=== PATIENT | female | born 1960 | race Caucasian/White ===

== ENCOUNTER 2020-01-21 15:27 | Outpatient (CLI) | payer MEDICARE, MEDICAID, SELFPAY ==
--- NOTE | ~2020-01-21 | XR_ITS ---
EXAMINATION: XR knee RT min 4V EXAM DATE: 01/21/2020 16:13 INDICATION: No known recent injury provided at this time. Pain of the right knee TECHNIQUE: Right knee lateral, frontal AP, frontal PA tunnel, sunrise projections. There is no prior study for comparison. FINDINGS: No evidence osteochondral defect or joint body in the right knee joint. There is moderate patellofemoral and medial tibiofemoral compartment primary osteoarthritis. There are no acute joint effusion. fractures or dislocations identified. There is no subcutaneous gas. The soft tissue is un remarkable. There are no radiopaque foreign bodies. IMPRESSION: Moderate right knee osteoarthritis. Reviewed, dictated and finalized at location A.
--- NOTE | ~2020-01-21 | US_ITS ---
EXAMINATION: US joint non vasc comp RT DATE: 01/21/2020 16:03 INDICATION: Specified medial right knee pain TECHNIQUE: Multiple grayscale and Doppler ultrasound images of the region of concern at the medial ri ght knee were obtained. COMPARISON: Right knee radiographs dated 01/21/2020 FINDINGS/IMPRESSION: No abnormal masses or fluid collections identified at the region of concern. No etiology identified f or medial right knee pain. Reviewed, dictated and finalized at location B.
== END 2020-01-21 15:28 | disposition home or self-care (01) ==
PROVIDERS: PCP Internal Medicine; Visit Provider Internal Medicine
DX: M25.569 Pain in unspecified knee (principal); M25.461 Effusion, right knee; M17.11 Unilateral primary osteoarthritis, right knee
CPT/HCPCS: 73564; 76881

== ENCOUNTER 2020-05-23 15:40 | Outpatient (CLI) | payer MEDICARE, MEDICAID, SELFPAY ==
--- NOTE | ~2020-05-23 | MM_ITS ---
EXAMINATION: MM screening [place] BI w caro HISTORY: Screening mammogram TECHNIQUE: Craniocaudal and mediolateral oblique 3-D tomosynthesis images were obtained and synthetic 2-D images were generated. CAD analysis was submitted and interpreted. COMPARISON: 01/13/2018 diagnostic left digital mammogram 01/05/2018 limited left breast ultrasound 12/30/2017, 11/08/2016 bilateral digital screening mammogram examinations BREAST PARENCHYMAL COMPOSITION: There are scattered areas of fibroglandular density. FINDINGS: There are scattered bilateral benign calcifications. There is stable mild fibroglandular asymmetry. There is no evidence of suspicious mass, calcification , or architectural distortion to suggest malignancy in either breast. There has been no suspicious in terval change. IMPRESSION: 1. No mammographic evidence of malignancy. 2. Recommend routine screening mammography in one year. BI-RADS Category 2: Benign finding(s). Reviewed, dictated and finalized at location A. VITY THERAPY SPECIALIST
== END 2020-05-23 15:41 | disposition home or self-care (01) ==
LOC: ANHIMG 15:45
PROVIDERS: PCP Internal Medicine; Visit Provider Internal Medicine
DX: Z12.31 Encounter for screening mammogram for malignant neoplasm of breast (principal)
CPT/HCPCS: 77063; 77067

== ENCOUNTER 2020-05-29 09:41 | Outpatient (CLI) | payer MEDICARE, MEDICAID, SELFPAY ==
[2020-05-29 10:11] LABS: Hematocrit 45.1 % (37.0-47.0); Hemoglobin 14.3 g/dL (12.0-15.0); Immature Platelet Fraction Pct 8.2 % (0.9-11.2); Mean Corpuscular HGB Conc 31.7 g/dl (32-36); Mean Corpuscular Hemoglobin 26.2 pg (26-34); Mean Corpuscular Volume 82.8 fl (80-100); Mean Platelet Volume 10.8 fl (7.4-10.4); Platelet Count Result 99 k/mm3 (150-375); Red Blood Count 5.45 M/mm3 (4.2-5.4); Red Cell Distribution Width 14.7 % (11.5-14.5); White Blood Count 8.4 K/mm3 (4.5-10.0)
[2020-05-29 10:23] LABS: Alanine Aminotransferase 29 U/L (4-35); Anion Gap 6 mmol/L (8-16); Aspartate Amino Transferase 30 U/L (14-36); Blood Urea Nitrogen 9 mg/dL (7-17); Calcium 9.1 mg/dL (8.4-10.2); Carbon Dioxide 29 mmol/L (22-30); Chloride 106 mmol/L (98-107); Cholesterol 222 mg/dL (0-200); Estimated Glomerular Filt Rate > 60; Glucose 127 mg/dL (65-105); HDL Direct 51 mg/dL; Potassium 3.8 mmol/L (3.4-5.0); Sodium 141 mmol/L (137-145); Triglycerides 174 mg/dL (<150); Uric Acid 6.4 mg/dL (2.5-7.5)
[2020-05-29 10:34] LABS: LDL Cholesterol Direct 129 mg/dL
[2020-05-29 10:48] LABS: Creatinine Urine 79.2 mg/dL
[2020-05-29 10:53] LABS: MALB Creatinine Ratio 7.6 mg/g (0-30)
[2020-05-29 11:03] LABS: Free T4 Free Thyroxine 1.19 ng/mL (0.78-2.19)
[2020-05-29 11:44] LABS: Folic Acid 16.7 ng/mL (2.76->20)
== END 2020-05-29 09:42 | disposition home or self-care (01) ==
LOC: ANHLAB 09:43
PROVIDERS: PCP Internal Medicine; Visit Provider Internal Medicine
DX: E66.01 Morbid (severe) obesity due to excess calories (principal); E88.81 Metabolic syndrome and other insulin resistance; I11.9 Hypertensive heart disease without heart failure; I73.9 Peripheral vascular disease, unspecified; R53.81 Other malaise; R53.83 Other fatigue
CPT/HCPCS: 36415; 80048; 80061; 82043; 82607; 82746; 83735; 84439; 84443; 84450; 84460; 84550; 85027; 85055

== ENCOUNTER 2023-04-29 11:39 | Outpatient (CLI) | payer MEDICARE, SELFPAY ==
--- NOTE | ~2023-04-29 | XR_ITS ---
XR chest 2V DATE: 04/29/2023 12:09 INDICATION: Shortness of breath and fatigue for 2 weeks TECHNIQUE: PA and lateral views COMPARISON: 01/21/2015 2 view chest FINDINGS: Normal heart size. Aortic calcification and mild tortuosity. No hilar or mediastinal enlarg ement. No pulmonary infiltrate or consolidation, pleural effusion or pulmonary vascular congestion or pneumo thorax. Diffuse idiopathic skeletal hyperostosis of the thoracic spine. IMPRESSION: No active cardiopulmonary disease Aortic calcification and mild tortuosity Diffuse idiopathic skeletal hyperostosis of the thoracic spine Reviewed, dictated and finalized at location B. EST MANAGER
== END 2023-04-29 11:40 | disposition home or self-care (01) ==
PROVIDERS: PCP Internal Medicine; Visit Provider Nurse Practitioner Family
DX: R06.09 Other forms of dyspnea (principal); I70.0 Atherosclerosis of aorta; M48.14 Ankylosing hyperostosis [Forestier], thoracic region
CPT/HCPCS: 71046

== ENCOUNTER 2023-05-17 15:12 | Outpatient (CLI) | payer MEDICARE, MEDICAID, SELFPAY ==
--- NOTE | ~2023-05-17 | XR_ITS ---
EXAMINATION: XR lumbar spine 6V w bending DATE: 05/17/2023 15:46 INDICATION: Spinal stenosis TECHNIQUE: Anteroposterior, lateral in neutral, flexion and extension, and bilateral oblique views of the lumbar spine, and cone-down lateral view of the lumbosacral junction were obtained. COMPARISON: MRI, 09/04/2015 FINDINGS: There are 6 mm of anterolisthesis of L4 on L5 which are increased from 2 mm since the sharan rison examination. There is no hypermobility with flexion or extension. There is moderate loss of int ervertebral disc space height at L4-5 and L5-S1. The vertebral body heights are maintained. There is no fracture. There is severe bilateral facet joint osteoarthritis at L4-5 and L5-S1. IMPRESSION: 1. Moderate lumbar spondylosis with interval worsening at L4-5. Reviewed, dictated and finalized at location B. OLOGIC TECHNOLOGIST MAMMOGRAM
== END 2023-05-17 15:13 | disposition home or self-care (01) ==
PROVIDERS: PCP Internal Medicine; Visit Provider Anesthesiology Pain Medicine
DX: M48.061 Spinal stenosis, lumbar region without neurogenic claudication (principal); M54.9 Dorsalgia, unspecified; M47.896 Other spondylosis, lumbar region
CPT/HCPCS: 72114

== ENCOUNTER 2023-10-10 01:37 | Day surgery (SDC) | payer MEDICARE, MEDICAID, SELFPAY ==
[2023-10-03 10:08] VITALS: BMI 47.2
--- NOTE | 2023-10-03 10:19 | PC.NURSE ---
Report to the Outpatient Waiting Room, entrance under the green pavilion located off [facility], at time _0630_ on date _[id number]_. Planned Procedure Time: _729_. Time changes happen often and if your time is changed the preop area will call you the afternoon before. - You and your visitor will be asked to self-screen and do not enter if you have any COVID symptoms. - A mask is optional within the hospital at this time. Eat a light breakfast before 530am and take morning medications. Nothing to eat or drink after 530am. Please no make-up, nail hungarian, hairspray, perfume, deodorant, or body powder the day of surgery. No jewelry (including any body piercings) or valuables the day of surgery, leave them at home. Please take a shower or bath the night before, or the morning of, surgery with an antibacterial soap. Wear comfortable, loose fitting clothing. - Jewelry must be removed prior to entering the operating room. Rings and piercings that are not removed may be cut off. - The hospital will not accept responsibility for valuables. - Please leave all valuables, including medications, at home the day of surgery. If you are going home after surgery, a licensed driver retraining instructor must drive you home. - NO public transportation without another adult if you receive anesthesia. - We recommend that an adult stay with you for 24 hours following discharge. - We also recommend that you do not drive, make important decision, drink alcoholic beverages, or take any drugs that were not prescribed by your health care provider for at least 24 hours after your discharge time. Follow any additional instructions given to you from your surgeon. If you or anyone in your household have experienced Covid symptoms in the past week, please notify your surgeon or the nurse liaison at the phone number below for possible testing. Telephone instructions given to _Ann_and asked if any additional questions and then verbalized understanding. Patient advised to call surgeon office or pre surgery nurse liaison [phone] if any additional questions.
[2023-10-10] VITALS (9 sets, daily range): BP systolic 155–207; BP diastolic 63–95; PULSE 75–90; RESP 16–18; TEMP 37.1; O2SAT 97–100
--- NOTE | ~2023-10-10 | XR_ITS ---
EXAMINATION: XR fluoroscopy no charge DATE: 10/10/2023 08:34 INDICATION: Primary osteoarthritis of the bilateral knees. Bilateral knee pain. TECHNIQUE: 9 intraoperative fluoroscopic views of the knees were obtained. I was not present. Fluoros copy exposure time is 1 minute 27 seconds. COMPARISON: Radiograph of the knees 08/17/2021. FINDINGS: There is severe osteoarthritis of the knees. There are multiple needles with contrast, cons istent with nerve blocks. IMPRESSION: 1. Severe osteoarthritis of the knees. 2. Multiple nerve blocks around the knees. Reviewed, dictated and finalized at location A.
--- NOTE | 2023-10-10 05:45 | PM.HPGS ---
History of Present Illness History of Present Illness Consent: Risks, benefits, and alternatives have been discussed and questions answered. Patient agrees to proceed with procedure. Chief complaint: pain bilat knees Narrative: Janell Islas is a 63 year old female with chronic, recalcitrant and disabling Bilateral knee pain secondary to degenerative osteoarthritis with failure to respond to aggressive conservative measures including PT, oral and topical analgesics, opioid and nonopioid analgesics, rest, time and activity/behavioral modification over the past 1-2 years who presents for diagnostic/ prognostic genicular and vastus intermedius nerve blocks bilaterally under fluoroscopic guidance and with contrast control. Review of Systems Review of Systems: Patient denies any new infectious, allergic, cardiopulmonary, neurologic or constitutional symptoms or changes in activity tolerance or exercise capacity including new or progressive SOB/GOMEZ, peripheral edema, productive cough, dysuria, nausea/vomiting, diarrhea, weight change, fevers/chills/night sweats, new or progressive neurologic deficit, cognitive or mood changes since last seen, except as documented in the HPI. All systems reviewed & are unremarkable except as noted in HPI and below PMFSH Past Medical History Medical History Anxiety Arthritis Asthma Claustrophobia History of adverse reaction to anesthesia Primary osteoarthritis of right knee Right knee DJD Sleep apnea Swelling of right knee joint Wears glasses Weight gain Surgical History Surgical History History of breast surgery Left side lymph node cancer 1980 Right side skin cancer History of left knee surgery History of prior ablation treatment Family History Family History Sibling Patient's sister is in good health Family history of diabetes mellitus in first degree relative Family history of malignant neoplasm of breast in first degree relative Father Cerebrovascular accident, Onset Age: 39 Patient's father is , Onset Age: 39 Asthma Mother Family history of diabetes mellitus in first degree relative, Onset Age: 72 Patient's mother is , Onset Age: 72 Other Depression Diabetes mellitus Family history of uterine cancer Hypertension Social History Social History Smoking status: Never smoker Second hand tobacco smoke exposure: Yes Alcohol intake: never Substance use: never Living arrangements: with family Occupation/Education: other Gender identity (if verbalized by the patient): Female Spiritual care concerns: No Meds Home Medications and Allergies Home Medications Medication Instructions Recorded Confirmed Type nebivolol 20 mg tablet (Bystolic) 20 mg PO DAILY #90 tabs 02/19/19 10/03/23 Rx baclofen 10 mg tablet 10 mg PO TID #90 tabs 09/04/19 10/03/23 Rx fluticasone propionate 50 2 spray intranasal DAILY 90 days 01/23/20 10/03/23 Rx mcg/actuation nasal #36.4 mL spray,suspension (Flonase Allergy Relief) chlorthalidone 50 mg tablet 50 mg PO DAILY 01/28/20 10/03/23 History diclofenac sodium 1 % topical gel See Rx Instructions .Route 05/29/20 10/03/23 Rx .COMPLEX #300 grams levocetirizine 5 mg tablet 5 mg PO DAILY 90 days #90 tabs 07/04/20 10/03/23 Rx venlafaxine 150 mg 150 mg PO DAILY #90 caps 07/18/20 10/03/23 Rx capsule,extended release 24 hr nifedipine 30 mg tablet,extended 30 mg PO BID 90 days #180 tabs 07/23/20 10/03/23 Rx release meloxicam 7.5 mg tablet 7.5 mg PO BID #60 tabs 01/05/21 10/03/23 Rx hydrocodone 10 mg-acetaminophen 1 tablet PO Q8H PRN Pain 05/17/23 10/03/23 History 325 mg tablet metformin 500 mg tablet 500 mg PO BID 05/17/23 10/03/23 History pregabalin 300
--- NOTE | 2023-10-10 05:50 | WPDHPUPDATE1 ---
History and Physical Update Update Date/Time: 10/10/23 05:50 History and Physical has been reviewed, including an updated exam of the patient. There are NO changes in the patient's condition. Risks, benefits, and alternatives have been discussed and questions answered. Patient agrees to proceed with procedure.
--- NOTE | 2023-10-10 05:52 | W.PM.PROC2 ---
Procedure Note - Detailed Date of Procedure 10/10/23 Pre-op Diagnosis primary osteoarthritis of the bilateral knees, bilateral knee pain Post-op Diagnosis Same Procedure Performed Diagnostic Blockade of the bilateral Superior Medial, Inferior Medial and Superior Lateral Genicular Nerves, Vastus Intermedius nerves ( # 1) addressing the bilateral knee joints under Fluoroscopic Guidance ([4] nerves blocked). Surgeon Kj Morton MD Anesthesia Local Description of Procedure INFORMED CONSENT: Risks, benefits and alternatives to the procedure were discussed in detail with the patient who expressed explicit understanding and consent to proceed. Patient was informed verbally and in written form regarding the risks associated with the procedure including the low risk of serious infection, bleeding/bruising, allergic reaction, nerve injury, paralysis, procedural site pain or discomfort, worsening pain and/or mobility, failure to treat and disfigurement. The patient expressed explicit understanding and consent to proceed. All materials required for the procedure were available prior to procedure start. Site and side was marked prior to procedure and confirmed in the presence of the patient. PROCEDURE IN DETAIL: The patient was brought to the procedural suite and placed in the supine position. Patient was made comfortable with use of pillows under the head/shoulder, knees and ankles. Skin overlying anterior, medial and lateral surface of the knee joint on the right side was prepared broadly with ChloraPrep applicator and draped in a sterile manner. Aseptic technique was used throughout. The intersection between the femoral shaft and the medial femoral condyle, lateral femoral condyle and between the medial tibial plateau and tibial shaft were visualized in the AP view, as well as the line bisecting the femur and perpendicular to the short axis of the joint space 6cm proximal to the superior border of the patella with the knee partially flexed at 120 degrees. Local anesthesia was established by infiltration with approximately 3 mL of 2% lidocaine via a 1-1/2 inch 27-gauge needle at the skin and soft tissues overlying each site. A 25-gauge 3.5 inch quincke spinal needle was advanced until the needle tip contacted periosteum at each location, and was then walked off medially to approximate the position of the Superior and Inferior Medial Genicular nerves or laterally to approximate the position of the Superior Lateral Genicular nerve, and just superficial to femoral periosteum 6cm proximal to the patella to block the Vastus intermedius nerve. Needle depth was verified in the lateral view revealing appropriate needle positioning at each location. 0.5ml of Omnipaque 300 contrast medium was injected at each site confirming appropriate perineural spread of contrast without evidence of intravascular or intra-articular spread. After repeat negative aspiration, 0.5-1.0ml of 0.5% PF Bupivacaine was injected at each site to block the respective nerves. Needle was removed completely intact without difficulty. the same exact procedure was completed in a similar fashion for the left knee, modified only for contralateral procedural site and needle placement, with similar results and no evidence of complication. Images were saved and documented in the patient chart. Patient's skin was cleansed and sterile bandage applied. The patient tolerated the procedure well. The patient was transported to the recovery area in stable condition where they were observed for an appropriate amount of time prior to discharge, without evidence of complication. Patient was instructed on the appropriate completion of a pain diary over the next 12-24 hours. The patient was instructed to avoid excessive activity for the next 48 hours, including climbing and frequent use of stairs. Showers only for 48 hours. They were instructed not to drive or operate heavy machinery for 24 hours. They are to monitor for severe he
[2023-10-10] MEDS: MIDAZOLAM HCL ORAL SYRUP (*CRX) 10 MG/5 ML UDC 7.5 MG PO (07:52)
[2023-10-10] MEDS: BUPivacaine HCL 0.5% 10 ML AMP INFILTRATE (08:09)
[2023-10-10] MEDS: LIDOCAINE HCL 1% LOCAL INJ 20 ML VIAL 5 ML INFILTRATE (08:10)
== END 2023-10-10 09:08 | disposition home or self-care (01) ==
PROVIDERS: PCP Internal Medicine; Visit Provider Anesthesiology Pain Medicine
PROC: (CPT 64454; principal; 2023-10-10 07:30)
DX: M17.0 Bilateral primary osteoarthritis of knee (principal); M25.561 Pain in right knee; M25.562 Pain in left knee; J45.909 Unspecified asthma, uncomplicated; F41.9 Anxiety disorder, unspecified; G47.30 Sleep apnea, unspecified; Z79.84 Long term (current) use of oral hypoglycemic drugs; Z79.85 Long-term (current) use of injectable non-insulin antidiabetic drugs; Z79.51 Long term (current) use of inhaled steroids
CPT/HCPCS: 64454; 99199; A9270; Q9965

== ENCOUNTER 2024-01-30 01:48 | Day surgery (SDC) | payer MEDICARE, MEDICAID, SELFPAY ==
[2024-01-24 09:41] VITALS: BMI 50.7
--- NOTE | 2024-01-24 09:42 | PC.NURSE ---
Report to the Outpatient Waiting Room, entrance under the green pavilion located off [facility], at time _0930_ on date _[id number]_. Planned Procedure Time: _1030_.? Time changes happen often and if your time is changed the preop area will call you the afternoon before. - You and your visitor will be asked to self-screen and do not enter if you have any COVID symptoms. Please call surgeon if you need to reschedule. - A mask is optional within the hospital at this time. Nothing to eat or drink 2 hours prior to procedure. Take only the following medications with a SIP of water on the morning of surgery: ___All medicines OK. DO NOT STOP ANY OF YOUR OTHER PRESCRIPTION MEDICATIONS PRIOR TO SURGERY EXCEPT THE FOLLOWING Medications to discontinue per physician __None Date to take last dose Please no make-up, nail citizen of [place], hairspray, perfume, deodorant, or body powder the day of surgery.? No jewelry (including any body piercings) or valuables the day of surgery, leave them at home.? Please take a shower or bath the night before, or the morning of, surgery with an antibacterial soap.? Wear comfortable, loose fitting clothing.? - Jewelry must be removed prior to entering the operating room.? Rings and piercings that are not removed may be cut off. - The hospital will not accept responsibility for valuables.? - Please leave all valuables, including medications, at home the day of surgery. If you are going home after surgery, a licensed forklift driver must drive you home.? - NO public transportation without another adult if you receive anesthesia. - We recommend that an adult stay with you for 24 hours following discharge. - We also recommend that you do not drive, make important decision, drink alcoholic beverages, or take any drugs that were not prescribed by your health care provider for at least 24 hours after your discharge time. Follow any additional instructions given to you from your surgeon. Telephone instructions given to __Ann__and asked if any additional questions and then verbalized understanding. Patient advised to call surgeon office or pre surgery nurse liaison [phone] if any additional questions.
[2024-01-30] VITALS (8 sets, daily range): BP systolic 154–192; BP diastolic 70–96; PULSE 64–79; RESP 16–18; TEMP 36.4; O2SAT 95–100; BMI 49.2
--- NOTE | ~2024-01-30 | XR_ITS ---
EXAMINATION: XR fluoroscopy no charge DATE: 01/30/2024 12:19 INDICATION: Temporary nerve the intervening bilateral knee joints TECHNIQUE: 13 fluoroscopic images of the bilateral knees were obtained during procedure performed by Dr. Morton. Radiologist was not present for the imaging or procedure. The amount of fluoroscopy time us ed during this procedure was 1.5 minutes. COMPARISON: None. FINDINGS: Images demonstrate needles with small amount of injected contrast near the needle tips positioned carlos ng the medial margin of the metaphyseal region of the proximal tibia and the anterior, medial and lat eral margins of the distal femoral metaphysis. This is seen on at both the left and right knees. Ther e is medial compartment predominant tricompartmental osteoarthritis of both knees. IMPRESSION: 1. Fluoroscopy utilized during pain management procedure at the bilateral knees. See procedure note f or further detail. Reviewed, dictated and finalized at location A. IMPRESSION: 1. Fluoroscopy utilized during pain management procedure at the bilateral knees . See procedure note for further detail.
--- NOTE | 2024-01-30 10:57 | PM.HPGS ---
History of Present Illness History of Present Illness Consent: Risks, benefits, and alternatives have been discussed and questions answered. Patient agrees to proceed with procedure. Chief complaint: oa bilateral Knees, bilateral knee pain Narrative: Janell Islas is a 63 year old female with chronic, recalcitrant and disabling bilateral knee pain secondary to degenerative osteoarthritis with failure to respond to aggressive conservative measures including PT, oral and topical analgesics, opioid and nonopioid analgesics, rest, time and activity/behavioral modification over the past 1-2 years who presents for diagnostic/prognostic genicular / vastus intermedius nerve blocks bilaterally(#1) addressing the bilateral knee jointsunder fluoroscopic guidance and with contrast control. Review of Systems Review of Systems: Patient denies any new infectious, allergic, cardiopulmonary, neurologic or constitutional symptoms or changes in activity tolerance or exercise capacity including new or progressive SOB/GOMEZ, peripheral edema, productive cough, dysuria, nausea/vomiting, diarrhea, weight change, fevers/chills/night sweats, new or progressive neurologic deficit, cognitive or mood changes since last seen, except as documented in the HPI. All systems reviewed & are unremarkable except as noted in HPI and below PMFSH Past Medical History Medical History Anxiety Arthritis Asthma Claustrophobia History of adverse reaction to anesthesia Primary osteoarthritis of right knee Right knee DJD Sleep apnea Swelling of right knee joint Wears glasses Weight gain Surgical History Surgical History History of breast surgery Left side lymph node cancer 1980 Right side skin cancer History of left knee surgery History of prior ablation treatment Family History Family History Sibling Patient's sister is in good health Family history of diabetes mellitus in first degree relative Family history of malignant neoplasm of breast in first degree relative Father Cerebrovascular accident, Onset Age: 39 Patient's father is , Onset Age: 39 Asthma Mother Family history of diabetes mellitus in first degree relative, Onset Age: 72 Patient's mother is , Onset Age: 72 Other Depression Diabetes mellitus Family history of uterine cancer Hypertension Social History Social History (Updated 11/28/23 @ 11:02 by Flor Isaac MA) Smoking status: Never smoker Second hand tobacco smoke exposure: Yes Alcohol intake: never Substance use: never Do You Feel Safe in your Home?: Yes Lack of Transportation: No Lack of Food: Sometimes True Current Housing: I Have Housing Concerned About Future Housing: No Difficulty Paying Gas/Electric Bills: No Difficulty Paying for Meds: No Currently Unemployed: No Education: High School Diploma/GED Living arrangements: with family Occupation/Education: other Gender identity (if verbalized by the patient): Female Spiritual care concerns: No Meds Home Medications and Allergies Home Medications Medication Instructions Recorded Confirmed Type nebivolol 20 mg tablet (Bystolic) 20 mg PO DAILY #90 tabs 02/19/19 01/24/24 Rx baclofen 10 mg tablet 10 mg PO TID #90 tabs 09/04/19 01/24/24 Rx diclofenac sodium 1 % topical gel See Rx Instructions .Route 05/29/20 01/24/24 Rx .COMPLEX #300 grams levocetirizine 5 mg tablet 5 mg PO DAILY 90 days #90 tabs 07/04/20 01/24/24 Rx venlafaxine 150 mg 150 mg PO DAILY #90 caps 07/18/20 01/24/24 Rx capsule,extended release 24 hr nifedipine 30 mg tablet,extended 30 mg PO BID 90 days #180 tabs 07/23/20 01/24/24 Rx release meloxicam 7.5 mg tablet 7.5 mg PO BID #60 tabs 01/05/21 01/24/24 Rx hydrocodone 10 mg-acetaminophen 1 tablet PO Q8H PRN Pain 05/17/23 01/24/24 History 325 mg tablet metformin 500 mg tablet 500 mg PO BID 05/17/23 01/24/24 History pregabalin 300 mg capsule (Lyrica) 300 mg PO TID 05/17/23 01/24/24 History semaglutide 1 mg/dose (4 mg/3 mL) 1 mg subcut WEEKLY 05/17/23 01/24/24 History subcutaneous pen injector (Ozempic) valsartan 320 1 tablet PO DAILY 05/17/23 01/24/24 History mg-hydrochlorothiazide 25 mg tablet azelastine 137 mcg (0.1 %) nasal See Rx Instructions .Route 09/19/23 01/24/24 Rx spray .COMPLEX 90 days #90 mL montelukast 10 mg tablet See Rx Instructions .Route 09/19/23 01/24/24 Rx .COMPLEX #90 tabs alprazolam 0.5 mg tablet 0.5 mg PO DAILY procedural anxiety 10/09/23 01/24/24 Rx #2 tabs Advair HFA 115 mcg-21 2 puff inhalation BID #12 grams 12/02/23 01/24/24 Rx mcg/actuation aerosol inhaler (fluticasone propion-salmeterol) albuterol sulfate 90 mcg/actuation See Rx Instructions .Route 01/06/24 01/24/24 Rx aerosol inhaler .COMPLEX #8.5 ea Allergies Allergy/AdvReac Type Severity Reaction Status Date / Time penicillin G Allergy Severe Anaphylaxis Verified 01/24/24 09:33 Penicillins Allergy Severe Anaphylaxis Verified 01/24/24 09:33 mold Allergy Mild Rash Verified 01/24/24 09:33 nickel Allergy Mild Hives Verified 01/24/24 09:33 olmesartan Allergy Mild Hives Verified 01/24/24 09:33 Exam Narrative: The patient's physical exam is essentially unchanged from prior examination on 11/28/2023. Specifically, patient demonstrates normal lung capacity, tidal volume and respiratory rate without wheezes, crackles, rales or rubs. Heart rate and rhythm are regular without murmurs, gallops or rubs. No JVD. Pulses 2+ globally without increasing peripheral edema. AAOx3, NC/AT without acute distress or altered consciousness. Speech, cognition, mood and judgment at baseline and within normal limits. Assessment and Plan Assessment and plan (1) Right knee DJD: Qualifiers: Osteoarthritis type: primary Qualified Code(s): M17.11 - Unilateral primary osteoarthritis, right knee Code(s): M17.11 - Unilateral primary osteoarthritis, right knee Status: Acute (2) Left knee DJD: Qualifiers: Osteoarthritis type: primary Qualified Code(s): M17.12 - Unilateral primary osteoarthritis, left knee Code(s): M17.12 - Unilateral primary osteoarthritis, left knee Status: Acute (3) Arthralgia of both knees: Code(s): M25.561 - Pain in right knee; M25.562 - Pain in left knee Status: Acute Plan proceed as planned with diagnostic/prognostic genicular nerve/vastus intermedius nerve blocks bilaterally under fluoroscopic guidance with contrast control to address bilateral knee pain related to degenerative osteoarthritis.
--- NOTE | 2024-01-30 11:00 | WPDHPUPDATE1 ---
History and Physical Update Update Date/Time: 01/30/24 11:00 History and Physical has been reviewed, including an updated exam of the patient. There are NO changes in the patient's condition. Risks, benefits, and alternatives have been discussed and questions answered. Patient agrees to proceed with procedure.
--- NOTE | 2024-01-30 11:00 | W.PM.PROC2 ---
Procedure Note - Detailed Date of Procedure 01/30/24 Pre-op Diagnosis oa bilateral Knees, bilateral knee pain Post-op Diagnosis Same Procedure Performed Diagnostic Blockade of the bilateral Superior Medial, Inferior Medial and Superior Lateral Genicular Nerves, Vastus Intermedius nerve under Fluoroscopic Guidance ( 8 nerves blocked). Surgeon Kj Morton MD Anesthesia Local Description of Procedure INFORMED CONSENT: Risks, benefits and alternatives to the procedure were discussed in detail with the patient who expressed explicit understanding and consent to proceed. Patient was informed verbally and in written form regarding the risks associated with the procedure including the low risk of serious infection, bleeding/bruising, allergic reaction, nerve injury, paralysis, procedural site pain or discomfort, worsening pain and/or mobility, failure to treat and disfigurement. The patient expressed explicit understanding and consent to proceed. All materials required for the procedure were available prior to procedure start. Site and side was marked prior to procedure and confirmed in the presence of the patient. PROCEDURE IN DETAIL: The patient was brought to the procedural suite and placed in the supine position. Patient was made comfortable with use of pillows under the head/shoulder, knees and ankles. Skin overlying anterior, medial and lateral surface of the knee joint on the right side was prepared broadly with ChloraPrep applicator and draped in a sterile manner. Aseptic technique was used throughout. The intersection between the femoral shaft and the medial femoral condyle, lateral femoral condyle and between the medial tibial plateau and tibial shaft were visualized in the AP view, as well as the line bisecting the femur and perpendicular to the short axis of the joint space 6cm proximal to the superior border of the patella with the knee partially flexed at 120 degrees. Local anesthesia was established by infiltration with approximately 3 mL of 2% lidocaine via a 1-1/2 inch 27-gauge needle at the skin and soft tissues overlying each site. A 25-gauge 3.5 inch quincke spinal needle was advanced until the needle tip contacted periosteum at each location, and was then walked off medially to approximate the position of the Superior and Inferior Medial Genicular nerves or laterally to approximate the position of the Superior Lateral Genicular nerve, and just superficial to femoral periosteum 6cm proximal to the patella to block the Vastus intermedius nerve. Needle depth was verified in the lateral view revealing appropriate needle positioning at each location. 0.5ml of Omnipaque 300 contrast medium was injected at each site confirming appropriate perineural spread of contrast without evidence of intravascular or intra-articular spread. After repeat negative aspiration, 0.5ml of 2.0% PF Lidocaine was injected at each site to block the respective nerves. Needle was removed completely intact without difficulty. the same exact procedure was repeated on the contralateral side, left genicular nerve blocks x3, vastus intermedius nerve blocks x1 in the exact same way modified only to allow for contralateral injection with similar result and no evidence of complication. Images were saved and documented in the patient chart. Patient's skin was cleansed and sterile bandage applied. The patient tolerated the procedure well. The patient was transported to the recovery area in stable condition where they were observed for an appropriate amount of time prior to discharge, without evidence of complication. Patient was instructed on the appropriate completion of a pain diary over the next 12-24 hours. The patient was instructed to avoid excessive activity for the next 48 hours, including climbing and frequent use of stairs. Showers only for 48 hours. They were instructed not to drive or operate heavy machinery for 24 hours. They are to monitor for severe headaches, fevers, chills, night sweats, erythema/swelling at the site or any other signs of infection, bleeding/bruising, bowel or bladder changes as well as new pain, weakness or numbness in the upper or lower extremity. Should they notice these changes, they are instructed to call our office immediately or report directly to the nearest Emergency Department if no answer or if after posted office hours. CONTRAST WASTED: 26 mL OMNIPAQUE 300. COMMENTS: NONE. COMPLICATIONS: NONE. Complications No immediate complications Condition Stable Disposition Same day [facility] Billing Surgery - Charge Forward: Surgery Billing
[2024-01-30] MEDS: LIDOCAINE HCL 2% PF INJ 5 ML VIAL INFILTRATE (11:55)
[2024-01-30] MEDS: LIDOCAINE HCL 1% LOCAL INJ 20 ML VIAL 7 ML INFILTRATE (11:56)
== END 2024-01-30 12:50 | disposition home or self-care (01) ==
PROVIDERS: PCP Internal Medicine; Visit Provider Anesthesiology Pain Medicine
PROC: (CPT 64454; principal; 2024-01-30 12:00)
DX: M17.0 Bilateral primary osteoarthritis of knee (principal); M25.562 Pain in left knee; M25.561 Pain in right knee; F41.9 Anxiety disorder, unspecified; J45.909 Unspecified asthma, uncomplicated; F40.240 Claustrophobia; G47.30 Sleep apnea, unspecified; Z79.891 Long term (current) use of opiate analgesic; Z79.84 Long term (current) use of oral hypoglycemic drugs; Z79.85 Long-term (current) use of injectable non-insulin antidiabetic drugs; Z79.51 Long term (current) use of inhaled steroids; Z98.890 Other specified postprocedural states; Z85.828 Personal history of other malignant neoplasm of skin; Z85.3 Personal history of malignant neoplasm of breast; Z80.3 Family history of malignant neoplasm of breast; Z80.49 Family history of malignant neoplasm of other genital organs; Z82.49 Family history of ischemic heart disease and other diseases of the circulatory system
CPT/HCPCS: 64454; 99199; J2003; Q9965

== ENCOUNTER 2024-05-08 00:36 | Day surgery (SDC) | payer MEDICARE, MEDICAID, SELFPAY ==
[2024-04-30 08:34] VITALS: BMI 46.9
--- NOTE | 2024-04-30 08:42 | PC.NURSE ---
Report to the Outpatient Waiting Room, entrance under the green pavilion located off [facility], at time _0830_ on date _[id number]_. Planned Procedure Time: _1030__.? Time changes happen often and if your time is changed the preop area will call you the afternoon before. - You and your visitor will be asked to self-screen and do not enter if you have any COVID symptoms. Please call surgeon if you need to reschedule. - A mask is optional within the hospital at this time. Nothing to eat or drink after midnight day of surgery. Take only the following medications with a SIP of water on the morning of surgery: ___Nebivilol, Venlafaxine, Nifedipine, Pregabalin, Azelaatine, Advair and if needed Alprazolam DO NOT STOP ANY OF YOUR OTHER PRESCRIPTION MEDICATIONS PRIOR TO SURGERY EXCEPT THE FOLLOWING Medications to discontinue per physician ___Hold Ozempic 10 days prior to surgery. Says was told to hold meloxicam 7 days and says was told not take Hydrocodone morning of surgery. Date to take last dose Please no make-up, nail qatari, hairspray, perfume, deodorant, or body powder the day of surgery.? No jewelry (including any body piercings) or valuables the day of surgery, leave them at home.? Please take a shower or bath the night before, or the morning of, surgery with an antibacterial soap.? Wear comfortable, loose fitting clothing.? - Jewelry must be removed prior to entering the operating room.? Rings and piercings that are not removed may be cut off. - The hospital will not accept responsibility for valuables.? - Please leave all valuables, including medications, at home the day of surgery. If you are going home after surgery, a licensed team truck driver must drive you home.? - NO public transportation without another adult if you receive anesthesia. - We recommend that an adult stay with you for 24 hours following discharge. - We also recommend that you do not drive, make important decision, drink alcoholic beverages, or take any drugs that were not prescribed by your health care provider for at least 24 hours after your discharge time. Follow any additional instructions given to you from your surgeon. Telephone instructions given to __Ann___and asked if any additional questions and then verbalized understanding. Patient advised to call surgeon office or pre surgery nurse liaison [phone] if any additional questions.
[2024-05-08] VITALS (13 sets, daily range): BP systolic 101–158; BP diastolic 62–88; PULSE 59–72; RESP 12–18; TEMP 36.1–36.3; O2SAT 92–100
--- NOTE | ~2024-05-08 | XR_ITS ---
INTRAOPERATIVE FLUOROSCOPY: CLINICAL HISTORY: 63 years old Female; RADIOFREQUENCY ABLATION OF GENICULAR NERVES PROCEDURE COMMENTS: Limited intraoperative fluoroscopy of the knee was performed. CUMULATIVE DOSE: 39.7 mGy FLUOROSCOPY TIME: 2 minutes and 8 seconds FINDINGS/IMPRESSION: Please refer to operative note for further details. Reviewed, dictated and finalized at location A. ULATOR TENDER
--- OUTSIDE RECORDS SUMMARY | 2024-05-08 00:40 | XMS_ITS | Encounter Summary ---
Author Organization [facility] Address [address] [place] [address] Phone Care Team Providers Care Stranner Name Role Phone Loy Dewey MD [facility] Jaswant García MD Primary Care Provider Reason for Visit * Reason Comments Medication Refill Encounter Details Date Type Department Care Team (Late st Contact Info) Description 02/18/2023 Refill [facility] [address] [place] [id number] Jaswant Leal MD [address] [address] Medication Refill Social History Tobacco Use Types Packs/Day Years Used Date Smoking Tobacco: Never Smokeless Tobacco: Never Alcohol Use Standard Drinks/Week Comments Not Currently 0 (1 standard drink = 0.6 oz pure alcohol) Past alcohol abuse- quit 1978 PHQ-2 Answer Date Recorded Total Score - Questions 1-9 0 08/10 Education Answer Date Recorded What is the highest level of school you have completed or the highest degree you have received? 12th grade 04/17/2022 Sexually Active Control Partners Comments Yes Male Comments No Sex and Gender Information Value Date Recorded Sex Assigned at Not on file Legal Sex Female 11:15 AM CDT Gender Identity Not on file Sexual Orientation Not on file documented as of this encounter Miscellaneous Notes * Telephone Encounter - Toshia Jensen RN - 02/18/2023 12:29 PM CST Medication failed the protocol, provider to review and approve the medication order if appropriate. Requested Prescriptions Pending Prescriptions Disp Refills Pregabalin 300 MG Capsule [Pharmacy Med Name: PREGABALIN 300 MG CAPSULE] 90 Capsule 0 Sig: TAKE 1 CAPSULE BY MOUTH THREE TIMES A DAY Not Delegated - Anticonvulsants Excluding Benzodiazepines Protocol Failed - 02/18/2023 11:06 AM Failed - This refill cannot be delegated Passed - Visit with relevant provider in past 12 months or upcoming 90 days Recent Visits Date Type Provider Dept 12/22/22 Office Visit Jaswant Leal MD [facility] 08/19/22 Office Visit Jaswant Leal MD [facility] 04/21/22 Office Visit Jaswant Leal MD [facility] 04/06/22 Office Visit Jaswant Leal MD [facility] Showing recent visits within past 365 days and meeting all other requirements Future Appointments Date Type Provider Dept 04/25/23 Appointment Jaswant Leal MD [facility] Showing future appointments within next 90 days and meeting all other requirements CTOR OF RESTAURANT OPERATIONS documented in this encounter Plan of Treatment Upcoming Encounters Date Type Department Care Team (Late st Contact Info) Description 05/11/2024 10:00 AM DIRECTOR OF RESTAURANT OPERATIONS [facility] [address] [place] [address] Jaswant Leal MD #[address] [address] Discharge Disposition: Discharged to home or Selfcare 05/11/2024 11:00 AM DIRECTOR OF RESTAURANT OPERATIONS [facility] [address] [place] [address] Jaswant Leal MD #[address] [address] Discharge Disposition: Discharged to home or Selfcare 08/17/2024 7:20 AM CDT Lab [facility] [id number] [address] [facility] 08/22/2024 3:30 PM CDT Office Visit [facility] - [facility] - [place] [address] [place] [address] Jaswant Leal MD [id number] [address] documented as of this encounter Visit Diagnoses Diagnosis Abdominal pain, RLQ Abdominal pain, right lower quadrant documented in this encounter Additional Health Concerns Assessment Noted Time PHQ-9 Depression Total Score: 0 09/04/19 22 1:00 PM CDT documented as of this encounter Care Teams Stranner Relationship Specialty Start Date End Date Jaswant Leal MD [address] [address] PCP - General Family Medicine 07/31/20 Loy Dewey MD Consulting Physician Obstetrics & Gynecology 03/31/16 documented as of this encounter
--- OUTSIDE RECORDS SUMMARY | 2024-05-08 00:40 | XMS_ITS | Encounter Summary ---
Author Organization [facility] Address [address] [place] [address] Phone Care Team Providers Care Paper Baler Name Role Phone Loy Dewey MD, Michael S MD Primary Care Provider [phone] Encounter Details Date Type Department Care Team (Late st Contact Info) Description 06/08/2021 Telephone [facility] Oncology Services [address] [place] [address] Anil Ricardo MD [address] [place] [address] Social History Tobacco Use Types Packs/Day Years Used Date Smoking Tobacco: Never Smokeless Tobacco: Never Alcohol Use Standard Drinks/Week Comments Not Currently 0 (1 standard drink = 0.6 oz pure alcohol) Past alcohol abuse- quit 1978 Education Answer Date Recorded What is the highest level of school you have completed or the highest degree you have received? Some college, no degree 05/30/2021 Sexually Active Control Partners Comments Yes Male Comments No Sex and Gender Information Value Date Recorded Sex Assigned at Not on file Legal Sex Female 11:15 AM CDT Gender Identity Not on file Sexual Orientation Not on file COVID-19 Exposure Response Date Recorded In the last month, have you been in contact with someone who was confirmed or suspected to have Coronavirus / COVID-19? No / Unsure 06/01/2021 1:55 PM PACK CHANGER documented as of this encounter Miscellaneous Notes * Telephone Encounter - Johana Argueta - 06/08/2021 9:46 AM CST Left a voicemail informing the patient that Dr. Stone and Dr. Ricardo did communicate about the patients plan for surgery and future infusions. Dr. Mesa is going to enter a referral for Dr. Stone office so that he can follow up with the patient to establish a plan. CHANGER documented in this encounter Plan of Treatment Upcoming Encounters Date Type Department Care Team (Late st Contact Info) Description 05/11/2024 10:00 AM PACK CHANGER [facility] 1 [place] [address] Jaswant Leal MD #[address] [address] Discharge Disposition: Discharged to home or Selfcare 05/11/2024 11:00 AM PACK CHANGER Appointment [facility] Ultrasound [address] [place] [address] Jaswant Leal MD #[address] [address] Discharge Disposition: Discharged to home or Selfcare 08/17/2024 7:20 AM CDT Lab [facility] #[address] [address] [facility]Anc[facility] 08/22/2024 3:30 PM CDT Office Visit [facility] - Family Medicine - [place] [address] [place] [address] Jaswant Leal MD #[address] [address] documented as of this encounter Visit Diagnoses Not on filedocumented in this encounter Additional Health Concerns Assessment Noted Time PHQ-9 Depression Total Score: 1 03/31/20 16 2:02 PM PACK CHANGER documented as of this encounter Care Teams Paper Baler Relationship Specialty Start Date End Date Jaswant Leal MD [address] [place] [address] PCP - General Family Medicine 07/31/20 Loy Dewey MD Consulting Physician Obstetrics & Gynecology 03/31/16 documented as of this encounter
--- OUTSIDE RECORDS SUMMARY | 2024-05-08 00:40 | XMS_ITS | Encounter Summary ---
Author Organization [facility] Address [address] [place] [address] Phone Care Team Providers Care Bilingual Executive Assistant Name Role Phone Loy Dewey MD, Michael S MD Primary Care Provider [phone] Reason for Referral * Radiology Services (Routine) - Closed Specialty Diagnoses / Procedures Referred By Contac t Referred To Contact Radiology Diagnoses Pre-op testing Procedures EKG 12 LEAD Cesar Candelaria APRN, CRNA Referral ID Status Reason Start Date Expiration Date Visits Re quested Visits Authorized [id number] Closed 01/23/2021 1 1 Encounter Details Date Type Department Care Team (Latest Contact Info) Description 01/23/2021 Transcribe Orders [facility] Preop/Pacu II 1 [place] [address] Cesar Candelaria APRN, CRNA Pre-op testing (Primary Dx) Social History Tobacco Use Types Packs/Day Years Used Date Smoking Tobacco: Never Smokeless Tobacco: Never Alcohol Use Standard Drinks/Week Comments Not Currently 0 (1 standard drink = 0.6 oz pure alcohol) Past alcohol abuse- quit 1978 Sexually Active Control Partners Comments Yes Male [...] have Coronavirus / COVID-19? No / Unsure 01/26/2021 2:18 PM CDT documented as of this encounter Plan of Treatment Upcoming Encounters Date Type Department Care Team (Late st Contact Info) Description 05/11/2024 10:00 AM FINISH MILL OPERATOR [facility] [place] [address] Jaswant Leal MD #[address] [address] Discharge Disposition: Discharged to home or Selfcare 05/11/2024 11:00 AM FINISH MILL OPERATOR Appointment [facility] Ultrasound 1 [facility] [place] [address] Jaswant Leal MD #[address] [address] Discharge Disposition: Discharged to home or Selfcare 08/17/2024 7:20 AM CDT Lab [facility] #[address] [address] [facility] Lab/Ancillary 08/22/2024 3:30 PM CDT Office Visit [facility] - Family Medicine - [place] [address] [place] [address] Jaswant Leal MD #[address] [address] documented as of this encounter Results * EKG 12 LEAD (01/28/2021 12:05 PM CDT) Ventricular Rate BPM EXTERNAL EKG Atrial Rate BPM EXTERNAL EKG P-R Interval 166 ms EXTERNAL EKG QRS Duration 86 ms EXTERNAL EKG Q-T Duration 412 ms EXTERNAL EKG QTC CALCULATION 439 ms EXTERNAL EKG P [place] 62 degrees EXTERNAL EKG R [place] -43 degrees EXTERNAL EKG T [place] 18 degrees EXTERNAL EKG 01/28/2021 12:0 5 PM CDT Impressions EXTERNAL EKG - 01/29/2021 10:06 AM CDT Sinus rhythm Left axis deviation Comparison Summary: No significant change Summary: Borderline ECG Compared with:07/25/2017 1:04 PM; 07/16/2016 9:38 AM No significant changes noted Confirmed by Morgan [email or web address] on 01/29/2021 10:06:23 AM Narrative Procedure Note Brittni Mora MD - 01/29/2021 IMPRESSION: Sinus rhythm Left axis deviation Comparison Summary: No significant change Summary: Borderline ECG Compared with:07/25/2017 1:04 PM; 07/16/2016 9:38 AM No significant changes noted Confirmed by Morgan Corea [id number] on 01/29/2021 10:06:23 AM us Cesar Bakeratzleonela LATHE OPERATOR, PUMP AND BLOWER OPERATOR IMG ECG ORDERABLES Final Result EXTERNAL EKG * (ABNORMAL) BASIC METABOLIC PANEL W/ CALCIUM TOTAL (01/28/2021 11:57 AM CDT) SODIUM 139 136 - 144 mmol/L 01/28/2021 2:15 PM CDT [facility] POTASSIUM 3.9 3.5 - 5.1 mmol/L 01/28/2021 2:15 PM CDT [facility] CHLORIDE 103 100 - 110 mmol/L 01/28/2021 2:15 PM CDT [facility] CO2, VENOUS 23 22 - 32 mmol/L 01/28/2021 2:15 PM CDT [facility] ANION GAP 16.9 8.0 - 20.0 mmol/L 01/28/2021 2:15 PM CDT [facility] GLUCOSE 92 70 - 99 mg/dL 01/28/2021 2:15 PM CDT [facility] BUN 16 6 - 20 mg/dL 01/28/2021 2:15 PM CDT [facility] CREATININE, BLOOD 0.59(L) 0.60 - 1.10 mg/dL 01/28/2021 2:15 PM CDT [facility] BUN/CREATININE RATIO 27(H) 12 - 20 ratio 01/28/2021 2:15 PM CDT [facility] CALCIUM 9.3 8.9 - 10.3 mg/dL 01/28/2021 2:15 PM CDT [facility] GFR, EST. NONAFRICAN >60 >=60 01/28/2021 2:15 PM CDT [facility] GFR, EST. >60 >=60 01/28/2021 2:15 PM CDT [facility] Comment: Creatinine Clearance is the preferred criteria for selecting drug dose adjustments in renally impaired patients. ??The GFR is provided as additional pertinent clinical information. GFR is reported in mL/min/1.73 sq m. IS THE PATIENT REQUIRED TO BE FASTING? No 01/28/2021 2:15 PM CDT [facility] Blood Venipuncture / Unknown 01/28/2021 11:57 AM CDT 01/28/2021 1:21 PM CDT us Cesar Candelaria LATHE OPERATOR, PUMP AND BLOWER OPERATOR CHEMISTRY ORDERABL ES Final Result [facility] [address] [place] [address] documented in this encounter Visit Diagnoses Diagnosis Pre-op testing- Primary Preoperative examination, unspecified Pre-op testing Preoperative examination, unspecified documented in this encounter Additional Health Concerns Assessment Noted Time PHQ-9 Depression Total Score: 1 03/31/20 16 2:02 PM FINISH MILL OPERATOR documented as of this encounter Care Teams Bilingual Executive Assistant Relationship Specialty Start Date End Date Jaswant Leal MD [address] [address] PCP - General Family Medicine 07/31/20 Loy Dewey MD Consulting Physician Obstetrics & Gynecology 03/31/16 documented as of this encounter
--- OUTSIDE RECORDS SUMMARY | 2024-05-08 00:40 | XMS_ITS | Encounter Summary ---
Author Organization [facility] Address [address] [place] [address] Phone Care Team Providers Care Soda Fountain Operator Name Role Phone Loy Dewey MD [facility] Jaswant Leal MD Primary Care Provider [phone] Reason for Visit * Reason Comments Medication Refill Encounter Details Date Type Department Care Team (Late st Contact Info) Description 11/21/2020 Refill [facility] #2 [place] [address] Jaswant Leal MD #[address] [address] Medication Refill Social History Tobacco Use Types Packs/Day Years Used Date Smoking Tobacco: Never Smokeless Tobacco: Never Alcohol Use Standard Drinks/Week Comments No 0 (1 standard drink = 0.6 oz pur e alcohol) Sexually Active Control Partners Comments Yes Male Comments No Sex and Gender Information Value Date Recorded Sex Assigned at Not on file Legal Sex Female 11:15 AM CDT Gender Identity Not on file Sexual Orientation Not on file documented as of this encounter Miscellaneous Notes * Telephone Encounter - Jaswant Leal MD - 11/21/2020 9:51 AM CDT Prescription approved. Please call in * Telephone Encounter - Toshia Jensen RN - 11/21/2020 9:33 AM CDT Last appt 09/18/20 Medication failed the protocol, provider to review and approve the medication order if appropriate. Requested Prescriptions Pending Prescriptions Disp Refills Diclofenac Sodium (VOLTAREN) 1 % Gel [Pharmacy Med Name: DICLOFENAC SODIUM 1% GEL] 300 g 2 Sig: APPLY 2 GRAMS 4 X A DAY TO ELBOW, WRIST OR HAND FOR HAND INCLUDES PALM/FINGERS/BACK OF HAND There is no refill protocol information for this order documented in this encounter Plan of Treatment Upcoming Encounters Date Type Department Care Team (Late st Contact Info) Description 05/11/2024 10:00 AM TECHNICAL LEAD [facility]ment [facility] 1 [facility] [place] [address] Jaswant Leal MD #[address] [address] Discharge Disposition: Discharged to home or Selfcare 05/11/2024 11:00 AM TECHNICAL LEAD [facility]ment [facility] Ul[facility] 1 [facility] [place] [address] Jaswant Leal MD #[address] [address] Discharge Disposition: Discharged to home or Selfcare 08/17/2024 7:20 AM CDT Lab [facility] #[address] [address] [place] Lab/Ancillary 08/22/2024 3:30 PM CDT Office [facility] [place] #2 [facility] [place] [address] Jaswant Leal MD #[address] [address] documented as of this encounter Visit Diagnoses Diagnosis Other intervertebral disc degeneration, lumbar region documented in this encounter Additional Health Concerns Assessment Noted Time PHQ-9 Depression Total Score: 1 03/31/20 16 2:02 PM TECHNICAL LEAD documented as of this encounter Care Teams Soda Fountain Operator Relationship Specialty Start Date End Date Jaswant Leal MD #[address] [facility] [place] [address] PCP - General Family Medicine 07/31/20 Loy Dewey MD Consulting Physician Obstetrics & Gynecology 03/31/16 documented as of this encounter
--- OUTSIDE RECORDS SUMMARY | 2024-05-08 00:40 | XMS_ITS | Encounter Summary ---
Author Organization [facility] Address [address] [place] [address] Phone Care Team Providers Care Hole Filler Name Role Phone Loy Dewey MD [facility] Jaswant García MD Primary Care Provider [phone] Reason for Visit * Reason Comments Medication Refill Encounter Details Date Type Department Care Team (Late st Contact Info) Description 04/28/2022 Refill [facility] #2 [place] [address] Jaswant Leal MD #[address] [address] Medication Refill Social History Tobacco Use Types [...] Exposure Response Date Recorded In the last 10 days, have nael nj been in contact with someone who was confirmed or suspected to have Coronavirus/COVID-19? No / Unsure 04/22/2022 12:55 PM HIGH FREQUENCY MILL OPERATOR documented as of this encounter Miscellaneous Notes * Telephone Encounter - Toshia Jensen RN - 04/29/2022 9:51 AM CST Images from the original note were not included. Triamcinolone Acetonide Dispensed Days Supply Quantity Provider Pharmacy TRIAMCINOLONE 0.1% CREAM 04/21/2022 30 80 g Jaswant Leal MD [id number] - ... FREQUENCY MILL OPERATOR documented in this encounter Plan of Treatment Upcoming Encounters Date Type Department Care Team (Late st Contact Info) Description 05/11/2024 10:00 AM HIGH FREQUENCY MILL OPERATOR [facility] 1 [place] [address] Jaswant Leal MD #[address] [address] Discharge Disposition: Discharged to home or Selfcare 05/11/2024 11:00 AM HIGH FREQUENCY MILL OPERATOR [facility] 1 [place] [address] Jaswant Leal MD #[address] [address] Discharge Disposition: Discharged to home or Selfcare 08/17/2024 7:20 AM CDT Lab [facility] #[address] [address] [place] Lab/Ancillary 08/22/2024 3:30 PM CDT Office Visit [facility] - [place] #2 [place] [address] Jaswant Leal MD #[address] [address] documented as of this encounter Visit Diagnoses Not on filedocumented in this encounter Additional Health Concerns Assessment Noted Time PHQ-9 Depression Total Score: 0 09/04/19 22 1:00 PM CDT documented as of this encounter Care Teams Hole Filler Relationship Specialty Start Date End Date Jaswant Leal MD #[address] [address] PCP - General Family Medicine 07/31/20 Loy Dewey MD Consulting Physician Obstetrics & Gynecology 03/31/16 documented as of this encounter
--- OUTSIDE RECORDS SUMMARY | 2024-05-08 00:40 | XMS_ITS | Encounter Summary ---
Author Organization [facility] Address [address] [place] [address] Phone Care Team Providers Care Newspaper Library Manager Name Role Phone Loy Dewey MD [facility] Jaswant García MD Primary Care Provider [phone] Reason for Visit * Reason Comments Medication Refill Encounter Details Date Type Department Care Team (Late st Contact Info) Description 01/09/2023 Refill [facility] [place] #2 [place] [id number] Jaswant Leal MD #[address] [address] Medication Refill Social History Tobacco Use Types [...] suspected to have Coronavirus/COVID-19? No / Unsure 12/21/2022 2:42 PM CDT documented as of this encounter Miscellaneous Notes * Telephone Encounter - Camila Toshia L, RN - 01/10/2023 2:19 PM CDT PRN medication requires review from provider Per nursing clinical judgement, provider to review and approve the medication(s) order(s) if appropriate. Requested Prescriptions Pending Prescriptions Disp Refills meloxicam (MOBIC) 7.5 MG Tablet [Pharmacy Med Name: MELOXICAM 7.5 MG TABLET] 60 Tablet 2 Sig: TAKE 1 TABLET BY MOUTH TWICE A DAY NEEDED FOR PAIN NSAIDs Protocol Passed - 01/09/2023 1:10 AM Passed - Normal serum creatinine in past 12 months CREATININE, BLOOD Date Value Ref Range Status 12/14/2022 0.85 0.60 - 1.00 mg/dL Final Passed - Visit with relevant provider in past 12 months or upcoming 90 days Recent Visits Date Type Provider Dept 12/22/22 Office Visit Jaswant Leal MD [facility] 08/19/22 Office Visit [facility]as[facility] Leal MD [facility] 04/21/22 Office Visit Jaswant Leal MD [facility] 04/06/22 Office Visit Jaswant Leal MD [facility] Kristopher Showing recent visits within past 365 days and meeting all other requirements Future Appointments No visits were found meeting these conditions. Showing future appointments within next 90 days and meeting all other requirements Passed - No matching NSAID med order in past 45 days No matching medication orders between 11/26/2022 2:19 PM and 01/10/2023 2:19 PM Passed - AST less than 55 or ALT less than 90 in past 12 months SGOT (AST) Date Value Ref Range Status 12/14/2022 32 5 - 34 U/L Final SGPT (ALT) Date Value Ref Range Status 12/14/2022 35 0 - 55 U/L Final Passed - HGB greater than 10 or HCT greater than 30 in past 12 months HEMOGLOBIN (HGB) Date Value Ref Range Status 04/06/2022 14.0 12.0 - 15.8 g/dL Final HEMATOCRIT (HCT) Date Value Ref Range Status 04/06/2022 45.0 36.0 - 47.0 % Final documented in this encounter Plan of Treatment Upcoming Encounters Date Type Department Care Team (Late st Contact Info) Description 05/11/2024 10:00 AM EL TEACHER Appointment [facility] Mammography 1 [place] [address] Jaswant Leal MD #[address] [address] Discharge Disposition: Discharged to home or Selfcare 05/11/2024 11:00 AM EL TEACHER Appointment [facility] Ultrasound 1 [place] [address] Jaswant Leal MD #[address] [address] Discharge Disposition: Discharged to home or Selfcare 08/17/2024 7:20 AM CDT Lab [facility] #[address] [address] [facility] [place] Lab/Ancillary 08/22/2024 3:30 PM CDT Office Visit [facility] - Family Medicine - [place] #2 [place] [address] Jaswant Leal MD #[address] [address] documented as of this encounter Visit Diagnoses Not on filedocumented in this encounter Additional Health Concerns Assessment Noted Time PHQ-9 Depression Total Score: 0 09/04/19 22 1:00 PM CDT documented as of this encounter Care Teams Newspaper Library Manager Relationship Specialty Start Date End Date Jaswant Leal MD #[address] [address] PCP - General Family Medicine 07/31/20 Loy Dewey MD Consulting Physician Obstetrics & Gynecology 03/31/16 documented as of this encounter
--- OUTSIDE RECORDS SUMMARY | 2024-05-08 00:40 | XMS_ITS | CONTINUITY OF CARE DOCUMENT ---
Author Name marlon mason Address Unknown Organization [facility] Address [address] [place] [address] Phone [phone] Care Team Providers Care Mixer Attendant Name Role Phone Esau Rodriguez MD Unavailable [phone] PRATIMA HDEZ, COLLINS Unavailable PRATIMA HDEZ, COLLINS Unavailable INSURANCE PROVIDERS Payer name Policy type / Coverage type [place] red green party ID [employer] [facility] [facility] [id number]
--- OUTSIDE RECORDS SUMMARY | 2024-05-08 00:40 | XMS_ITS | Encounter Summary ---
Author Organization [facility] Address [address] [place] [address] Phone Care Team Providers Care Advertising Dispatch Clerks Supervisor Name Role Phone Loy Dewey MD, Michael S MD Primary Care Provider [phone] Reason for Visit * Reason Comments Medication Refill Encounter Details Date Type Department Care Team (Late st Contact Info) Description 04/28/2022 Refill [facility] #2 [place] [address] Roby Coffey MD #1 [place] [address] Medication Refill Social History Tobacco Use Types [...] In the last 10 days, have nael u been in contact with someone who was confirmed or suspected to have Coronavirus/COVID-19? No / Unsure 04/22/2022 12:55 PM AIR BOX TESTER documented as of this encounter Miscellaneous Notes * Telephone Encounter - Brianne Beasley RN - 04/29/2022 9:43 AM AIR BOX TESTER Medication failed the protocol, provider to review and approve the medication order if appropriate. Requested Prescriptions Pending Prescriptions Disp Refills Pregabalin 300 MG Capsule [Pharmacy Med Name: PREGABALIN 300 MG CAPSULE] 90 Capsule 0 Sig: TAKE 1 CAPSULE BY MOUTH THREE TIMES A DAY Not Delegated - Anticonvulsants Excluding Benzodiazepines Protocol Failed - 04/28/2022 3:27 PM Failed - This refill cannot be delegated Passed - Visit with relevant provider in past 12 months or upcoming 90 days Recent Visits Date Type Provider Dept 04/21/22 Office Visit Jaswant Leal MD [facility] 04/06/22 Office Visit Jaswant Leal MD [facility] 12/11/21 Office Visit Jaswant Leal MD [facility] 09/03/21 Office Visit Jaswant Leal MD [facility] 06/01/21 Office Visit Jaswant Leal MD [facility] Showing recent visits within past 365 days and meeting all other requirements Future Appointments No visits were found meeting these conditions. Showing future appointments within next 90 days and meeting all other requirements BOX TESTER documented in this encounter Plan of Treatment Upcoming Encounters Date Type Department Care Team (Late st Contact Info) Description 05/11/2024 10:00 AM AIR BOX TESTER [facility] 1 [place] [address] Jaswant Leal MD #[address] [address] Discharge Disposition: Discharged to home or Selfcare 05/11/2024 11:00 AM AIR BOX TESTER [facility] 1 [place] [address] Jaswant Leal MD #[address] [address] Discharge Disposition: Discharged to home or Selfcare 08/17/2024 7:20 AM CDT Lab [facility] #[address] [address] [facility] [place] Lab/Ancillary 08/22/2024 3:30 PM CDT Office Visit [facility] - [place] #2 [place] [address] Jaswant Leal MD [facility]2 [facility] [address] documented as of this encounter Visit Diagnoses Diagnosis Abdominal pain, RLQ Abdominal pain, right lower quadrant documented in this encounter Additional Health Concerns Assessment Noted Time PHQ-9 Depression Total Score: 0 09/04/19 22 1:00 PM CDT documented as of this encounter Care Teams Advertising Dispatch Clerks Supervisor Relationship Specialty Start Date End Date Jaswant Leal MD #[address] [address] PCP - General Family Medicine 07/31/20 Loy Dewey MD Consulting Physician Obstetrics & Gynecology 03/31/16 documented as of this encounter
--- OUTSIDE RECORDS SUMMARY | 2024-05-08 00:40 | XMS_ITS | Clinical Summary ---
Author Organization [facility] Address [address] [address] Phone Care Team Providers Care Carpenter Supervisor Name Role Phone Loy Dewey MD, Michael S MD Primary Care Provider [phone] Allergies Active Allergy Reactions Criticality Noted Date Comments Lidocaine Hives 05/14/2016 Trichophyton Shortness of Breath Medium 03/31/2016 Nickel Hives Medium 03/31/2016 Penicillins Anaphylaxis High 03/31/2016 Ondansetron Hcl Shortness of Breath 07/21/2016 PT STATED SHE COULD NOT BREATH AFTER RECEIVING ZOFRAN Medications montelukast (SINGULAIR) 10 MG Tablet Take 10 mg by mouth daily. 1 016 Active Albuterol Sulfate (PROVENTIL HFA IN) take 2 Puffs by inhalation every 4 hours as needed. Active VENTOLIN HFA 108 (90 Base) MCG/ACT Aerosol Solution Take 90 mcg by mouth Every other day. Used for allergies, emergency as needed. 6 017 Active fluticasone (FLONASE) 50 MCG/ACT Suspension 1-2 Sprays by Nasal route Every other day. Reported on 08/23/2016 2 017 Active valsartan-hydroCHL OROthiazide (DIOVAN-HCT) 320-25 MG Tablet Take 1 Tab by mouth daily. Reported on 08/23/2016 017 Active Bystolic 10 MG Tablet Take 20 mg by mouth daily. 017 Active Diclofenac Sodium (VOLTAREN) 1 % GelIndications:Oth er intervertebral disc degeneration, lumbar region APPLY 2 GRAMS ONTO THE ELBOW/WRIST/PATE ND 4 TIMES DAILY 300 g 2 022 Active Advair HFA 115-21 MCG/ACT Aerosol INHALE 2 PUFFS TWICE A DAY, ADMINISTER WITH SPACER, RINSE AND SPIT Active Azelastine HCl 137 MCG/SPRAY Solution FOR 90 DAYS INSTILL 1 SPRAY INTO THE NOSTRILS ONCE EVERY 12 HOURS Active metFORMIN (GLUCOPHAGE) 500 MG Tablet TAKE 1 TABLET BY MOUTH TWICE A DAY WITH FOOD 180 Tablet 2 Active NIFEdipine CR (PROCARDIA-XL) 30 MG TABLET SR 24 HRIndications:Hype rtensive heart disease without heart failure TAKE 1 TABLET BY MOUTH TWICE A DAY 180 Tablet 2 024 Active chlorthalidone (HYGROTON) 50 MG Tablet TAKE 1 TABLET BY MOUTH EVERY DAY 90 Tablet 2 024 Active venlafaxine (EFFEXOR-XR) 150 MG CAPSULE SR 24 HRIndications:Post -traumatic stress disorder, chronic TAKE 1 CAPSULE BY MOUTH EVERY DAY 90 Capsule 2 024 Active Levocetirizine Dihydrochloride 5 MG TabletIndications: Chronic rhinitis TAKE 1 TABLET BY MOUTH EVERY DAY 90 Tablet 2 024 Active HYDROcodone-acetam inophen (NORCO) 10-325 MG TabletIndications: Low back pain, unspecified back pain laterality, unspecified chronicity, unspecified whether sciatica present Take 1 Tablet by mouth every 8 hours as needed for Moderate or more severe pain. 90 Tablet 025 Active meloxicam (MOBIC) 7.5 MG Tablet TAKE 1 TABLET BY MOUTH TWICE A DAY NEEDED FOR PAIN 60 Tablet 2 025 Active Pregabalin 300 MG CapsuleIndications :Abdominal pain, RLQ TAKE 1 CAPSULE BY MOUTH THREE TIMES A DAY 90 Capsule 1 025 Active Ozempic, 2 MG/DOSE, 8 MG/3ML Solution Pen-injector 2 mg by Subcutaneous route once a week. 3 mL 6 025 Active clotrimazole-betam ethasone (LOTRISONE) 1-0.05 % Cream Application Site: apply daily to right flank (Description and Location) 45 g Active terbinafine (LamISIL) 250 MG Tablet Take 1 Tablet by mouth daily for 84 days. 28 Tablet 2 025 2024 Active Tirzepatide (Mounjaro) 5 MG/0.5ML Solution Auto-injectorIndic ations:Obesity (BMI 30-39.9) 5 mg by Subcutaneous route every 7 days. 2 mL Active meloxicam (MOBIC) 7.5 MG Tablet TAKE 1 TABLET BY MOUTH TWICE A DAY NEEDED FOR PAIN 60 Tablet 2 024 2024 Discontinued Pregabalin 300 MG CapsuleIndications :Abdominal pain, RLQ TAKE 1 CAPSULE BY MOUTH THREE TIMES A DAY 90 Capsule 1 024 2024 Discontinued HYDROcodone-acetam inophen (NORCO) 10-325 MG TabletIndications: Low back pain, unspecified back pain laterality, unspecified chronicity, unspecified whether sciatica present Take 1 Tablet by mouth every 8 hours as needed for Moderate or more severe pain. 90 Tablet 024 2024 Discontinued(R eorder) Ozempic, 1 MG/DOSE, 4 MG/3ML Solution Pen-injector INJECT THE 1 MG UNDER THE SKIN ONCE WEEKLY 3 mL 1 024 2024 Discontinued(E rror) Active Problems Problem Noted Date Diagnosed Date Iron deficiency 03/12/2021 Positive STACY (antinuclear antibody) 03/12/2021 Chronic ITP (idiopathic thrombocytopenia) 2020 Thrombocytopenia 02/26/2021 Easy bruising 02/26/2021 Epistaxis 02/26/2021 Umbilical hernia without obstruction and without gangrene 06/07/2017 Right ureteral stone 05/20/2017 Abdominal pain, RLQ 05/20/2017 Diverticulosis of large intestine without hemorr berhane 05/20/2017 Dermoid cyst of right ovary 05/20/2017 DUB (dysfunctional uterine bleeding) 07/21/2016 Abnormal laboratory test Encounters Date Type Department Care Team Description 05/03/2024 Telephone [facility] [address] [place] [phone] Jaswant Leal MD Medication Management 04/27/2024 Results Follow-Up [facility] [address] [place] [address] Jaswant Leal MD 04/26/2024 3:30 PM BRAILLE PROOFREADER Office Visit [facility] [address] [place] [address] Jaswant Leal MD Essential hypertension (Primary Dx); Chronic obstructive pulmonary disease, unspecified COPD type (HCC); Low back pain, unspecified back pain laterality, unspecified chronicity, unspecified whether sciatica present; Encounter for long-term (current) use of medications; BMI 50.0-59.9, adult (HCC) Discharge Disposition: Discharged to home or Selfcare 04/25/2024 Travel 04/25/2024 Transcribe Orders [facility] Mammography 1 [place] [address] Jaswant Leal MD Breast mass in female (Primary Dx) 04/23/2024 8:10 AM BRAILLE PROOFREADER Lab [facility] [address] [address] [facility] Essential hypertension; Encounter for screening mammogram for malignant neoplasm of breast Discharge Disposition: Discharged to home or Selfcare 04/22/2024 Travel 04/22/2024 Refill [facility] [address] [place] [address] Jaswant Leal MD Medication Refill 04/21/2024 Refill [facility] [address] [place] [address] Jaswant Leal MD Medication Refill 04/18/2024 Refill [facility] [address] [place] [address] Jaswant Leal MD Medication Refill 04/18/2024 Travel 03/22/2024 [facility] [place] [address] Jaswant Leal MD Medication Refill 03/19/2024 [facility] [place] [address] Jaswant Leal MD Medication Refill 02/27/2024 [facility] [place] [address] Jaswant Leal MD Medication Refill 02/17/2024 [facility] [place] [address] Jaswant Leal MD Medication Refill 02/08/2024 [facility] [place] [address] Jaswant Leal MD Medication Refill from Last 3 Months Family History Medical History Relation Name Comments Cancer Brother 1 Que Bone No Known Problems Brother 2 Taz No Known Problems Brother 3 Zearing No Known Problems Brother 4 Matthew No Known Problems Brother 5 Roque Asthma Daughter Premature Daughter Heart Attack Father Fest[place] Hypertension Father Festus [place] No Known Problems Maternal Grandfather Cervical Cancer Maternal Grandmother Heart Disease Maternal Grandmother Cervical Cancer Mother No Known Problems Paternal Grandfather No Known Problems Paternal Grandmother No Known Problems Sister 1 Dione Cancer Sister 2 Alejandra No Known Problems Sister 3 Odette No Known Problems Sister 4 Brittany No Known Problems Sister 5 Ireine No Known Problems Sister 6 Vannesa No Known Problems Sister 7 Yen No Known Problems Sister 8 Angelia No Known Problems Sister 9 Janna No Known Problems Sister 10 Alicia Premature Son 1 Stil- No Known Problems Son 2 Relation Name Status Comments Brother 1 Que Brother 2 Taz Brother 3 Zearing Alive Brother 4 Matthew Brother 5 Roque Alive Daughter Alive Father Festus [place] Maternal Grandfather Maternal Grandmother Mother Paternal Grandfather Paternal Grandmother Sister 1 Dione Alive Sister 2 Alejandra Sister 3 Odette Alive Sister 4 Brittany Alive Sister 5 Ireine Alive Sister 6 Vannesa Alive Sister 7 Yen Alive Sister 8 Angelia Alive Sister 9 Janna Alive Sister 10 Alicia Alive Son 1 Son 2 Alive Social History Tobacco Use Types Packs/Day Years Used Date Smoking Tobacco: Never Smokeless Tobacco: Never Tobacco Cessation:Counseling Given: No Alcohol Use Standard Drinks/Week Comments Not Currently 0 (1 standard drink = 0.6 oz pure alcohol) Past alcohol abuse- quit 1978 [facility] Utilities Answer Date Recorded In the past 12 months has [employer] electric, gas, oil, or water company threatened to shut off services in your home? No 04/25/2024 Social Connection and Isolation Panel [NHANES] A nswer Date Recorded In a typical week, how many times do you talk on the phone with family, friends, or neighbors? Once a week 04/25/19 How often do you get togethe r with friends or relatives? Once a week 04/25/2024 How often do you attend chur ch or jewish services? 1 to 4 times per year 04/25/2024 Do you belong to any clubs o r organizations such as evangelical groups, unions, fraternal or athletic groups, or school groups? No 04/25/2024 How often do you attend meet ings of the clubs or organizations you belong to? Never 04/25/2024 Are you , , di vorced, , never , or living with a partner? 04/25/2024 AUDIT-C Answer Date Recorded Q1: How often do you have a drink containing alcohol? Never 04/25/2024 Q2: How many drinks containi ng alcohol do you have on a typical day when you are drinking? Patient does not drink Q3: How often do you have si x or more drinks on one occasion? Never 04/25/2024 Overall Financial Resource Strain (CARDIA) Answe r Date Recorded How hard is it for you to pa y for the very basics like food, housing, medical care, and heating? Not hard at all 04/25/2024 PHQ-2 Answer Date Recorded Total Score - Questions 1-9 0 12/10 [facility] of Occupat ional Health - Occupational Stress Questionnaire Answer Date Recorded Do you feel stress - tense, restless, nervous, or anxious, or unable to sleep at night because your mind is troubled all the time - these days? Only a little 04/25/2024 Exercise Vital Sign Answer Date Recorde d On average, how many days pe r week do you engage in moderate to strenuous exercise (like a brisk walk)? 1 day 04/25/2024 On average, how many minutes do you engage in exercise at this level? 10 min 04/25/2024 Hunger Vital Sign Answer Date Recorded Within the past 12 months, y ou worried that your food would run out before you got the money to buy more. Never true 04/25/19 25 Within the past 12 months, t he food you bought just didn't last and you didn't have money to get more. Never true 04/25/2024 PRAPARE - Transportation Answer Date Re corded In the past 12 months, has l ack of transportation kept you from medical appointments or from getting medications? No 04/11 In the past 12 months, has l ack of transportation kept you from meetings, work, or from getting things needed for daily living? No 04/25/2024 Housing Stability Vital Sign Answer Irving e Recorded In the last 12 months, was t here a time when you were not able to pay the mortgage or rent on time? No 08/23/2023 Number of Places Lived in the Last Year Not on f ile 08/23/2023 In the last 12 months, was t here a time when you did not have a steady place to sleep or slept in a custodial (including now)? No 08/23/2023 Housing Stability Vital Sign Answer Irving e Recorded In the last 12 months, was t here a time when you were not able to pay the mortgage or rent on time? No 04/25/2024 Number of Times Moved in the Last Year Not on fi le 04/25/2024 At any time in the past 12 m [facility], were you homeless or living in a custodial (including now)? No 04/25/2024 Education Answer Date Recorded What is the highest level of school you have completed or the highest degree you have received? 12th grade 04/17/2022 Sexually Active Control Partners Comments Yes Male Comments No Sex and Gender Information Value Date Recorded Sex Assigned at Not on file Legal Sex Female 11:15 AM CDT Gender Identity Not on file Sexual Orientation Not on file Last Filed Vital Signs Vital Sign Reading Time Taken Comments Blood Pressure 112/78 04/26/2024 3:17 PM BRAILLE PROOFREADER Pulse 50 04/26/2024 3:17 PM BRAILLE PROOFREADER Temperature 36.4 ??C (97.5 ??F) 04/26/2024 3:17 PM CS T Respiratory Rate 18 04/26/2024 3:17 PM BRAILLE PROOFREADER Oxygen Saturation 96% 04/26/2024 3:17 PM BRAILLE PROOFREADER Inhaled Oxygen Concentration - - Weight 126.4 kg (278 lb 11.2 oz) 04/26/2024 3:17 PM BRAILLE PROOFREADER Height 162.6 cm (5' 4 ) 04/26/2024 3:17 PM BRAILLE PROOFREADER Body Mass Index 47.84 04/26/2024 3:17 PM BRAILLE PROOFREADER Plan of Treatment Upcoming Encounters Date Type Department Care Team (Late st Contact Info) Description 05/11/2024 10:00 AM BRAILLE PROOFREADER Appointment [facility] 1 [place] [address] Jaswant Leal MD #[address] [address] Discharge Disposition: Discharged to home or Selfcare 05/11/2024 11:00 AM BRAILLE PROOFREADER Appointment [facility] [address] [place] [address] Jaswant Leal MD #[address] [address] Discharge Disposition: Discharged to home or Selfcare 08/17/2024 7:20 AM CDT Lab [facility] #[address] [address] [facility] [place] [facility]/Ancillary 08/22/2024 3:30 PM CDT [facility] [place] [address] [place] [address] Jaswant Leal MD [address] [address] Health Maintenance Due Date Last Done Comments TdaP Immunization 1962 Pneumococcal Immunization (5 0+ years) (1 of 2 - PCV) 1981 HPV/Cotest 1992 Colonoscopy 08/28/2007 Immunochemical Fecal Occult Blood 2012 Zoster Immunization (1 of 2) 2012 Respiratory Syncytial Virus (RSV) Immunization (Adult) (1 - Risk 60-74 years 1-dose series) 2022 Mammogram 10/14/2022 10/14/2021 Cervical Cancer Screening (CCS) 06/18/2023 Pap Smear 06/18/2023 06/17/2020 Influenza Immunization (#1) 2023 SARS-COV-2 Immunization ( season) 2023 Colorectal Cancer Screening 01/26/2024 Cologuard 01/24/2027 01/25/2024, 01/20/2024 Hepatitis C Virus (HCV) Screening Completed 03/06/2021 Hepatitis B Immunization Aged Out No longer eligible based on patient's age to complete this topic Meningococcal Immunization (ACWY) Aged Out No longer eligible b ased on patient's age to complete this topic Rotavirus Immunization Aged Out No lo nger eligible based on patient's age to complete this topic Procedures Procedure Name Priority Date/Time Associated Diagnosis Comments UR TOXICOLOGY SCREEN 04/27/2024 12:00 AM BRAILLE PROOFREADER THYROID STIMULATING HORMONE (TSH) Today 04/26/2024 4:01 PM BRAILLE PROOFREADER Essential hypertension Chronic obstructive pulmonary disease, unspecified COPD type (HCC) BMI 50.0-59.9, adult (HCC) CMP (COMPREHENSIVE METABOLIC PANEL) Routine 04/23/2024 7:37 AM BRAILLE PROOFREADER Essential hypertension Encounter for screening mammogram for malignant neoplasm of breast COLOGUARD 01/25/2024 12:00 AM CDT LARRY DIAG BILATERAL DIGITAL W CAD W ELLEN STAT 10/14/2021 1:32 PM CDT Mass of breast, unspecified laterality HEPATITIS C ANTIBODY Routine 03/06/2021 2:00 PM BRAILLE PROOFREADER Abnormal laboratory test Thrombocytopenia (HCC) Easy bruising Epistaxis PATHOLOGY CYTOLOGY MANUFACTURING ENGINEERING DIRECTOR Routine 06/17/2020 1:14 PM BRAILLE PROOFREADER DUB (dysfunctional uterine bleeding) Perimenopausal RLQ abdominal pain Dermoid cyst of right ovary from Last 3 Months or Most Recently Relevant to Health Maintenance Results * UR TOXICOLOGY SCREEN (04/27/2024 12:00 AM BRAILLE PROOFREADER) 04/27/2024 Jaswant Leal MD URINE ORDERABLES Final Result Performing Organization Address City/[facility]/ZIP Co de Phone Number SCAN * THYROID STIMULATING HORMONE (TSH) (04/26/2024 4:01 PM BRAILLE PROOFREADER) TSH 0.773 0.300 - 5.000 mIU/L 04/26/2024 5:14 PM BRAILLE PROOFREADER [facility] Blood Venipuncture / Unknown 04/26/2024 4:01 PM BRAILLE PROOFREADER 04/26/2024 4:34 PM BRAILLE PROOFREADER Jaswant Leal MD CHEMISTRY ORDERABLES Final Re sult [facility] [place] [address] * (ABNORMAL) CMP (COMPREHENSIVE METABOLIC PANEL) (04/23/2024 7:37 AM BRAILLE PROOFREADER) SODIUM 143 136 - 145 mmol/L 04/23/2024 12:52 PM BRAILLE PROOFREADER [facility] POTASSIUM 4.2 3.5 - 5.1 mmol/L 04/23/2024 12:52 PM BRAILLE PROOFREADER [facility] CHLORIDE 109(H) 98 - 107 mmol/L 04/23/2024 12:52 PM [facility] CO2, VENOUS 25 22 - 30 mmol/L 04/23/2024 12:52 PM [facility] ANION GAP 13.2 <18.0 mmol/L 04/23/2024 12:52 PM [facility] GLUCOSE 120(H) 70 - 99 mg/dL 04/23/2024 12:52 PM [facility] BUN 15 10 - 20 mg/dL 04/23/2024 12:52 PM [facility] CREATININE, BLOOD 0.84 0.60 - 1.00 mg/dL 04/23/2024 12:52 PM [facility] BUN/CREATININE RATIO 18 12 - 20 ratio 04/23/2024 12:52 PM [facility] TOTAL PROTEIN 7.9 6.3 - 8.2 g/dL 04/23/2024 12:52 PM [facility] ALBUMIN 4.1 3.5 - 5.0 g/dL 04/23/2024 12:52 PM [facility] A/G RATIO 1.1 1.0 - 2.2 04/23/2024 12:52 PM [facility] CALCIUM 9.5 8.7 - 10.5 mg/dL 04/23/2024 12:52 PM [facility] T BILI 0.5 0.2 - 1.2 mg/dL 04/23/2024 12:52 PM [facility] SGOT (AST) 17 5 - 34 U/L 04/23/2024 12:52 PM [facility] SGPT (ALT) 18 0 - 55 U/L 04/23/2024 12:52 PM [facility] ALKALINE PHOSPHATASE 85 40 - 150 U/L 04/23/2024 12:52 PM [facility] IS THE PATIENT REQUIRED TO BE FASTING? No 04/23/2024 12:52 PM [facility] GFR, ESTIMATED >60 >=60 04/23/2024 12:52 PM [facility] Comment: Creatinine Clearance is the preferred criteria for selecting drug dose adjustments in renally impaired patients. ??The GFR is provided as additional pertinent clinical information. GFR is reported in mL/min/1.73 sq m. Calculation based on the Chronic Kidney Disease Epidemiology Collaboration (CKD- EPI) equation refit without adjustment for race. GFR, EST. >60 >=60 025 12:52 PM BRAILLE PROOFREADER [facility] GFR, EST. NONAFRICAN >60 >=60 04/23/2024 12:52 PM BRAILLE PROOFREADER [facility] Blood Venipuncture / Unknown 04/23/2024 7:37 AM BRAILLE PROOFREADER 04/23/2024 7:37 AM BRAILLE PROOFREADER us Jaswant Leal MD CHEMISTRY ORDERABLES Final Re sult Performing Organization Address [facility] Co de Phone Number [facility] #[address] [place] [address] * COLOGUARD (01/25/2024 12:00 AM CDT) 01/25/2024 us Provider Scan BODY FLUIDS & STOOLS ORDERABLES Final Result Performing Organization Address [facility] Co de Phone Number SCAN * LARRY DIAG BILATERAL DIGITAL W CAD W ELLEN (10/14/2021 1:32 PM CDT) Anatomical Region Laterality Modality breast Bilateral Mammography 10/14/2021 1:13 PM CDT Narrative 10/14/2021 3:21 PM CDT - LARRY DIAG BILATERAL DIGITAL W CAD W ELLEN - LARRY US BREAST LIMITED LT BILATERAL DIGITAL DIAGNOSTIC MAMMOGRAM 3D/2D WITH CAD WITH MEDIOLATERAL OBLIQUE CRANIOCAUDAL AND TARGETED LEFT ULTRASOUND: 10/14/2021 The study was acquired using digital technology and interpreted from soft copy. Current study was also evaluated with ICAD version 7.2. 2D digital mammographic views, as well as 3D digital tomosynthesis were performed in the CC and MLO projections. ?? CLINICAL: Diagnostic study. Patient presents today with a resolving rash and tenderness of upper outer quadrant of left breast. Patient also states there being a pea sized bump on area of scar, but has gone away. Previous history of left breast cancer in 1983, no visible scar. Possible history of right breast cancer that patient states was a large black mole near nipple. Mother with breast cancer. Ultrasound area of focal pain left breast. ?? COMPARISONS: Comparison is made to exams dated: ??05/23/2020, 01/13/2018, 12/30/2017, and 11/08/2016 [facility]. ?? BREAST TISSUE:There are scattered fibroglandular densities in both breasts. ?? FINDINGS: ?? DIAGNOSTIC BILATERAL MAMMOGRAM A marker is placed at the site of the focal tenderness in the upper outer left breast. ??No mammographic abnormality is appreciated. ?? There are benign microcalcifications present bilaterally. ??Vascular calcifications are noted bilaterally. No other significant masses or calcifications are seen in either breast on the mammogram. TARGETED LEFT BREAST ULTRASOUND Targeted left breast ultrasound was performed in the region of interest as indicated by the patient. ??This correlates as the 2 o'clock position 11 cm from the nipple. ??No sonographic abnormalities appreciated. ??Incidentally noted is a normal intramammary lymph node. ?? IMPRESSION: OVERALL STUDY BIRADS: 2 BENIGN There is no mammographic or sonographic evidence of malignancy. The focal left breast pain should be managed clinically. A 1 year screening mammogram is recommended. ?? The results and recommendations were discussed with the patient. Electronically signed by: Rosa Elena Parker M.D. ? ab/:10/14/2021 14:00:09 ?? Electrical Tech/Project Manager(s): Zoey ?? RT Marcus(Natalia)(Aj), [facility]; Darline ?? RYLAN Duque, [facility] letter sent: Normal Exam Abnormal History ?? Reading location: [facility] OVERALL STUDY BIRADS: 2 Benign Procedure Note Rosa Elena Parker MD - 10/14/2021 - LARRY DIAG BILATERAL DIGITAL W CAD W ELLEN - LARRY US BREAST LIMITED LT BILATERAL DIGITAL DIAGNOSTIC MAMMOGRAM 3D/2D WITH CAD WITH MEDIOLATERAL OBLIQUE CRANIOCAUDAL AND TARGETED LEFT ULTRASOUND: 10/14/2021 The study was acquired using digital technology and interpreted from soft copy. Current study was also evaluated with ICAD version 7.2. 2D digital mammographic views, as well as 3D digital tomosynthesis were performed in the CC and MLO projections. CLINICAL: Diagnostic study. Patient presents today with a resolving rash and tenderness of upper outer quadrant of left breast. Patient also states there being a pea sized bump on area of scar, but has gone away. Previous history of left breast cancer in 1983, no visible scar. Possible history of right breast cancer that patient states was a large black mole near nipple. Mother with breast cancer. Ultrasound area of focal pain left breast. COMPARISONS: Comparison is made to exams dated: 05/23/2020, 01/13/2018, 12/30/2017, and 11/08/2016 [facility]. BREAST TISSUE:There are scattered fibroglandular densities in both breasts. FINDINGS: DIAGNOSTIC BILATERAL MAMMOGRAM A marker is placed at the site of the focal tenderness in the upper outer left breast. No mammographic abnormality is appreciated. There are benign microcalcifications present bilaterally. Vascular calcifications are noted bilaterally. No other significant masses or calcifications are seen in either breast on the mammogram. TARGETED LEFT BREAST ULTRASOUND Targeted left breast ultrasound was performed in the region of interest as indicated by the patient. This correlates as the 2 o'clock position 11 cm from the nipple. No sonographic abnormalities appreciated. Incidentally noted is a normal intramammary lymph node. IMPRESSION: OVERALL STUDY BIRADS: 2 BENIGN There is no mammographic or sonographic evidence of malignancy. The focal left breast pain should be managed clinically. A 1 year screening mammogram is recommended. The results and recommendations were discussed with the patient. Electronically signed by: Rosa Elena Parker M.D. ab/:10/14/2021 14:00:09 Electrical Tech/Project Manager(s): RT Marky(R)(M), [facility]; Darline Duque RDMS, [facility] letter sent: Normal Exam Abnormal History Reading location: [facility] OVERALL STUDY BIRADS: 2 Benign us Jaswant Leal MD IMG MAMMO ORDERABLES Final Re sult * HEPATITIS C ANTIBODY (03/06/2021 2:00 PM BRAILLE PROOFREADER) hepatitis C antibody 0.20 <1 S/[facility] ARCH [id number] 03/06/2021 9:54 PM BRAILLE PROOFREADER [facility] Comment: Signal/Cutoff ratio ??< 0.79 is Nondetected Signal/Cutoff ratio 0.80-0.99 is Grayzone Signal/Cutoff ratio > 0.99 is Detected Supplemental assays are recommended if signal/cutoff ratio is >/=1.00. ??Signal/cutoff ratio result >/= 5.00 is 97% predictive of positivity for recombinant immunoblot assay (RIBA) and will be reported to the [place] Department of Public [facility] as required. Blood Venipuncture / Unknown 03/06/2021 2:00 PM BRAILLE PROOFREADER 03/06/2021 2:28 PM BRAILLE PROOFREADER us Anil Olga Ricardo MD CHEMISTRY ORDERABLES Fin al Result [facility] [address] [place] [address], * PATHOLOGY CYTOLOGY MANUFACTURING ENGINEERING DIRECTOR (06/17/2020 1:14 PM BRAILLE PROOFREADER) SPECIMEN ADEQUACY Satisfactory for evaluation. Endocervical/transf ormation zone component is present. 07/02/2020 11:08 AM CDT [facility] GENERAL CATEGORY NEGATIVE FOR INTRAEPITHELIAL LESIONS OR MALIGNANCY. 07/02/2020 11:08 AM CDT [facility] DESCRIPTIVE DIAGNOSIS Reactive cellular changes associated with inflammation and repair. 07/02/2020 11:[address] [facility] R FINDINGS Trichomonas vaginalis present. 07/02/2020 11:08 AM CDT [facility] HPV Reflex if ASCUS? Yes 07/02/2020 11:[address] [facility] Automated Examination This sample was not evaluated by the automated imaging and review system ([employer], [employer], [place], [place]) due to technical and/or biologic factor(s). The case was screened, reviewed, and finalized by a golf sales manager and/or pathologist. 07/02/2020 11:08 AM CDT [facility] Disclaimer The PAP smear is a screening test designed to detect cancerous or precancerous cells of the uterine cervix. It is one of the best means available for detection of cervical cancer but still carries an inherent false-negative rate. The consequences of a false-negative PAP result can be minimized by adhering to current screening guidelines. The following are general guidelines recommended by the ACS, ASCP, ASCCP, and ACOG: PAP testing is recommended every three years for women 21-29, Co-Testing , a PAP test in conjunction with an HPV (Human Papillomavirus) test for women ages 30-65, and no PAP or HPV testing for women under the age of 21 or older than 65 unless clinically indicated. 07/02/2020 11:08 AM CDT [facility] Other (Cervix/Endocerv ix) Non-Phlebotomy Collection / Unknown 06/17/2020 1:14 PM BRAILLE PROOFREADER 06/18/2020 1:15 PM BRAILLE PROOFREADER us Lefty Stone MD PATHOLOGY/CYTOLOGY ORDERABLES Final Result Performing Organization Address City/State/[facility] Co de Phone Number [facility] [address] [place] [address], from Last 3 Months or Most Recently Relevant to Health Maintenance Insurance MEDICAID [place] MEDICARE C [employer] Advance Directives Documents on File Type Date Recorded Patient Benefits Consulting Analyst Expl anation Other Advance Directive 01/21/2021 1:31 PM Insurance Prior Auth for MANUFACTURING ENGINEERING DIRECTOR Surgery Care Teams Carpenter Supervisor Relationship Specialty Start Date End Date Jaswant Leal MD [address] [place] [address] PCP - General Family Medicine 07/31/20 Loy Dewey MD Consulting Physician Obstetrics & Gynecology 03/31/16
--- OUTSIDE RECORDS SUMMARY | 2024-05-08 00:40 | XMS_ITS | Clinical Summary ---
Author Organization [facility] Address [address] [place] [address] Care Team Providers Care Lead Enterprise Architect Name Role Phone Unavailable Primary Care Provider Unavailabl e Source Comments [facility],non-owned Affiliates and Associated Physician Practices is amultiple site organization consisting of ambulatory clinics and hospital sitesin [place], [place], [place] and [place]. This disclosure is being madepursuant to the Care Everywhere program and may not contain all information available regarding this patient. Last updated 17.[facility] [employer] Allergies Active Allergy Reactions Criticality Noted Date Comments Lidocaine Urticaria Medium 05/14/2016 Nickel Urticaria Medium 03/31/2016 Ondansetron Shortness of Breath High 07/21/2016 PT STATED SHE COULD NOT BREATH AFTER RECEIVING ZOFRAN Penicillins Anaphylaxis High 03/31/2016 Trichophyton Shortness of Breath High 03/31/2016 Medications * Be aware that medications may not be up to date on this document. Alwaysverify current medications with the patient. Medication Sig Dispensed Refills Start Date End Date Status albuterol HFA (PROVENTIL; VENTOLIN; PROAIR) 108 (90 Base) MCG/ACT inhaler INHALE 1-2 PUFFS EVERY 4-6 HOURS NEEDED FOR SHORTNESS OF BREATH OR WHEEZING 06/21/2021 Active ALPRAZolam (XANAX) 0.5 MG tablet Take 0.5 mg by mouth once daily Active SYMBICORT 160-4.5 MCG/ACT inhaler 07/12/2021 Active chlorthalidone (HYGROTON) 50 MG tablet Take 1 tablet by mouth once daily 10/06/2020 Active diclofenac sodium (VOLTAREN) 1 % gel APPLY 2 GRAMS ONTO THE ELBOW/WRIST/HAND (PALM/FINGERS/BACK OF HAND) 4 TIMES DAILY 07/02/2021 Active HYDROcodone-acetamino phen (NORCO) 10-325 MG tablet Take 1 tablet by mouth every 8 hours as needed 07/06/2021 Active meloxicam (MOBIC) 7.5 MG tablet TAKE 1 TABLET BY MOUTH TWICE A DAY NEEDED FOR PAIN 06/22/2021 Active levocetirizine (XYZAL) 5 MG tablet Take 5 mg by mouth once daily 05/28/2021 Active pregabalin (LYRICA) 300 MG capsule TAKE 1 CAPSULE BY MOUTH TWICE A DAY 06/26/2021 Active venlafaxine XR 24hr (EFFEXOR XR) 150 MG capsule Take 150 mg by mouth once daily 05/28/2021 Active Family History Medical History Relation Name Comments Cancer - Ovarian Mother Relation Name Status Comments Mother Social History Tobacco Use Types Packs/Day Years Used Date Smoking Tobacco: Never Smokeless Tobacco: Never Sex and Gender Information Value Date Recorded Sex Assigned at Not on file Gender Identity Not on file Sexual Orientation Not on file Last Filed Vital Signs Vital Sign Reading Time Taken Comments Blood Pressure 148/90 07/14/2021 3:25 PM CDT Pulse - - Temperature - - Respiratory Rate - - Oxygen Saturation - - Inhaled Oxygen Concentration - - Weight 133.6 kg (294 lb 8 oz) 07/14/2021 3:25 PM CDT Height 162.6 cm (5' 4 ) 07/14/2021 3:25 PM CDT Body Mass Index 50.55 07/14/2021 3:25 PM CDT Plan of Treatment Health Maintenance Due Date Last Done Comments COLOGUARD (AGES 45-75) - COL ON CA SCREENING 1962 COLON MONITORING 1962 COLONOSCOPY - COLON CA SCREENING 1962 CT COLONOGRAPHY - COLON CA SCREENING 1962 Colorectal Cancer Screening 1962 FIT - COLON CA SCREENING 1962 FLEX SIG - COLON CA SCREENING 1962 LIPID TESTING 1962 MAMMOGRAM 1962 PAP SMEAR 1962 HIV SCREENING 1977 HEPATITIS C SCREENING 08/22/1980 DTAP/TDAP/TD VACCINES (1 - Tdap) 1981 PNEUMOCOCCAL VACCINE 50+ (1 of 1 - PCV) 2012 ZOSTER VACCINE (1 of 2) 2012 SCREENING FOR DIABETES 07/14/2021 Respiratory Syncytial Virus (RSV) Vaccine Pt: or over 60 yrs (1 - Risk 60-74 years 1-dose series) 2022 COVID-19 VACCINE (1 - 2023-2 5 season) 2023 INFLUENZA VACCINE (#1) 2023 DEPRESSION SCREENING 04/11/2024 MEDICARE AWV ? CALENDAR YEAR 2024 HEPATITIS B VACCINE Aged Out No longe r eligible based on patient's age to complete this topic HIB VACCINE Aged Out No longer eligi ble based on patient's age to complete this topic HPV VACCINE Aged Out No longer eligi ble based on patient's age to complete this topic MENINGOCOCCAL (Group B) VACCINE Aged Out No longer eligible based on patient's age to complete this topic MENINGOCOCCAL VACCINE Aged Out No socrates roseanna eligible based on patient's age to complete this topic PNEUMOCOCCAL VACCINE Aged Out No long er eligible based on patient's age to complete this topic
--- OUTSIDE RECORDS SUMMARY | 2024-05-08 00:40 | XMS_ITS | Encounter Summary ---
Author Organization [facility] Address [address] [place] [address] Phone Care Team Providers Care Power Lineman Technician Name Role Phone Loy Dewey MD [facility] Jaswant García MD Primary Care Provider Encounter Details Date Type Department Care Team (Late st Contact Info) Description 01/22/2021 Transcribe Orders [facility] Preop/Pacu II 1 [place] [phone] Tl Adams MD #[address] [address] Pre-op testing (Primary Dx) Social History Tobacco [...] have Coronavirus / COVID-19? No / Unsure 01/22/2021 11:13 AM CDT documented as of this encounter Plan of Treatment Upcoming Encounters Date Type Department Care Team (Late st Contact Info) Description 05/11/2024 10:00 AM TEST DEVELOPMENT ENGINEER [facility]ointment [facility] M[facility] [address] [place] [address] Jaswant Leal MD #[address] [address] Discharge Disposition: Discharged to home or Selfcare 05/11/2024 11:00 AM TEST DEVELOPMENT ENGINEER [facility]ointment [facility] Ultrasound [address] [place] [address] Jaswant Leal MD #[address] [address] Discharge Disposition: Discharged to home or Selfcare 08/17/2024 7:20 AM CDT Lab [facility] #[address] [address] [facility] Lab/Ancillary 08/22/2024 3:30 PM CDT Office Visit [facility] Medical Group - Family Medicine - [place] [address] [place] [address] Jaswant Leal MD #[address] [address] documented as of this encounter Results * SARS-COV-2 BY MOLECULAR (01/28/2021 12:03 PM CDT) SARSCOV2 NOT DETECTED (Referen ce Range for this test is Not Detected ) [facility] THERMOFISHER FAST DX 01/29/2021 8:50 AM CDT [facility] Comment:This test was perfor med by a RT-PCR method. Other NASOPHARYNGEAL STRUCTURE / Unknown Non-Phlebotomy Collection / Unknown 01/28/2021 12:03 PM CDT 01/28/2021 1:[address] [facility] - 01/29/2021 8:50 AM CDT Authorized Fact Sheets about this test for providers and patients are available at: https://www.fda.gov/medical-devices/jkwceastd-exvcnvfvtd-urjrrfw-devices/emergen -us e-authorizations us Tl Adams MD MICROBIOLOGY - GENERAL ORDERABLE S Final Result [facility] [address] [place] [address], documented in this encounter Visit Diagnoses Diagnosis Pre-op testing- Primary Preoperative examination, unspecified documented in this encounter Additional Health Concerns Assessment Noted Time PHQ-9 Depression Total Score: 1 03/31/20 16 2:02 PM TEST DEVELOPMENT ENGINEER documented as of this encounter Care Teams Power Lineman Technician Relationship Specialty Start Date End Date Jaswant Leal MD #[address] [address] PCP - General Family Medicine 07/31/20 Loy Dewey MD Consulting Physician Obstetrics & Gynecology 03/31/16 documented as of this encounter
--- OUTSIDE RECORDS SUMMARY | 2024-05-08 00:40 | XMS_ITS | Encounter Summary ---
Author Organization [facility] Address [address] [place] [address] Phone Care Team Providers Care Professor Of Chemistry Name Role Phone Loy Dewey MD [facility] Jaswant García MD Primary Care Provider Reason for Visit * Reason Comments Medication Refill Encounter Details Date Type Department Care Team (Late st Contact Info) Description 05/30/2022 Refill [facility] [address] [place] [id number] Jaswant Leal MD #[address] [address] Medication Refill Social History Tobacco Use Types [...] Telephone Encounter - Toshia Jensen RN - 05/31/2022 10:11 AM CST PDMP 04/29/22 - Rx can have up to 5 refills (6 months) if appropriate Medication failed the protocol, provider to review and approve the medication order if appropriate. Requested Prescriptions Pending Prescriptions Disp Refills Pregabalin 300 MG Capsule [Pharmacy Med Name: PREGABALIN 300 MG CAPSULE] 90 Capsule Sig: TAKE 1 CAPSULE BY MOUTH THREE TIMES A DAY Not Delegated - Anticonvulsants Excluding Benzodiazepines Protocol Failed - 05/30/2022 10:00 AM Failed - This refill cannot be delegated Passed - Visit with relevant provider in past 12 months or upcoming 90 days Recent Visits Date Type Provider Dept 04/21/22 Office Visit Jaswant Leal MD [facility] 04/06/22 Office Visit Jaswant Leal MD [facility] 12/11/21 Office Visit Jaswant Leal MD [facility] 09/03/21 Office Visit Jaswant Leal MD [facility] 06/01/21 Office Visit Jaswant Leal MD [facility] Showing recent visits within past 365 days and meeting all other requirements Future Appointments Date Type Provider Dept 08/19/22 Appointment Jaswant Leal MD [facility] Showing future appointments within next 90 days and meeting all other requirements HOUSE WHEELER documented in this encounter Plan of Treatment Upcoming Encounters Date Type Department Care Team (Late st Contact Info) Description 05/11/2024 10:00 AM DRY HOUSE WHEELER [facility]ment [facility] 1 [place] [address] Jaswant Leal MD #[address] [address] Discharge Disposition: Discharged to home or Selfcare 05/11/2024 11:00 AM DRY HOUSE WHEELER [facility]ment [facility] 1 [place] [address] Jaswant Leal MD #[address] [address] Discharge Disposition: Discharged to home or Selfcare 08/17/2024 7:20 AM CDT Lab [facility] [id number] [address] [facility] [place] Lab/Ancillary 08/22/2024 3:30 PM CDT [facility] Visit [facility] - [facility] - [place] [address] [place] [address] Jaswant Leal MD #[address] [address] documented as of this encounter Visit Diagnoses Diagnosis Abdominal pain, RLQ Abdominal pain, right lower quadrant documented in this encounter Additional Health Concerns Assessment Noted Time PHQ-9 Depression Total Score: 0 09/04/19 22 1:00 PM CDT documented as of this encounter Care Teams Professor Of Chemistry Relationship Specialty Start Date End Date Jaswant Leal MD [address] [address] PCP - General Family Medicine 07/31/20 Loy Dewey MD Consulting Physician Obstetrics & Gynecology 03/31/16 documented as of this encounter
--- OUTSIDE RECORDS SUMMARY | 2024-05-08 00:40 | XMS_ITS | Encounter Summary ---
Author Organization [facility] Address [address] [place] [address] Phone Care Team Providers Care High Energy Forming Equipment Operator Name Role Phone Loy Dewey MD [facility] Jaswant García MD Primary Care Provider [phone] Encounter Details Date Type Department Care Team (Late st Contact Info) Description 09/04/2020 Transcribe Orders [facility] Preop/Pacu II 1 [place] [address] Lefty Stone MD #[address] [place] [address] Pre-op testing (Primary Dx); Postmenopausal bleeding Social History Tobacco Use Types Packs/Day Years [...] have Coronavirus / COVID-19? No / Unsure 09/03/2020 3:40 PM CDT documented as of this encounter Plan of Treatment Upcoming Encounters Date Type Department Care Team (Late st Contact Info) Description 05/11/2024 10:00 AM STAFF COMBAT INFORMATION CENTER OFFICER [facility] 1 [place] [address] Jaswant Leal MD #[address] [address] Discharge Disposition: Discharged to home or Selfcare 05/11/2024 11:00 AM STAFF COMBAT INFORMATION CENTER OFFICER [facility] 1 [place] [address] Jaswant Leal MD #[address] [address] Discharge Disposition: Discharged to home or Selfcare 08/17/2024 7:20 AM CDT Lab [facility] #[address] [address] [facility] Lab/Ancillary 08/22/2024 3:30 PM CDT Office Visit [facility] Medical Group - Family Medicine - [place] #[address] [place] [address] Jaswant Leal MD #[address] [address] documented as of this encounter Results * SARS-COV-2 BY MOLECULAR (09/13/2020 9:46 AM CDT) SARSCOV2 NOT DETECTED (Referen ce Range for this test is Not Detected ) [facility] THERMOFISHER FAST DX 09/14/2020 1:06 PM CDT [facility] Comment:This test was perfor med by a RT-PCR method. Other NASOPHARYNGEAL STRUCTURE / Unknown Non-Phlebotomy Collection / Unknown 09/13/2020 9:46 AM CDT 09/13/2020 10:55 AM CDT Narrative [facility] - 09/14/2020 1:06 PM CDT Authorized Fact Sheets about this test for providers and patients are available at: https://www.fda.gov/medical-devices/drugevuqy-cfyvootvuk-wpoebqw-devices/emergen -us e-authorizations us Lefty Stone MD MICROBIOLOGY - GENERAL ORDERAB LES Final Result Performing Organization Address City/State/[facility] Co de Phone Number [facility] [address] [place] [address], documented in this encounter Visit Diagnoses Diagnosis Pre-op testing- Primary Preoperative examination, unspecified Postmenopausal bleeding documented in this encounter Additional Health Concerns Assessment Noted Time PHQ-9 Depression Total Score: 1 03/31/20 16 2:02 PM STAFF COMBAT INFORMATION CENTER OFFICER documented as of this encounter Care Teams High Energy Forming Equipment Operator Relationship Specialty Start Date End Date Jaswant Leal MD #[address] [address] PCP - General Family Medicine 07/31/20 Loy Dewey MD Consulting Physician Obstetrics & Gynecology 03/31/16 documented as of this encounter
--- OUTSIDE RECORDS SUMMARY | 2024-05-08 00:40 | XMS_ITS | Encounter Summary ---
Author Organization [facility] Address [address] [place] [address] Phone Care Team Providers Care Jumpbasting Armhole Baster Name Role Phone Loy Dewey MD, Michael S MD Primary Care Provider [phone] Reason for Visit * Reason Comments Medication Refill Encounter Details Date Type Department Care Team (Late st Contact Info) Description 03/24/2023 Refill [facility] - [facility] Medicine - [place] #2 [place] [address] Veronica Sanchez APRN, SENIOR CATEGORY MANAGER #[address] [address] Medication Refill Social History Tobacco Use Types [...] Telephone Encounter - Toshia Jensen RN - 03/25/2023 9:11 AM CST Medication failed the protocol, provider to review and approve the medication order if appropriate. Requested Prescriptions Pending Prescriptions Disp Refills venlafaxine (EFFEXOR-XR) 150 MG CAPSULE SR 24 HR [Pharmacy Med Name: VENLAFAXINE HCL ER 150 MG CAP]90 Capsule 2 Sig: TAKE 1 CAPSULE BY MOUTH EVERY DAY SNRI (6 Month Refill Only) Protocol Failed - 03/24/2023 4:20 PM Failed - Has an encounter in the past 6 months with a depression or anxiety visit diagnosis Passed - Visit with relevant provider in past 6 months or upcoming 90 days Recent Visits Date Type Provider Dept 12/22/22 Office Visit Jaswant Leal MD [facility] Showing recent visits within past 182 days and meeting all other requirements Future Appointments Date Type Provider Dept 04/25/23 Appointment Jaswant Leal MD [facility] Showing future appointments within next 90 days and meeting all other requirements Passed - Patient has established therapy with Serotonin-Norepinephrine Reuptake Inhibitors for at least 6 months chlorthalidone (HYGROTON) 50 MG Tablet [Pharmacy Med Name: CHLORTHALIDONE 50 MG TABLET] 90 Tablet 2 Sig: TAKE 1 TABLET BY MOUTH EVERY DAY Diuretics Protocol Passed - 03/24/2023 4:20 PM Passed - Serum potassium on record in past 12 months POTASSIUM Date Value Ref Range Status 12/14/2022 3.6 3.5 - 5.1 mmol/L Final Passed - Serum sodium on record in past 12 months SODIUM Date Value Ref Range Status 12/14/2022 143 136 - 145 mmol/L Final Passed - Blood pressure on record in past 12 months Clinician-entered: BP Readings from Last 3 Encounters: 12/22/22 128/84 08/19/22 126/74 04/21/22 130/74 Patient-entered: No data recorded Passed - Visit with relevant provider in past 12 months or upcoming 90 days Recent Visits Date Type Provider Dept 12/22/22 Office Visit Jaswant Leal MD [facility] 08/19/22 Office Visit Jaswant Leal MD [facility] 04/21/22 Office Visit Jaswant Leal MD [facility] 04/06/22 Office Visit Jaswant Leal MD [facility] Showing recent visits within past 365 days and meeting all other requirements Future Appointments Date Type Provider Dept 04/25/23 Appointment Jaswant Leal MD [facility] Showing future appointments within next 90 days and meeting all other requirements Passed - GFR on record in past 12 months GFR, EST. NONAFRICAN Date Value Ref Range Status 12/14/2022 >60 >=60 Final metFORMIN (GLUCOPHAGE) 500 MG Tablet [Pharmacy Med Name: METFORMIN HCL 500 MG TABLET] 180 Tablet 2 Sig: TAKE 1 TABLET BY MOUTH TWICE A DAY WITH FOOD Biguanides Protocol Passed - 03/24/2023 4:20 PM Passed - Visit with relevant provider in past 6 months or upcoming 90 days Recent Visits Date Type Provider Dept 12/22/22 Office Visit Jaswant Leal MD [facility] Showing recent visits within past 182 days and meeting all other requirements Future Appointments Date Type Provider Dept 04/25/23 Appointment Jaswant Leal MD [facility] Showing future appointments within next 90 days and meeting all other requirements Passed - HgA1C on record in past 6 months HGB-A1C Date Value Ref Range Status 09/03/2021 6.3 (A) 4 - 6 Final HGB-A1C Date Value Ref Range Status 12/14/2022 5.7 4.0 - 6.0 % Final Passed - GFR on record in past 6 months GFR, EST. NONAFRICAN Date Value Ref Range Status 12/14/2022 >60 >=60 Final NIFEdipine CR (PROCARDIA-XL) 30 MG TABLET SR 24 HR [Pharmacy Med Name: NIFEDIPINE ER 30 MG TABLET] 180 Tablet 2 Sig: TAKE 1 TABLET BY MOUTH TWICE A DAY Calcium-Channel Blockers Protocol Passed - 03/24/2023 4:20 PM Passed - BP on record in the past year Clinician-entered: BP Readings from Last 3 Encounters: 12/22/22 128/84 08/19/22 126/74 04/21/22 130/74 Patient-entered: No data recorded Passed - Visit with relevant provider in [...] Provider Dept 04/25/23 Appointment Jaswant Leal MD [facility] Showing future appointments within next 90 days and meeting all other requirements Levocetirizine Dihydrochloride 5 MG Tablet [Pharmacy Med Name: LEVOCETIRIZINE 5 MG TABLET] 90 Tablet 2 Sig: TAKE 1 TABLET BY MOUTH EVERY DAY Non-sedating Antihistamines Protocol Passed - 03/24/2023 4:20 PM Passed - Visit with relevant provider in [...] and meeting all other requirements Passed - Patient less than 65 years of age for Cetirizine or Levocetirizine SURVEYOR ASSISTANT documented in this encounter Plan of Treatment Upcoming Encounters Date Type Department Care Team (Late st Contact Info) Description 05/11/2024 10:00 AM LAND SURVEYOR ASSISTANT [facility] 1 [place] [address] Jaswant Leal MD #[address] [address] Discharge Disposition: Discharged to home or Selfcare 05/11/2024 11:00 AM LAND SURVEYOR ASSISTANT Appointment [facility] Ultrasound 1 [facility] [place] [address] Jaswant Leal MD #[address] [address] Discharge Disposition: Discharged to home or Selfcare 08/17/2024 7:[address] [facility] #[address] [address] [facility] [place] Lab/Ancillary 08/22/2024 3:30 PM CDT Office Visit [facility] - [place] #2 [place] [address] Jaswant Leal MD #[address] [address] documented as of this encounter Visit Diagnoses Diagnosis Post-traumatic stress disorder, chronic Hypertensive heart disease without heart failure Unspecified hypertensive heart disease without heart failure Chronic rhinitis documented in this encounter Additional Health Concerns Assessment Noted Time PHQ-9 Depression Total Score: 0 09/04/19 22 1:00 PM CDT documented as of this encounter Care Teams Jumpbasting Armhole Baster Relationship Specialty Start Date End Date Jaswant Leal MD #[address] [address] PCP - General Family Medicine 07/31/20 Loy Dewey MD Consulting Physician Obstetrics & Gynecology 03/31/16 documented as of this encounter
--- OUTSIDE RECORDS SUMMARY | 2024-05-08 00:40 | XMS_ITS | Referral Summary ---
Author Organization [facility] Address [address] [place] [address] Care Team Providers Care Independent Distributor Name Role Phone Unavailable Primary Care Provider Unavailabl e Source Comments [facility],non-owned Affiliates and Associated Physician Practices is amultiple site organization consisting of ambulatory clinics and hospital sitesin [place], [place], [place] and [place]. This disclosure is being madepursuant to the Care Everywhere program and may not contain all information available regarding this patient. Last updated 17.[facility] [employer] Allergies Active Allergy Reactions Criticality Noted Date [...] mg by mouth once daily 05/28/2021 Active Social History Tobacco Use Types Packs/Day Years [...] 07/14/2021 3:25 PM CDT Plan of Treatment Not on file
--- OUTSIDE RECORDS SUMMARY | 2024-05-08 00:40 | XMS_ITS | Encounter Summary ---
Author Organization [facility] Address [address] [place] [address] Phone Care Team Providers Care Work Over Rig Operator Name Role Phone Loy Dewey MD [facility] Jaswant Tolentino MD Primary Care Provider [phone] Encounter Details Date Type Department Care Team (Late st Contact Info) Description 04/27/2024 Results Follow-Up [facility] - [facility] #2 [place] [address] Jaswant Leal MD #[address] [address] Social History Tobacco Use Types Packs/Day Years Used Date Smoking Tobacco: Never Smokeless Tobacco: Never Alcohol Use Standard Drinks/Week Comments Not Currently 0 (1 standard drink = 0.6 oz pure alcohol) Past alcohol abuse- quit 1978 [facility] Utilities Answer Date Recorded In the past 12 months has Check I[employer] Here electric, gas, oil, or water company threatened [...] often do you attend chur ch or advent services? 1 to 4 times per year 04/25/2024 Do you belong to any clubs o r organizations such as religious groups, unions, fraternal or athletic groups, or [...] Total Score - Questions 1-9 0 12/10 [facility] - Occupational Stress [...] any time in the past 12 m onths, were you homeless or living in a [...] on file documented as of this encounter Plan of Treatment Upcoming Encounters Date Type Department Care Team (Late st Contact Info) Description 05/11/2024 10:00 AM PLAYBACK OPERATOR [facility] M[facility] 1 [place] [address] Jaswant Leal MD #[address] [address] Discharge Disposition: Discharged to home or Selfcare 05/11/2024 11:00 AM PLAYBACK OPERATOR [facility] Ul[facility] 1 [place] [address] Jaswant Leal MD #[address] [address] Discharge Disposition: Discharged to home or Selfcare 08/17/2024 7:20 AM CDT Lab [facility] #[address] [address] [address] [facility] Lab/Ancillary 08/22/2024 3:30 PM CDT [facility] - [place] #[address] [place] [address] Jaswant Leal MD [address] [address] documented as of this encounter Visit Diagnoses Not on filedocumented in this encounter Additional Health Concerns Assessment Noted Time PHQ-9 Depression Total Score: 0 12/27/19 24 3:20 PM CDT documented as of this encounter Care Teams Work Over Rig Operator Relationship Specialty Start Date End Date Jaswant Leal MD [address] [address] PCP - General Family Medicine 07/31/20 Loy Dewey MD Consulting Physician Obstetrics & Gynecology 03/31/16 documented as of this encounter
--- OUTSIDE RECORDS SUMMARY | 2024-05-08 00:40 | XMS_ITS | Encounter Summary ---
Author Organization [facility] Address [address] [place] [address] Phone Care Team Providers Care Inpatient Pharmacist Name Role Phone Loy Dewey MD [facility] Jaswant García MD Primary Care Provider [phone] Reason for Visit * Reason Comments Medication Refill Encounter Details Date Type Department Care Team (Late st Contact Info) Description 03/24/2023 Refill [facility] #2 [place] [id number] Jaswant Leal MD #[address] [address] Medication Refill Social History Tobacco Use Types [...] Encounter - Toshia Jensen RN - 03/25/2023 9:14 AM CST Medication failed the protocol, provider to review and approve the medication order if appropriate. Requested Prescriptions Pending Prescriptions Disp Refills meloxicam (MOBIC) 7.5 MG Tablet [Pharmacy Med Name: MELOXICAM 7.5 MG TABLET] 60 Tablet 2 Sig: TAKE 1 TABLET BY MOUTH TWICE A DAY NEEDED FOR PAIN NSAIDs Protocol Passed - 03/24/2023 4:20 PM Passed - Normal serum creatinine in past [...] 45 days No matching medication orders between 02/08/2023 9:14 AM and 03/25/2023 9:14 AM Passed - AST less than 55 or [...] 04/06/2022 45.0 36.0 - 47.0 % Final Pregabalin 300 MG Capsule [Pharmacy Med Name: PREGABALIN 300 MG CAPSULE] 90 Capsule 0 Sig: TAKE 1 CAPSULE BY MOUTH THREE TIMES A DAY Not Delegated - Anticonvulsants Excluding Benzodiazepines Protocol Failed - 03/24/2023 4:20 PM Failed - This refill cannot be [...] 90 days and meeting all other requirements Ozempic, 0.25 or 0.5 MG/DOSE, 2 MG/3ML Solution Pen-injector [Pharmacy Med Name: OZEMPIC 0.25-0.5 MG/DOSE PEN] 3 mL 0 Sig: INJECT 0.5MG UNDER THE SKIN EVERY 7 DAYS GLP-1 Agonists Protocol Passed - 03/24/2023 4:20 PM Passed - Lipid panel result on file in past 12 months LDL Date Value Ref Range Status 12/14/2022 123 <130 mg/dL Final HDL CHOLESTEROL Date Value Ref Range Status 12/14/2022 44 >40 mg/dL Final CHOLESTEROL Date Value Ref Range Status 12/14/2022 189 <200 mg/dL Final TRIGLYCERIDES Date Value Ref Range Status 12/14/2022 108 <150 mg/dL Final VLDL Date Value Ref Range Status 12/14/2022 22 10 - 50 mg/dL Final CHOL/HDL RATIO Date Value Ref Range Status 12/14/2022 4.3 0.0 - 4.4 Final NON-HDL CHOLESTEROL Date Value Ref Range Status 12/14/2022 145 (H) <130 mg/dL Final Passed - Visit with relevant [...] meeting all other requirements Passed - HgA1C result on record in past 6 months HGB-A1C Date Value Ref Range Status 09/03/2021 6.3 (A) 4 - 6 Final HGB-A1C Date Value Ref Range Status 12/14/2022 5.7 4.0 - 6.0 % Final Passed - GFR on record in past 6 months GFR, EST. NONAFRICAN Date Value Ref Range Status 12/14/2022 >60 >=60 Final IANCE ASSEMBLER documented in this encounter Plan of Treatment Upcoming Encounters Date Type Department Care Team (Late st Contact Info) Description 05/11/2024 10:00 AM APPLIANCE ASSEMBLER [facility] [place] [address] Jaswant Leal MD #[address] [address] Discharge Disposition: Discharged to home or Selfcare 05/11/2024 11:00 AM APPLIANCE ASSEMBLER [facility] 1 [facility] [place] [address] Jaswant Leal MD #[address] [address] Discharge Disposition: Discharged to home or Selfcare 08/17/2024 7:20 AM CDT Lab [facility] #[address] [address] Lab [place] Lab/Ancillary 08/22/2024 3:30 PM CDT Office Visit [facility] - Family Medicine - [place] #2 [place] [address] Jaswant Leal MD #[address] [address] documented as of this encounter Visit Diagnoses Diagnosis Abdominal pain, RLQ Abdominal pain, right lower quadrant documented in this encounter Additional Health Concerns Assessment Noted Time PHQ-9 Depression Total Score: 0 09/04/19 22 1:00 PM CDT documented as of this encounter Care Teams Inpatient Pharmacist Relationship Specialty Start Date End Date Jaswant Leal MD #2 [place] [id number] PCP - General Family Medicine 07/31/20 Loy Dewey MD Consulting Physician Obstetrics & Gynecology 03/31/16 documented as of this encounter
--- OUTSIDE RECORDS SUMMARY | 2024-05-08 00:40 | XMS_ITS | Patient Health Summary ---
Author Organization [facility] Address [address] [place] [address] Care Team Providers Care Receiver Stocker Name Role Phone Unavailable Primary Care Provider Unavailabl e Note from [facility],non-owned Affiliates and Associated Physician Practices is amultiple site organization consisting of ambulatory clinics and hospital sitesin [place], [place], [place] and [place]. This disclosure is being madepursuant to the Care Everywhere program and may not contain all information available regarding this patient. Last updated 17.[facility] Allergies * Lidocaine(Urticaria) -Medium Criticality * Nickel(Urticaria) -Medium Criticality * Ondansetron(Shortness of Breath) -High Criticality * Penicillins(Anaphylaxis) -High Criticality * Trichophyton(Shortness of Breath) -High Criticality Medications * Be aware that medications may not be up to date on this document. Alwaysverify current medications with the patient. * albuterol HFA (PROVENTIL; VENTOLIN; PROAIR) 108 (90 Base) MCG/ACT inhaler (Started 06/21/2021) INHALE 1-2 PUFFS EVERY 4-6 HOURS NEEDED FOR SHORTNESS OF BREATH OR WHEEZING * ALPRAZolam (XANAX) 0.5 MG tablet Take 0.5 mg by mouth once daily * SYMBICORT 160-4.5 MCG/ACT inhaler(Started 07/12/2021) * chlorthalidone (HYGROTON) 50 MG tablet(Started 10/06/2020) Take 1 tablet by mouth once daily * diclofenac sodium (VOLTAREN) 1 % gel(Started 07/02/2021) APPLY 2 GRAMS ONTO THE ELBOW/WRIST/HAND (PALM/FINGERS/BACK OF HAND) 4 TIMES DAILY * HYDROcodone-acetaminophen (NORCO) 10-325 MG tablet(Started 07/06/2021) Take 1 tablet by mouth every 8 hours as needed * meloxicam (MOBIC) 7.5 MG tablet(Started 06/22/2021) TAKE 1 TABLET BY MOUTH TWICE A DAY NEEDED FOR PAIN * levocetirizine (XYZAL) 5 MG tablet(Started 05/28/2021) Take 5 mg by mouth once daily * pregabalin (LYRICA) 300 MG capsule(Started 06/26/2021) TAKE 1 CAPSULE BY MOUTH TWICE A DAY * venlafaxine XR 24hr (EFFEXOR XR) 150 MG capsule(Started 05/28/2021) Take 150 mg by mouth once daily Social History Tobacco Use Types Packs/Day Years [...]
--- OUTSIDE RECORDS SUMMARY | 2024-05-08 00:40 | XMS_ITS | Encounter Summary ---
Author Organization [facility] Address [address] [place] [address] Phone Care Team Providers Care Senior Information Developer Name Role Phone Loy Dewey MD [facility] Jaswant García MD Primary Care Provider [phone] Encounter Details Date Type Department Care Team (Late st Contact Info) Description 01/29/2021 Transcribe Orders [facility] Preop/Pacu II 1 [place] [phone] Tl Adams MD #[address] [address] Pre-op testing (Primary Dx) Social History Tobacco [...] have Coronavirus / COVID-19? No / Unsure 01/28/2021 11:27 AM CDT documented as of this encounter Plan of Treatment Upcoming Encounters Date Type Department Care Team (Late st Contact Info) Description 05/11/2024 10:00 AM OTR FLATBED DRIVER [facility] 1 [facility] [place] [address] Jaswant Leal MD #[address] [address] Discharge Disposition: Discharged to home or Selfcare 05/11/2024 11:00 AM OTR FLATBED DRIVER [facility] 1 [place] [address] Jaswant Leal MD #[address] [address] Discharge Disposition: Discharged to home or Selfcare 08/17/2024 7:20 AM CDT Lab [facility] #[address] [address] [facility] Lab/Ancillary 08/22/2024 3:30 PM CDT Office [facility] - Family Medicine - [place] #2 [place] [address] Jaswant Leal MD #[address] [address] Scheduled Orders Name Type Priority Associated Diagnoses Orde r Schedule SARS-COV-2 BY MOLECULAR Microbiology Routine Pre-op testing Expected: 01/30/2021, Expires: 05/01/2021 documented as of this encounter Visit Diagnoses Diagnosis Pre-op testing- Primary Preoperative examination, unspecified documented in this encounter Additional Health Concerns Assessment Noted Time PHQ-9 Depression Total Score: 1 03/31/20 16 2:02 PM OTR FLATBED DRIVER documented as of this encounter Care Teams Senior Information Developer Relationship Specialty Start Date End Date Jaswant Leal MD #[address] [address] PCP - General Family Medicine 07/31/20 Loy Dewey MD Consulting Physician Obstetrics & Gynecology 03/31/16 documented as of this encounter
--- OUTSIDE RECORDS SUMMARY | 2024-05-08 00:40 | XMS_ITS | Encounter Summary ---
Author Organization [facility] Address [address] [place] [address] Phone Care Team Providers Care Diamond Sizer Name Role Phone Loy Dewey MD, Michael S MD Primary Care Provider [phone] Reason for Visit * Reason Comments Medication Refill Encounter Details Date Type Department Care Team (Late st Contact Info) Description 01/17/2023 Refill [facility] - [facility] Medicine - [place] #2 [place] [address] Veronica Sanchez APRN, DOMESTIC HOUSEKEEPER #[address] [address] Medication Refill Social History Tobacco [...] Recorded In the last 10 days, have yo u been in contact with someone who was confirmed or suspected to have Coronavirus/COVID-19? No / Unsure 12/21/2022 2:42 PM CDT documented as of this encounter Miscellaneous Notes * Telephone Encounter - Toshia Jensen RN - 01/18/2023 10:38 AM CDT Medication failed the protocol, provider to review and approve the medication order if appropriate. Requested Prescriptions Pending Prescriptions Disp Refills Pregabalin 300 MG Capsule [Pharmacy Med Name: PREGABALIN 300 MG CAPSULE] 90 Capsule 0 Sig: TAKE 1 CAPSULE BY MOUTH THREE TIMES A DAY Not Delegated - Anticonvulsants Excluding Benzodiazepines Protocol Failed - 01/17/2023 5:11 PM Failed - This refill cannot be delegated Passed - Visit with relevant provider in past 12 months or upcoming 90 days Recent Visits Date Type Provider Dept 12/22/22 Office Visit Jaswant Leal MD [facility] 08/19/22 Office Visit Jaswant Leal MD [facility] 04/21/22 Office Visit Jaswant Leal MD [facility] 04/06/22 Office Visit Jaswant Leal MD [facility] Showing recent visits within past 365 days and meeting all other requirements Future Appointments No visits were found meeting these conditions. Showing future appointments within next 90 days and meeting all other requirements documented in this encounter Plan of Treatment Upcoming Encounters Date Type Department Care Team (Late st Contact Info) Description 05/11/2024 10:00 AM ARMATURE REWINDER [facility] 1 [place] [address] Jaswant Leal MD #[address] [address] Discharge Disposition: Discharged to home or Selfcare 05/11/2024 11:00 AM ARMATURE REWINDER [facility] 1 [place] [address] Jaswant Leal MD #[address] [address] Discharge Disposition: Discharged to home or Selfcare 08/17/2024 7:20 AM CDT Lab [facility] #[address] [address] [facility] Lab/Ancillary 08/22/2024 3:30 PM CDT [facility] - [place] #2 [place] [address] Jaswant Leal MD #[address] [address] documented as of this encounter Visit Diagnoses Diagnosis Abdominal pain, RLQ Abdominal pain, right lower quadrant documented in this encounter Additional Health Concerns Assessment Noted Time PHQ-9 Depression Total Score: 0 09/04/19 22 1:00 PM CDT documented as of this encounter Care Teams Diamond Sizer Relationship Specialty Start Date End Date Jaswant Leal MD #[address] [address] PCP - General Family Medicine 07/31/20 Loy Dewey MD Consulting Physician Obstetrics & Gynecology 03/31/16 documented as of this encounter
--- OUTSIDE RECORDS SUMMARY | 2024-05-08 00:40 | XMS_ITS | Encounter Summary ---
Author Organization [facility] Address [address] [place] [address] Phone Care Team Providers Care Automatic Tire Tester Name Role Phone Loy Dewey MD, Michael S MD Primary Care Provider Reason for Visit * Reason Comments Medication Refill Encounter Details Date Type Department Care Team (Late st Contact Info) Description 04/22/2021 Refill [facility] Oncology Services [address] [place] [address] Anil Ricardo MD [address] [place] [address] Medication Refill Social History Tobacco Use Types [...] or suspected to have Coronavirus / COVID-19? Yes 04/14/2021 7:02 AM LEAD ATHLETE documented as of this encounter Miscellaneous Notes * Telephone Encounter - Lauren Weston RN - 04/22/2021 10:29 AM LEAD ATHLETE Refilled Ferrous sulfate ATHLETE documented in this encounter Plan of Treatment Upcoming Encounters Date Type Department Care Team (Late st Contact Info) Description 05/11/2024 10:00 AM LEAD ATHLETE [facility] 1 [facility] [place] [address] Jaswant Leal MD #[address] [address] Discharge Disposition: Discharged to home or Selfcare 05/11/2024 11:00 AM LEAD ATHLETE Appointment [facility] Ultrasound 1 [facility] [place] [address] Jaswant Leal MD #[address] [address] Discharge Disposition: Discharged to home or Selfcare 08/17/2024 7:[address] [facility] #[address] [address] [facility] [place] Lab/Ancillary 08/22/2024 3:30 PM CDT Office Visit [facility] Group - Family Medicine - [place] #2 [place] [address] Jaswant Leal MD #[address] [address] documented as of this encounter Visit Diagnoses Not on filedocumented in this encounter Additional Health Concerns Assessment Noted Time PHQ-9 Depression Total Score: 1 03/31/20 16 2:02 PM LEAD ATHLETE documented as of this encounter Care Teams Automatic Tire Tester Relationship Specialty Start Date End Date Jaswant Leal MD #[address] [address] PCP - General Family Medicine 07/31/20 Loy Dewey MD Consulting Physician Obstetrics & Gynecology 03/31/16 documented as of this encounter
--- OUTSIDE RECORDS SUMMARY | 2024-05-08 00:40 | XMS_ITS | Encounter Summary ---
Author Organization [facility] Address [address] [place] [address] Phone Care Team Providers Care Mortgage Or Loan Underwriter Name Role Phone Loy Dewey MD [facility] Jaswant García MD Primary Care Provider [phone] Encounter Details Date Type Department Care Team (Late st Contact Info) Description 01/26/2021 Transcribe Orders [facility] Preop/Pacu II 1 [place] [address] Lefty Stone MD #2 [place] [address] Pre-op testing (Primary Dx) Social History Tobacco [...] st Contact Info) Description 05/11/2024 10:00 AM BUGGY DRIVER [facility] 1 [facility] [place] [address] Jaswant Leal MD #[address] [address] Discharge Disposition: Discharged to home or Selfcare 05/11/2024 11:00 AM BUGGY DRIVER [facility] 1 [facility] [place] [address] Jaswant Leal MD #[address] [address] Discharge Disposition: Discharged to home or Selfcare 08/17/2024 7:20 AM CDT Lab [facility] #[address] [address] [facility] Lab/Ancillary 08/22/2024 3:30 PM CDT Office Visit [facility] Medical Group - Family Medicine - [place] #2 [place] [address] Jaswant Leal MD #[address] [address] documented as of this encounter Results * CULTURE, URINE (01/28/2021 12:03 PM CDT) CULTURE RESULTS GROWTH OF 1 OR MORE ORGANISMS, ALL ARE LESS THAN 10,000 CFU/ML . SUGGESTIVE OF DISTAL URETHRAL CONTAMINANTS. 01/29/2021 4:15 PM CDT [facility] Culture URINE SPECIMEN / Unknown Non-Phlebotomy Collection / Unknown 01/28/2021 12:03 PM CDT 01/28/2021 1:20 PM CDT us Lefty Stone MD MICROBIOLOGY - GENERAL ORDERAB LES Final Result [facility] [address] [place] [address], [place] * TYPE & SCREEN (CROSSMATCH CONVERTIBLE) (01/28/2021 11:57 AM CDT) ABO TYPING O 01/28/2021 2:44 PM CDT [facility] RH Positive 01/28/2021 2:44 PM CDT [facility] ABSC Negative 01/28/2021 2:44 PM CDT [facility] Blood Venipuncture / Unknown 01/28/2021 11:57 AM CDT 01/28/2021 1:20 PM CDT us Lefty Stone MD BLOOD BANK ORDERABLES Edited R esult - Final [facility] #[address] [place] [address] documented in this encounter Visit Diagnoses Diagnosis Pre-op testing- Primary Preoperative examination, unspecified documented in this encounter Additional Health Concerns Assessment Noted Time PHQ-9 Depression Total Score: 1 03/31/20 16 2:02 PM BUGGY DRIVER documented as of this encounter Care Teams Mortgage Or Loan Underwriter Relationship Specialty Start Date End Date Jaswant Leal MD #[address] [address] PCP - General Family Medicine 07/31/20 Loy Dewey MD Consulting Physician Obstetrics & Gynecology 03/31/16 documented as of this encounter
--- OUTSIDE RECORDS SUMMARY | 2024-05-08 00:40 | XMS_ITS | Encounter Summary ---
Author Organization [facility] Address [address] [place] [address] Phone Care Team Providers Care Roll Wrapper Name Role Phone Loy Dewey MD [facility] Primary Care Provider [phone] Reason for Visit * Reason Comments Medication Refill Encounter Details Date Type Department Care Team (Late st Contact Info) Description 09/22/2020 Refill [facility] #2 [place] [address] Jaswant Leal MD #[address] [address] Medication Refill Social History Tobacco Use Types [...] have Coronavirus / COVID-19? No / Unsure 09/18/2020 2:50 PM CDT documented as of this encounter Miscellaneous Notes * Telephone Encounter - Jaswant Leal MD - 09/23/2020 9:30 AM CDT Prescription approved. Please call in * Telephone Encounter - Toshia Jensen RN - 09/23/2020 9:26 AM CDT Per nursing clinical judgement, provider to review [...] st Contact Info) Description 05/11/2024 10:00 AM COMMISSIONING EDITOR [facility] 1 [place] [address] Jaswant Leal MD #[address] [address] Discharge Disposition: Discharged to home or Selfcare 05/11/2024 11:00 AM COMMISSIONING EDITOR [facility] Ul[facility] 1 [facility] [place] [address] Jaswant Leal MD #[address] [address] Discharge Disposition: Discharged to home or Selfcare 08/17/2024 7:20 AM CDT Lab [facility] #[address] [address] [place] Lab/Ancillary 08/22/2024 3:30 PM CDT [facility] - Family [facility] #2 [place] [address] Jaswant Leal MD #[address] [address] documented as of this encounter Visit Diagnoses Diagnosis Other intervertebral disc degeneration, lumbar region documented in this encounter Additional Health Concerns Assessment Noted Time PHQ-9 Depression Total Score: 1 03/31/20 16 2:02 PM COMMISSIONING EDITOR documented as of this encounter Care Teams Roll Wrapper Relationship Specialty Start Date End Date Jaswant Leal MD #[address] [address] PCP - General Family Medicine 07/31/20 Loy Dewey MD Consulting Physician Obstetrics & Gynecology 03/31/16 documented as of this encounter
--- OUTSIDE RECORDS SUMMARY | 2024-05-08 00:40 | XMS_ITS | Encounter Summary ---
Author Organization [facility] Address [address] [place] [address] Phone Care Team Providers Care Tile Decorator Name Role Phone Loy Dewey MD [facility] Jaswant García MD Primary Care Provider [phone] Reason for Referral * Radiology Services (Routine) - Closed Specialty Diagnoses / Procedures Referred By Contac t Referred To Contact Radiology Diagnoses Pre-op testing Procedures EKG 12 LEAD Pérez Carreno MD #1 [place] [address] Phone: tel: fax: Referral ID Status Reason Start Date Expiration Date Visits Re quested Visits Authorized [id number] Closed 09/09/2020 1 1 Encounter Details Date Type Department Care Team (Late st Contact Info) Description 09/09/2020 Transcribe [facility] 1 [place] [address] Pérez Carreno MD #1 [place] [address] Pre-op testing (Primary Dx) Social History Tobacco [...] st Contact Info) Description 05/11/2024 10:00 AM GEOTHERMAL POWERPLANT SUPERVISOR [facility]ment [facility] M[facility] 1 [place] [address] Jaswant Leal MD #[address] [address] Discharge Disposition: Discharged to home or Selfcare 05/11/2024 11:00 AM GEOTHERMAL POWERPLANT SUPERVISOR [facility]ment [facility] 1 [facility] [place] [address] Jaswant Leal MD #[address] [address] Discharge Disposition: Discharged to home or Selfcare 08/17/2024 7:20 AM CDT Lab [facility] #[address] [address] [facility] [place] Lab/Ancillary 08/22/2024 3:30 PM CDT Office Visit [facility] Medical Group - Family Medicine - [place] #2 [place] [address] Jaswant Leal MD #[address] [address] documented as of this encounter Results * EKG 12 LEAD (09/13/2020 9:57 AM CDT) Ventricular Rate BPM EXTERNAL EKG Atrial Rate BPM EXTERNAL EKG P-R Interval 162 ms EXTERNAL EKG QRS Duration 90 ms EXTERNAL EKG Q-T Duration 394 ms EXTERNAL EKG QTC CALCULATION 452 ms EXTERNAL EKG P [place] 56 degrees EXTERNAL EKG R [place] -48 degrees EXTERNAL EKG T [place] -1 degrees EXTERNAL EKG 09/13/2020 9:57 AM CDT Impressions EXTERNAL EKG - 09/15/2020 8:55 AM CDT Sinus rhythm Left axis deviation Inferior infarct Anterior T wave abnormality Comparison Summary: Significant changes Summary: Abnormal ECG Compared with:07/25/2017 1:04 PM; 07/16/2016 9:38 AM No significant changes noted Confirmed by Morgan [email or web address] on 09/15/2020 8:55:40 AM Narrative Procedure Note Brittni Mora MD - 09/15/2020 IMPRESSION: Sinus rhythm Left axis deviation Inferior infarct Anterior T wave abnormality Comparison Summary: Significant changes Summary: Abnormal ECG Compared with:07/25/2017 1:04 PM; 07/16/2016 9:38 AM No significant changes noted Confirmed by Morgan Corea [id number] on 09/15/2020 8:55:40 AM us Pérez Carreno MD IMG ECG ORDERABLES Final Resu lt EXTERNAL EKG * HEMOGLOBIN & HEMATOCRIT (H&H) (09/13/2020 9:46 AM CDT) HEMOGLOBIN (HGB) 14.4 12.0 - 15.8 g/dL 09/13/2020 11:02 AM CDT [facility] HEMATOCRIT (HCT) 45.6 36.0 - 47.0 % 09/13/2020 11:02 AM CDT [facility] Blood Venipuncture / Unknown 09/13/2020 9:46 AM CDT 09/13/2020 10:54 AM CDT us Pérez Carreno MD HEMATOLOGY ORDERABLES Final R esult [facility] #[address] [place] [address] documented in this encounter Visit Diagnoses Diagnosis Pre-op testing- Primary Preoperative examination, unspecified Pre-op testing Preoperative examination, unspecified documented in this encounter Additional Health Concerns Assessment Noted Time PHQ-9 Depression Total Score: 1 03/31/20 16 2:02 PM GEOTHERMAL POWERPLANT SUPERVISOR documented as of this encounter Care Teams Tile Decorator Relationship Specialty Start Date End Date Jaswant Leal MD #[address] [address] PCP - General Family Medicine 07/31/20 Loy Dewey MD Consulting Physician Obstetrics & Gynecology 03/31/16 documented as of this encounter
--- OUTSIDE RECORDS SUMMARY | 2024-05-08 00:40 | XMS_ITS | Encounter Summary ---
Author Organization [facility] Address [address] [place] [address] Phone Care Team Providers Care Corrugator Name Role Phone Loy Dewey MD [facility] Primary Care Provider [phone] Reason for Visit * Reason Comments Medication Refill Encounter Details Date Type Department Care Team (Late st Contact Info) Description 05/31/2023 Refill [facility] #2 [place] [address] Jaswant Leal MD #[address] [address] Medication Refill Social History Tobacco Use Types Packs/Day Years Used Date Smoking Tobacco: Never Smokeless Tobacco: Never Alcohol Use Standard Drinks/Week Comments Not Currently 0 (1 standard drink = 0.6 oz pure alcohol) Past alcohol abuse- quit 1978 [facility] Utilities Answer Date Recorded In the past 12 months has [employer]), gas, oil, or water company threatened to shut off services in your home? No 04/25/2023 Social Connection and Isolat ion Panel [NHANES] Answer Date Recorded In a typical week, how many times do you talk on the phone with family, friends, or neighbors? More than three times a week 04/25/2023 How often do you get togethe r with friends or relatives? More than three times a week 04/25/2023 How often do you attend chur ch or christianity services? More than 4 times per year 04/25/2023 Do you belong to any clubs o r organizations such as caodaism groups, unions, fraternal or athletic groups, or school groups? No 04/25/2023 How often do you attend meet ings of the clubs or organizations you belong to? Patient declined 04/25/2023 Are you , , di vorced, , never , or living with a partner? 04/25/2023 AUDIT-C Answer Date Recorded Q1: How often do you have a drink containing alcohol? Never 04/25/2023 Q2: How many drinks containi ng alcohol do you have on a typical day when you are drinking? Patient does not drink Q3: How often do you have si x or more drinks on one occasion? Never 04/25/2023 Overall Financial Resource Strain (CARDIA) Answe r Date Recorded How hard is it for you to pa y for the very basics like food, housing, medical care, and heating? Somewhat hard 04/25/2023 PHQ-2 Answer Date Recorded Total Score - Questions 1-9 0 04/11 [facility]at [facility] - Occupational Stress Questionnaire Answer Date Recorded Do you feel stress - tense, restless, nervous, or anxious, or unable to sleep at night because your mind is troubled all the time - these days? Only a little 04/25/2023 Hunger Vital Sign Answer Date Recorded Within the past 12 months, y ou worried that your food would run out before you got the money to buy more. Sometimes true Within the past 12 months, t he food you bought just didn't last and you didn't have money to get more. Sometimes true PRAPARE - Transportation Answer Date Re corded In the past 12 months, has l ack of transportation kept you from medical appointments or from getting medications? No 04/11 In the past 12 months, has l ack of transportation kept you from meetings, work, or from getting things needed for daily living? No 04/25/2023 Housing Stability Vital Sign Answer Irving e Recorded In the last 12 months, was t here a time when you were not able to pay the mortgage or rent on time? No 04/25/2023 Number of Places Lived in the Last Year Not on f ile 04/25/2023 In the last 12 months, was t here a time when you did not have a steady place to sleep or slept in a assisted (including now)? No 04/25/2023 Education Answer Date Recorded What is the [...] Telephone Encounter - Toshia Jensen RN - 06/01/2023 9:23 AM CST New Rx 04/29/23 - continue current dose? Per nursing clinical judgement, provider to review and approve the medication(s) order(s) if appropriate. Requested Prescriptions Pending Prescriptions Disp Refills Ozempic, 1 MG/DOSE, 4 MG/3ML Solution Pen-injector [Pharmacy Med Name: OZEMPIC 4 MG/3 ML (1 MG/DOSE)] 3 mL 0 Sig: INJECT 1MG UNDER THE SKIN ONCE WEEKLY GLP-1 Agonists Protocol Passed - 05/31/2023 3:35 PM Passed - Lipid panel result on [...] days Recent Visits Date Type Provider Dept 04/25/23 Office Visit Jaswant Leal MD [facility] 12/22/22 Office Visit Jaswant Leal MD [facility] Showing recent visits within past 182 days and meeting all other requirements Future Appointments Date Type Provider Dept 08/24/23 Appointment Jaswant Leal MD [facility] Showing future appointments within next 90 days and meeting all other requirements Passed - HgA1C result on record in past 6 months HGB-A1C Date Value Ref Range Status 09/03/2021 6.3 (A) 4 - 6 Final HGB-A1C Date Value Ref Range Status 04/20/2023 6.0 4.0 - 6.0 % Final Passed - GFR on record in past 6 months GFR, EST. NONAFRICAN Date Value Ref Range Status 04/20/2023 >60 >=60 Final ER SHOP LABORER/DESIGNER documented in this encounter Plan of Treatment Upcoming Encounters Date Type Department Care Team (Late st Contact Info) Description 05/11/2024 10:00 AM FLOWER SHOP LABORER/DESIGNER Appointment [facility] Mammography 1 [place] [address] Jaswant Leal MD #[address] [address] Discharge Disposition: Discharged to home or Selfcare 05/11/2024 11:00 AM FLOWER SHOP LABORER/DESIGNER Appointment [facility] Ultrasound 1 [facility] [place] [address] Jaswant Leal MD #[address] [address] Discharge Disposition: Discharged to home or Selfcare 08/17/2024 7:20 AM CDT Lab [facility] PHYSICIAN [facility] LAB #[address] [address] [place] Lab/Ancillary 08/22/2024 3:30 PM CDT Office Visit [facility] Medical Group - Family Medicine - [place] #2 [place] [address] Jaswant Leal MD #2 [facility] [address] documented as of this encounter Visit Diagnoses Not on filedocumented in this encounter Additional Health Concerns Assessment Noted Time PHQ-9 Depression Total Score: 0 04/25/19 24 1:18 PM FLOWER SHOP LABORER/DESIGNER documented as of this encounter Care Teams Corrugator Relationship Specialty Start Date End Date Jaswant Leal MD #[address] [address] PCP - General Family Medicine 07/31/20 Loy Dewey MD Consulting Physician Obstetrics & Gynecology 03/31/16 documented as of this encounter
--- OUTSIDE RECORDS SUMMARY | 2024-05-08 00:40 | XMS_ITS | Encounter Summary ---
Author Organization [facility] Address [address] [place] [address] Phone Care Team Providers Care Bill Peddler Name Role Phone Loy Dewey MD, Michael S MD Primary Care Provider [phone] Reason for Visit * Reason Comments Medication Refill Encounter Details Date Type Department Care Team (Late st Contact Info) Description 12/10/2022 Refill [facility] - [place] #2 [place] [address] Veronica Sanchez APRN, MARINE STRUCTURAL WELDER #[address] [address] Medication Refill Social History Tobacco [...] encounter Miscellaneous Notes * Telephone Encounter - Isabella De Jesus RN - 12/10/2022 3:47 PM CDT Medication failed the protocol, provider to review and approve the medication order if appropriate. Requested Prescriptions Pending Prescriptions Disp Refills Pregabalin 300 MG Capsule [Pharmacy Med Name: PREGABALIN 300 MG CAPSULE] 90 Capsule 0 Sig: TAKE 1 CAPSULE BY MOUTH THREE TIMES A DAY Not Delegated - Anticonvulsants Excluding Benzodiazepines Protocol Failed - 12/10/2022 12:59 PM Failed - This refill cannot be delegated Passed - Visit with relevant provider in past 12 months or upcoming 90 days Recent Visits Date Type Provider Dept 08/19/22 Office Visit Jaswant Leal MD [facility] 04/21/22 Office Visit Jaswant Leal MD [facility] 04/06/22 Office Visit Jaswant Leal MD [facility] 12/11/21 Office Visit [facility] [place] Showing recent visits within past 365 days and meeting all other requirements Future Appointments Date Type Provider Dept 12/22/22 Appointment Jaswant Leal MD [facility] Showing future appointments within next 90 days and meeting all other requirements documented in this encounter Plan of Treatment Upcoming Encounters Date Type Department Care Team (Late st Contact Info) Description 05/11/2024 10:00 AM STUDENT RECORDS COORDINATOR Appointment [facility] Mammography 1 [place] [address] Jaswant Leal MD #[address] [address] Discharge Disposition: Discharged to home or Selfcare 05/11/2024 11:00 AM STUDENT RECORDS COORDINATOR Appointment [facility] Ultrasound 1 [place] [address] Jaswant Leal MD #[address] [address] Discharge Disposition: Discharged to home or Selfcare 08/17/2024 7:20 AM CDT Lab [facility] LAB #[address] [address] [place] Lab/Ancillary 08/22/2024 3:30 PM CDT [facility] - [place] #2 [place] [address] Jaswant Leal MD #[address] [address] documented as of this encounter Visit Diagnoses Diagnosis Abdominal pain, RLQ Abdominal pain, right lower quadrant documented in this encounter Additional Health Concerns Assessment Noted Time PHQ-9 Depression Total Score: 0 09/04/19 22 1:00 PM CDT documented as of this encounter Care Teams Bill Peddler Relationship Specialty Start Date End Date Jaswant Leal MD #[address] [address] PCP - General Family Medicine 07/31/20 Loy Dewey MD Consulting Physician Obstetrics & Gynecology 03/31/16 documented as of this encounter
--- OUTSIDE RECORDS SUMMARY | 2024-05-08 00:40 | XMS_ITS | Encounter Summary ---
Author Organization [facility] Address [address] [place] [address] Phone Care Team Providers Care Regulatory Affairs Strategy Specialist Name Role Phone Loy Dewey MD [facility] Primary Care Provider [phone] Reason for Visit * Reason Comments Medication Refill Encounter Details Date Type Department Care Team (Late st Contact Info) Description 04/24/2023 [facility]ill [facility] #2 [place] [address] Jaswant Leal MD #[address] [address] Medication Refill Social History Tobacco Use Types Packs/Day Years Used Date Smoking Tobacco: Never Smokeless Tobacco: Never Alcohol Use Standard Drinks/Week Comments Not Currently 0 (1 standard drink = 0.6 oz pure alcohol) Past alcohol abuse- quit [address] [facility] Utilities Answer Date Recorded In the past 12 months has [employer], gas, oil, or water company threatened to [...] often do you attend chur ch or jain services? More than 4 times per year 04/25/2023 Do you belong to any clubs o r organizations such as quaker groups, unions, fraternal or athletic groups, or [...] Total Score - Questions 1-9 0 04/11 [facility] Occupat ional [facility] - Occupational Stress Questionnaire Answer Date Recorded [...] place to sleep or slept in a group home (including now)? No 04/25/2023 Education Answer Date [...] on file documented as of this encounter Functional Status * Audit-C Score Answer Date of Assessment Author 0 04/25/2023 8:51 AM STRATEGY MANAGER Mychart, System Background * Within the last year, have you been humiliated or emotionally abused in other ways by your partner or ex-partner? Answer Date of Assessment Author No 04/25/2023 8:51 AM STRATEGY MANAGER Mychart, System Background * Within the last year, have you been afraid of your partner or ex-partner? Answer Date of Assessment Author No 04/25/2023 8:51 AM STRATEGY MANAGER Mychart, System Background * Within the last year, have you been raped or forced to have any kind of sexual activity by your partner or ex-partner? Answer Date of Assessment Author No 04/25/2023 8:51 AM STRATEGY MANAGER Mychart, System Background * Within the last year, have you been kicked, hit, slapped, or otherwise physically hurt by your partner or ex-partner? Answer Date of Assessment Author No 04/25/2023 8:51 AM STRATEGY MANAGER Mychart, System Background * Q1: How often do you have a drink containing alcohol? Answer Date of Assessment Author Never 04/25/2023 8:51 AM STRATEGY MANAGER Mychart, System Background * Q2: How many drinks containing alcohol do you have on a typical day when you are drinking? Answer Date of Assessment Author Patient does not drink 04/25/2023 8:51 AM STRATEGY MANAGER My chart, System Background * Q3: How often do you have six or more drinks on one occasion? Answer Date of Assessment Author Never 04/25/2023 8:51 AM STRATEGY MANAGER [employer] [facility]fa Background * Question Answer Date of Assessment Author Little interest or pleasure in doing things Not at all 04/25/2023 1:18 PM Emi Stephenson RMA Feeling down, depressed, or hopeless Not at all 04/25/2023 1:18 PM STRATEGY MANAGER Emi Coats RMA * Over the past 2 weeks, how often have you been bothered by any of the following problems? Question Answer Date of Assessment Author Patient Health Questionnaire -2 Score 0 04/25/2023 1:18 PM Emi Stephenson RMA documented as of this encounter Miscellaneous Notes * Telephone Encounter - Toshia Jensen RN - 04/25/2023 10:59 AM CST Medication failed the protocol, provider to review and approve the medication order if appropriate. Requested Prescriptions Pending Prescriptions Disp Refills Pregabalin 300 MG Capsule [Pharmacy Med Name: PREGABALIN 300 MG CAPSULE] 90 Capsule 1 Sig: TAKE 1 CAPSULE BY MOUTH THREE TIMES A DAY Not Delegated - Anticonvulsants Excluding Benzodiazepines Protocol Failed - 04/24/2023 2:44 PM Failed - This refill cannot be delegated Passed - Visit with relevant provider in past 12 months or upcoming 90 days Recent Visits Date Type Provider Dept 12/22/22 Office Visit Jaswant Leal MD [facility] 08/19/22 Office Visit Jaswant Leal MD [facility] Showing recent visits within past 365 days and meeting all other requirements Today's Visits Date Type Provider Dept 04/25/23 Appointment Jaswant Leal MD [facility] Showing today's visits and meeting all other requirements Future Appointments No visits were found meeting these conditions. Showing future appointments within next 90 days and meeting all other requirements Ozempic, 0.25 or 0.5 MG/DOSE, 2 MG/3ML Solution Pen-injector [Pharmacy Med Name: OZEMPIC 0.25-0.5 MG/DOSE PEN] 3 mL 0 Sig: INJECT 0.5MG UNDER THE SKIN EVERY 7 DAYS GLP-1 Agonists Protocol Passed - 04/24/2023 2:44 PM Passed - Lipid panel result on [...] Dept 12/22/22 Office Visit Jaswant Leal MD [facility] Showing recent visits within past 182 days and meeting all other requirements Today's Visits Date Type Provider Dept 04/25/23 Appointment Jaswant Leal MD [facility] [place] [place] Showing today's visits and meeting all other requirements Future Appointments [...] Ref Range Status 04/20/2023 >60 >=60 Final TEGY MANAGER documented in this encounter Plan of Treatment Upcoming Encounters Date Type Department Care Team (Late st Contact Info) Description 05/11/2024 10:00 AM STRATEGY MANAGER [facility] [place] [address] Jaswant Leal MD #[address] [address] Discharge Disposition: Discharged to home or Selfcare 05/11/2024 11:00 AM STRATEGY MANAGER Appointment [facility] Ultrasound 1 [facility] [address] Jaswant Leal MD #[address] [address] Discharge Disposition: Discharged to home or Selfcare 08/17/2024 7:20 AM CDT Lab [facility] #[address] [address] [facility] [place] Lab/Ancillary 08/22/2024 3:30 PM CDT Office [facility] [place] [facility] [place] [address] Jaswant Leal MD #[address] [address] documented as of this encounter Visit Diagnoses Diagnosis Abdominal pain, RLQ Abdominal pain, right lower quadrant documented in this encounter Additional Health Concerns Assessment Noted Time PHQ-9 Depression Total Score: 0 09/04/19 1:00 PM CDT documented as of this encounter Care Teams Regulatory Affairs Strategy Specialist Relationship Specialty Start Date End Date Jaswant Leal MD #[address] [address] PCP - General Family Medicine 07/31/20 Loy Dewey MD Consulting Physician Obstetrics & Gynecology 03/31/16 documented as of this encounter
--- OUTSIDE RECORDS SUMMARY | 2024-05-08 00:40 | XMS_ITS | Encounter Summary ---
Author Organization [facility] Address [address] [place] [address] Phone Care Team Providers Care Instrumentation Supervisor Name Role Phone Loy Dewey MD [facility] Jaswant García MD Primary Care Provider Reason for Visit * Reason Comments Medication Refill Encounter Details Date Type Department Care Team (Late st Contact Info) Description 01/25/2023 Refill [facility] #2 [place] [phone] Jaswant Leal MD #[address] [address] Medication Refill Social History Tobacco Use Types [...] Encounter - Camila Toshia L, RN - 01/25/2023 1:37 PM CDT Continue same dose? Per nursing clinical judgement, provider to review and approve the medication(s) order(s) if appropriate. Requested Prescriptions Pending Prescriptions Disp Refills Ozempic, 0.25 or 0.5 MG/DOSE, 2 MG/3ML Solution Pen-injector [Pharmacy Med Name: OZEMPIC 0.25-0.5 MG/DOSE PEN] 3 mL 0 Sig: INJECT 0.5 MG UNDER THE SKIN EVERY 7 DAYS GLP-1 Agonists Protocol Passed - 01/25/2023 11:17 AM Passed - Lipid panel result on file [...] Ref Range Status 12/14/2022 >60 >=60 Final documented in this encounter Plan of Treatment Upcoming Encounters Date Type Department Care Team (Late st Contact Info) Description 05/11/2024 10:00 AM LAND EXAMINER [facility] 1 [facility] [place] [address] Jaswant Leal MD #[address] [address] Discharge Disposition: Discharged to home or Selfcare 05/11/2024 11:00 AM LAND EXAMINER [facility] 1 [facility] [place] [address] Jaswant Leal MD #[address] [address] Discharge Disposition: Discharged to home or Selfcare 08/17/2024 7:20 AM CDT Lab [facility] #[address] [address] [facility] [place] Lab/Ancillary 08/22/2024 3:30 PM CDT Office Visit [facility] - Family Medicine - [place] #2 [place] [address] Jaswant Leal MD #[address] [address] documented as of this encounter Visit Diagnoses Not on filedocumented in this encounter Additional Health Concerns Assessment Noted Time PHQ-9 Depression Total Score: 0 09/04/19 22 1:00 PM CDT documented as of this encounter Care Teams Instrumentation Supervisor Relationship Specialty Start Date End Date Jaswant Leal MD #[address] [address] PCP - General Family Medicine 07/31/20 Loy Dewey MD Consulting Physician Obstetrics & Gynecology 03/31/16 documented as of this encounter
--- OUTSIDE RECORDS SUMMARY | 2024-05-08 00:40 | XMS_ITS | Encounter Summary ---
Author Organization [facility] Address [address] [place] [address] Phone Care Team Providers Care Yield Engineer Name Role Phone Loy Dewey MD [facility] Jaswant García MD Primary Care Provider [phone] Reason for Visit * Reason Comments Medication Refill Encounter Details Date Type Department Care Team (Late st Contact Info) Description 12/10/2022 Refill [facility] #2 [place] [phone] Jaswant Leal MD #[address] [address] Medication Refill Social History Tobacco Use Types [...] encounter Miscellaneous Notes * Telephone Encounter - Neal Isabellahayder Adamson RN - 12/10/2022 3:48 PM CDT Medication failed the protocol, provider to review and approve the medication order if appropriate. Requested Prescriptions Pending Prescriptions Disp Refills venlafaxine (EFFEXOR-XR) 150 MG CAPSULE SR 24 HR [Pharmacy Med Name: VENLAFAXINE HCL ER 150 MG CAP]90 Capsule 0 Sig: TAKE 1 CAPSULE BY MOUTH EVERY DAY SNRI (6 Month Refill Only) Protocol Failed - 12/10/2022 12:59 PM Failed - Has an encounter in [...] Provider Dept 12/22/22 Appointment Jaswant Leal MD [facility] Showing future appointments within next 90 days and meeting all other requirements Passed - Patient has established therapy with Serotonin-Norepinephrine Reuptake Inhibitors for at least 6 months NIFEdipine CR (PROCARDIA-XL) 30 MG TABLET SR 24 HR [Pharmacy Med Name: NIFEDIPINE ER 30 MG TABLET] 180 Tablet 0 Sig: TAKE 1 TABLET BY MOUTH TWICE A DAY Calcium-Channel Blockers Protocol Passed - 12/10/2022 12:59 PM Passed - BP on record in the past year Clinician-entered: BP Readings from Last 3 Encounters: 08/19/22 126/74 04/21/22 130/74 04/06/22 (!) 140/94 Patient-entered: No data recorded Passed - Visit [...] Provider Dept 12/22/22 Appointment Jaswant Leal MD [facility] Showing future appointments within next 90 days and meeting all other requirements metFORMIN (GLUCOPHAGE) 500 MG Tablet [Pharmacy Med Name: METFORMIN HCL 500 MG TABLET] 180 Tablet 0 Sig: TAKE 1 TABLET BY MOUTH TWICE A DAY WITH MEALS Biguanides Protocol Failed - 12/10/2022 12:59 PM Failed - HgA1C on record in past 6 months HGB-A1C Date Value Ref Range Status 09/03/2021 6.3 (A) 4 - 6 Final HGB-A1C Date Value Ref Range Status 04/06/2022 6.4 (H) 4.0 - 6.0 % Final Failed - GFR on record in past 6 months GFR, EST. NONAFRICAN Date Value Ref Range Status 04/06/2022 >60 >=60 Final Passed - Visit with relevant provider in past 6 months or upcoming 90 days Recent Visits Date Type Provider Dept 08/19/22 Office Visit Jaswant Leal MD [facility] Showing recent visits within past 182 days and meeting all other requirements Future Appointments Date Type Provider Dept 12/22/22 Appointment Jaswant Leal MD [facility] Showing future appointments within next 90 days and meeting all other requirements chlorthalidone (HYGROTON) 50 MG Tablet [Pharmacy Med Name: CHLORTHALIDONE 50 MG TABLET] 90 Tablet 0 Sig: TAKE 1 TABLET BY MOUTH EVERY DAY Diuretics Protocol Passed - 12/10/2022 12:59 PM Passed - Serum potassium on record in past 12 months POTASSIUM Date Value Ref Range Status 04/06/2022 3.9 3.5 - 5.1 mmol/L Final Passed - Serum sodium on record in past 12 months SODIUM Date Value Ref Range Status 04/06/2022 141 136 - 144 mmol/L Final Passed - Blood pressure on record in past 12 months Clinician-entered: BP Readings from Last 3 Encounters: 08/19/22 126/74 04/21/22 130/74 04/06/22 (!) 140/94 Patient-entered: No data recorded Passed - Visit [...] EST. NONAFRICAN Date Value Ref Range Status 04/06/2022 >60 >=60 Final Levocetirizine Dihydrochloride 5 MG Tablet [Pharmacy Med Name: LEVOCETIRIZINE 5 MG TABLET] 90 Tablet 0 Sig: TAKE 1 TABLET BY MOUTH EVERY DAY Non-sedating Antihistamines Protocol Passed - 12/10/2022 12:59 PM Passed - Visit with relevant provider in past 12 months or upcoming 90 days Recent Visits Date Type Provider Dept 08/19/22 Office Visit Jaswant Leal MD [facility] 04/21/22 Office Visit Jaswant Leal MD [facility] 04/06/22 Office Visit Jaswant Leal MD [facility] 12/11/21 Office Visit Jaswant Leal MD [facility] Showing recent visits within past 365 days and meeting all other requirements Future Appointments Date Type Provider Dept 12/22/22 Appointment Jaswant Leal MD [facility] Showing future appointments within next 90 days and meeting all other requirements Passed - Patient less than 65 years of age for Cetirizine or Levocetirizine documented in this encounter Plan of Treatment Upcoming Encounters Date Type Department Care Team (Late st Contact Info) Description 05/11/2024 10:00 AM HYDROPONICS WORKER [facility] 1 [place] [address] Jaswant Leal MD #[address] [address] Discharge Disposition: Discharged to home or Selfcare 05/11/2024 11:00 AM HYDROPONICS WORKER [facility] 1 [place] [address] Jaswant Leal MD [address] [address] Discharge Disposition: Discharged to home or Selfcare 08/17/2024 7:20 AM CDT Lab [facility] #[address] [address] [facility] [place] Lab/Ancillary 08/22/2024 3:30 PM CDT Office [facility] - [place] #2 [place] [address] Jaswant Leal MD #[address] [address] documented as of this encounter Visit Diagnoses Diagnosis Post-traumatic stress disorder, chronic Hypertensive heart disease without heart failure Unspecified hypertensive heart disease without heart failure Chronic rhinitis documented in this encounter Additional Health Concerns Assessment Noted Time PHQ-9 Depression Total Score: 0 09/04/19 1:00 PM CDT documented as of this encounter Care Teams Yield Engineer Relationship Specialty Start Date End Date Jaswant Leal MD [address] [address] PCP - General Family Medicine 07/31/20 Loy Dewey MD Consulting Physician Obstetrics & Gynecology 03/31/16 documented as of this encounter
--- OUTSIDE RECORDS SUMMARY | 2024-05-08 00:40 | XMS_ITS | Encounter Summary ---
Author Organization [facility] Address [address] [place] [address] Phone Care Team Providers Care Concrete Bucket Loader Name Role Phone Loy Dewey MD [facility] Jaswant García MD Primary Care Provider [phone] Reason for Visit * Reason Comments Medication Refill Encounter Details Date Type Department Care Team (Late st Contact Info) Description 09/09/2022 Refill [facility] #2 [place] [phone] Jaswant Leal MD #[address] [address] Medication Refill Social History Tobacco Use Types [...] suspected to have Coronavirus/COVID-19? No / Unsure 08/18/2022 4:05 PM CDT documented as of this encounter Miscellaneous Notes * Telephone Encounter - Veronica Sanchez APRN, CNP - 09/10/2022 10:45 PM CDT [place] RESEARCH GEOLOGIST reviewed, approved * Telephone Encounter - Toshia Jensen RN - 09/10/2022 9:28 AM CDT PDMP 07/30/22 Medication failed the protocol, provider to review and approve the medication order if appropriate. Requested Prescriptions Pending Prescriptions Disp Refills Pregabalin 300 MG Capsule [Pharmacy Med Name: PREGABALIN 300 MG CAPSULE] 90 Capsule 2 Sig: TAKE 1 CAPSULE BY MOUTH THREE TIMES A DAY Not Delegated - Anticonvulsants Excluding Benzodiazepines Protocol Failed - 09/09/2022 12:48 PM Failed - This refill cannot be delegated Passed - Visit with relevant provider in past 12 months or upcoming 90 days Recent Visits Date Type Provider Dept 08/19/22 Office Visit Jas[facility] Leal MD [facility] 04/21/22 Office Visit Jaswant Leal MD [facility] 04/06/22 Office Visit Jaswant Leal MD [facility] 12/11/21 [facility] visits within past 365 days and meeting all other requirements Future Appointments No visits were found meeting these conditions. Showing future appointments within next 90 days and meeting all other requirements documented in this encounter Plan of Treatment Upcoming Encounters Date Type Department Care Team (Late st Contact Info) Description 05/11/2024 10:00 AM GROUND TRANSPORTATION OPERATOR [facility] 1 [place] [address] Jaswant Leal MD #[address] [address] Discharge Disposition: Discharged to home or Selfcare 05/11/2024 11:00 AM GROUND TRANSPORTATION OPERATOR [facility] 1 [facility] [place] [address] Jaswant Leal MD #[address] [address] Discharge Disposition: Discharged to home or Selfcare 08/17/2024 7:20 AM CDT Lab [facility] #[address] [address] [facility] 08/22/2024 3:30 PM CDT Office Visit [facility] - Family Medicine - [place] #2 [place] [address] Jaswant Leal MD #[address] [address] documented as of this encounter Visit Diagnoses Diagnosis Abdominal pain, RLQ Abdominal pain, right lower quadrant documented in this encounter Additional Health Concerns Assessment Noted Time PHQ-9 Depression Total Score: 0 09/04/19 22 1:00 PM CDT documented as of this encounter Care Teams Concrete Bucket Loader Relationship Specialty Start Date End Date Jaswant Leal MD #[address] [address] PCP - General Family Medicine 07/31/20 Loy Dewey MD Consulting Physician Obstetrics & Gynecology 03/31/16 documented as of this encounter
--- OUTSIDE RECORDS SUMMARY | 2024-05-08 00:40 | XMS_ITS | Encounter Summary ---
Author Organization [facility] Address [address] [place] [address] Phone Care Team Providers Care Oil Drilling Engineer Name Role Phone Loy Dewey MD [facility] Jaswant García MD Primary Care Provider [phone] Reason for Visit * Reason Comments Medication Refill Encounter Details Date Type Department Care Team (Late st Contact Info) Description 06/27/2022 Refill [facility] #2 [place] [phone] Jaswant Leal MD #[address] [address] Medication Refill Social History Tobacco Use Types [...] Telephone Encounter - Toshia Jensen RN - 06/28/2022 11:08 AM CDT Medication failed the protocol, provider to review and approve the medication order if appropriate. Requested Prescriptions Pending Prescriptions Disp Refills Levocetirizine Dihydrochloride 5 MG Tablet [Pharmacy Med Name: LEVOCETIRIZINE 5 MG TABLET] 90 Tablet 1 Sig: TAKE 1 TABLET BY MOUTH EVERY DAY Non-sedating Antihistamines Protocol Passed - 06/27/2022 9:32 AM Passed - Visit with relevant provider in [...] Provider Dept 08/19/22 Appointment Jaswant Leal MD [facility] Showing future appointments within next 90 days and meeting all other requirements Passed - Patient less than 65 years of age for Cetirizine or Levocetirizine chlorthalidone (HYGROTON) 50 MG Tablet [Pharmacy Med Name: CHLORTHALIDONE 50 MG TABLET] 90 Tablet 1 Sig: TAKE 1 TABLET BY MOUTH EVERY DAY Diuretics Protocol Passed - 06/27/2022 9:32 AM Passed - Serum potassium on record in past 12 months POTASSIUM Date Value Ref Range Status 04/06/2022 3.9 3.5 - 5.1 mmol/L Final Passed - Serum sodium on record in past 12 months SODIUM Date Value Ref Range Status 04/06/2022 141 136 - 144 mmol/L Final Passed - Blood pressure on record in past 12 months Clinician-entered: BP Readings from Last 3 Encounters: 04/21/22 130/74 04/06/22 (!) 140/94 12/11/21 124/80 Patient-entered: No data recorded Passed - Visit [...] Provider Dept 08/19/22 Appointment Jaswant Leal MD [facility] Showing future appointments within next 90 days and meeting all other requirements Passed - GFR on record in past 12 months GFR, EST. NONAFRICAN Date Value Ref Range Status 04/06/2022 >60 >=60 Final NIFEdipine CR (PROCARDIA-XL) 30 MG TABLET SR 24 HR [Pharmacy Med Name: NIFEDIPINE ER 30 MG TABLET] 180 Tablet 1 Sig: TAKE 1 TABLET BY MOUTH TWICE A DAY Calcium-Channel Blockers Protocol Passed - 06/27/2022 9:32 AM Passed - BP on record in the past year Clinician-entered: BP Readings from Last 3 Encounters: 04/21/22 130/74 04/06/22 (!) 140/94 12/11/21 124/80 Patient-entered: No data recorded Passed - Visit [...] Provider Dept 08/19/22 Appointment Jaswant Leal MD [facility] Showing future appointments within next 90 days and meeting all other requirements triamcinolone (KENALOG) 0.1 % Cream [Pharmacy Med Name: TRIAMCINOLONE 0.1% CREAM] 80 g 0 Sig: APPLY ONTO THE CHEST WALL ONCE DAILY Not Delegated - Topical Steroids Protocol Failed - 06/27/2022 9:32 AM Failed - This refill cannot be [...] Provider Dept 08/19/22 Appointment Jaswant Leal MD [facility] Showing future appointments within next 90 days and meeting all other requirements venlafaxine (EFFEXOR-XR) 150 MG CAPSULE SR 24 HR [Pharmacy Med Name: VENLAFAXINE HCL ER 150 MG CAP]90 Capsule 1 Sig: TAKE 1 CAPSULE BY MOUTH EVERY DAY SNRI (6 Month Refill Only) Protocol Failed - 06/27/2022 9:32 AM Failed - Has an encounter in the [...] Provider Dept 08/19/22 Appointment Jaswant Leal MD [facility] Showing future appointments within next 90 days and meeting all other requirements Passed - Patient has established therapy with Serotonin-Norepinephrine Reuptake Inhibitors for at least 6 months metFORMIN (GLUCOPHAGE) 500 MG Tablet [Pharmacy Med Name: METFORMIN HCL 500 MG TABLET] 180 Tablet 1 Sig: TAKE 1 TABLET BY MOUTH TWICE A DAY WITH MEALS Biguanides Protocol Passed - 06/27/2022 9:32 AM Passed - Visit with relevant provider in past 6 months or upcoming 90 days Recent Visits Date Type Provider Dept 04/21/22 Office Visit Jaswant Leal MD [facility] 04/06/22 Office Visit Jaswant Leal MD [facility] Showing recent visits within past 182 days and meeting all other requirements Future Appointments Date Type Provider Dept 08/19/22 Appointment Jaswant Leal MD [facility] Showing future appointments within next 90 days and meeting all other requirements Passed - HgA1C on record in past 6 months HGB-A1C Date Value Ref Range Status 09/03/2021 6.3 (A) 4 - 6 Final HGB-A1C Date Value Ref Range Status 04/06/2022 6.4 (H) 4.0 - 6.0 % Final Passed - GFR on record in past 6 months GFR, EST. NONAFRICAN Date Value Ref Range Status 04/06/2022 >60 >=60 Final documented in this encounter Plan of Treatment Upcoming Encounters Date Type Department Care Team (Late st Contact Info) Description 05/11/2024 10:00 AM DEVELOPMENTAL ELECTRONICS ASSEMBLER [facility] 1 [place] [address] Jaswant Leal MD #[address] [address] Discharge Disposition: Discharged to home or Selfcare 05/11/2024 11:00 AM DEVELOPMENTAL ELECTRONICS ASSEMBLER Appointment [facility] Ultrasound 1 [facility] [place] [address] Jaswant Leal MD #[address] [address] Discharge Disposition: Discharged to home or Selfcare 08/17/2024 7:20 AM CDT Lab [facility] #[address] [address] [facility] [place] Lab/Ancillary 08/22/2024 3:30 PM CDT Office Visit [facility] - Family Medicine - [place] #2 [place] [address] Jaswant Leal MD #[address] [address] documented as of this encounter Visit Diagnoses Diagnosis Chronic rhinitis Hypertensive heart disease without heart failure Unspecified hypertensive heart disease without heart failure Post-traumatic stress disorder, chronic documented in this encounter Additional Health Concerns Assessment Noted Time PHQ-9 Depression Total Score: 0 09/04/19 22 1:00 PM CDT documented as of this encounter Care Teams Oil Drilling Engineer Relationship Specialty Start Date End Date Jaswant Leal MD #[address] [place] [id number] PCP - General Family Medicine 07/31/20 Loy Dewey MD Consulting Physician Obstetrics & Gynecology 03/31/16 documented as of this encounter
--- OUTSIDE RECORDS SUMMARY | 2024-05-08 00:40 | XMS_ITS | Encounter Summary ---
Author Organization [facility] Address [address] [place] [address] Phone Care Team Providers Care Cinema Operator Name Role Phone Loy Dewey MD [facility] Jaswant García MD Primary Care Provider [phone] Reason for Visit * Reason Comments Medication Refill Encounter Details Date Type Department Care Team (Late st Contact Info) Description 05/28/2022 Refill [facility] #2 [place] [phone] Jaswant Leal MD #[address] [address] Medication Refill Social History Tobacco Use Types [...] Telephone Encounter - Toshia Jensen RN - 05/28/2022 11:41 AM CST Medication failed the protocol, provider to review and approve the medication order if appropriate. Requested Prescriptions Pending Prescriptions Disp Refills meloxicam (MOBIC) 7.5 MG Tablet [Pharmacy Med Name: MELOXICAM 7.5 MG TABLET] 60 Tablet 2 Sig: TAKE 1 TABLET BY MOUTH TWICE A DAY NEEDED FOR PAIN NSAIDs Protocol Passed - 05/28/2022 9:08 AM Passed - Normal serum creatinine in past 12 months CREATININE - POCT Date Value Ref Range Status 08/01/2020 0.9 0.6 - 1.3 mg/dL Final CREATININE, BLOOD Date Value Ref Range Status 04/06/2022 0.64 0.60 - 1.10 mg/dL Final Passed - Visit with relevant provider in past 12 months or upcoming 90 days Recent Visits Date Type Provider Dept 04/21/22 Office Visit Jaswant Leal MD [facility] 04/06/22 Office Visit Jaswant Leal MD [facility] 12/11/21 Office Visit Jaswant Leal MD [facility] 09/03/21 Office Visit Jaswant Leal MD [facility] 06/01/21 Office Visit Jaswant Leal MD [facility] Showing recent visits within past 365 days and meeting all other requirements Future Appointments Date Type Provider Dept 08/19/22 Appointment Jaswant Leal MD [facility] Showing future appointments within next 90 days and meeting all other requirements Passed - No matching NSAID med order in past 45 days No matching medication orders between 04/13/2022 11:41 AM and 05/28/2022 11:41 AM Passed - AST less than 55 or ALT less than 90 in past 12 months SGOT (AST) Date Value Ref Range Status 04/06/2022 21 <=32 U/L Final SGPT (ALT) Date Value Ref Range Status 04/06/2022 28 <=41 U/L Final Passed - HGB greater than 10 or HCT greater than 30 in past 12 months HEMOGLOBIN (HGB) Date Value Ref Range Status 04/06/2022 14.0 12.0 - 15.8 g/dL Final HEMATOCRIT (HCT) Date Value Ref Range Status 04/06/2022 45.0 36.0 - 47.0 % Final triamcinolone (KENALOG) 0.1 % Cream [Pharmacy Med Name: TRIAMCINOLONE 0.1% CREAM] 80 g 0 Sig: APPLY ONTO THE CHEST WALL ONCE DAILY Not Delegated - Topical Steroids Protocol Failed - 05/28/2022 9:08 AM Failed - This refill cannot be delegated Passed - Visit with relevant provider in past 12 months or upcoming 90 days Recent Visits Date Type Provider Dept 04/21/22 Office Visit Jaswant Leal MD [facility] 04/06/22 Office Visit Jaswant Leal MD [facility] 12/11/21 Office Visit Jaswant Leal MD [facility] 09/03/21 Office Visit Jaswant Leal MD [facility] 06/01/21 Office Visit Jas[facility] Leal MD [facility] [place] Showing recent visits within past 365 days and meeting all other requirements Future Appointments Date Type Provider Dept 08/19/22 Appointment Jaswant Leal MD [facility] [place] Showing future appointments within next 90 days and meeting all other requirements TURNING FINISHER documented in this encounter Plan of Treatment Upcoming Encounters Date Type Department Care Team (Late st Contact Info) Description 05/11/2024 10:00 AM RIM TURNING FINISHER [facility]ment [facility] M[facility] 1 [place] [address] Jaswant Leal MD #[address] [address] Discharge Disposition: Discharged to home or Selfcare 05/11/2024 11:00 AM RIM TURNING FINISHER Appointment [facility] Ul[facility]ound 1 [place] [address] Jaswant Leal MD #[address] [address] Discharge Disposition: Discharged to home or Selfcare 08/17/2024 7:20 AM CDT Lab [facility] [address] [address] [place] Lab/Ancillary 08/22/2024 3:30 PM CDT Office Visit [facility] [place] #[address] [place] [address] Jaswant Leal MD [address] [address] documented as of this encounter Visit Diagnoses Not on filedocumented in this encounter Additional Health Concerns Assessment Noted Time PHQ-9 Depression Total Score: 0 09/04/19 22 1:00 PM CDT documented as of this encounter Care Teams Cinema Operator Relationship Specialty Start Date End Date Jaswant Leal MD [address] [address] PCP - General Family Medicine 07/31/20 Loy Dewey MD Consulting Physician Obstetrics & Gynecology 03/31/16 documented as of this encounter
--- OUTSIDE RECORDS SUMMARY | 2024-05-08 00:40 | XMS_ITS | Encounter Summary ---
Author Organization [facility] Address [address] [place] [address] Phone Care Team Providers Care Optical Glass Sawyer Name Role Phone Loy Dewey MD [facility] Jaswant García MD Primary Care Provider [phone] Reason for Visit * Reason Comments Medication Refill Encounter Details Date Type Department Care Team (Late st Contact Info) Description 08/26/2022 Refill [facility] #2 [place] [address] Jaswant Leal MD #[address] [address] Medication Refill Social History Tobacco Use Types [...] encounter Miscellaneous Notes * Telephone Encounter - Melissa Bardales RN - 08/26/2022 2:44 PM CDT PDMP 06/28/22. Do you want to refill this? Medication failed the protocol, provider to review and approve the medication order if appropriate. Requested Prescriptions Pending Prescriptions Disp Refills triamcinolone (KENALOG) 0.1 % Cream [Pharmacy Med Name: TRIAMCINOLONE 0.1% CREAM] 80 g 0 Sig: APPLY ONTO THE CHEST WALL ONCE DAILY Not Delegated - Topical Steroids Protocol Failed - 08/26/2022 1:12 PM Failed - This refill cannot be [...] [place] 09/03/21 Office Visit [facility] [place] Showing recent visits within past 365 days and meeting all other requirements Future Appointments No visits were found meeting these conditions. Showing future appointments within next 90 days and meeting all other requirements Refused Prescriptions Disp Refills meloxicam (MOBIC) 7.5 MG Tablet [Pharmacy Med Name: MELOXICAM 7.5 MG TABLET] 60 Tablet 2 Sig: TAKE 1 TABLET BY MOUTH TWICE A DAY NEEDED FOR PAIN NSAIDs Protocol Passed - 08/26/2022 1:12 PM Passed - Normal serum creatinine in past 12 months CREATININE, BLOOD Date Value Ref Range Status 04/06/2022 0.64 0.60 - 1.10 mg/dL Final Passed - Visit with relevant provider in past 12 months or upcoming 90 days Recent Visits Date Type Provider Dept 08/19/22 Office Visit Jaswant Leal MD [facility] 04/21/22 Office Visit Jas[facility] Leal MD [facility] 04/06/22 Office Visit Jaswant Leal MD [facility] 12/11/21 Office Visit Jaswant Leal MD [facility] 09/03/21 Office Visit Jaswant Leal MD [facility] Showing recent visits within past 365 days and meeting all other requirements Future Appointments No visits were found meeting these conditions. Showing future appointments within next 90 days and meeting all other requirements Passed - No matching NSAID med order in past 45 days No matching medication orders between 07/12/2022 2:44 PM and 08/26/2022 2:44 PM Passed - AST less than 55 [...] 04/06/2022 45.0 36.0 - 47.0 % Final * Telephone Encounter - Melissa Bardales RN - 08/26/2022 2:39 PM CDT Images from the original note were not included. Meloxicam too early for refill. Meloxicam Dispensed Days Supply Quantity Provider Pharmacy MELOXICAM 7.5 MG TABLET 08/12/2022 30 60 Each Jaswant Leal MD [facility]/pharmacy #[id number] - ... documented in this encounter Plan of Treatment Upcoming Encounters Date Type Department Care Team (Late st Contact Info) Description 05/11/2024 10:00 AM AUTOMATIC HEMMER [facility] 1 [place] [address] Jaswant Leal MD #[address] [address] Discharge Disposition: Discharged to home or Selfcare 05/11/2024 11:00 AM AUTOMATIC HEMMER [facility] 1 [facility] [place] [address] Jaswant Leal MD #[address] [address] Discharge Disposition: Discharged to home or Selfcare 08/17/2024 7:20 AM CDT Lab [facility] #[address] [address] [facility] 08/22/2024 3:30 PM CDT Office Visit [facility] Medical Group - Family Medicine - [place] #2 [place] [address] Jaswant Leal MD #[address] [address] documented as of this encounter Visit Diagnoses Not on filedocumented in this encounter Additional Health Concerns Assessment Noted Time PHQ-9 Depression Total Score: 0 09/04/19 22 1:00 PM CDT documented as of this encounter Care Teams Optical Glass Sawyer Relationship Specialty Start Date End Date Jaswant Leal MD #[address] [address] PCP - General Family Medicine 07/31/20 Loy Dewey MD Consulting Physician Obstetrics & Gynecology 03/31/16 documented as of this encounter
--- OUTSIDE RECORDS SUMMARY | 2024-05-08 00:40 | XMS_ITS | Encounter Summary ---
Author Organization [facility] Address [address] [place] [address] Phone Care Team Providers Care Automotive Service Cashier Name Role Phone Loy Dewey MD [facility] Jaswant Leal MD Primary Care Provider Reason for Visit * Reason Comments Medication Refill Encounter Details Date Type Department Care Team (Late st Contact Info) Description 11/19/2020 Refill [facility] #2 [place] [address] Jaswant Leal MD #[address] [address] Medication Refill Social History Tobacco Use Types [...] Telephone Encounter - Jaswant Leal MD - 11/20/2020 8:47 AM CDT Prescription approved. Please call in * Telephone Encounter - Toshia Jensen RN - 11/20/2020 8:25 AM CDT [place] 10/20/20 Medication failed the protocol, provider to review and approve the medication order if appropriate. Requested Prescriptions Pending Prescriptions Disp Refills Pregabalin 300 MG Capsule [Pharmacy Med Name: PREGABALIN 300 MG CAPSULE] 60 Capsule Sig: TAKE 1 CAPSULE BY MOUTH TWICE A DAY [facility] Not Delegated - Neurology: Anticonvulsants - Controlled Substances Failed - 11/20/2020 8:24 AM Failed - This refill cannot be delegated Passed - Valid encounter within last 12 months Past Office Visits Recent Outpatient Visits 2 months ago Chronic obstructive pulmonary disease, unspecified COPD type (HCC) [facility] - Jaswant Guerra MD 3 months ago Essential hypertension [facility] Jaswant Guerra MD 4 years ago DUB (dysfunctional uterine bleeding) [facility] - Lefty Loya MD 4 years ago Post-menopausal bleeding [facility] Lefty Loya MD 4 years ago Dysfunctional uterine bleeding [facility] Upcoming Appointments Future Appointments In 3 weeks Lefty Stone MD [facility]etrics & [facility] In 2 months Jaswant Leal MD [facility] CABLE DISPATCHER - Recent and Past Visits Recent Visits Date Type Provider Dept 09/18/20 Office Visit Jaswant Leal MD [facility] 08/06/20 Office Visit Jas[facility] Leal MD [facility] [place] Showing recent visits within past 460 days with a meds authorizing provider and meeting all other requirements Future Appointments Date Type Provider Dept 01/26/21 Appointment Jaswant Leal MD [facility] [place] Showing future appointments within next 90 days with a meds authorizing provider and meeting all other requirements documented in this encounter Plan of Treatment Upcoming Encounters Date Type Department Care Team (Late st Contact Info) Description 05/11/2024 10:00 AM MEDICAL ASSISTING PROGRAM DIRECTOR [facility] 1 [facility] [place] [address] Jaswant Leal MD #[address] [address] Discharge Disposition: Discharged to home or Selfcare 05/11/2024 11:00 AM MEDICAL ASSISTING PROGRAM DIRECTOR [facility]ment [facility] 1 [facility] [place] [address] Jaswant Leal MD #[address] [address] Discharge Disposition: Discharged to home or Selfcare 08/17/2024 7:20 AM CDT Lab [facility] #[address] [address] [facility] [place] Lab/Ancillary 08/22/2024 3:30 PM CDT Office Visit [facility] Group - Family Medicine - [place] #2 [place] [address] Jaswant Leal MD #[address] [address] documented as of this encounter Visit Diagnoses Diagnosis Abdominal pain, RLQ- Primary Abdominal pain, right lower quadrant documented in this encounter Additional Health Concerns Assessment Noted Time PHQ-9 Depression Total Score: 1 03/31/20 16 2:02 PM MEDICAL ASSISTING PROGRAM DIRECTOR documented as of this encounter Care Teams Automotive Service Cashier Relationship Specialty Start Date End Date Jaswant Leal MD #[address] [address] PCP - General Family Medicine 07/31/20 Loy Dewey MD Consulting Physician Obstetrics & Gynecology 03/31/16 documented as of this encounter
--- OUTSIDE RECORDS SUMMARY | 2024-05-08 00:40 | XMS_ITS | Clinical Summary ---
Author Organization [facility] Facility Address [address] [address] Care Team Providers Care Head Rigger Name Role Phone Unavailable Primary Care Provider Unavailabl e Medications chlorthalidone (HYGROTON) 50 MG tablet Take 1 tablet (50 mg total) by mouth 1 (one) time each day 30 tablet 1 10/06/2020 Active Social History Tobacco Use Types Packs/Day Years Used Date Smoking Tobacco: Never Alcohol Use Standard Drinks/Week Comments No 0 (1 standard drink = 0.6 oz pur e alcohol) Comments Unknown Sex and Gender Information Value Date Recorded Sex Assigned at Not on file Legal Sex Female 2:50 PM EDT Gender Identity Not on file Sexual Orientation Not on file Plan of Treatment Health Maintenance Due Date Last Done Comments Breast Cancer Screening 1960 Colorectal Cancer Screening: Annual FOBT 08/28/2011 Colorectal Cancer Screening: Colonoscopy 08/28/2011 Colorectal Cancer Screening: Sigmoidoscopy 08/28/2011 Influenza Vaccine (#1) 2023 Hepatitis B Vaccine Aged Out No longe r eligible based on patient's age to complete this topic Pneumococcal Vaccine: Pediat rics (0 to 5 Years) and At-Risk Patients (6 to 64 Years) Aged Out No longer eligible b ased on patient's age to complete this topic
--- OUTSIDE RECORDS SUMMARY | 2024-05-08 00:40 | XMS_ITS | Encounter Summary ---
Author Organization [facility] Address [address] [place] [address] Phone Care Team Providers Care Client Program Manager Name Role Phone Loy Dewey MD [facility] Jaswant García MD Primary Care Provider [phone] Encounter Details Date Type Department Care Team (Late st Contact Info) Description 09/03/2020 Transcribe Orders [facility] Preop/Pacu II 1 [place] [address] Lefty Stone MD #2 [place] [address] Pre-op testing (Primary Dx); Postmenopausal [...] st Contact Info) Description 05/11/2024 10:00 AM THERMOMETER TESTER [facility] 1 [place] [address] Jaswant Leal MD #[address] [address] Discharge Disposition: Discharged to home or Selfcare 05/11/2024 11:00 AM THERMOMETER TESTER [facility]ment [facility] 1 [place] [address] Jaswant Leal MD #[address] [address] Discharge Disposition: Discharged to home or Selfcare 08/17/2024 7:20 AM CDT Lab [facility] #[address] [address] [facility] Lab/Ancillary 08/22/2024 3:30 PM CDT Office Visit [facility] Medical Group - Family Medicine - [place] #2 [place] [address] Jaswant Leal MD #[address] [address] documented as of this encounter Results * TYPE & SCREEN (CROSSMATCH CONVERTIBLE) (09/13/2020 9:46 AM CDT) ABO TYPING O 09/13/2020 12:42 PM CDT [facility] RH Positive 09/13/2020 12:42 PM CDT [facility] ABSC Negative 09/13/2020 12:42 PM CDT [facility] Blood Venipuncture / Unknown 09/13/2020 9:46 AM CDT 09/13/2020 10:54 AM CDT us Lefty Stone MD BLOOD BANK ORDERABLES Edited R esult - Final [facility] #[address] [place] [address] documented in this encounter Visit Diagnoses Diagnosis Pre-op testing- Primary Preoperative examination, unspecified Postmenopausal bleeding documented in this encounter Additional Health Concerns Assessment Noted Time PHQ-9 Depression Total Score: 1 03/31/20 16 2:02 PM THERMOMETER TESTER documented as of this encounter Care Teams Client Program Manager Relationship Specialty Start Date End Date Jaswant Leal MD [address] [address] PCP - General Family Medicine 07/31/20 Loy Dewey MD Consulting Physician Obstetrics & Gynecology 03/31/16 documented as of this encounter
--- OUTSIDE RECORDS SUMMARY | 2024-05-08 00:40 | XMS_ITS | Encounter Summary ---
Author Organization [facility] Address [address] [place] [address] Phone Care Team Providers Care Sand Blaster Name Role Phone Loy Dewey MD [facility] Jaswant García MD Primary Care Provider [phone] Reason for Visit * Reason Comments Medication Refill Encounter Details Date Type Department Care Team (Late st Contact Info) Description 10/05/2022 Refill [facility] #2 [place] [phone] Jaswant Leal MD #[address] [address] Medication Refill Social History Tobacco Use Types [...] Telephone Encounter - Melissa Bardales RN - 10/06/2022 3:15 PM CDT Images from the original note were not included. Refill request too soon. Semaglutide Dispensed Days Supply Quantity Provider Pharmacy OZEMPIC 0.25-0.5 MG/DOSE PEN 09/21/2022 56 3 mL Jaswant Leal MD [id number] - ... documented in this encounter Plan of Treatment Upcoming Encounters Date Type Department Care Team (Late st Contact Info) Description 05/11/2024 10:00 AM ACTUARIAL DIRECTOR Appointment [facility] Mammography 1 [place] [address] Jaswant Leal MD #[address] [address] Discharge Disposition: Discharged to home or Selfcare 05/11/2024 11:00 AM ACTUARIAL DIRECTOR Appointment [facility] Ultrasound 1 [facility] [place] [address] Jaswant Leal MD #[address] [address] Discharge Disposition: Discharged to home or Selfcare 08/17/2024 7:20 AM CDT Lab [facility] #[address] [address] Fernando Goodwin Lab/Ancillary 08/22/2024 3:30 PM CDT Office Visit [facility] [place] [facility] [place] [address] Jaswant Leal MD #[address] [address] documented as of this encounter Visit Diagnoses Not on filedocumented in this encounter Additional Health Concerns Assessment Noted Time PHQ-9 Depression Total Score: 0 09/04/19 22 1:00 PM CDT documented as of this encounter Care Teams Sand Blaster Relationship Specialty Start Date End Date Jaswant Leal MD #[address] [address] PCP - General Family Medicine 07/31/20 Loy Dewey MD Consulting Physician Obstetrics & Gynecology 03/31/16 documented as of this encounter
--- OUTSIDE RECORDS SUMMARY | 2024-05-08 00:41 | XMS_ITS | Encounter Summary ---
Author Organization [facility] Address [address] [place] [address] Phone Care Team Providers Care Pupil Personnel Services Director Name Role Phone Loy Dewey MD [facility] Jaswant García MD Primary Care Provider [phone] Reason for Visit * Reason Comments Medication Refill Encounter Details Date Type Department Care Team (Late st Contact Info) Description 03/23/2022 Refill [facility] #2 [place] [phone] Jaswant Leal MD #[address] [address] Medication Refill Social History Tobacco Use Types [...] Encounter - Camila Toshia L, RN - 03/23/2022 10:34 AM CST PRN medication requires review from provider Per nursing clinical judgement, provider to review and approve the medication(s) order(s) if appropriate. Requested Prescriptions Pending Prescriptions Disp Refills meloxicam (MOBIC) 7.5 MG Tablet [Pharmacy Med Name: MELOXICAM 7.5 MG TABLET] 60 Tablet 2 Sig: TAKE 1 TABLET BY MOUTH TWICE A DAY NEEDED FOR PAIN NSAIDs Protocol Passed - 03/23/2022 12:07 AM Passed - Normal serum creatinine in past 12 months CREATININE - POCT Date Value Ref Range Status 08/01/2020 0.9 0.6 - 1.3 mg/dL Final CREATININE, BLOOD Date Value Ref Range Status 11/27/2021 0.66 0.60 - 1.10 mg/dL Final Passed - Visit with relevant provider in past 12 months or upcoming 90 days Recent Visits Date Type Provider Dept 12/11/21 Office Visit Jaswnat Leal MD [facility] 09/03/21 Office Visit Jaswant Leal MD [facility] 06/01/21 Office Visit Jaswant Leal MD [facility] 04/14/21 Office Visit Jaswant Leal MD [facility] Showing recent visits within past 365 days and meeting all other requirements Future Appointments Date Type Provider Dept 04/21/22 Appointment Jaswant Leal MD [facility] Showing future appointments within next 90 days and meeting all other requirements Passed - No matching NSAID med order in past 45 days No matching medication orders between 02/06/2022 10:34 AM and 03/23/2022 10:34 AM Passed - AST less than 55 or ALT less than 90 in past 12 months SGOT (AST) Date Value Ref Range Status 11/27/2021 25 <=32 U/L Final SGPT (ALT) Date Value Ref Range Status 11/27/2021 36 <=41 U/L Final Passed - HGB greater than 10 or HCT greater than 30 in past 12 months HEMOGLOBIN (HGB) Date Value Ref Range Status 08/28/2021 13.9 12.0 - 15.8 g/dL Final HEMATOCRIT (HCT) Date Value Ref Range Status 08/28/2021 44.9 36.0 - 47.0 % Final BER documented in this encounter Plan of Treatment Upcoming Encounters Date Type Department Care Team (Late st Contact Info) Description 05/11/2024 10:00 AM CRIBBER [facility]ointment [facility] 1 [facility] [place] [address] Jaswant Leal MD #[address] [address] Discharge Disposition: Discharged to home or Selfcare 05/11/2024 11:00 AM CRIBBER Appointment [facility] Ultrasound 1 [place] [address] Jaswant Leal MD #[address] [address] Discharge Disposition: Discharged to home or Selfcare 08/17/2024 7:20 AM CDT Lab [facility] #[address] [address] [facility] [place] Lab/Ancillary 08/22/2024 3:30 PM CDT Office Visit [facility] - Family Medicine - [place] #2 [place] [address] Jaswant Leal MD #[address] [address] documented as of this encounter Visit Diagnoses Not on filedocumented in this encounter Additional Health Concerns Assessment Noted Time PHQ-9 Depression Total Score: 0 09/04/19 22 1:00 PM CDT documented as of this encounter Care Teams Pupil Personnel Services Director Relationship Specialty Start Date End Date Jaswant Leal MD #[address] [address] PCP - General Family Medicine 07/31/20 Loy Dewey MD Consulting Physician Obstetrics & Gynecology 03/31/16 documented as of this encounter
--- OUTSIDE RECORDS SUMMARY | 2024-05-08 00:41 | XMS_ITS | Encounter Summary ---
Author Organization [facility] Address [address] [place] [address] Phone Care Team Providers Care Chief Librarian Circulation Department Name Role Phone Loy Dewey MD [facility] Jaswant García MD Primary Care Provider [phone] Reason for Visit * Reason Comments Medication Refill Encounter Details Date Type Department Care Team (Late st Contact Info) Description 03/26/2022 Refill [facility] #2 [place] [phone] Jaswant Leal MD #[address] [address] Medication Refill Social History Tobacco Use Types [...] Telephone Encounter - Toshia Jensen RN - 03/29/2022 8:08 AM CST PDMP 02/25/22 Medication failed the protocol, provider to review and approve the medication order if appropriate. Requested Prescriptions Pending Prescriptions Disp Refills Pregabalin 300 MG Capsule [Pharmacy Med Name: PREGABALIN 300 MG CAPSULE] 90 Capsule 0 Sig: TAKE 1 CAPSULE BY MOUTH THREE TIMES A DAY Not Delegated - Anticonvulsants Excluding Benzodiazepines Protocol Failed - 03/26/2022 7:13 PM Failed - This refill cannot be delegated Passed - Visit with relevant provider in past 12 months or upcoming 90 days Recent Visits Date Type Provider Dept 12/11/21 Office Visit Jaswant Leal MD [facility] 09/03/21 Office Visit Jaswant Leal MD [facility] 06/01/21 Office Visit Jaswant Leal MD [facility] 04/14/21 Office Visit Jaswant Leal MD [facility] [place] Showing recent visits within past 365 days and meeting all other requirements Future Appointments Date Type Provider Dept 04/21/22 Appointment Jaswant Leal MD [facility] Showing future appointments within next 90 days and meeting all other requirements F LIBRARIAN MUSIC DEPARTMENT documented in this encounter Plan of Treatment Upcoming Encounters Date Type Department Care Team (Late st Contact Info) Description 05/11/2024 10:00 AM CHIEF LIBRARIAN MUSIC DEPARTMENT [facility]ment [facility] M[facility] 1 [place] [address] Jaswant Leal MD #[address] [address] Discharge Disposition: Discharged to home or Selfcare 05/11/2024 11:00 AM CHIEF LIBRARIAN MUSIC DEPARTMENT Appointment [facility] Ultrasound 1 [place] [address] Jaswant Leal MD #[address] [address] Discharge Disposition: Discharged to home or Selfcare 08/17/2024 7:20 AM CDT Lab [facility] #[address] [address] [facility] 08/22/2024 3:30 PM CDT [facility] - [place] #2 [place] [address] Jaswant Leal MD #[address] [address] documented as of this encounter Visit Diagnoses Diagnosis Abdominal pain, RLQ Abdominal pain, right lower quadrant documented in this encounter Additional Health Concerns Assessment Noted Time PHQ-9 Depression Total Score: 0 09/04/19 22 1:00 PM CDT documented as of this encounter Care Teams Chief Librarian Circulation Department Relationship Specialty Start Date End Date Jaswant Leal MD [address] [address] PCP - General Family Medicine 07/31/20 Loy Dewey MD Consulting Physician Obstetrics & Gynecology 03/31/16 documented as of this encounter
--- OUTSIDE RECORDS SUMMARY | 2024-05-08 00:41 | XMS_ITS | Encounter Summary ---
Author Organization [facility] Address [address] [place] [address] Phone Care Team Providers Care Rechecker Name Role Phone [facility] MD [facility] Primary Care Provider [phone] Reason for Visit * Reason Comments Medication Refill Encounter Details Date Type Department Care Team (Late st Contact Info) Description 08/16/2023 Refill [facility] #2 [place] [address] Jaswant Leal MD #[address] [address] Medication Refill Social History Tobacco Use Types Packs/Day Years Used Date Smoking Tobacco: Never Smokeless Tobacco: Never Alcohol Use Standard Drinks/Week Comments Not Currently 0 (1 standard drink = 0.6 oz pure alcohol) Past alcohol abuse- quit 1978 [facility] Utilities Answer Date Recorded In the past 12 months has [employer], gas, oil, or water company threatened to [...] often do you attend chur ch or bahai services? More than 4 times per year 04/25/2023 Do you belong to any clubs o r organizations such as denominational groups, unions, fraternal or athletic groups, or [...] Total Score - Questions 1-9 0 04/11 [facility] of Occupat ional [facility] - Occupational Stress Questionnaire Answer Date Recorded [...] place to sleep or slept in a skilled nursing (including now)? No 04/25/2023 Education Answer Date [...] as of this encounter Functional Status * Question Answer Date of Assessment Author Little interest or pleasure in doing things Not at all 08/17/2023 9:00 AM EVYT Tennille Brock MA Feeling down, depressed, or hopeless Not at all 08/17/2023 9:00 AM EVYT Tennille Brock MA * Over the past 2 weeks, how often have you been bothered by any of the following problems? Question Answer Date of Assessment Author Patient Health Questionnaire -2 Score 0 08/17/2023 9:00 AM Tennille Moraes MA documented as of this encounter Miscellaneous Notes * Telephone Encounter - Toshia Jensen RN - 08/16/2023 11:31 AM CDT PDMP 06/21/23, 07/19/23 Medication failed the protocol, provider to review and approve the medication order if appropriate. Requested Prescriptions Pending Prescriptions Disp Refills Pregabalin 300 MG Capsule [Pharmacy Med Name: PREGABALIN 300 MG CAPSULE] 90 Capsule 1 Sig: TAKE 1 CAPSULE BY MOUTH THREE TIMES A DAY Not Delegated - Anticonvulsants Excluding Benzodiazepines Protocol Failed - 08/16/2023 10:24 AM Failed - This refill cannot be delegated Passed - Visit with relevant provider in past 12 months or upcoming 90 days Recent Visits Date Type Provider Dept 04/25/23 Office Visit Jaswant Leal MD [facility] 12/22/22 Office Visit Jaswant Leal MD [facility] 08/19/22 Office Visit Jaswant Leal MD [facility] Kristopher Showing recent visits within past 365 days and meeting all other requirements Future Appointments Date Type Provider Dept 08/24/23 Appointment Jaswant Leal MD [facility] Showing future appointments within next 90 days and meeting all other requirements documented in this encounter Plan of Treatment Upcoming Encounters Date Type Department Care Team (Late st Contact Info) Description 05/11/2024 10:00 AM PLANER STONE Appointment [facility] Mammography 1 [facility] [place] [address] Jaswant Leal MD #[address] [address] Discharge Disposition: Discharged to home or Selfcare 05/11/2024 11:00 AM PLANER STONE Appointment [facility] Ultrasound 1 [facility] [place] [address] Jaswant Leal MD #[address] [address] Discharge Disposition: Discharged to home or Selfcare 08/17/2024 7:20 AM CDT Lab [facility] #[address] [address] Kristopher Goodwin Lab/Ancillary 08/22/2024 3:30 PM CDT Office Visit [facility] - Family Medicine - [place] #2 [place] [address] Jaswant Leal MD #[address] [place] [address] documented as of this encounter Visit Diagnoses Diagnosis Abdominal pain, RLQ Abdominal pain, right lower quadrant documented in this encounter Additional Health Concerns Assessment Noted Time PHQ-9 Depression Total Score: 0 04/25/19 1:18 PM PLANER STONE documented as of this encounter Care Teams Rechecker Relationship Specialty Start Date End Date Jaswant Leal MD #2 [place] [address] PCP - General Family Medicine 07/31/20 Loy Dewey MD Consulting Physician Obstetrics & Gynecology 03/31/16 documented as of this encounter
--- OUTSIDE RECORDS SUMMARY | 2024-05-08 00:41 | XMS_ITS | Encounter Summary ---
Author Organization [facility] Address [address] [place] [address] Phone Care Team Providers Care Scaffolding Helper Name Role Phone Loy Dewey MD [facility] Jaswant García MD Primary Care Provider [phone] Reason for Visit * Reason Comments Medication Refill Encounter Details Date Type Department Care Team (Late st Contact Info) Description 02/25/2022 Refill [facility] #2 [place] [phone] Jaswant Leal MD #[address] [address] Medication Refill Social History Tobacco Use Types [...] was confirmed or suspected to have Coronavirus/COVID-19? Yes 02/01/2022 9:43 AM CDT documented as of this encounter Miscellaneous Notes * Telephone Encounter - Toshia Jensen RN - 02/25/2022 12:08 PM CST Medication failed the protocol, provider to review and approve the medication order if appropriate. Requested Prescriptions Pending Prescriptions Disp Refills Pregabalin 300 MG Capsule [Pharmacy Med Name: PREGABALIN 300 MG CAPSULE] 90 Capsule 0 Sig: TAKE 1 CAPSULE BY MOUTH THREE TIMES A DAY Not Delegated - Anticonvulsants Excluding Benzodiazepines Protocol Failed - 02/25/2022 10:26 AM Failed - This refill cannot be delegated Passed - Visit with relevant provider in past 12 months or upcoming 90 days Recent Visits Date Type Provider Dept 12/11/21 Office Visit Jaswant Leal MD [facility] 09/03/21 Office Visit Jaswant Leal MD [facility] 06/01/21 Office Visit Jaswant Leal MD [facility] 04/14/21 Office Visit Jaswant Leal MD [facility] [place] Showing recent visits within past 365 days and meeting all other requirements Future Appointments Date Type Provider Dept 04/21/22 Appointment Jaswant Leal MD [facility] Showing future appointments within next 90 days and meeting all other requirements ET PLATEMAKER documented in this encounter Plan of Treatment Upcoming Encounters Date Type Department Care Team (Late st Contact Info) Description 05/11/2024 10:00 AM OFFSET PLATEMAKER Appointment [facility] Mammography 1 [place] [address] Jaswant Leal MD #[address] [address] Discharge Disposition: Discharged to home or Selfcare 05/11/2024 11:00 AM OFFSET PLATEMAKER Appointment [facility] Ultrasound 1 [place] [address] Jaswant Leal MD #[address] [address] Discharge Disposition: Discharged to home or Selfcare 08/17/2024 7:20 AM CDT Lab [facility] #[address] [address] [facility] Lab/Ancillary 08/22/2024 3:30 PM CDT [facility] - [place] #2 [place] [address] Jaswant Leal MD #[address] [address] documented as of this encounter Visit Diagnoses Diagnosis Abdominal pain, RLQ Abdominal pain, right lower quadrant documented in this encounter Additional Health Concerns Assessment Noted Time PHQ-9 Depression Total Score: 0 09/04/19 22 1:00 PM CDT documented as of this encounter Care Teams Scaffolding Helper Relationship Specialty Start Date End Date Jaswant Leal MD #[address] [address] PCP - General Family Medicine 07/31/20 Loy Dewey MD Consulting Physician Obstetrics & Gynecology 03/31/16 documented as of this encounter
--- OUTSIDE RECORDS SUMMARY | 2024-05-08 00:41 | XMS_ITS | Encounter Summary ---
Author Organization [facility] Address [address] [place] [address] Phone Care Team Providers Care Spray Dry Operator Name Role Phone [facility] MD [facility] Primary Care Provider [phone] Reason for Visit * Reason Onset Date Comments Advice Only 11/23/2023 Encounter Details Date Type Department Care Team (Late st Contact Info) Description 11/23/2023 Telephone [facility] [address] [place] [address] Jaswant eLal MD #[address] [address] Advice Only Social History Tobacco Use Types Packs/Day Years Used Date Smoking Tobacco: Never Smokeless Tobacco: Never Alcohol Use Standard Drinks/Week Comments Not Currently 0 (1 standard drink = 0.6 oz pure alcohol) Past alcohol abuse- quit 1978 [facility] Utilities Answer Date Recorded In the past 12 months has [employer], gas, oil, or water company threatened to shut off services in your home? No 08/23/2023 Social Connection and Isolat ion Panel [NHANES] Answer Date Recorded In a typical week, how many times do you talk on the phone with family, friends, or neighbors? More than three times a week 08/23/2023 How often do you get togethe r with friends or relatives? More than three times a week 08/23/2023 How often do you attend chur or yazidism services? More than 4 times per year 08/23/2023 Do you belong to any clubs o r organizations such as lutheran groups, unions, fraternal or athletic groups, or school groups? Yes 08/23/2023 How often do you attend meet ings of the clubs or organizations you belong to? Never 08/23/2023 Are you , , di vorced, , never , or living with a partner? 08/23/2023 AUDIT-C Answer Date Recorded Q1: How often do you have a drink containing alcohol? Never 08/23/2023 Q2: How many drinks containi ng alcohol do you have on a typical day when you are drinking? Patient does not drink Q3: How often do you have si x or more drinks on one occasion? Never 08/23/2023 Overall Financial Resource Strain (CARDIA) Answe r Date Recorded How hard is it for you to pa y for the very basics like food, housing, medical care, and heating? Not hard at all 08/23/2023 PHQ-2 Answer Date Recorded Total Score - Questions 1-9 0 08/09 [facility] of Occupat ional [facility] - Occupational Stress Questionnaire Answer Date Recorded Do you feel stress - tense, restless, nervous, or anxious, or unable to sleep at night because your mind is troubled all the time - these days? Not at all 08/23/2023 Exercise Vital Sign Answer Date Recorde d On average, how many days pe r week do you engage in moderate to strenuous exercise (like a brisk walk)? 1 day 08/23/2023 On average, how many minutes do you engage in exercise at this level? 10 min 08/23/2023 Hunger Vital Sign Answer Date Recorded Within the past 12 months, y ou worried that your food would run out before you got the money to buy more. Never true 08/23/19 24 Within the past 12 months, t he food you bought just didn't last and you didn't have money to get more. Never true 08/23/2023 PRAPARE - Transportation Answer Date Re corded In the past 12 months, has l ack of transportation kept you from medical appointments or from getting medications? No 08/09 In the past 12 months, has l ack of transportation kept you from meetings, work, or from getting things needed for daily living? No 08/23/2023 Housing Stability Vital Sign Answer [...] place to sleep or slept in a residential (including now)? No 08/23/2023 Education Answer Date Recorded What is the [...] st Contact Info) Description 05/11/2024 10:00 AM JOY LOADING MACHINE OPERATOR Appointment [facility] Mammography 1 [place] [address] Jaswant Leal MD #[address] [address] Discharge Disposition: Discharged to home or Selfcare 05/11/2024 11:00 AM JOY LOADING MACHINE OPERATOR Appointment [facility] Ultrasound 1 [facility] [place] [address] Jaswant Leal MD #[address] [address] Discharge Disposition: Discharged to home or Selfcare 08/17/2024 7:20 AM CDT Lab [facility] #[address] [address] [place] Goodwin Lab/Ancillary 08/22/2024 3:30 PM CDT Office [facility] - [place] #2 [place] [address] Jaswant Leal MD #[address] [address] documented as of this encounter Visit Diagnoses Not on filedocumented in this encounter Additional Health Concerns Assessment Noted Time PHQ-9 Depression Total Score: 0 08/24/19 24 3:07 PM CDT documented as of this encounter Care Teams Spray Dry Operator Relationship Specialty Start Date End Date Jaswant Leal MD #[address] [address] PCP - General Family Medicine 07/31/20 Loy Dewey MD Consulting Physician Obstetrics & Gynecology 03/31/16 documented as of this encounter
--- OUTSIDE RECORDS SUMMARY | 2024-05-08 00:41 | XMS_ITS | Encounter Summary ---
Author Organization [facility] Address [address] [place] [address] Phone Care Team Providers Care Dog Handler Name Role Phone Loy Dewey MD [facility] Primary Care Provider [phone] Reason for Visit * Reason Comments Medication Refill Encounter Details Date Type Department Care Team (Late st Contact Info) Description 08/31/2023 [facility]ill [facility] [place] [address] Jaswant Leal MD #[address] [address] Medication Refill Social History Tobacco Use Types Packs/Day Years Used Date Smoking Tobacco: Never Smokeless Tobacco: Never Alcohol Use Standard Drinks/Week Comments Not Currently 0 (1 standard drink = 0.6 oz pure alcohol) Past alcohol abuse- quit 1978 [facility] Utilities Answer Date Recorded In the past 12 months has [employer], gas, oil, or water company threatened to [...] How often do you attend chur or faith services? More than 4 times per year 08/23/2023 Do you belong to any clubs o r organizations such as scientologist groups, unions, fraternal or athletic groups, or [...] Total Score - Questions 1-9 0 08/09 [facility] of Occupat ional [facility] - Occupational Stress Questionnaire Answer Date [...] place to sleep or slept in a correction (including now)? No 08/23/2023 Education Answer Date [...] encounter Miscellaneous Notes * Telephone Encounter - Inge Caballero RN - 08/31/2023 2:49 PM CDT Same dosage? Per nursing clinical judgement, provider to review and approve the medication(s) order(s) if appropriate. Requested Prescriptions Pending Prescriptions Disp Refills Ozempic, 1 MG/DOSE, 4 MG/3ML Solution Pen-injector [Pharmacy Med Name: OZEMPIC 4 MG/3 ML (1 MG/DOSE)] Sig: INJECT 1MG UNDER THE SKIN ONCE WEEKLY GLP-1 Agonists Protocol Passed - 08/31/2023 2:47 PM Passed - Lipid panel result on [...] days Recent Visits Date Type Provider Dept 08/24/23 Office Visit Jaswant Leal MD [facility] 08/17/23 Office Visit Andres Brooks MD [facility] 04/25/23 Office Visit Jaswant Leal MD [facility] Showing recent visits within past 182 days and meeting all other requirements Future Appointments No visits were found meeting these conditions. Showing future appointments within next 90 days and meeting all other requirements Passed - HgA1C result on record in past 6 months HGB-A1C Date Value Ref Range Status 09/03/2021 6.3 (A) 4 - 6 Final HGB-A1C Date Value Ref Range Status 08/17/2023 5.9 4.0 - 6.0 % Final Passed - GFR on record in past 6 months GFR, EST. NONAFRICAN Date Value Ref Range Status 08/17/2023 59 (L) >=60 Final documented in this encounter Plan of Treatment Upcoming Encounters Date Type Department Care Team (Late st Contact Info) Description 05/11/2024 10:00 AM REHABILITATION SPECIALIST [facility]ment [facility] 1 [place] [address] Jaswant Leal MD #[address] [address] Discharge Disposition: Discharged to home or Selfcare 05/11/2024 11:00 AM REHABILITATION SPECIALIST [facility]ment [facility] 1 [place] [address] Jaswant Leal MD #[address] [address] Discharge Disposition: Discharged to home or Selfcare 08/17/2024 7:20 AM CDT Lab [facility] [address] [address] Fernando Goodwin Lab/Ancillary 08/22/2024 3:30 PM CDT Office Visit [facility] [place] [address] [facility] [place] [address] Jaswant Leal MD #[address] [address] documented as of this encounter Visit Diagnoses Not on filedocumented in this encounter Additional Health Concerns Assessment Noted Time PHQ-9 Depression Total Score: 0 08/24/19 24 3:07 PM CDT documented as of this encounter Care Teams Dog Handler Relationship Specialty Start Date End Date Jaswant Leal MD #[address] [address] PCP - General Family Medicine 07/31/20 Loy Dewey MD Consulting Physician Obstetrics & Gynecology 03/31/16 documented as of this encounter
--- OUTSIDE RECORDS SUMMARY | 2024-05-08 00:41 | XMS_ITS | Encounter Summary ---
Author Organization [facility] Address [address] [place] [address] Phone Care Team Providers Care Chart Calculator Name Role Phone Loy Dewey MD [facility] Primary Care Provider [phone] Reason for Visit * Reason Comments Medication Refill Encounter Details Date Type Department Care Team (Late st Contact Info) Description 09/16/2023 Refill [facility] #2 [place] [address] Jaswant Leal MD #[address] [address] Medication Refill Social History Tobacco Use Types Packs/Day Years Used Date Smoking Tobacco: Never Smokeless Tobacco: Never Alcohol Use Standard Drinks/Week Comments Not Currently 0 (1 standard drink = 0.6 oz pure alcohol) Past alcohol abuse- quit 1978 [facility] Utilities Answer Date Recorded In the past 12 months has [employer], gas, oil, or water company threatened to [...] How often do you attend chur or uatsdin services? More than 4 times per year 08/23/2023 Do you belong to any clubs o r organizations such as amish groups, unions, fraternal or athletic groups, or [...] Total Score - Questions 1-9 0 08/09 [facility] of Occupat ional [facility] - Occupational Stress Questionnaire Answer Date Recorded [...] place to sleep or slept in a jail (including now)? No 08/23/2023 Education Answer Date [...] Telephone Encounter - Inge Caballero RN - 09/17/2023 3:01 PM CDT Medication failed the protocol, provider to review and approve the medication order if appropriate. Requested Prescriptions Pending Prescriptions Disp Refills meloxicam (MOBIC) 7.5 MG Tablet [Pharmacy Med Name: MELOXICAM 7.5 MG TABLET] 60 Tablet 2 Sig: TAKE 1 TABLET BY MOUTH TWICE A DAY NEEDED FOR PAIN NSAIDs Protocol Failed - 09/16/2023 6:22 PM Failed - HGB greater than 10 or HCT greater than 30 in past 12 months HEMOGLOBIN (HGB) Date Value Ref Range Status 04/06/2022 14.0 12.0 - 15.8 g/dL Final HEMATOCRIT (HCT) Date Value Ref Range Status 04/06/2022 45.0 36.0 - 47.0 % Final Passed - Normal serum creatinine in past 12 months CREATININE, BLOOD Date Value Ref Range Status 08/17/2023 0.96 0.60 - 1.00 mg/dL Final Passed - Visit with relevant provider in past 12 months or upcoming 90 days Recent Visits Date Type Provider Dept 08/24/23 Office Visit [facility] [place] 08/17/23 Office Visit Andres Brooks MD [facility] 04/25/23 Office Visit [facility] [...] 45 days No matching medication orders between 08/03/2023 3:01 PM and 09/17/2023 3:01 PM Passed - AST less than 55 or ALT less than 90 in past 12 months SGOT (AST) Date Value Ref Range Status 08/17/2023 20 5 - 34 U/L Final SGPT (ALT) Date Value Ref Range Status 08/17/2023 24 0 - 55 U/L Final Ozempic, 0.25 or 0.5 MG/DOSE, 2 MG/3ML Solution Pen-injector [Pharmacy Med Name: OZEMPIC 0.25-0.5 MG/DOSE PEN] Sig: INJECT 0.5MG UNDER THE SKIN EVERY 7 DAYS GLP-1 Agonists Protocol Passed - 09/16/2023 6:22 PM Passed - Lipid panel result on [...] Dept 08/24/23 Office Visit Jaswant Leal MD [facility] 08/17/23 Office Visit Andres Brooks MD [facility] 01/15/24 Office Visit Jaswant Leal MD [facility] Showing recent visits within past 182 days and meeting all other requirements Future Appointments No visits were found meeting these conditions. Showing future appointments within next 90 days and meeting all other requirements Passed - HgA1C result on record in past 6 months HGB-A1C Date Value Ref Range Status 08/17/2023 5.9 4.0 - 6.0 % Final Passed - GFR on record in past 6 months GFR, EST. NONAFRICAN Date Value Ref Range Status 08/17/2023 59 (L) >=60 Final documented in this encounter Plan of Treatment Upcoming Encounters Date Type Department Care Team (Late st Contact Info) Description 05/11/2024 10:00 AM EXHAUST AND MUFFLER FITTER Appointment [facility] Mammography 1 [place] [address] Jaswant Leal MD #[address] [address] Discharge Disposition: Discharged to home or Selfcare 05/11/2024 11:00 AM EXHAUST AND MUFFLER FITTER Appointment [facility] Ultrasound 1 [place] [address] Jaswant Leal MD #[address] [address] Discharge Disposition: Discharged to home or Selfcare 08/17/2024 7:20 AM CDT Lab [facility] #[address] [address] Kristopher Goodwin Lab/Ancillary 08/22/2024 3:30 PM CDT Office Visit [facility] - [place] #2 [place] [address] Jaswant Lela MD #[address] [address] documented as of this encounter Visit Diagnoses Not on filedocumented in this encounter Additional Health Concerns Assessment Noted Time PHQ-9 Depression Total Score: 0 08/24/19 24 3:07 PM CDT documented as of this encounter Care Teams Chart Calculator Relationship Specialty Start Date End Date Jaswant Leal MD #2 [place] [address] PCP - General Family Medicine 07/31/20 Loy Dewey MD Consulting Physician Obstetrics & Gynecology 03/31/16 documented as of this encounter
--- OUTSIDE RECORDS SUMMARY | 2024-05-08 00:41 | XMS_ITS | Encounter Summary ---
Author Organization [facility] Address [address] [place] [address] Phone Care Team Providers Care Book Coverer Name Role Phone Loy Dewey MD [facility] Primary Care Provider [phone] Reason for Visit * Reason Comments Medication Refill Encounter Details Date Type Department Care Team (Late st Contact Info) Description 12/04/2023 Refill [facility] #2 [place] [id number] Jaswant Leal MD #[address] [address] Medication Refill Social History Tobacco Use Types Packs/Day Years Used Date Smoking Tobacco: Never Smokeless Tobacco: Never Alcohol Use Standard Drinks/Week Comments Not Currently 0 (1 standard drink = 0.6 oz pure alcohol) Past alcohol abuse- quit 1978 [facility] Utilities Answer Date Recorded In the past 12 months has [employer], gas, oil, or water company threatened to [...] How often do you attend chur or scientology services? More than 4 times per year 08/23/2023 Do you belong to any clubs o r organizations such as voodoo groups, unions, fraternal or athletic groups, or [...] Total Score - Questions 1-9 0 08/09 [facility] of Occupat ional [facility] - Occupational Stress Questionnaire Answer Date [...] place to sleep or slept in a longterm (including now)? No 08/23/2023 Education Answer Date [...] Telephone Encounter - Toshia Jensen RN - 12/05/2023 10:48 AM CDT Looks like patient should be taking the 1 mg weekly. documented in this encounter Plan of Treatment Upcoming Encounters Date Type Department Care Team (Late st Contact Info) Description 05/11/2024 10:00 AM ELECTRICAL & INSTRUMENTATION SUPERVISOR [facility] 1 [place] [address] Jaswant Leal MD #[address] [address] Discharge Disposition: Discharged to home or Selfcare 05/11/2024 11:00 AM ELECTRICAL & INSTRUMENTATION SUPERVISOR [facility] 1 [place] [address] Jaswant Leal MD #[address] [address] Discharge Disposition: Discharged to home or Selfcare 08/17/2024 7:20 AM CDT Lab [facility] #[id number] [address] Kristopher Goodwin Lab/Ancillary 08/22/2024 3:30 PM CDT Office Visit [facility] - [place] #[address] [place] [address] Jaswant Leal MD [address] [address] documented as of this encounter Visit Diagnoses Not on filedocumented in this encounter Additional Health Concerns Assessment Noted Time PHQ-9 Depression Total Score: 0 08/24/19 24 3:07 PM CDT documented as of this encounter Care Teams Book Coverer Relationship Specialty Start Date End Date Jaswant Leal MD #[address] [address] PCP - General Family Medicine 07/31/20 Loy Dewey MD Consulting Physician Obstetrics & Gynecology 03/31/16 documented as of this encounter
--- OUTSIDE RECORDS SUMMARY | 2024-05-08 00:41 | XMS_ITS | Encounter Summary ---
Author Organization [facility] Address [address] [place] [address] Phone Care Team Providers Care Sales Promotion Manager Name Role Phone Loy Dewey MD [facility] Primary Care Provider [phone] Reason for Visit * Reason Comments Medication Refill Encounter Details Date Type Department Care Team (Late st Contact Info) Description 06/21/2023 Refill [facility] #2 [place] [phone] Jaswant Leal MD #[address] [address] Medication Refill Social History Tobacco Use Types Packs/Day Years Used Date Smoking Tobacco: Never Smokeless Tobacco: Never Alcohol Use Standard Drinks/Week Comments Not Currently 0 (1 standard drink = 0.6 oz pure alcohol) Past alcohol abuse- quit 1978 [facility] Utilities Answer Date Recorded In the past 12 months has [employer], gas, oil, or water company threatened to [...] often do you attend chur ch or episcopal services? More than 4 times per year 04/25/2023 Do you belong to any clubs o r organizations such as rastafari groups, unions, fraternal or athletic groups, or [...] Total Score - Questions 1-9 0 04/11 [facility] of Occupat ional [facility] - Occupational Stress Questionnaire Answer Date Recorded [...] place to sleep or slept in a usp (including now)? No 04/25/2023 Education Answer Date [...] Telephone Encounter - Toshia Jensen RN - 06/21/2023 1:32 PM CDT Medication failed the protocol, provider to review and approve the medication order if appropriate. Requested Prescriptions Pending Prescriptions Disp Refills meloxicam (MOBIC) 7.5 MG Tablet [Pharmacy Med Name: MELOXICAM 7.5 MG TABLET] 60 Tablet 2 Sig: TAKE 1 TABLET BY MOUTH TWICE A DAY NEEDED FOR PAIN NSAIDs Protocol Failed - 06/21/2023 10:22 AM Failed - HGB greater than 10 or HCT greater than 30 in past 12 months HEMOGLOBIN (HGB) Date Value Ref Range Status 04/06/2022 14.0 12.0 - 15.8 g/dL Final HEMATOCRIT (HCT) Date Value Ref Range Status 04/06/2022 45.0 36.0 - 47.0 % Final Passed - Normal serum creatinine in past 12 months CREATININE, BLOOD Date Value Ref Range Status 04/20/2023 0.77 0.60 - 1.00 mg/dL Final Passed - [...] Provider Dept 08/24/23 Appointment Jaswant Leal MD [facility] Showing future appointments within next 90 days and meeting all other requirements Passed - No matching NSAID med order in past 45 days No matching medication orders between 05/07/2023 1:32 PM and 06/21/2023 1:32 PM Passed - AST less than 55 or ALT less than 90 in past 12 months SGOT (AST) Date Value Ref Range Status 04/20/2023 19 5 - 34 U/L Final SGPT (ALT) Date Value Ref Range Status 04/20/2023 26 0 - 55 U/L Final semaglutide, 1 MG/DOSE, (Ozempic, 1 MG/DOSE,) 4 MG/3ML Solution Pen-injector [Pharmacy Med Name: OZEMPIC 4 MG/3 ML (1 MG/DOSE)] 3 mL 0 Sig: INJECT 1MG UNDER THE SKIN ONCE WEEKLY GLP-1 Agonists Protocol Passed - 06/21/2023 10:22 AM Passed - Lipid panel result on [...] Provider Dept 08/24/23 Appointment Jaswant Leal MD [facility] Showing [...] Ref Range Status 04/20/2023 >60 >=60 Final Pregabalin 300 MG Capsule [Pharmacy Med Name: PREGABALIN 300 MG CAPSULE] 90 Capsule 1 Sig: TAKE 1 CAPSULE BY MOUTH THREE TIMES A DAY Not Delegated - Anticonvulsants Excluding Benzodiazepines Protocol Failed - 06/21/2023 10:22 AM Failed - This refill cannot be [...] all other requirements Refused Prescriptions Disp Refills Ozempic, 0.25 or 0.5 MG/DOSE, 2 MG/3ML Solution Pen-injector [Pharmacy Med Name: OZEMPIC 0.25-0.5 MG/DOSE PEN] Sig: INJECT 0.5MG UNDER THE SKIN EVERY 7 DAYS GLP-1 Agonists Protocol Passed - 06/21/2023 10:22 AM Passed - Lipid panel result on [...] Dept 04/25/23 Office Visit Jaswant Leal MD [facility] 12/22/22 Office Visit Jaswant Leal MD [facility] [...] Ref Range Status 04/20/2023 >60 >=60 Final documented in this encounter Plan of Treatment Upcoming Encounters Date Type Department Care Team (Late st Contact Info) Description 05/11/2024 10:00 AM ENGRAVER HAND SOFT METALS [facility] 1 [place] [address] Jaswant Leal MD #[address] [address] Discharge Disposition: Discharged to home or Selfcare 05/11/2024 11:00 AM ENGRAVER HAND SOFT METALS [facility] 1 [facility] [place] [address] Jaswant Leal MD #[address] [address] Discharge Disposition: Discharged to home or Selfcare 08/17/2024 7:20 AM CDT Lab [facility] #[address] [address] Kristopher Goodwin Lab/Ancillary 08/22/2024 3:30 PM CDT Office Visit [facility] #2 [place] [address] Jaswant Leal MD #[address] [address] documented as of this encounter Visit Diagnoses Diagnosis Abdominal pain, RLQ Abdominal pain, right lower quadrant documented in this encounter Additional Health Concerns Assessment Noted Time PHQ-9 Depression Total Score: 0 04/25/19 24 1:18 PM ENGRAVER HAND SOFT METALS documented as of this encounter Care Teams Sales Promotion Manager Relationship Specialty Start Date End Date Jaswant Leal MD #[address] [address] PCP - General Family Medicine 07/31/20 Loy Dewey MD Consulting Physician Obstetrics & Gynecology 03/31/16 documented as of this encounter
--- NOTE | 2024-05-08 09:05 | P.HP_ITS ---
History of Present Illness History of Present Illness Consent: Risks, benefits, and alternatives have been discussed and questions answered. Patient agrees to proceed with procedure. Chief complaint: OA bilat knees, pain Narrative: Janell Islas is a 63 year old female with chronic, recalcitrant and disabling bilateral knee pain secondary to degenerative osteoarthritis with failure to respond to aggressive conservative measures including PT, oral and topical a nalgesics, opioid and nonopioid analgesics, rest, time and activity/behavioral modification over the past 1-2 years who presents for water cooled thermal RF ablation of the genicular/vastus intermedius nerves supplying the bilateral knee joints under fluoroscopic guidance. Review of Systems Review of Systems: Patient denies any new infectious, allergic, cardiopulmonary, neurologic or constitutional symptoms or changes in activity tolerance or exercise capacity including new or progressive SOB/GOMEZ, peripheral edema, productive cough, dysuria, nausea/vomiting, diarrhea, weight change, fevers/chills/night sweats, new or progressive neurologic deficit, cognitive or mood changes since last seen, except as documented in the HPI. All systems reviewed & are unremarkable except as noted in HPI and below PMFSH Past Medical History Medical History Right knee DJD Arthritis Anxiety Sleep apnea Asthma Wears glasses Weight gain Claustrophobia History of adverse reaction to anesthesia Primary osteoarthritis of right knee Swelling of right knee joint Surgical History Surgical History History of prior ablation treatment History of left knee surgery History of breast surgery Left side lymph node cancer 1980 Right side skin cancer Family History Family History Sibling Patient's sister is in good health Family history of diabetes mellitus in first degree relative Family history of malignant neoplasm of breast in first degree relative Father Cerebrovascular accident, Onset Age: 39 Patient's father is , Onset Age: 39 Asthma Mother Family history of diabetes mellitus in first degree relative, Onset Age: 72 Patient's mother is , Onset Age: 72 Other Depression Diabetes mellitus Family history of uterine cancer Hypertension Social History Social History Smoking status: Never smoker Second hand tobacco smoke exposure: Yes Alcohol intake: never Substance use: never Do You Feel Safe in your Home?: Yes Lack of Transportation: No Lack of Food: Sometimes True Current Housing: I Have Housing Concerned About Future Housing: No Difficulty Paying Gas/Electric Bills: No Difficulty Paying for Meds: No Currently Unemployed: No Education: High School Diploma/GED Living arrangements: with family Occupation/Education: other Gender identity (if verbalized by the patient): Female Spiritual care concerns: No Meds Home Medications and Allergies Home Medications ?Medication ?Instructions ?Recorded ?Confirmed ?Type nebivolol 20 mg tablet (Bystolic) 20 mg PO DAILY #90 tabs 02/19/19 05/02/24 Rx baclofen 10 mg tablet 10 mg PO TID #90 tabs 09/04/19 05/02/24 Rx diclofenac sodium 1 % topical gel See Rx Instructions .Route 05/29/20 05/02/24 Rx .COMPLEX #300 grams levocetirizine 5 mg tablet 5 mg PO DAILY 90 days #90 tabs 07/04/20 05/02/24 Rx venlafaxine 150 mg 150 mg PO DAILY #90 caps 07/18/20 05/02/24 Rx capsule,extended release 24 hr nifedipine 30 mg tablet,extended 30 mg PO BID 90 days #180 tabs 07/23/20 05/02/24 Rx release meloxicam 7.5 mg tablet 7.5 mg PO BID #60 tabs 01/05/21 05/02/24 Rx hydrocodone 10 mg-acetaminophen 1 tablet PO Q8H PRN Pain 05/17/23 05/02/24 History 325 mg tablet metformin 500 mg tablet 500 mg PO BID 05/17/23 05/02/24 History pregabalin 300 mg capsule (Lyrica) 300 mg PO TID 05/17/23 05/02/24 History valsartan 320 1 tablet PO DAILY 05/17/23 05/02/24 History mg-hydrochlorothiazide 25 mg tablet azelastine 137 mcg (0.1 %) nasal See Rx Instructions .Route 09/19/23 05/02/24 Rx spray .COMPLEX 90 days #90 mL montelukast 10 mg tablet See Rx Instructions .Route 09/19/23 05/02/24 Rx .COMPLEX #90 tabs alprazolam 0.5 mg tablet 0.5 mg PO DAILY procedural anxiety 10/09/23 05/02/24 Rx #2 tabs Advair HFA 115 mcg-21 2 puff inhalation BID #12 grams 12/02/23 05/02/24 Rx mcg/actuation aerosol inhaler (fluticasone propion-salmeterol) albuterol sulfate 90 mcg/actuation See Rx Instructions .Route 01/06/24 05/02/24 Rx aerosol inhaler .COMPLEX #8.5 ea clotrimazole 1 % topical cream 1 applic topical DAILY 04/30/24 05/02/24 History terbinafine HCl 250 mg tablet 250 mg PO DAILY 04/30/24 05/02/24 History semaglutide 2 mg/dose (8 mg/3 mL) 2 mg subcut WEEKLY 05/02/24 05/02/24 History subcutaneous pen injector (Ozempic) Allergies Allergy/AdvReac Type Severity Reaction Status Date / Time penicillin G Allergy Severe Anaphylaxis Verified 05/08/24 09:09 Penicillins Allergy Severe Anaphylaxis Verified 05/08/24 09:09 mold Allergy Mild Rash Verified 05/08/24 09:09 nickel Allergy Mild Hives Verified 05/08/24 09:09 olmesartan Allergy Mild Hives Verified 05/08/24 09:09 Exam Narrative: The patient's physical exam is essentially unchanged from prior examination on 02/07/2024. Specifically, patient demonstrates normal lung capacity, tidal volume and respiratory rate without wheezes, crackles, rales or rubs. Heart rate and rhythm are regular without murmurs, gallops or rubs. No JVD. Pulses 2+ globally without increasing peripheral edema. AAOx3 with no evidence of confusion, intoxication or altered mental state, NC/AT without acute distress or altered consciousness. Speech, cognition, mood, insight and judgment at baseline and within normal limits. Assessment and Plan Assessment and plan (1) Primary osteoarthritis of right knee: Code(s): M17.11 - Unilateral primary osteoarthritis, right knee Status: Acute (2) Primary osteoarthritis of left knee: Code(s): M17.12 - Unilateral primary osteoarthritis, left knee Status: Acute (3) Arthralgia of both knees: Code(s): M25.561 - Pain in right knee; M25.562 - Pain in left knee Status: Acute (4) Chronic pain syndrome: Code(s): G89.4 - Chronic pain syndrome Status: Acute Plan Proceed as planned with bilateral genicular/vastus intermedius nerve water- cooled thermal RF ablation to denervate the bilateral knee joints under fluor oscopic guidance
--- NOTE | 2024-05-08 09:14 | WPDHPUPDATE1 ---
History and Physical Update Update Date/Time: 05/08/24 09:14 History and Physical has been reviewed, including an updated exam of the patient. There are NO changes in the patient's condition. Risks, benefits, and alternatives have been discussed and questions answered. Patient agrees to proceed with procedure.
--- NOTE | 2024-05-08 09:16 | P.OP_ITS ---
Procedure Note - Detailed Date of Procedure 05/08/24 Pre-op Diagnosis OA bilat knees, pain Post-op Diagnosis Same Procedure Performed Radiofrequency Ablation of the bilateral Superior Medial, Inferior Medial and Superior Lateral Genicular Nerves, Vastus Intermedius Nerve under Fluoroscopic Guidance (8 nerves ablated). Surgeon Kj Morton MD Anesthesia Other ([Local w/ IV Sedation/MAC in the Supine Position]) Description of Procedure INFORMED CONSENT: Risks, benefits and alternatives to the procedure were discussed in detail with the patient who expressed explicit understanding and consent to proceed. Patient was informed verbally and in written form regarding the risks associated with the procedure including the low risk of serious infection, bleeding/bruising, allergic reaction, nerve injury, paralysis, procedural site pain or discomfort, worsening pain and/or mobility, failure to treat and disfigurement. The patient expressed explicit understanding and consent to proceed. All materials required for the procedure were available prior to procedure start. Site and side was marked prior to procedure and confirmed in the presence of the patient. PROCEDURE IN DETAIL: The patient was brought to the procedural suite and placed in the supine position. Patient was made comfortable with use of pillows under the head/shoulder, knees and ankles. Skin overlying anterior, medial and lateral surface of the knee joint on the right side was prepared broadly with ChloroPrep applicator and draped in a sterile manner. Aseptic technique was used throughout. The intersection between the femoral shaft and the medial femoral condyle, lateral femoral condyle and between the medial tibial plateau and tibial shaft were visualized in the AP view with the knee extended at 180 degrees. Local anesthesia was established by infiltration with approximately 3 mL of 2% lidocaine via a 1-1/2 inch 27-gauge needle at the skin and soft tissues overlying each site. One 17-gauge 100 mm flck.me water-cooled RF cannula was advanced until the needle tip contacted periosteum at the intersection of the medial femoral condyle and femoral shaft and advanced medially and posteriorly until approximating the position of the medial superior genicular nerve. Impedance levels were within normal limits. Motor testing was performed at a frequency of 2 Hz to a current of 3.0 mAmps through each needle with no evidence of motor stimulation. After negative aspiration, 2ml of a 1:1 admixture of 0.25% PF Bupivacaine and 2% lidocaine was injected at the intended site to establish anesthesia. Needle stylette was replaced with a water-cooled electrode from the medical reception specialist-supplied kit. After a 90s delay, lesioning was then performed at the target site for 150s to a temperature of 60 degrees Centigrade. The needle was then retracted 10mm and repeat lesions were performed in a similar manner. [place] were then re- styletted and removed without difficulty. Needle was then repositioned to contact the periosteum at the location of the remaining targeted peripheral nerves and advanced medially and dorsally to approximate the position of the Inferior Medial Genicular nerve, laterally and dorsally to approximate the position of the Superior Lateral Genicular nerve just past midshaft in each location, and just above periosteum at the midline of the femoral shaft approximately 6cm superior to the superior patellar border to approximate the position of the vastus intermedius nerve. Ly that procedure was then repeated on the contralateral side (left knee), modified only to accommodate for contralateral procedure location, with similar results and no evidence of complication Images were saved and documented in the patient chart. Patient's skin was cleansed and sterile bandage applied. The patient tolerated the procedure well. The patient was transported to the recovery area in stable condition where they were observed for an appropriate amount of time prior to discharge, without evidence of complication. Patient was instructed on the appropriate completion of a pain diary over the next 12-24 hours. The patient was instructed to avoid excessive activity for the next 48 hours, including climbing and frequent use of stairs. Showers only for 48 hours. They were instructed not to drive or operate heavy machinery for 24 hours. They are to monitor for severe headaches, fevers, chills, night sweats, erythema/swelling at the site or any other signs of infection, bleeding/bruising, bowel or bladder changes as well as new pain, weakness or numbness in the upper or lower extremity. Should they notice these changes, they are instructed to call our office immediately or report directly to the nearest Emergency Department if no answer or if after posted office hours. COMPLICATIONS: None COMMENTS: None Complications No immediate complications Condition Stable Disposition PACU [facility] Billing Surgery - Charge Forward: Surgery Billing
[2024-05-08] MEDS: LACTATED RINGERS 1,000 ML 30 ML IV CONT (09:20)
--- NOTE | 2024-05-08 09:55 | SUR.PREOP ---
PT UPDATES ON SURGERY DELAY TIME, DENIES NEEDS AT THIS TIME.
--- NOTE | 2024-05-08 10:07 | P.PNAN_ITS ---
Anes - Initial Pre Proc Eval Procedure: Operation Date: 05/08/24 10:30 Proposed Procedures p Water Cooled Thermal Radiofrequency Ablation of Genicular Nerves Times Six, Vastus Intermedius Nerve Times One Under Fluoroscopic Guidance, Denervating Bilateral Knees - Kj Morton MD Date/Time: 05/08/24 10:07 Surgeon: Kj Morton MD Pre Op Diagnosis: OA bilat knees, pain Patient Data Age: 63 Gender: F Height: 1.63 m Weight: 128.3 kg Last Vital Signs Temp 36.3 C L 05/08/24 08:43 Pulse 72 05/08/24 08:43 Resp 18 05/08/24 08:43 BP 148/81 H 05/08/24 08:43 Pulse Ox 97 05/08/24 08:43 O2 Del Method Room Air 05/08/24 08:43 Allergies Allergy/AdvReac Type Severity Reaction Status Date / Time penicillin G Allergy Severe Anaphylaxis Verified 05/08/24 09:09 Penicillins Allergy Severe Anaphylaxis Verified 05/08/24 09:09 mold Allergy Mild Rash Verified 05/08/24 09:09 nickel Allergy Mild Hives Verified 05/08/24 09:09 olmesartan Allergy Mild Hives Verified 05/08/24 09:09 Home Medications ?Medication ?Instructions ?Recorded ?Confirmed ?Type nebivolol 20 mg tablet (Bystolic) 20 mg PO DAILY #90 tabs 02/19/19 05/08/24 Rx baclofen 10 mg tablet 10 mg PO TID #90 tabs 09/04/19 05/08/24 Rx diclofenac sodium 1 % topical gel See Rx Instructions .Route 05/29/20 05/08/24 Rx .COMPLEX #300 grams levocetirizine 5 mg tablet 5 mg PO DAILY 90 days #90 tabs 07/04/20 05/08/24 Rx venlafaxine 150 mg 150 mg PO DAILY #90 caps 07/18/20 05/08/24 Rx capsule,extended release 24 hr nifedipine 30 mg tablet,extended 30 mg PO BID 90 days #180 tabs 07/23/20 05/08/24 Rx release meloxicam 7.5 mg tablet 7.5 mg PO BID #60 tabs 01/05/21 05/08/24 Rx hydrocodone 10 mg-acetaminophen 1 tablet PO Q8H PRN Pain 05/17/23 05/02/24 History 325 mg tablet metformin 500 mg tablet 500 mg PO BID 05/17/23 05/08/24 History pregabalin 300 mg capsule (Lyrica) 300 mg PO TID 05/17/23 05/08/24 History valsartan 320 1 tablet PO DAILY 05/17/23 05/08/24 History mg-hydrochlorothiazide 25 mg tablet azelastine 137 mcg (0.1 %) nasal See Rx Instructions .Route 09/19/23 05/08/24 Rx spray .COMPLEX 90 days #90 mL montelukast 10 mg tablet See Rx Instructions .Route 09/19/23 05/08/24 Rx .COMPLEX #90 tabs alprazolam 0.5 mg tablet 0.5 mg PO DAILY procedural anxiety 10/09/23 05/08/24 Rx #2 tabs Advair HFA 115 mcg-21 2 puff inhalation BID #12 grams 12/02/23 05/08/24 Rx mcg/actuation aerosol inhaler (fluticasone propion-salmeterol) albuterol sulfate 90 mcg/actuation See Rx Instructions .Route 01/06/24 05/02/24 Rx aerosol inhaler .COMPLEX #8.5 ea clotrimazole 1 % topical cream 1 applic topical DAILY 04/30/24 05/08/24 History terbinafine HCl 250 mg tablet 250 mg PO DAILY 04/30/24 05/08/24 History semaglutide 2 mg/dose (8 mg/3 mL) 2 mg subcut WEEKLY 05/02/24 05/08/24 History subcutaneous pen injector (Ozempic) Patient hx anesthesia problems: none Family hx anesthesia problems: none Results Review: All pre-operative results and documents have been reviewed as part of the pre- operative evaluation. [facility] Past Medical History Medical History Right knee DJD Arthritis Anxiety Sleep apnea Asthma Wears glasses Weight gain Claustrophobia History of adverse reaction to anesthesia Primary osteoarthritis of right knee Swelling of right knee joint Surgical History Surgical History History of prior ablation treatment History of left knee surgery History of breast surgery Left side lymph node cancer 1980 Right side skin cancer Family History Family History Sibling Patient's sister is in good health Family history of diabetes mellitus in first degree relative Family history of malignant neoplasm of breast in first degree relative Father Cerebrovascular accident, Onset Age: 39 Patient's father is , Onset Age: 39 Asthma Mother Family history of diabetes mellitus in first degree relative, Onset Age: 72 Patient's mother is , Onset Age: 72 Other Depression Diabetes mellitus Family history of uterine cancer Hypertension Social History Social History Smoking status: Never smoker Second hand tobacco smoke exposure: Yes Alcohol intake: never Substance use: never Do You Feel Safe in your Home?: Yes Lack of Transportation: No Lack of Food: Sometimes True Current Housing: I Have Housing Concerned About Future Housing: No Difficulty Paying Gas/Electric Bills: No Difficulty Paying for Meds: No Currently Unemployed: No Education: High School Diploma/GED Living arrangements: with family Occupation/Education: other Gender identity (if verbalized by the patient): Female Spiritual care concerns: No Anes - Eval Final PreProcedure Day of Procedure 05/08/24 10:07 Patient weight: morbidly obese Heart: regular rate and rhythm Lungs: clear to auscultation Airway: Mallampati scale class II Neurological: alert and oriented Last oral intake: >/= 8 hours ASA classification: III Emergent: no Anesthetic plan: proceed Anesthesia type and monitoring: general GIVS and standard monitoring Results Review: All pre-operative results and documents have been reviewed as part of the pre- operative evaluation. Informed Consent: The patient's anesthetic plan and its attendant risks and benefits were discussed with the patient/family/POA. Questions were solicited and answers provided to the satisfaction of the patient/family/POA.
[2024-05-08] MEDS: ceFAZolin 3 GM/D5W 100 ML 100 ML IVPB (12:29)
[2024-05-08] MEDS: BUPivacaine HCL 0.5% 10 ML AMP 30 ML INFILTRATE (12:56)
[2024-05-08] MEDS: LIDOCAINE 1% LOCAL INJ 10 ML VIAL INFILTRATE (12:57)
[2024-05-08] MEDS: LIDOCAINE 2% PF LOCAL INJ 5 ML VIAL 20 ML INFILTRATE (12:57)
[2024-05-08] MEDS: ONDANSETRON INJ 4 MG/2 ML VIAL IV PUSH (13:45)
[2024-05-08] MEDS: SCOPOLAMINE 1 MG PATCH 1 PATCH TRANSDERM (13:56)
[2024-05-08] MEDS: diphenhydrAMINE HCl INJ 50 MG/ML VIAL 12.5 MG IV PUSH (13:57)
[2024-05-08] MEDS: fentaNYL CITRATE INJ (*CRX) 100 MCG/2 ML VIAL 25 MCG IV PUSH ×4 (14:24→14:40)
[2024-05-08] MEDS: KETOROLAC 30 MG/ML VIAL (*BKC) IV PUSH (16:17)
[2024-05-08] MEDS: dexAMETHasone SOD PHOS INJ 4 MG/ML VIAL IV PUSH (16:19)
--- NOTE | 2024-05-08 17:15 | SUR.PHASEII ---
Dr Morton spoke to patient and patient spouse in room. Patient agrees going home is the best option for her. additional verbal instructions reviewed with patient by Dr Morton.
== END 2024-05-08 17:15 | disposition home or self-care (01) ==
PROVIDERS: PCP Internal Medicine; Visit Provider Anesthesiology Pain Medicine
PROC: (CPT 64624; principal; 2024-05-08 10:30)
DX: M17.0 Bilateral primary osteoarthritis of knee (principal); M25.562 Pain in left knee; M25.561 Pain in right knee; G89.4 Chronic pain syndrome
CPT/HCPCS: 64624; 99199; A9270; J0690; J1100; J1200; J1885; J2003; J2250; J2371; J2405; J2704; J3010; J7120

== ENCOUNTER 2024-11-01 13:05 | Outpatient (CLI) | payer MEDICARE, MEDICAID, SELFPAY ==
--- OUTSIDE RECORDS SUMMARY | 2024-11-01 13:13 | XMS_ITS | Encounter Summary ---
Author Organization [facility] Address [address] [place] [address] Phone Care Team Providers Care Top Trimmer Name Role Phone Loy Dewey MD [facility] Jaswant García MD Primary Care Provider [phone] Reason for Visit * Reason Comments Medication Refill Encounter Details Date Type Department Care Team (Late st Contact Info) Description 05/28/2022 Refill [facility] [address] [place] [id number] Jaswant Leal MD [address] [address] Medication Refill Social History Tobacco Use Types [...] [place] 06/01/21 Office Visit Jaswant Leal MD [facility] [place] Showing recent visits within past 365 days and meeting all other requirements Future Appointments Date Type Provider Dept 08/19/22 Appointment Jaswant Leal MD [facility] [place] Showing future appointments within next 90 days and meeting all other requirements 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 documented in this encounter Plan of Treatment Upcoming Encounters Date Type Department Care Team (Late st Contact Info) Description 12/17/2024 7:40 AM CDT Lab [facility] #[address] [address] [place] Lab/Ancillary 12/24/2024 2:15 PM CDT Office Visit [facility] - [place] [address]2 [facility] [address] Jaswant Leal MD #[address] [address] documented as of this encounter Visit Diagnoses Not on filedocumented in this encounter Additional Health Concerns Assessment Noted Time PHQ-9 Depression Total Score: 0 09/04/19 1:00 PM CDT documented as of this encounter Care Teams Top Trimmer Relationship Specialty Start Date End Date Jaswant Leal MD [address] [place] [address] PCP - General Family Medicine 07/31/20 Loy Dewey MD Consulting Physician Obstetrics & Gynecology 03/31/16 documented as of this encounter
--- OUTSIDE RECORDS SUMMARY | 2024-11-01 13:13 | XMS_ITS | Encounter Summary ---
Author Organization [facility] Address [address] [place] [address] Phone Care Team Providers Care Rug Hooker Hand Name Role Phone Loy Dewey MD, Michael S MD Primary Care Provider [phone] Reason for Visit * Reason Comments Medication Refill Encounter Details Date Type Department Care Team (Late st Contact Info) Description 04/22/2021 Refill [facility] [address] [place] [address] Anil Ricardo MD [address] [place] [address] Medication Refill Social History Tobacco [...] Coronavirus / COVID-19? Yes 04/14/2021 7:02 AM ACCOUNTANT CONTROLLER documented as of this encounter Miscellaneous Notes * Telephone Encounter - Lauren Weston RN - 04/22/2021 10:29 AM ACCOUNTANT CONTROLLER Refilled Ferrous sulfate UNTANT CONTROLLER documented in this encounter Plan of Treatment Upcoming Encounters Date Type Department Care Team (Late st Contact Info) Description 12/17/2024 7:40 AM CDT Lab [facility] #[address] [address] [facility] [place] Lab/Ancillary 12/24/2024 2:15 PM CDT Office Visit [facility] - [place] [address] [place] [address] Jaswant Leal MD #[address] [address] documented as of this encounter Visit Diagnoses Not on filedocumented in this encounter Additional Health Concerns Assessment Noted Time PHQ-9 Depression Total Score: 1 03/31/20 16 2:02 PM ACCOUNTANT CONTROLLER documented as of this encounter Care Teams Rug Hooker Hand Relationship Specialty Start Date End Date Jaswant Leal MD #[address] [address] PCP - General Family Medicine 07/31/20 Loy Dewey MD Consulting Physician Obstetrics & Gynecology 03/31/16 documented as of this encounter
--- OUTSIDE RECORDS SUMMARY | 2024-11-01 13:13 | XMS_ITS | Clinical Summary ---
Author Organization [facility] Address [address] [place] [address] Care Team Providers Care Mainspring Former Brace End Name Role Phone Unavailable Primary Care Provider Unavailabl e Source Comments [facility],non-owned Affiliates and Associated Physician Practices is amultiple site organization consisting of ambulatory clinics and hospital sitesin [place], [place], [place] and [place]. This disclosure is being madepursuant to the Care Everywhere program and may not contain all information available regarding this patient. Last updated 17.[facility] Allergies Active Allergy Reactions Criticality Noted Date Comments Lidocaine Urticaria Medium 05/14/2016 Nickel Urticaria Medium 03/31/2016 Ondansetron Shortness of Breath High 07/21/2016 PT STATED SHE COULD NOT BREATH AFTER RECEIVING ZOFRAN Penicillins Anaphylaxis High 03/31/2016 Trichophyton Shortness of Breath High 03/31/2016 Medications * Be aware that medications may not be up to date on this document. Alwaysverify current medications with the patient. albuterol HFA (PROVENTIL; VENTOLIN; PROAIR) 108 (90 Base) MCG/ACT inhaler INHALE 1-2 PUFFS EVERY 4-6 HOURS NEEDED FOR SHORTNESS OF BREATH OR WHEEZING 2 Active ALPRAZolam (XANAX) 0.5 MG tablet Take 0.5 mg by mouth once daily Active SYMBICORT 160-4.5 MCG/ACT inhaler 2 Active chlorthalidone (HYGROTON) 50 MG tablet Take 1 tablet by mouth once daily 1 Active diclofenac sodium (VOLTAREN) 1 % gel APPLY 2 GRAMS ONTO THE ELBOW/WRIST/PATE ND (PALM/FINGERS/ BACK OF HAND) 4 TIMES DAILY 2 Active HYDROcodone-kayla taminophen (NORCO) 10-325 MG tablet Take 1 tablet by mouth every 8 hours as needed 2 Active meloxicam (MOBIC) 7.5 MG tablet TAKE 1 TABLET BY MOUTH TWICE A DAY NEEDED FOR PAIN 2 Active levocetirizine (XYZAL) 5 MG tablet Take 5 mg by mouth once daily 2 Active pregabalin (LYRICA) 300 MG capsule TAKE 1 CAPSULE BY MOUTH TWICE A DAY 2 Active venlafaxine XR 24hr (EFFEXOR XR) 150 MG capsule Take 150 mg by mouth once daily 2 Active Family History Medical History Relation Name Comments Cancer - Ovarian Mother Relation Name Status Comments Mother Social History Tobacco Use Types Packs/Day Years Used Date Smoking Tobacco: Never Smokeless Tobacco: Never Comments Unknown Sex and Gender Information Value Date Recorded Sex Assigned at Not on file Legal Sex Female 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 Gender Identity Not on file Sexual Orientation Not on file Last Filed Vital Signs Vital Sign Reading Time Taken Comments Blood Pressure 148/90 07/14/2021 3:25 PM CDT Pulse - - Temperature - - Respiratory Rate - - Oxygen Saturation - - Inhaled Oxygen Concentration - - Weight 133.6 kg (294 lb 8 oz) 07/14/2021 3:25 PM CDT Height 162.6 cm (5' 4) 07/14/2021 3:25 PM CDT Body Mass Index [...] SCREENING 1962 LIPID TESTING 1962 MAMMOGRAM 1962 HIV SCREENING 1977 HEPATITIS C SCREENING 08/22/1980 DTAP/TDAP/TD VACCINES (1 - Tdap) 1981 PNEUMOCOCCAL VACCINE 50+ (1 of 1 - PCV) 2012 ZOSTER VACCINE (1 of 2) 2012 COVID-19 VACCINE (1 - 2023-2 5 season) 2023 DEPRESSION SCREENING 04/11/2024 SCREENING FOR DIABETES 05/05/2024 05/05/2021 INFLUENZA VACCINE (#1) 2024 Respiratory Syncytial Virus (RSV) Vaccine Pt: or over 60 yrs (1 - 1-dose 75+ series) 2037 HEPATITIS B VACCINE Aged Out No longe r eligible based on patient's age to complete this topic HIB VACCINE Aged Out No longer eligi ble based on patient's age to complete this topic HPV VACCINE Aged Out No longer eligi ble based on patient's age to complete this topic MENINGOCOCCAL (Group B) VACC INE SHARED DECISION-MAKING Aged Out No longer eligibl e based on patient's age to complete this topic MENINGOCOCCAL GROUPS A/C/Y/W VACCINE Aged Out No longer eligible b ased on patient's age to complete this topic Insurance [employer] MEDICAID - OUT OF STATE
--- OUTSIDE RECORDS SUMMARY | 2024-11-01 13:13 | XMS_ITS | Encounter Summary ---
Author Organization [facility] Address [address] [place] [address] Phone Care Team Providers Care Assistant Operations Manager Name Role Phone Loy Dewey MD [facility] Jaswant García MD Primary Care Provider [phone] Reason for Visit * Reason Comments Medication Refill Encounter Details Date Type Department Care Team (Late st Contact Info) Description 08/26/2022 Refill [facility] [address] [place] [address] Jaswant Leal MD #[address] [address] Medication Refill Social History Tobacco Use Types [...] [place] 09/03/21 Office Visit Jaswant Leal MD [facility] [place] Showing recent visits within past 365 [...] [place] 09/03/21 Office Visit Jaswant Leal MD [facility] [place] Showing recent visits within past 365 [...] 08/12/2022 30 60 Each Jaswant Leal MD [facility]/pharmacy #[id number] - ... documented in this encounter Plan of Treatment Upcoming Encounters Date Type Department Care Team (Late st Contact Info) Description 12/17/2024 7:40 AM CDT Lab [facility] #[address] [address] [place] Lab/Ancillary 12/24/2024 2:15 PM CDT Office Visit [facility] - [facility] - [place] [address] [place] [address] Jaswant Leal MD [address] [address] documented as of this encounter Visit Diagnoses Not on filedocumented in this encounter Additional Health Concerns Assessment Noted Time PHQ-9 Depression Total Score: 0 09/04/19 22 1:00 PM CDT documented as of this encounter Care Teams Assistant Operations Manager Relationship Specialty Start Date End Date Jaswant Leal MD [address] [address] [address] PCP - General Family Medicine 07/31/20 Loy Dewey MD Consulting Physician Obstetrics & Gynecology 03/31/16 documented as of this encounter
--- OUTSIDE RECORDS SUMMARY | 2024-11-01 13:13 | XMS_ITS | Encounter Summary ---
Author Organization [facility] Address [address] [place] [address] Phone Care Team Providers Care Lease Administration Supervisor Name Role Phone Loy Dewey MD, Michael S MD Primary Care Provider [phone] Reason for Referral * Radiology Services (Routine) - Closed Specialty Diagnoses / Procedures Referred By Contac t Referred To Contact Radiology Diagnoses Pre-op testing Procedures EKG 12 LEAD Cesar Candelaria APRN, CRNA [address] [place] [address] Phone: tel: fax: Referral ID Status Reason Start Date Expiration Date Visits Re quested Visits Authorized [id number] Closed 01/23/2021 1 1 Encounter Details Date Type Department Care Team (Late st Contact Info) Description 01/23/2021 Transcribe Orders [facility] Preop/Pacu II [address] [place] [phone] Cesar Candelaria APRN, CRNA [address] [place] [address] Pre-op testing (Primary Dx) Social History Tobacco Use Types Packs/Day Years Used Date Smoking Tobacco: Never Smokeless Tobacco: Never Alcohol Use Standard Drinks/Week Comments Not Currently 0 (1 standard drink = 0.6 oz pure alcohol) Past alcohol abuse- quit 1979 Sexually Active Control Partners Comments Yes Male [...] Info) Description 12/17/2024 7:40 AM CDT Lab [facility] #[address] [phone] [facility] Lab/Ancillary 12/24/2024 2:15 PM CDT Office Visit [facility] - [place] [address] [place] [address] Jaswant Leal MD #[address] [address] documented as of this encounter Results * EKG 12 LEAD (01/28/2021 12:05 PM CDT) Ventricular Rate BPM EXTERNAL EKG Atrial Rate BPM EXTERNAL EKG P-R Interval 166 ms EXTERNAL EKG QRS Duration 86 ms EXTERNAL EKG Q-T Duration 412 ms EXTERNAL EKG QTC CALCULATION 439 ms EXTERNAL EKG P [place] 62 degrees EXTERNAL EKG R [place] -43 degrees EXTERNAL EKG T [place] 18 degrees EXTERNAL EKG 01/28/2021 12:0 5 PM CDT Impressions EXTERNAL EKG - 01/29/2021 10:06 AM CDT Sinus rhythm Left axis deviation Comparison Summary: No significant change Summary: Borderline ECG Compared with:07/25/2017 1:04 PM; 07/16/2016 9:38 AM No significant changes noted Confirmed [place] Gondi Brittni K [id number] on 01/29/2021 10:06:23 AM Narrative Procedure Note Brittni Mora MD - 01/29/2021 IMPRESSION: Sinus rhythm Left axis deviation Comparison Summary: No significant change Summary: Borderline ECG Compared with:07/25/2017 1:04 PM; 07/16/2016 9:38 AM No significant changes noted Confirmed by Morgan Corea [id number] on 01/29/2021 10:06:23 AM us Cesar Bakeratzke POWER SWITCHBOARD OPERATOR, RAPID EXTRACTOR OPERATOR IMG ECG ORDERABLES Final Result EXTERNAL EKG * (ABNORMAL) BASIC METABOLIC PANEL W/ CALCIUM TOTAL (01/28/2021 11:57 AM CDT) SODIUM 139 136 - 144 mmol/L 01/28/2021 2:15 PM CDT [facility] POTASSIUM 3.9 3.5 - 5.1 mmol/L 01/28/2021 2:15 PM CDT [facility] CHLORIDE 103 100 - 110 mmol/L 01/28/2021 2:15 PM CDT [facility] CO2, VENOUS 23 22 - 32 mmol/L 01/28/2021 2:15 PM CDT [facility] ANION GAP 16.9 8.0 - 20.0 mmol/L 01/28/2021 2:15 PM CDT [facility] GLUCOSE 92 70 - 99 mg/dL 01/28/2021 2:15 PM CDT [facility] BUN 16 6 - 20 mg/dL 01/28/2021 2:15 PM CDT [facility] CREATININE, BLOOD 0.59(L) 0.60 - 1.10 mg/dL 01/28/2021 2:15 PM CDT [facility] BUN/CREATININE RATIO 27(H) 12 - 20 ratio 01/28/2021 2:15 PM CDT [facility] CALCIUM 9.3 8.9 - 10.3 mg/dL 01/28/2021 2:15 PM CDT [facility] GFR, EST. NONAFRICAN >60 >=60 01/28/2021 2:15 PM CDT [facility] GFR, EST. >60 >=60 01/28/2021 2:15 PM CDT [facility] Comment: Creatinine Clearance is the preferred criteria for selecting drug dose adjustments in renally impaired patients. The GFR is provided as additional pertinent clinical information. GFR is reported in mL/min/1.73 sq m. IS THE PATIENT REQUIRED TO BE FASTING? No 01/28/2021 2:15 PM CDT [facility] Blood Venipuncture / Unknown 01/28/2021 11:57 AM CDT 01/28/2021 1:21 PM CDT us Cesar Bakeratzke POWER SWITCHBOARD OPERATOR, RAPID EXTRACTOR OPERATOR CHEMISTRY ORDERABL ES Final Result [facility] [address] [place] [address] documented in this encounter Visit Diagnoses Diagnosis Pre-op testing- Primary Preoperative examination, unspecified Pre-op testing Preoperative examination, unspecified documented in this encounter Additional Health Concerns Assessment Noted Time PHQ-9 Depression Total Score: 1 03/31/20 16 2:02 PM QUAIL FARMER documented as of this encounter Care Teams Lease Administration Supervisor Relationship Specialty Start Date End Date Jaswant Leal MD [address] [address] PCP - General Family Medicine 07/31/20 Loy Dewey MD Consulting Physician Obstetrics & Gynecology 03/31/16 documented as of this encounter
--- OUTSIDE RECORDS SUMMARY | 2024-11-01 13:13 | XMS_ITS | Encounter Summary ---
Author Organization [facility] Address [address] [place] [address] Phone Care Team Providers Care Automotive Parts Specialist Name Role Phone Loy Dewey MD [facility] Jaswant García MD Primary Care Provider [phone] Reason for Visit * Reason Comments Medication Refill Encounter Details Date Type Department Care Team (Late st Contact Info) Description 06/27/2022 Refill [facility] [address] [place] [id number] Jaswant Leal MD [address] [address] Medication Refill Social History Tobacco Use Types [...] Leal MD [facility] 09/03/21 Office Visit Jasawnt Leal MD [facility] Showing recent visits [...] Info) Description 12/17/2024 7:40 AM CDT Lab [facility] [address] [address] [facility] Lab/Ancillary 12/24/2024 2:15 PM CDT Office Visit [facility] - [place] [address] [place] [address] Jaswant Leal MD [address] [address] documented as of this encounter Visit Diagnoses Diagnosis Chronic rhinitis Hypertensive heart disease without heart failure Unspecified hypertensive heart disease without heart failure Post-traumatic stress disorder, chronic documented in this encounter Additional Health Concerns Assessment Noted Time PHQ-9 Depression Total Score: 0 09/04/19 22 1:00 PM CDT documented as of this encounter Care Teams Automotive Parts Specialist Relationship Specialty Start Date End Date Jaswant Leal MD [address] [address] PCP - General Family Medicine 07/31/20 Loy Dewey MD Consulting Physician Obstetrics & Gynecology 03/31/16 documented as of this encounter
--- OUTSIDE RECORDS SUMMARY | 2024-11-01 13:13 | XMS_ITS | Clinical Summary ---
Author Organization [facility] Address [address] [address] Phone Care Team Providers Care Stewarding Supervisor Name Role Phone Loy Dewey MD, Michael S MD Primary Care Provider [phone] Allergies Active Allergy Reactions Criticality Noted Date [...] inhalation every 4 hours as needed. Active fluticasone (FLONASE) 50 MCG/ACT Suspension 1-2 [...] DAY, ADMINISTER WITH SPACER, RINSE AND SPIT 024 Active Azelastine HCl 137 MCG/SPRAY Solution FOR 90 DAYS INSTILL 1 SPRAY INTO THE NOSTRILS ONCE EVERY 12 HOURS Active NIFEdipine CR (PROCARDIA-XL) 30 MG TABLET [...] EVERY DAY 90 Tablet 2 024 Active ondansetron (ZOFRAN-ODT) 8 MG TABLET DISPERSIBLE LET 1 TABLET DISSOLVE BY MOUTH 3 TIMES DAILY NEEDED FOR NAUSEA/VOMITIN G 025 Active terbinafine (LamISIL) 250 MG Tablet TAKE 1 TABLET BY MOUTH DAILY 28 Tablet 2 025 Active clotrimazole-betam ethasone (LOTRISONE) 1-0.05 % Cream APPLY 1 APPLICATION ONTO THE RIGHT FLANK ONCE DAILY 45 g 025 Active Pregabalin 300 MG CapsuleIndications :Abdominal pain, RLQ Take 1 Capsule by mouth 3 times daily. 90 Capsule 1 025 Active Tirzepatide (Mounjaro) 10 MG/0.5ML Solution Auto-injector 10 mg by Subcutaneous route every 7 days. 2 mL 1 025 Active HYDROcodone-acetam inophen (NORCO) 10-325 MG TabletIndications: Low back pain, unspecified back pain laterality, unspecified chronicity, unspecified whether sciatica present Take 1 Tablet by mouth every 6 hours as needed for Moderate or more severe pain. 120 Tablet 025 Active meloxicam (MOBIC) 7.5 MG Tablet TAKE 1 TABLET BY MOUTH TWICE A DAY NEEDED FOR PAIN 60 Tablet 2 025 Active metFORMIN (GLUCOPHAGE) 500 MG Tablet TAKE 1 TABLET BY MOUTH TWICE A DAY WITH FOOD 180 Tablet 2 025 Active metFORMIN (GLUCOPHAGE) 500 MG Tablet TAKE 1 TABLET BY MOUTH TWICE A DAY WITH FOOD 180 Tablet 2 024 2024 Discontinued meloxicam (MOBIC) 7.5 MG Tablet TAKE 1 TABLET BY MOUTH TWICE A DAY NEEDED FOR PAIN 60 Tablet 2 025 2024 Discontinued HYDROcodone-acetam inophen (NORCO) 10-325 MG TabletIndications: Low back pain, unspecified back pain laterality, unspecified chronicity, unspecified whether sciatica present Take 1 Tablet by mouth every 8 hours as needed for Moderate or more severe pain. 90 Tablet 025 2024 Discontinued(R eorder) Active Problems Problem Noted Date Diagnosed Date [...] Encounters Date Type Department Care Team Description 10/22/2024 Refill [facility] [address] [place] [address] Jaswant Leal MD Medication Refill 10/17/2024 Refill [facility] [address] [place] [address] Jaswant Leal MD Medication Refill 10/15/2024 Refill [facility] [address] [place] [address] Jaswant Leal MD Medication Refill 10/11/2024 Refill [facility] [place] [address] Jaswant Leal MD Medication Refill 10/04/2024 Telephone [facility] [address] [place] [phone] Jaswant Leal MD Medication Management 09/26/2024 [facility]ill [facility] [place] [address] Jaswant Leal MD Medication Refill 09/24/2024 MyChart RX Renewal [facility] [address] [place] [address] Jaswant Leal MD Medication Renewal Reviewed 09/21/2024 Refill [facility] [address] [place] [address] Jaswant Leal MD Medication Refill 08/31/2024 Refill [facility] [address] [place] [address] Jaswant Leal MD Medication Refill 2024 MyChart RX Renewal [facility] [address] [place] [address] Jaswant Leal MD Medication Renewal Declined 08/22/2024 3:30 PM CDT Office Visit [facility] [address] [place] [address] Jaswant Leal MD Low back pain, unspecified back pain laterality, unspecified chronicity, unspecified whether sciatica present (Primary Dx); Obesity (BMI 30-39.9); Essential hypertension; Chronic obstructive pulmonary disease, unspecified COPD type (HCC); Encounter for long-term (current) use of medications Discharge Disposition: Discharged to home or Selfcare 08/21/2024 Travel 08/20/2024 Refill [facility] [address] [place] [address] Jaswant Leal MD Medication Refill 08/17/2024 7:50 AM CDT Lab [facility] [address] [facility] [place] [address] [place] [address] Kristopher Goodwin Lab/Ancillary Hypertensive heart disease without heart failure Discharge Disposition: Discharged to home or Selfcare 08/16/2024 Telephone [facility] [address] [place] [address] Jaswant Leal MD 08/16/2024 Travel 08/03/2024 Nurse Triage [facility] [address] [place] [phone] Jaswant Leal MD Back Pain from Last 3 Months Family History Medical History Relation Name Comments Cancer Brother 1 Que Bone No Known Problems Brother 2 Taz No Known Problems Brother 3 Centereach No Known Problems Brother 4 Matthew No [...] 1 Que Brother 2 Taz Brother 3 Centere[place] Alive Brother 4 Matthew Brother 5 Roque Alive Daughter Alive Father Festus Yangselvinelan Maternal Grandfather Maternal Grandmother Mother Paternal Grandfather [...] pure alcohol) Past alcohol abuse- quit 1978 [facility] Utilities Answer Date Recorded In the past 12 months has [employer], oil, or water [employer] threatened to shut off services in your home? No 08/21/2024 Social Connection and Isolation Panel Answer Date Recorded In a typical week, how many times do you talk on the phone with family, friends, or neighbors? Once a week 08/21/2024 How often do you get togethe r with friends or relatives? Once a week 08/21/2024 How often do you attend [facility] or zoroastrianism services? More than 4 times per year 08/21/2024 Do you belong to any clubs o r organizations such as tenriism groups, unions, fraternal or athletic groups, or school groups? Yes 08/21/2024 How often do you attend meet ings of the clubs or organizations you belong to? Never 08/21/2024 Are you , , di vorced, , never , or living with a partner? 08/21/2024 AUDIT-C Answer Date Recorded Q1: How often do you have a drink containing alcohol? Never 08/21/2024 Q2: How many drinks containi ng alcohol do you have on a typical day when you are drinking? Patient does not drink Q3: How often do you have si x or more drinks on one occasion? Never 08/21/2024 Overall Financial Resource Strain (CARDIA) Answe r Date Recorded How hard is it for you to pa y for the very basics like food, housing, medical care, and heating? Not hard at all 08/21/2024 PHQ-2 Answer Date Recorded Total Score - Questions 1-9 0 12/10 [facility] - Occupational Stress Questionnaire Answer Date Recorded Do you feel stress - tense, restless, nervous, or anxious, or unable to sleep at night because your mind is troubled all the time - these days? Not at all 08/21/2024 Exercise Vital Sign Answer Date Recorde d On average, how many days pe r week do you engage in moderate to strenuous exercise (like a brisk walk)? 0 days 08/21/2024 On average, how many minutes do you engage in exercise at this level? 10 min 08/21/2024 Hunger Vital Sign Answer Date Recorded Within the past 12 months, y ou worried that your food would run out before you got the money to buy more. Never true 08/22/19 25 Within the past 12 months, t he food you bought just didn't last and you didn't have money to get more. Never true 08/21/2024 PRAPARE - Transportation Answer Date Re corded In the past 12 months, has l ack of transportation kept you from medical appointments or from getting medications? No 08/09 In the past 12 months, has l ack of transportation kept you from meetings, work, or from getting things needed for daily living? No 08/21/2024 Housing Stability Vital Sign Answer Irving e [...] place to sleep or slept in a chcf (including now)? No 08/23/2023 Housing Stability Vital Sign Answer Irving e Recorded In the last 12 months, was t here a time when you were not able to pay the mortgage or rent on time? No 08/21/2024 Number of Times Moved in the Last Year Not on fi le 08/21/2024 At any time in the past 12 m [facility], were you homeless or living in a chcf (including now)? No 08/21/2024 Education Answer Date Recorded What is the [...] Sign Reading Time Taken Comments Blood Pressure 125/66 08/22/2024 3:44 PM CDT Pulse 70 08/22/2024 3:44 PM CDT Temperature 36.6 C (97.8 F) 08/22/2024 3:25 PM CDT Respiratory Rate 18 08/22/2024 3:25 PM CDT Oxygen Saturation 95% 08/22/2024 3:25 PM CDT Inhaled Oxygen Concentration - - Weight 129.1 kg (284 lb 11.2 oz) 08/22/2024 3:25 PM CDT Height 162.6 cm (5' 4) 08/22/2024 3:25 PM CDT Body Mass Index 48.87 08/22/2024 3:25 PM CDT Plan of Treatment Upcoming Encounters Date Type Department Care Team (Late st Contact Info) Description 12/17/2024 7:40 AM CDT Lab [facility] [address] [address] [facility] 12/24/2024 2:15 PM CDT Office Visit [facility] [place] [address] [place] [address] Jaswant Leal MD #[address] [address] Health Maintenance Due Date Last Done Comments TdaP Immunization 1962 HPV/Cotest 1992 Colonoscopy 08/28/2007 Immunochemical Fecal Occult Blood 08/28/2007 Zoster Immunization (1 of 2) 2012 Respiratory Syncytial Virus (RSV) Immunization (Adult) (1 - Risk 60-74 years 1-dose series) 2022 Cervical Cancer Screening (CCS) 06/18/2023 Pap Smear 06/18/2023 06/17/2020 SARS-COV-2 Immunization ( - season) 2023 Influenza Immunization (#1) 2024 Pneumococcal Immunization (50+ years) (1 of 2 - PCV) 04/09/2025 Postponed fro m 1981 (Patient Temporarily Declines) Mammogram 07/24/2025 07/24/2024, 10/14/2021 Cologuard 01/24/2027 01/25/2024, 01/20/2024 Colorectal Cancer Screening 01/24/2027 Hepatitis C Virus (HCV) Screening Completed 03/06/2021 Hepatitis B Immunization Aged Out No longer eligible based on patient's age to complete this topic Human Papillomavirus (HPV) Immunization Aged Out No longer eligible b ased on patient's age to complete this topic Meningococcal Immunization (ACWY) Aged Out No longer eligible b ased on patient's age to complete this topic Rotavirus Immunization Aged Out No lo nger eligible based on patient's age to complete this topic Procedures Procedure Name Priority Date/Time Associated Diagnosis Comments URINE DRUG SCREEN Routine 08/22/2024 Encounter for long-term (current) use of medications LIPID PANEL Today 08/17/2024 7:34 AM CDT Hypertensive heart disease without heart failure CMP (COMPREHENSIVE METABOLIC PANEL) Today 08/17/2024 7:34 AM CDT Hypertensive heart disease without heart failure LARRY DIAG BILATERAL DIGITAL W CAD W ELLEN Routine 07/24/2024 1:25 PM CDT Breast mass in female COLOGUARD 01/25/2024 12:00 AM CDT HEPATITIS C ANTIBODY Routine 03/06/2021 2:00 PM WATERSHED PROGRAM MANAGER Abnormal laboratory test Thrombocytopenia (HCC) Easy bruising Epistaxis PATHOLOGY CYTOLOGY REFERENCE INVESTIGATOR Routine 06/17/2020 1:14 PM WATERSHED PROGRAM MANAGER DUB (dysfunctional uterine bleeding) Perimenopausal RLQ abdominal pain Dermoid cyst of right ovary from Last 3 Months or Most Recently Relevant to Health Maintenance Results * URINE DRUG SCREEN (08/22/2024) Urine 08/22/2024 Jaswant Leal MD URINE ORDERABLES Final Result * (ABNORMAL) LIPID PANEL (08/17/2024 7:34 AM CDT) CHOLESTEROL 197 <200 mg/dL 08/17/2024 12:34 PM CDT [facility] TRIGLYCERIDES 115 <150 mg/dL 08/17/2024 12:34 PM CDT [facility] HDL CHOLESTEROL 48 >40 mg/dL 12:34 PM CDT [facility] LDL 126 <130 mg/dL 08/17/2024 12:34 PM CDT [facility] VLDL 23 10 - 50 mg/dL 08/17/2024 12:34 PM CDT [facility] CHOL/HDL RATIO 4.1 0.0 - 4.4 08/17/2024 12:34 PM CDT [facility] NON-HDL CHOLESTEROL 149(H) <130 mg/dL 08/17/2024 12:34 PM CDT [facility] IS THE PATIENT REQUIRED TO BE FASTING? No 08/17/2024 12:34 PM CDT [facility] Blood Venipuncture / Unknown 08/17/2024 7:34 AM CDT 08/17/2024 7:34 AM CDT Jaswant Leal MD CHEMISTRY ORDERABLES Final Re sult [facility] [address] [place] [address] * (ABNORMAL) CMP (COMPREHENSIVE METABOLIC PANEL) (08/17/2024 7:34 AM CDT) SODIUM 140 136 - 145 mmol/L 08/17/2024 12:34 PM CDT [facility] POTASSIUM 3.7 3.5 - 5.1 mmol/L 08/17/2024 12:34 PM CDT [facility] CHLORIDE 110(H) 98 - 107 mmol/L 08/17/2024 12:34 PM CDT [facility] CO2, VENOUS 24 22 - 30 mmol/L 08/17/2024 12:34 PM CDT [facility] ANION GAP 9.7 <18.0 mmol/L 08/17/2024 12:34 PM CDT [facility] GLUCOSE 104(H) 70 - 99 mg/dL 08/17/2024 12:34 PM CDT [facility] BUN 17 10 - 20 mg/dL 08/17/2024 12:34 PM T [facility] CREATININE, BLOOD 0.77 0.60 - 1.00 mg/dL 08/17/2024 12:34 PM CDT [facility] BUN/CREATININE RATIO 22(H) 12 - 20 ratio 08/17/2024 12:34 PM T [facility] TOTAL PROTEIN 7.8 6.0 - 8.0 g/dL 08/17/2024 12:34 PM T [facility] ALBUMIN 3.9 3.5 - 5.0 g/dL 08/17/2024 12:34 PM T [facility] A/G RATIO 1.0 1.0 - 2.2 08/17/2024 12:34 PM [facility] CALCIUM 9.0 8.7 - 10.5 mg/dL 08/17/2024 12:34 PM [facility] T BILI 0.4 0.2 - 1.2 mg/dL 08/17/2024 12:34 PM [facility] SGOT (AST) 21 <43 U/L 08/17/2024 12:34 PM T [facility] SGPT (ALT) 24 <56 U/L 08/17/2024 12:34 PM T [facility] ALKALINE PHOSPHATASE 108 40 - 150 U/L 08/17/2024 12:34 PM [facility] IS THE PATIENT REQUIRED TO BE FASTING? No 08/17/2024 12:34 PM [facility] GFR, ESTIMATED >60 >=60 08/17/2024 12:34 PM [facility] Comment: Creatinine Clearance is the preferred criteria for selecting drug dose adjustments in renally impaired patients. The GFR is provided as additional pertinent clinical information. GFR is reported in mL/min/1.73 sq m. Calculation based on the Chronic Kidney Disease Epidemiology Collaboration (CKD- EPI) equation refit without adjustment for race. GFR, EST. >60 >=60 025 12:34 PM CDT [facility] GFR, EST. NONAFRICAN >60 >=60 08/17/2024 12:34 PM CDT [facility] Blood Venipuncture / Unknown 08/17/2024 7:34 AM CDT 08/17/2024 7:34 AM CDT us Jaswant Leal MD CHEMISTRY ORDERABLES Final Re sult [facility] [place] [address] * LARRY DIAG BILATERAL DIGITAL W CAD W ELLEN (07/24/2024 1:25 PM CDT) Anatomical Region Laterality Modality breast Bilateral Mammography 07/24/2024 12:1 6 PM CDT Narrative 07/24/2024 4:37 PM CDT - LARRY DIAG BILATERAL DIGITAL W CAD W ELLEN - LARRY US BREAST LIMITED LT BILATERAL DIGITAL DIAGNOSTIC MAMMOGRAM 3D/2D WITH CAD WITH MEDIOLATERAL OBLIQUE CRANIOCAUDAL AND LEFT ULTRASOUND: 07/24/2024 The study was acquired using digital technology and interpreted from soft copy. Current study was also evaluated with ICAD version 7.2. 2D digital mammographic views, as well as 3D digital tomosynthesis were performed in the CC and MLO projections. CLINICAL: Patient reports intermittent pain and possibly a palpable lump in her left axilla for 5 months. Today, she states she doesn't feel a lump but she felt it 2 days ago. The area is tender. She has been exercising for the past 5 months. She has reduced range of motion and delicate inframammary folds bilaterally. Previous history of bilateral breast cancer. Mother with premenopausal breast cancer. COMPARISONS: Comparison is made to exams dated: 10/14/2021 [facility], 05/23/2020, 01/13/2018, and 12/30/2017 [facility]. BREAST TISSUE:There are scattered areas of fibroglandular density. FINDINGS: No significant masses or calcifications are seen in either breast on the mammogram or targeted left breast ultrasound. At the area of concern at the 2 o'clock position of the left breast, 11 cm from the nipple, a benign-appearing lymph node is seen measuring 1.2 cm in size. IMPRESSION: OVERALL STUDY BIRADS: CATEGORY 2: BENIGN There is no mammographic or sonographic evidence of malignancy. A 1 year screening mammogram is recommended. The results and recommendations were discussed with the patient. Electronically signed by: Florida Gonzalez M.D. ll/:07/24/2024 14:06:40 Laboratory Cureman(s): RT Ubaldo(R)(M), [facility]; Tracy Ko, [facility] letter sent: Normal Exam Reading location: [facility] OVERALL STUDY BIRADS: Category 2: Benign Procedure Note Florida Gonzalez MD - 07/24/2024 - LARRY DIAG BILATERAL DIGITAL W CAD W ELLEN - LARRY US BREAST LIMITED LT BILATERAL DIGITAL DIAGNOSTIC MAMMOGRAM 3D/2D WITH CAD WITH MEDIOLATERAL OBLIQUE CRANIOCAUDAL AND LEFT ULTRASOUND: 07/24/2024 The study was acquired using digital technology and interpreted from soft copy. Current study was also evaluated with ICAD version 7.2. 2D digital mammographic views, as well as 3D digital tomosynthesis were performed in the CC and MLO projections. CLINICAL: Patient reports intermittent pain and possibly a palpable lump in her left axilla for 5 months. Today, she states she doesn't feel a lump but she felt it 2 days ago. The area is tender. She has been exercising for the past 5 months. She has reduced range of motion and delicate inframammary folds bilaterally. Previous history of bilateral breast cancer. Mother with premenopausal breast cancer. COMPARISONS: Comparison is made to exams dated: 10/14/2021 [facility], 05/23/2020, 01/13/2018, and 12/30/2017 [facility]. BREAST TISSUE:There are scattered areas of fibroglandular density. FINDINGS: No significant masses or calcifications are seen in either breast on the mammogram or targeted left breast ultrasound. At the area of concern at the 2 o'clock position of the left breast, 11 cm from the nipple, a benign-appearing lymph node is seen measuring 1.2 cm in size. IMPRESSION: OVERALL STUDY BIRADS: CATEGORY 2: BENIGN There is no mammographic or sonographic evidence of malignancy. A 1 year screening mammogram is recommended. The results and recommendations were discussed with the patient. Electronically signed by: Florida Gonzalez M.D. ll/:07/24/2024 14:06:40 Laboratory Cureman(s): RT Ubaldo(R)(M), [facility]; Tracy Ko, [facility] letter sent: Normal Exam Reading location: [facility] OVERALL STUDY BIRADS: Category 2: Benign us Jaswant Leal MD IMG MAMMO ORDERABLES Final Re sult * COLOGUARD (01/25/2024 12:00 AM CDT) 01/25/2024 us Provider Scan BODY FLUIDS & STOOLS ORDERABLES Final Result SCAN * HEPATITIS C ANTIBODY (03/06/2021 2:00 PM WATERSHED PROGRAM MANAGER) hepatitis C antibody 0.20 <1 S/CO [facility] ARCH [id number] B 03/06/2021 9:54 PM WATERSHED PROGRAM MANAGER [facility] Comment: Signal/Cutoff ratio < 0.79 is Nondetected Signal/Cutoff ratio 0.80-0.99 is Grayzone Signal/Cutoff ratio > 0.99 is Detected Supplemental assays are recommended if signal/cutoff ratio is >/=1.00. Signal/cutoff ratio result >/= 5.00 is 97% predictive of positivity for recombinant immunoblot assay (RIBA) and will be reported to the [place] Department of Public Health as required. Blood Venipuncture / Unknown 03/06/2021 2:00 PM WATERSHED PROGRAM MANAGER 03/06/2021 2:28 PM WATERSHED PROGRAM MANAGER us Anil Ricardo MD CHEMISTRY ORDERABLES Fin al Result [facility] [address] [place] [address], [place] * PATHOLOGY CYTOLOGY REFERENCE INVESTIGATOR (06/17/2020 1:14 PM WATERSHED PROGRAM MANAGER) SPECIMEN ADEQUACY Satisfactory for evaluation. Endocervical/transf ormation zone component is present. 07/02/2020 11:08 AM CDT [facility] GENERAL CATEGORY NEGATIVE FOR INTRAEPITHELIAL LESIONS OR MALIGNANCY. 07/02/2020 11:08 AM CDT [facility] DESCRIPTIVE DIAGNOSIS Reactive cellular changes associated with inflammation and repair. 07/02/2020 11:08 AM CDT [facility] at 1108 CDT OTHER FINDINGS Trichomonas vaginalis present. 07/02/2020 11:08 AM CDT [facility] HPV Reflex if ASCUS? Yes 07/02/2020 11:08 AM CDT [facility] Automated Examination This sample was not evaluated by the automated imaging and review system ([employer] System, [employer], [place], [place]) due to technical and/or biologic factor(s). The case was screened, reviewed, and finalized by a data virtualization consultant and/or pathologist. 07/02/2020 11:08 AM CDT [facility] Disclaimer The PAP smear is [...] recommended every three years for women 21-29, Co-Testing, a PAP test in conjunction with an HPV (Human Papillomavirus) test for women ages 30-65, and no PAP or HPV testing for women under the age of 21 or older than 65 unless clinically indicated. 07/02/2020 11:08 AM CDT [facility] Other CERVIX UTERI STRUCTURE / Unknown Non-Phlebotomy Collection / Unknown 06/17/2020 1:14 PM WATERSHED PROGRAM MANAGER 06/18/2020 1:15 PM WATERSHED PROGRAM MANAGER us Lefty Stone MD PATHOLOGY/CYTOLOGY ORDERABLES Final Result [facility] [address] [place] [address], from Last 3 Months or Most Recently Relevant to Health Maintenance Insurance MEDICAID [place] MEDICARE C [facility] Advance Directives Documents on File Type Date Recorded Patient Catalyst Concentration Operator Expl anation Other Advance Directive 01/21/2021 1:31 PM Insurance Prior Auth for REFERENCE INVESTIGATOR Surgery Care Teams Stewarding Supervisor Relationship Specialty Start Date End Date Jaswant Leal MD #[address] [address] PCP - General Family Medicine 07/31/20 Loy Dewey MD Consulting Physician Obstetrics & Gynecology 03/31/16
--- OUTSIDE RECORDS SUMMARY | 2024-11-01 13:13 | XMS_ITS | Encounter Summary ---
Author Organization [facility] Address [address] [place] [address] Phone Care Team Providers Care Tank Farm Gauger Name Role Phone Loy Dewey MD [facility] ErJaswant Xiao MD Primary Care Provider [phone] Reason for Visit * Reason Comments Medication Refill Encounter Details Date Type Department Care Team (Late st Contact Info) Description 10/22/2024 Refill [facility] #2 [place] [address] Jaswant Leal MD #[address] [address] Medication Refill Social History Tobacco Use Types Packs/Day Years Used Date Smoking Tobacco: Never Smokeless Tobacco: Never Alcohol Use Standard Drinks/Week Comments Not Currently 0 (1 standard drink = 0.6 oz pure alcohol) Past alcohol abuse- quit 1978 [facility] Utilities Answer Date Recorded In the past 12 months has [employer], gas, oil, or water company threatened to [...] week 08/21/2024 How often do you attend chur ch or buddhism services? More than 4 times per year 08/21/2024 Do you belong to any clubs o r organizations such as faith groups, unions, fraternal or athletic groups, or [...] Total Score - Questions 1-9 0 12/10 [facility] - Occupational Stress [...] place to sleep or slept in a halfway (including now)? No 08/23/2023 Housing Stability Vital Sign Answer Irving e Recorded In the last 12 months, was t here a time when you were not able to pay the mortgage or rent on time? No 08/21/2024 Number of Times Moved in the Last Year Not on fi le 08/21/2024 At any time in the past 12 m [facility], were you homeless or living in a halfway (including now)? No 08/21/2024 Education Answer Date [...] Telephone Encounter - Inge Caballero RN - 10/22/2024 12:45 PM CDT Medication failed the protocol, provider to review and approve the medication order if appropriate. Requested Prescriptions Pending Prescriptions Disp Refills terbinafine (LamISIL) 250 MG Tablet [Pharmacy Med Name: TERBINAFINE HCL 250 MG TABLET] 28 Tablet 2 Sig: TAKE 1 TABLET BY MOUTH EVERY DAY Not Delegated - Off Protocol Failed - 10/22/2024 12:45 PM Failed - This refill cannot be delegated Passed - Visit with relevant provider in past 12 months or upcoming 90 days Recent Visits Date Type Provider Dept 08/22/24 Office Visit Jaswant Leal MD [facility] 04/26/24 Office Visit Jsawant Leal MD [facility] 12/27/23 Office Visit Jaswant Leal MD [facility] Showing recent visits within past 365 days and meeting all other requirements Future Appointments Date Type Provider Dept 12/24/24 Appointment Jaswant Leal MD [facility] Showing future appointments within next 90 days and meeting all other requirements documented in this encounter Plan of Treatment Upcoming Encounters Date Type Department Care Team (Late st Contact Info) Description 12/17/2024 7:40 AM CDT Lab [facility] #[address] [address] Kristopher Goodwin Lab/Ancillary 12/24/2024 2:15 PM CDT Office Visit [facility] [place] #2 [facility] [place] [address] Jaswant Leal MD #[address] [address] documented as of this encounter Visit Diagnoses Not on filedocumented in this encounter Additional Health Concerns Assessment Noted Time PHQ-9 Depression Total Score: 0 12/27/19 24 3:20 PM CDT documented as of this encounter Care Teams Tank Farm Gauger Relationship Specialty Start Date End Date Jaswant Leal MD #[address] [address] PCP - General Family Medicine 07/31/20 Loy Dewey MD Consulting Physician Obstetrics & Gynecology 03/31/16 documented as of this encounter
--- OUTSIDE RECORDS SUMMARY | 2024-11-01 13:13 | XMS_ITS | Encounter Summary ---
Author Organization [facility] Address [address] [place] [address] Phone Care Team Providers Care Manager Resource Name Role Phone [facility] De[facility] MD [facility] Primary Care Provider [phone] Reason for Visit * Reason Comments Medication Refill Encounter Details Date Type Department Care Team (Late st Contact Info) Description 05/29/2024 Refill [facility] #2 [place] [phone] Jaswant Leal MD #[address] [address] Medication Refill Social History Tobacco Use Types Packs/Day Years Used Date Smoking Tobacco: Never Smokeless Tobacco: Never Alcohol Use Standard Drinks/Week Comments Not Currently 0 (1 standard drink = 0.6 oz pure alcohol) Past alcohol abuse- quit 1978 [facility] Utilities Answer Date Recorded In the past 12 months has [employer], gas, oil, or water company threatened to shut off services in your home? No 04/25/2024 Social Connection and Isolation Panel Answer Date Recorded In a typical week, how many times do you talk on the phone with family, friends, or neighbors? Once a week 04/25/19 How often do you get togethe r with friends or relatives? Once a week 04/25/2024 How often do you attend chur ch or faith services? 1 to 4 times per year 04/25/2024 Do you belong to any clubs o r organizations such as muslim groups, unions, fraternal or athletic groups, or [...] Total Score - Questions 1-9 0 12/10 [facility] of Occupat ional Health - Occupational [...] place to sleep or slept in a care home (including now)? No 08/23/2023 Housing Stability Vital Sign Answer Irving e Recorded In the last 12 months, was t here a time when you were not able to pay the mortgage or rent on time? No 04/25/2024 Number of Times Moved in the Last Year Not on fi le 04/25/2024 At any time in the past 12 m [facility], were you homeless or living in a care home (including now)? No 04/25/2024 Education Answer Date [...] Telephone Encounter - Toshia Jensen RN - 05/30/2024 10:53 AM CST New Rx 05/03/24 - continue this dose Per nursing clinical judgement, provider to review and approve the medication(s) order(s) if appropriate. Requested Prescriptions Pending Prescriptions Disp Refills Tirzepatide (Mounjaro) 5 MG/0.5ML Solution Auto-injector [Pharmacy Med Name: MOUNJARO 5 MG/0.5 ML PEN] 2 mL 0 Si mg by Subcutaneous route every 7 days. GLP-1 Agonists Protocol Passed - 05/30/2024 10:53 AM Passed - Lipid panel result on file in past 12 months LDL Date Value Ref Range Status 12/20/2023 112 <130 mg/dL Final HDL CHOLESTEROL Date Value Ref Range Status 12/20/2023 43 >40 mg/dL Final CHOLESTEROL Date Value Ref Range Status 12/20/2023 179 <200 mg/dL Final TRIGLYCERIDES Date Value Ref Range Status 12/20/2023 118 <150 mg/dL Final VLDL Date Value Ref Range Status 12/20/2023 24 10 - 50 mg/dL Final CHOL/HDL RATIO Date Value Ref Range Status 12/20/2023 4.2 0.0 - 4.4 Final NON-HDL CHOLESTEROL Date Value Ref Range Status 12/20/2023 136 (H) <130 mg/dL Final Passed - Visit with relevant provider in past 6 months or upcoming 90 days Recent Visits Date Type Provider Dept 04/26/24 Office Visit Jaswant Leal MD [facility] 12/27/23 Office Visit Jaswant Leal MD [facility] Showing recent visits within past 182 days and meeting all other requirements Future Appointments Date Type Provider Dept 08/22/24 Appointment Jaswant Leal MD [facility] Showing future appointments within next 90 days and meeting all other requirements Passed - HgA1C result on record in past 6 months HGB-A1C Date Value Ref Range Status 12/20/2023 5.7 4.0 - 6.0 % Final Passed - GFR on record in past 6 months GFR, EST. NONAFRICAN Date Value Ref Range Status 04/23/2024 >60 >=60 Final CTURAL IRONWORKER documented in this encounter Plan of Treatment Upcoming Encounters Date Type Department Care Team (Late st Contact Info) Description 12/17/2024 7:40 AM CDT Lab [facility] #[address] [address] Kristopher Goodwin Lab/Ancillary 12/24/2024 2:15 PM CDT Office Visit [facility] - [place] #2 [place] [address] Jaswant Leal MD #[address] [address] documented as of this encounter Visit Diagnoses Diagnosis Obesity (BMI 30-39.9) Obesity, unspecified documented in this encounter Additional Health Concerns Assessment Noted Time PHQ-9 Depression Total Score: 0 12/27/19 24 3:20 PM CDT documented as of this encounter Care Teams Manager Resource Relationship Specialty Start Date End Date Jaswant Leal MD #2 [place] [address] PCP - General Family Medicine 07/31/20 Loy Dewey MD Consulting Physician Obstetrics & Gynecology 03/31/16 documented as of this encounter
--- OUTSIDE RECORDS SUMMARY | 2024-11-01 13:13 | XMS_ITS | Encounter Summary ---
Author Organization [facility] Address [address] [place] [address] Phone Care Team Providers Care Surveyor Instrument Assistant Name Role Phone Loy Dewey MD [facility] Jaswant García MD Primary Care Provider [phone] Encounter Details Date Type Department Care Team (Late st Contact Info) Description 09/04/2020 Transcribe Orders [facility] Preop/Pacu II 1 [place] [address] Lefty Stone MD #2 [place] [phone] Pre-op testing (Primary Dx); Postmenopausal bleeding Social [...] Info) Description 12/17/2024 7:40 AM CDT Lab [facility] #2 [place] [facility] [address] [place] [address] Kristopher Goodwin Lab/Ancillary 12/24/2024 2:15 PM CDT Office Visit [facility] - [facility] - [place] #2 [place] [address] Jaswant Leal MD #2 [facility] [address] [place] [address] documented as of this encounter Results * SARS-COV-2 BY MOLECULAR (09/13/2020 9:46 AM CDT) SARSCOV2 NOT DETECTED (Referen ce Range for this test is Not Detected ) [facility] THERMOF[facility] FAST DX 09/14/2020 1:06 PM CDT [facility] Comment:This test was perfor med by a RT-PCR method. Other NASOPHARYNGEAL STRUCTURE / Unknown Non-Phlebotomy Collection / Unknown 09/13/2020 9:46 AM CDT 09/13/2020 10:55 AM CDT Narrative [facility] - 09/14/2020 1:06 PM CDT Authorized Fact Sheets about this test for providers and patients are available at: https://www.fda.gov/medical-devices/owwglzoub-kjdwlpgqao-rdptzms-devices/emergen cy-us e-authorizations us Lefty Stone MD MICROBIOLOGY - GENERAL ORDERAB LES Final Result [facility] [address] [place] [address], [place] documented in this encounter Visit Diagnoses Diagnosis Pre-op testing- Primary Preoperative examination, unspecified Postmenopausal bleeding documented in this encounter Additional Health Concerns Assessment Noted Time PHQ-9 Depression Total Score: 1 03/31/20 16 2:02 PM 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
--- OUTSIDE RECORDS SUMMARY | 2024-11-01 13:13 | XMS_ITS | Encounter Summary ---
Author Organization [facility] Address [address] [place] [address] Phone Care Team Providers Care Associate Accountant Name Role Phone Loy Dewey MD [facility] [place] [facility] Jaswant Leal MD Primary Care Provider [phone] Reason for Visit * Reason Comments Medication Refill Encounter Details Date Type Department Care Team (Late st Contact Info) Description 11/21/2020 Refill [facility] #2 [place] [address] Jaswant Leal MD #[address] [address] Medication Refill Social History Tobacco Use Types [...] 12/17/2024 7:40 AM CDT Lab [facility] #[address] [address] [facility] Kristopher Lab/Ancillary 12/24/2024 2:15 PM CDT Office Visit [facility] - [place] #2 [place] [address] Jaswant Leal MD #[address] [address] documented as of this encounter Visit Diagnoses Diagnosis Other intervertebral disc degeneration, lumbar region documented in this encounter Additional Health Concerns Assessment Noted Time PHQ-9 Depression Total Score: 1 03/31/20 16 2:02 PM DIRECTOR OF GUIDANCE documented as of this encounter Care Teams Associate Accountant Relationship Specialty Start Date End Date Jaswant Leal MD #[address] [address] PCP - General Family Medicine 07/31/20 Loy Dewey MD Consulting Physician Obstetrics & Gynecology 03/31/16 documented as of this encounter
--- OUTSIDE RECORDS SUMMARY | 2024-11-01 13:13 | XMS_ITS | Encounter Summary ---
Author Organization [facility] Address [address] [place] [address] Phone Care Team Providers Care Nurse Midwife/Clinical Instructor Name Role Phone Loy Dewey MD [facility] Jaswant García MD Primary Care Provider [phone] Reason for Referral * Radiology Services (Routine) - Closed Specialty Diagnoses / Procedures Referred By Contac t Referred To Contact Radiology Diagnoses Pre-op testing Procedures EKG 12 LEAD Pérez Carreno MD #1 [place] [address] Phone: tel: fax: Referral ID Status Reason Start Date Expiration Date Visits Re quested Visits Authorized [id number] Closed 09/09/2020 1 1 Encounter Details Date Type Department Care Team (Late st Contact Info) Description 09/09/2020 [facility] 1 [place] [phone] Pérez Carreno MD #1 [place] [address] Pre-op testing (Primary Dx) Social History Tobacco [...] Info) Description 12/17/2024 7:40 AM CDT Lab [facility] #[address] [address] [facility] Lab/Ancillary 12/24/2024 2:15 PM CDT Office Visit [facility] - [place] #2 [place] [address] Jaswant Leal MD #[address] [address] documented as of this encounter Results * EKG 12 LEAD (09/13/2020 9:57 AM CDT) Ventricular Rate BPM EXTERNAL EKG Atrial Rate BPM EXTERNAL EKG P-R Interval 162 ms EXTERNAL EKG QRS Duration 90 ms EXTERNAL EKG Q-T Duration 394 ms EXTERNAL EKG QTC CALCULATION 452 ms EXTERNAL EKG P [place] 56 degrees EXTERNAL EKG R [place] -48 degrees EXTERNAL EKG T [place] -1 degrees EXTERNAL EKG 09/13/2020 9:57 AM CDT Impressions EXTERNAL EKG - 09/15/2020 8:55 AM CDT Sinus rhythm Left axis deviation Inferior infarct Anterior T wave abnormality Comparison Summary: Significant changes Summary: Abnormal ECG Compared with:07/25/2017 1:04 PM; 07/16/2016 9:38 AM No significant changes noted Confirmed by Morgan Corea [id number] on 09/15/2020 8:55:40 AM Narrative Procedure Note Brittni Mora MD - 09/15/2020 IMPRESSION: Sinus rhythm Left axis deviation Inferior infarct Anterior T wave abnormality Comparison Summary: Significant changes Summary: Abnormal ECG Compared with:07/25/2017 1:04 PM; 07/16/2016 9:38 AM No significant changes noted Confirmed by Morgan Corea [id number] on 09/15/2020 8:55:40 AM us Pérez Carreno MD IMG ECG ORDERABLES Final Resu lt EXTERNAL EKG * HEMOGLOBIN & HEMATOCRIT (H&H) (09/13/2020 9:46 AM CDT) HEMOGLOBIN (HGB) 14.4 12.0 - 15.8 g/dL 09/13/2020 11:02 AM CDT [email or web address] LAB HEMATOCRIT (HCT) 45.6 36.0 - 47.0 % 09/13/2020 11:02 AM CDT [facility] [[email or web address] LAB Blood Venipuncture / Unknown 09/13/2020 9:46 AM CDT 09/13/2020 10:54 AM CDT Pérez Carreno MD HEMATOLOGY ORDERABLES Final R esult Performing Organization Address City/[facility]/ZIP Co de Phone Number [facility] #1 [facility] [place] [address] documented in this encounter Visit Diagnoses Diagnosis Pre-op testing- Primary Preoperative examination, unspecified Pre-op testing Preoperative examination, unspecified documented in this encounter Additional Health Concerns Assessment Noted Time PHQ-9 Depression Total Score: 1 03/31/20 16 2:02 PM 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
--- OUTSIDE RECORDS SUMMARY | 2024-11-01 13:13 | XMS_ITS | Encounter Summary ---
Author Organization [facility] Address [address] [place] [address] Phone Care Team Providers Care Street Car Inspector Name Role Phone Loy Dewey MD [facility] Jaswant García MD Primary Care Provider [phone] Encounter Details Date Type Department Care Team (Late st Contact Info) Description 01/29/2021 Transcribe Orders [facility] Preop/Pacu II 1 [place] [phone] Tl Adams MD #[address] [address] Pre-op testing (Primary Dx) Social History Tobacco [...] Info) Description 12/17/2024 7:40 AM CDT Lab [facility] [address] [address] Fernando Goodwin Lab/Ancillary 12/24/2024 2:15 PM CDT Office Visit [facility] - [place] #[address] [place] [address] Jaswant Leal MD #[address] [address] Scheduled Orders Name Type Priority Associated Diagnoses Orde r Schedule SARS-COV-2 BY MOLECULAR Microbiology Routine Pre-op testing Expected: 01/30/2021, Expires: 05/01/2021 documented as of this encounter Visit Diagnoses Diagnosis Pre-op testing- Primary Preoperative examination, unspecified documented in this encounter Additional Health Concerns Assessment Noted Time PHQ-9 Depression Total Score: 1 03/31/20 16 2:02 PM 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
--- OUTSIDE RECORDS SUMMARY | 2024-11-01 13:13 | XMS_ITS | Encounter Summary ---
Author Organization [facility] Address [address] [place] [address] Phone Care Team Providers Care Lead Auditor Name Role Phone Loy Dewey MD [facility] Jaswant García MD Primary Care Provider [phone] Reason for Visit * Reason Comments Medication Refill Encounter Details Date Type Department Care Team (Late st Contact Info) Description 10/05/2022 Refill [facility] #2 [place] [phone] Jaswant Leal MD #[address] [address] Medication Refill Social History Tobacco Use Types [...] 09/21/2022 56 3 mL Jaswant Leal MD [facility]/pharmacy #[id number] - ... documented in this encounter Plan of Treatment Upcoming Encounters Date Type Department Care Team (Late st Contact Info) Description 12/17/2024 7:40 AM CDT Lab [facility] #[address] [address] [facility] Lab/Ancillary 12/24/2024 2:15 PM CDT Office Visit [facility] - [place] #2 [place] [address] Jaswant Leal MD #[address] [address] documented as of this encounter Visit Diagnoses Not on filedocumented in this encounter Additional Health Concerns Assessment Noted Time PHQ-9 Depression Total Score: 0 09/04/19 22 1:00 PM CDT documented as of this encounter Care Teams Lead Auditor Relationship Specialty Start Date End Date Jaswant Leal MD #[address] [address] PCP - General Family Medicine 07/31/20 Loy Dewey MD Consulting Physician Obstetrics & Gynecology 03/31/16 documented as of this encounter
--- OUTSIDE RECORDS SUMMARY | 2024-11-01 13:13 | XMS_ITS | Encounter Summary ---
Author Organization [facility] Address [address] [place] [address] Phone Care Team Providers Care Poured Concrete Wall Technician Name Role Phone Loy Dewey MD [facility] Jaswant García MD Primary Care Provider [phone] Reason for Visit * Reason Comments Medication Refill Encounter Details Date Type Department Care Team (Late st Contact Info) Description 09/09/2022 Refill [facility] #2 [place] [address] Jaswant Leal MD #[address] [address] Medication Refill Social History Tobacco Use Types [...] CNP - 09/10/2022 10:45 PM CDT [place] NATURAL RESOURCE MANAGER reviewed, approved * Telephone Encounter - Toshia [...] [place] 12/11/21 Office Visit [facility] Kristopher Showing recent visits within past 365 days and meeting all other requirements Future Appointments No visits were found meeting these conditions. Showing future appointments within next 90 days and meeting all other requirements documented in this encounter Plan of Treatment Upcoming Encounters Date Type Department Care Team (Late st Contact Info) Description 12/17/2024 7:40 AM CDT Lab [facility] #2 [place] [address] [address] [address] Kristopher Goodwin Lab/Ancillary 12/24/2024 2:15 PM CDT Office Visit [facility] #2 [place] [address] Jaswant Leal MD #[address] [address] documented as of this encounter Visit Diagnoses Diagnosis Abdominal pain, RLQ Abdominal pain, right lower quadrant documented in this encounter Additional Health Concerns Assessment Noted Time PHQ-9 Depression Total Score: 0 09/04/19 22 1:00 PM CDT documented as of this encounter Care Teams Poured Concrete Wall Technician Relationship Specialty Start Date End Date Jaswant Leal MD #[address] [address] PCP - General Family Medicine 07/31/20 Loy Dewey MD Consulting Physician Obstetrics & Gynecology 03/31/16 documented as of this encounter
--- OUTSIDE RECORDS SUMMARY | 2024-11-01 13:13 | XMS_ITS | Encounter Summary ---
Author Organization [facility] Address [address] [place] [address] Phone Care Team Providers Care Shine Worker Name Role Phone [facility] MD [facility] Primary Care Provider Reason for Visit * Reason Comments Medication Refill Encounter Details Date Type Department Care Team (Late st Contact Info) Description 09/22/2020 Refill [facility] #2 [place] [address] Jaswant Leal MD #[address] [address] Medication Refill Social History Tobacco Use Types [...] Description 12/17/2024 7:40 AM CDT Lab [facility] #[address] [address] Kristopher Goodwin Lab/Ancillary 12/24/2024 2:15 PM CDT Office Visit [facility] Family [facility] #2 [place] [address] Jaswant Leal MD #[address] [address] documented as of this encounter Visit Diagnoses Diagnosis Other intervertebral disc degeneration, lumbar region documented in this encounter Additional Health Concerns Assessment Noted Time PHQ-9 Depression Total Score: 1 03/31/20 16 2:02 PM PRODUCTION 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
--- OUTSIDE RECORDS SUMMARY | 2024-11-01 13:13 | XMS_ITS | Clinical Summary ---
Author Organization [facility] Facility Address [address] [address] Care Team Providers Care High Risk Ob Name Role Phone Unavailable Primary Care Provider [...] Colonoscopy 08/28/2011 Colorectal Cancer Screening: Sigmoidoscopy 08/28/2011 Pneumococcal Vaccine: 50+ Ye ars (1 of 1 - PCV) 2012 Influenza Vaccine (#1) 2024 Hepatitis B Vaccine Aged Out No longe r eligible based on patient's age to complete this topic
--- OUTSIDE RECORDS SUMMARY | 2024-11-01 13:13 | XMS_ITS | Encounter Summary ---
Author Organization [facility] Address [address] [place] [address] Phone Care Team Providers Care Summer Sessions Director Name Role Phone Loy Dewey MD, Michael S MD Primary Care Provider Encounter Details Date Type Department Care Team (Late st Contact Info) Description 06/08/2021 Telephone [facility] Oncology Services [address] [place] [address] Anil Ricardo MD [address] [place] [address] Social History Tobacco Use Types [...] COVID-19? No / Unsure 06/01/2021 1:55 PM BRANCH CUSTOMER SERVICE REPRESENTATIVE documented as of this encounter Miscellaneous Notes [...] with the patient to establish a plan. CH CUSTOMER SERVICE REPRESENTATIVE documented in this encounter Plan of Treatment Upcoming Encounters Date Type Department Care Team (Late st Contact Info) Description 12/17/2024 7:40 AM CDT Lab [facility] #[address] [address] [facility] Lab/Ancillary 12/24/2024 2:15 PM CDT Office Visit [facility] - Family [facility] - [place] #2 [place] [address] Jaswant Leal MD #[address] [address] documented as of this encounter Visit Diagnoses Not on filedocumented in this encounter Additional Health Concerns Assessment Noted Time PHQ-9 Depression Total Score: 1 03/31/20 16 2:02 PM BRANCH CUSTOMER SERVICE REPRESENTATIVE documented as of this encounter Care Teams Summer Sessions Director Relationship Specialty Start Date End Date Jaswant Leal MD #[address] [address] PCP - General Family Medicine 07/31/20 Loy Dewey MD Consulting Physician Obstetrics & Gynecology 03/31/16 documented as of this encounter
--- OUTSIDE RECORDS SUMMARY | 2024-11-01 13:13 | XMS_ITS | Encounter Summary ---
Author Organization [facility] Address [address] [place] [address] Phone Care Team Providers Care Physicist Light And Optics Name Role Phone Loy Dewey MD [facility] Jaswant García MD Primary Care Provider [phone] Encounter Details Date Type Department Care Team (Late st Contact Info) Description 01/26/2021 Transcribe Orders [facility] [place] [facility] Preop/Pacu II 1 [place] [address] Lefty Stone MD #2 [place] [address] Pre-op testing (Primary Dx) Social History Tobacco [...] Info) Description 12/17/2024 7:40 AM CDT Lab [facility] [address] [facility] [address] [place] [address] Kristopher Goodwin Lab/Ancillary 12/24/2024 2:15 PM CDT Office Visit [facility] - Family Medicine - [place] [address] [place] [address] Jaswant Leal MD #[address] [facility] [address] [place] [address] documented as of this encounter Results * CULTURE, URINE (01/28/2021 12:03 PM CDT) Pathologist [facility] CULTURE RESULTS GROWTH OF 1 OR MORE ORGANISMS, ALL ARE LESS THAN 10,000 CFU/ML . SUGGESTIVE OF DISTAL URETHRAL CONTAMINANTS. 01/29/2021 4:15 PM CDT [facility] [place] [facility] Culture URINE SPECIMEN / Unknown Non-Phlebotomy Collection / Unknown 01/28/2021 12:03 PM CDT 01/28/2021 1:20 PM CDT us Lefty Stone MD MICROBIOLOGY - GENERAL ORDERAB LES Final Result Performing Organization Address City/State/[facility] Co de Phone Number [facility] [address] [place] [address], [place] * TYPE & SCREEN (CROSSMATCH CONVERTIBLE) (01/28/2021 11:57 AM CDT) ABO TYPING O 01/28/2021 2:44 PM CDT [facility]LOOD [facility] RH Positive 01/28/2021 2:44 PM CDT [facility]OD [facility] ABSC Negative 01/28/2021 2:44 PM CDT [facility] Blood Venipuncture / Unknown 01/28/2021 11:57 AM CDT 01/28/2021 1:20 PM CDT us Lefty Stone MD BLOOD BANK ORDERABLES Edited R esult - Final [facility] BLOOD [facility] #[address] [place] [address] documented in this encounter Visit Diagnoses Diagnosis Pre-op testing- Primary Preoperative examination, unspecified documented in this encounter Additional Health Concerns Assessment Noted Time PHQ-9 Depression Total Score: 1 03/31/20 16 2:02 PM CITY SECRETARY documented as of this encounter Care Teams Physicist Light And Optics Relationship Specialty Start Date End Date Jaswant Leal MD #[address] [address] PCP - General Family Medicine 07/31/20 Loy Dewey MD Consulting Physician Obstetrics & Gynecology 03/31/16 documented as of this encounter
--- OUTSIDE RECORDS SUMMARY | 2024-11-01 13:13 | XMS_ITS | Encounter Summary ---
Author Organization [facility] Address [address] [place] [address] Phone Care Team Providers Care Water Systems Designer Name Role Phone [facility] Primary Care Provider [phone] Reason for Visit * Reason Comments Medication Refill Encounter Details Date Type Department Care Team (Late st Contact Info) Description 06/25/2024 Refill [facility] #2 [place] [phone] Jaswant Leal MD #[address] [address] Medication Refill Social History Tobacco Use Types Packs/Day Years Used Date Smoking Tobacco: Never Smokeless Tobacco: Never Alcohol Use Standard Drinks/Week Comments Not Currently 0 (1 standard drink = 0.6 oz pure alcohol) Past alcohol abuse- quit 1978 [facility] Utilities Answer Date Recorded In the past 12 months has [employer], gas, oil, or water company threatened to [...] often do you attend chur ch or restoration services? 1 to 4 times per year 04/25/2024 Do you belong to any clubs o r organizations such as jainism groups, unions, fraternal or athletic groups, or [...] Total Score - Questions 1-9 0 12/10 [facility] - [...] in a correction (including now)? No 08/23/2023 Housing Stability Vital Sign Answer Irving e Recorded In the last 12 months, was t here a time when you were not able to pay the mortgage or rent on time? No 04/25/2024 Number of Times Moved in the Last Year Not on fi le 04/25/2024 At any time in the past 12 m ont, were you homeless or living in a correction (including now)? No 04/25/2024 Education Answer Date [...] Telephone Encounter - Jaswant Leal MD - 06/25/2024 11:15 AM CDT Please call. Lets go up on dose to 10 mg weekly * Telephone Encounter - Toshia Jensen RN - 06/25/2024 10:46 AM CDT New Rx 05/30/24 - continue current dose? Ozempic is also on patient's med list. Can this be removed? Medication failed the protocol, provider to review and approve the medication order if appropriate. Requested Prescriptions Pending Prescriptions Disp Refills Tirzepatide (Mounjaro) 7.5 MG/0.5ML Solution Auto-injector [Pharmacy Med Name: PUJA 7.5 MG/0.5 ML PEN] 3 mL 0 Sig: INJECT THE CONTENTS OF 1 PEN UNDER THE SKIN ONCE EVERY 7 DAYS GLP-1 Agonists Protocol Failed - 06/25/2024 10:46 AM Failed - HgA1C result on record in past 6 months HGB-A1C Date Value Ref Range Status 12/20/2023 5.7 4.0 - 6.0 % Final Passed - Lipid panel result on file [...] [place] 12/27/23 Office Visit Jaswant Leal MD [facility] Showing recent visits within past 182 days and meeting all other requirements Future Appointments Date Type Provider Dept 08/22/24 Appointment Jaswant Leal MD [facility] [place] Showing future appointments within next 90 days and meeting all other requirements Passed - GFR on record in past 6 months GFR, EST. NONAFRICAN Date Value Ref Range Status 04/23/2024 >60 >=60 Final documented in this encounter Plan of Treatment Upcoming Encounters Date Type Department Care Team (Late st Contact Info) Description 12/17/2024 7:40 AM CDT Lab [facility] #[address] [place] [address] Fernando Goodwin Lab/Ancillary 12/24/2024 2:15 PM CDT Office Visit [facility] - [facility] Medicine - [place] [address] [place] [address] Jaswant Leal MD [address] [address] documented as of this encounter Visit Diagnoses Not on filedocumented in this encounter Additional Health Concerns Assessment Noted Time PHQ-9 Depression Total Score: 0 12/27/19 24 3:20 PM CDT documented as of this encounter Care Teams Water Systems Designer Relationship Specialty Start Date End Date Jaswant Leal MD #[address] [address] PCP - General Family Medicine 07/31/20 Loy Dewey MD Consulting Physician Obstetrics & Gynecology 03/31/16 documented as of this encounter
--- OUTSIDE RECORDS SUMMARY | 2024-11-01 13:13 | XMS_ITS | Encounter Summary ---
Author Organization [facility] Address [address] [place] [address] Phone Care Team Providers Care Supervisor [place] Name Role Phone Loy Dewey MD, Michael S MD Primary Care Provider [phone] Reason for Visit * Reason Comments Medication Refill Encounter Details Date Type Department Care Team (Late st Contact Info) Description 01/17/2023 Refill [facility] - Family Medicine - [place] #2 [place] [address] Veronica Sanchez APRN, HERB DOCTOR #[address] [phone] Medication Refill Social History Tobacco Use Types [...] Dept 12/22/22 [facility] Visit [facility] 08/19/22 Office Visit Jaswant Leal MD [facility] 04/21/22 Office Visit Jaswant Leal MD [facility] 04/06/22 Office Visit Jaswant Leal MD [facility] Showing recent visits within past 365 days and meeting all other requirements Future Appointments No visits were found meeting these conditions. Showing future appointments within next 90 days and meeting all other requirements documented in this encounter Plan of Treatment Upcoming Encounters Date Type Department Care Team (Late st Contact Info) Description 12/17/2024 7:40 AM CDT Lab [facility] #[address] [address] Kristopher Goodwin Lab/Ancillary 12/24/2024 2:15 PM CDT [facility] - [place] #2 [facility] [address] Jaswant Leal MD #[address] [place] [address] documented as of this encounter Visit Diagnoses Diagnosis Abdominal pain, RLQ Abdominal pain, right lower quadrant documented in this encounter Additional Health Concerns Assessment Noted Time PHQ-9 Depression Total Score: 0 09/04/19 22 1:00 PM CDT documented as of this encounter Care Teams Supervisor [place] Relationship Specialty Start Date End Date Jaswant Leal MD #2 [place] [address] PCP - General Family Medicine 07/31/20 Loy Dewey MD Consulting Physician Obstetrics & Gynecology 03/31/16 documented as of this encounter
--- OUTSIDE RECORDS SUMMARY | 2024-11-01 13:13 | XMS_ITS | Encounter Summary ---
Author Organization [facility] Address [address] [place] [address] Phone Care Team Providers Care Furniture Upholsterer Apprentice Name Role Phone Loy Dewey MD, Michael S MD Primary Care Provider [phone] Reason for Visit * Reason Comments Medication Refill Encounter Details Date Type Department Care Team (Late st Contact Info) Description 04/28/2022 Refill [facility] #2 [place] [address] Roby Coffey MD #1 [place] [address] Medication Refill Social History Tobacco Use Types [...] Coronavirus/COVID-19? No / Unsure 04/22/2022 12:55 PM TUG MASTER documented as of this encounter Miscellaneous Notes * Telephone Encounter - Brianne Beasley RN - 04/29/2022 9:43 AM TUG MASTER Medication failed the protocol, provider to review [...] [place] 12/11/21 Office Visit Jaswant Leal MD [facility] 09/03/21 Office Visit Jaswant Leal MD [facility] 06/01/21 Office Visit Jaswant Leal MD [facility] Showing recent visits within past 365 days and meeting all other requirements Future Appointments No visits were found meeting these conditions. Showing future appointments within next 90 days and meeting all other requirements MASTER documented in this encounter Plan of Treatment Upcoming Encounters Date Type Department Care Team (Late st Contact Info) Description 12/17/2024 7:40 AM CDT Lab [facility] #[address] [place] [address] Fernando Goodwin Lab/Ancillary 12/24/2024 2:15 PM CDT Office Visit [facility] - [place] #2 [place] [address] Jaswant Leal MD #2 [facility] [address] [place] [address] documented as of this encounter Visit Diagnoses Diagnosis Abdominal pain, RLQ Abdominal pain, right lower quadrant documented in this encounter Additional Health Concerns Assessment Noted Time PHQ-9 Depression Total Score: 0 09/04/19 22 1:00 PM CDT documented as of this encounter Care Teams Furniture Upholsterer Apprentice Relationship Specialty Start Date End Date Jaswant Lael MD #[address] [address] PCP - General Family Medicine 07/31/20 Loy Dewey MD Consulting Physician Obstetrics & Gynecology 03/31/16 documented as of this encounter
--- OUTSIDE RECORDS SUMMARY | 2024-11-01 13:13 | XMS_ITS | Encounter Summary ---
Author Organization [facility] Address [address] [place] [address] Phone Care Team Providers Care Hander In Name Role Phone Loy Dewey MD [facility] Jaswant García MD Primary Care Provider [phone] Reason for Visit * Reason Comments Medication Refill Encounter Details Date Type Department Care Team (Late st Contact Info) Description 01/09/2023 Refill [facility] #2 [place] [phone] Jaswant Leal MD #[address] [address] Medication Refill Social History Tobacco Use Types [...] [place] 04/06/22 Office Visit Jaswant Leal MD [facility] Kristopher Showing recent visits within [...] Info) Description 12/17/2024 7:40 AM CDT Lab [facility] #[address] [address] [facility] Lab/Ancillary 12/24/2024 2:15 PM CDT Office Visit [facility] - [place] #2 [place] [address] Jaswant Leal MD #[address] [address] documented as of this encounter Visit Diagnoses Not on filedocumented in this encounter Additional Health Concerns Assessment Noted Time PHQ-9 Depression Total Score: 0 09/04/19 22 1:00 PM CDT documented as of this encounter Care Teams Hander In Relationship Specialty Start Date End Date Jaswant Leal MD #[address] [address] PCP - General Family Medicine 07/31/20 Loy Dewey MD Consulting Physician Obstetrics & Gynecology 03/31/16 documented as of this encounter
--- OUTSIDE RECORDS SUMMARY | 2024-11-01 13:13 | XMS_ITS | Encounter Summary ---
Author Organization [facility] Address [address] [place] [address] Phone Care Team Providers Care Muleser Name Role Phone Loy Dewey MD [facility] Jaswant García MD Primary Care Provider [phone] Reason for Visit * Reason Comments Medication Refill Encounter Details Date Type Department Care Team (Late st Contact Info) Description 05/30/2022 Refill [facility] #2 [place] [address] Jaswant Leal MD #[address] [address] Medication Refill Social History Tobacco Use Types [...] 90 days and meeting all other requirements ICIAN INTERVENTIONAL CARDIOLOGIST documented in this encounter Plan of Treatment Upcoming Encounters Date Type Department Care Team (Late st Contact Info) Description 12/17/2024 7:40 AM CDT Lab [facility] #[address] [place] [address] Kristopher Goodwin Lab/Ancillary 12/24/2024 2:15 PM CDT Office Visit [facility] Family Medicine - [place] #2 [place] [address] Jaswant Leal MD #[address] [place] [address] documented as of this encounter Visit Diagnoses Diagnosis Abdominal pain, RLQ Abdominal pain, right lower quadrant documented in this encounter Additional Health Concerns Assessment Noted Time PHQ-9 Depression Total Score: 0 09/04/19 22 1:00 PM CDT documented as of this encounter Care Teams Muleser Relationship Specialty Start Date End Date Jaswant Leal MD #2 [place] [address] PCP - General Family Medicine 07/31/20 Loy Dewey MD Consulting Physician Obstetrics & Gynecology 03/31/16 documented as of this encounter
--- OUTSIDE RECORDS SUMMARY | 2024-11-01 13:13 | XMS_ITS | Encounter Summary ---
Author Organization [facility] Address [address] [place] [address] Phone Care Team Providers Care Commercial Real Estate Appraiser Name Role Phone Loy Dewey MD [facility] Jaswant García MD Primary Care Provider [phone] Reason for Visit * Reason Comments Medication Refill Encounter Details Date Type Department Care Team (Late st Contact Info) Description 12/10/2022 Refill [facility] Family Medicine [facility] #2 [place] [address] Jaswant Leal MD #[address] [address] Medication Refill Social History Tobacco Use Types [...] Date Type Provider Dept 08/19/22 Office Visit Jasawnt Leal MD [facility] [...] Leal MD [facility] 12/11/21 Office Visit Jaswnat Leal MD [facility] Showing recent visits [...] Info) Description 12/17/2024 7:40 AM CDT Lab [facility] #[address] [place] [address] Fernando Goodwin Lab/Ancillary 12/24/2024 2:15 PM CDT Office Visit [facility] Family Medicine - [place] #2 [place] [address] Jaswant Leal MD #[address] [place] [address] documented as of this encounter Visit Diagnoses Diagnosis Post-traumatic stress disorder, chronic Hypertensive heart disease without heart failure Unspecified hypertensive heart disease without heart failure Chronic rhinitis documented in this encounter Additional Health Concerns Assessment Noted Time PHQ-9 Depression Total Score: 0 09/04/19 22 1:00 PM CDT documented as of this encounter Care Teams Commercial Real Estate Appraiser Relationship Specialty Start Date End Date Jaswant Leal MD #2 [place] [address] PCP - General Family Medicine 07/31/20 Loy Dewey MD Consulting Physician Obstetrics & Gynecology 03/31/16 documented as of this encounter
--- OUTSIDE RECORDS SUMMARY | 2024-11-01 13:13 | XMS_ITS | Encounter Summary ---
Author Organization [facility] Address [address] [place] [address] Phone Care Team Providers Care Dry Cell Sealer Name Role Phone Loy Dewey MD [facility] Jaswant García MD Primary Care Provider [phone] Reason for Visit * Reason Comments Medication Refill Encounter Details Date Type Department Care Team (Late st Contact Info) Description 04/28/2022 Refill [facility] Family [facility] #2 [place] [address] Jaswant Leal MD #[address] [address] Medication Refill Social History Tobacco Use Types [...] Coronavirus/COVID-19? No / Unsure 04/22/2022 12:55 PM ACCOUNT RESOLUTION ANALYST documented as of this encounter Miscellaneous Notes * Telephone Encounter - Toshia Jensen RN - 04/29/2022 9:51 AM CST Images from the original note were not included. Triamcinolone Acetonide Dispensed Days Supply Quantity Provider Pharmacy TRIAMCINOLONE 0.1% CREAM 04/21/2022 30 80 g Jaswant Leal MD [id number] - ... UNT RESOLUTION ANALYST documented in this encounter Plan of Treatment Upcoming Encounters Date Type Department Care Team (Late st Contact Info) Description 12/17/2024 7:40 AM CDT Lab [facility] #[address] [address] [facility] [place] Lab/Ancillary 12/24/2024 2:15 PM CDT Office Visit [facility] - Family Medicine - [place] #2 [place] [address] Jaswant Leal MD #[address] [address] documented as of this encounter Visit Diagnoses Not on filedocumented in this encounter Additional Health Concerns Assessment Noted Time PHQ-9 Depression Total Score: 0 09/04/19 22 1:00 PM CDT documented as of this encounter Care Teams Dry Cell Sealer Relationship Specialty Start Date End Date Jaswant Leal MD #[address] [address] PCP - General Family Medicine 07/31/20 Loy Dewey MD Consulting Physician Obstetrics & Gynecology 03/31/16 documented as of this encounter
--- OUTSIDE RECORDS SUMMARY | 2024-11-01 13:13 | XMS_ITS | Encounter Summary ---
Author Organization [facility] Address [address] [place] [address] Phone Care Team Providers Care Hands Parter Name Role Phone Loy Dewey MD [facility] Jaswant García MD Primary Care Provider [phone] Encounter Details Date Type Department Care Team (Late st Contact Info) Description 09/03/2020 Transcribe Orders [facility] Preop/Pacu II 1 [place] [address] Lefty Stone MD #2 [place] [address] Pre-op testing (Primary Dx); Postmenopausal bleeding Social [...] Info) Description 12/17/2024 7:40 AM CDT Lab [facility] #[address] [facility] [place] [address] Fernando Goodwin Lab/Ancillary 12/24/2024 2:15 PM CDT Office Visit [facility] - Family Medicine - [place] #[address] [place] [address] Jaswant Leal MD #2 [facility] [place] [address] documented as of this encounter Results * TYPE & SCREEN (CROSSMATCH CONVERTIBLE) (09/13/2020 9:46 AM CDT) ABO TYPING O 09/13/2020 12:42 PM CDT [facility] BLOOD B[facility] RH Positive 09/13/2020 12:42 PM CDT [facility] BLOOD B[facility] ABSC Negative 09/13/2020 12:42 PM CDT [facility] BLOOD [facility] Blood Venipuncture / Unknown 09/13/2020 9:46 AM CDT 09/13/2020 10:54 AM CDT us Lefty Stone MD BLOOD BANK ORDERABLES Edited R esult - Final [facility] BLOOD BANK #[address] [place] [address] documented in this encounter Visit Diagnoses Diagnosis Pre-op testing- Primary Preoperative examination, unspecified Postmenopausal bleeding documented in this encounter Additional Health Concerns Assessment Noted Time PHQ-9 Depression Total Score: 1 03/31/20 16 2:02 PM WAFER CLEANER documented as of this encounter Care Teams Hands Parter Relationship Specialty Start Date End Date Jaswant Leal MD #[address] [address] PCP - General Family Medicine 07/31/20 Loy Dewey MD Consulting Physician Obstetrics & Gynecology 03/31/16 documented as of this encounter
--- OUTSIDE RECORDS SUMMARY | 2024-11-01 13:13 | XMS_ITS | Encounter Summary ---
Author Organization [facility] Address [address] [place] [address] Phone Care Team Providers Care Nip Wrapper Name Role Phone Loy Dewey MD [facility] Jaswant Leal MD Primary Care Provider [phone] Reason for Visit * Reason Comments Medication Refill Encounter Details Date Type Department Care Team (Late st Contact Info) Description 11/19/2020 [facility]ill [facility] #2 [place] [address] Jaswant Leal MD #[address] [address] Medication Refill Social History Tobacco Use Types [...] obstructive pulmonary disease, unspecified COPD type (HCC) [facility] - Jaswant Guerra MD 3 months ago Essential hypertension [facility] Jaswant Guerra MD 4 years ago DUB (dysfunctional uterine bleeding) [facility] - Lefty Loya MD 4 years ago Post-menopausal bleeding [facility] Lefty Loya MD 4 years ago Dysfunctional uterine bleeding [facility] Upcoming Appointments Future Appointments In 3 weeks Lefty Stone MD [facility] months Jaswant Leal MD [facility] HOME ADVISOR - Recent and Past Visits Recent Visits Date Type Provider Dept 09/18/20 Office Visit Jaswant Leal MD [facility] 08/06/20 Office Visit Jaswant Leal MD [facility] [place] Showing recent visits within past 460 days with a meds authorizing provider and meeting all other requirements Future Appointments Date Type Provider Dept 01/26/21 Appointment Jaswant Leal MD [facility] [place] Showing future appointments within next 90 days with a meds authorizing provider and meeting all other requirements documented in this encounter Plan of Treatment Upcoming Encounters Date Type Department Care Team (Late st Contact Info) Description 12/17/2024 7:40 AM CDT Lab [facility] [facility] [place] [address] Fernando Goodwin Lab/Ancillary 12/24/2024 2:15 PM CDT Office Visit [facility] - [place] #2 [address] [place] [address] Jaswant Leal MD [address] [address] documented as of this encounter Visit Diagnoses Diagnosis Abdominal pain, RLQ- Primary Abdominal pain, right lower quadrant documented in this encounter Additional Health Concerns Assessment Noted Time PHQ-9 Depression Total Score: 1 03/31/20 16 2:02 PM DEPUTY SHERIFF K9 HANDLER documented as of this encounter Care Teams Nip Wrapper Relationship Specialty Start Date End Date Jaswant Leal MD #[address] [address] PCP - General Family Medicine 07/31/20 Loy Dewey MD Consulting Physician Obstetrics & Gynecology 03/31/16 documented as of this encounter
--- OUTSIDE RECORDS SUMMARY | 2024-11-01 13:13 | XMS_ITS | Encounter Summary ---
Author Organization [facility] Address [address] [place] [address] Phone Care Team Providers Care Beer Cooler Name Role Phone Loy Dewey MD, Michael S MD Primary Care Provider [phone] Reason for Visit * Reason Comments Medication Refill Encounter Details Date Type Department Care Team (Late st Contact Info) Description 12/10/2022 Refill [facility] - [place] #2 [place] [address] Veronica Sanchez APRN, FIRESTOPPER TECHNICIAN #[address] [phone] Medication Refill Social History Tobacco Use Types [...] Summers 04/21/22 Office Visit Jaswant Leal MD [facility] 04/06/22 Office Visit Jaswant Leal MD [facility] 12/11/21 Office Visit Jas[facility] MD [facility] [place] [place] Kristopher Showing recent visits within past 365 days and meeting all other requirements Future Appointments Date Type Provider Dept 12/22/22 Appointment Jaswant Leal MD [facility] Showing future appointments within next 90 days and meeting all other requirements documented in this encounter Plan of Treatment Upcoming Encounters Date Type Department Care Team (Late st Contact Info) Description 12/17/2024 7:40 AM CDT Lab [facility] #[address] [address] Kristopher Goodwin Lab/Ancillary 12/24/2024 2:15 PM CDT Office Visit [facility] - [place] #2 [place] [address] Jaswant Leal MD #[address] [address] documented as of this encounter Visit Diagnoses Diagnosis Abdominal pain, RLQ Abdominal pain, right lower quadrant documented in this encounter Additional Health Concerns Assessment Noted Time PHQ-9 Depression Total Score: 0 09/04/19 22 1:00 PM CDT documented as of this encounter Care Teams Beer Cooler Relationship Specialty Start Date End Date Jaswant Leal MD #[address] [address] PCP - General Family Medicine 07/31/20 Loy Dewey MD Consulting Physician Obstetrics & Gynecology 03/31/16 documented as of this encounter
--- OUTSIDE RECORDS SUMMARY | 2024-11-01 13:13 | XMS_ITS | Encounter Summary ---
Author Organization [facility] Address [address] [place] [address] Phone Care Team Providers Care Superintendent Gas Distribution Name Role Phone Loy Dewey MD [facility] Jaswant García MD Primary Care Provider [phone] Encounter Details Date Type Department Care Team (Late st Contact Info) Description 01/22/2021 Transcribe Orders [facility] Preop/Pacu II 1 [place] [id number] Tl Adams MD #[address] [address] Pre-op testing (Primary Dx) Social History Tobacco [...] Info) Description 12/17/2024 7:[address] [facility] [address] [phone] Kristopher Goodwin Lab/Ancillary 12/24/2024 2:15 PM CDT Office Visit [facility] - Family Medicine - [place] #2 [place] [address] Jaswant Leal MD #[address] [address] documented as of this encounter Results * SARS-COV-2 BY MOLECULAR (01/28/2021 12:03 PM CDT) SARSCOV2 NOT DETECTED (Referen ce Range for this test is Not Detected ) [facility] THERMOFISHER FAST DX 01/29/2021 8:50 AM CDT [facility] Comment:This test was perfor med by a RT-PCR method. Other NASOPHARYNGEAL STRUCTURE / Unknown Non-Phlebotomy Collection / Unknown 01/28/2021 12:03 PM CDT 01/28/2021 1:20 PM CDT Narrative [facility] - 01/29/2021 8:50 AM CDT Authorized Fact Sheets about this test for providers and patients are available at: https://www.fda.gov/medical-devices/pkvawlmys-fkxcbdeobi-kncempm-devices/emergen cy-us e-authorizations us Tl Adams MD MICROBIOLOGY - GENERAL ORDERABLE S Final Result [facility] [address] [place] [address], [place] documented in this encounter Visit Diagnoses Diagnosis Pre-op testing- Primary Preoperative examination, unspecified documented in this encounter Additional Health Concerns Assessment Noted Time PHQ-9 Depression Total Score: 1 03/31/20 16 2:02 PM [employer]DLE [employer]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
--- OUTSIDE RECORDS SUMMARY | 2024-11-01 13:14 | XMS_ITS | Patient Health Record ---
Author Organization [facility] Address [address] [facility] [address] [place] [address] Care Team Providers Care Diet Aid Name Role Phone Daniel Jeffers Unavailable [phone] Reason For Referral No Information Medications Medication SIG (Take, Route, Frequency, Duration) Notes Start Date End Date Status HYDROCODONE 10 MG-ACETAMINOPHEN 325 MG/15 ML (15 ML) ORAL SOLUTION *Reorder from Spinal Integration for eRx and Interaction Alerts* Active Symbicort 160-4.5 MCG/ACT Inhalation Active Plan Of Treatment No Information
--- OUTSIDE RECORDS SUMMARY | 2024-11-01 13:14 | XMS_ITS | Encounter Summary ---
Author Organization [facility] Address [address] [place] [address] Phone Care Team Providers Care Real Estate Manager Name Role Phone [facility] MD [facility] Primary Care Provider [phone] Reason for Visit * Reason Onset Date Comments Advice Only 11/23/2023 Encounter Details Date Type Department Care Team (Late st Contact Info) Description 11/23/2023 Telephone [facility] [address] [place] [address] Jaswant Leal MD #[address] [address] Advice Only Social History Tobacco Use Types Packs/Day Years Used Date Smoking Tobacco: Never Smokeless Tobacco: Never Alcohol Use Standard Drinks/Week Comments Not Currently 0 (1 standard drink = 0.6 oz pure alcohol) Past alcohol abuse- quit 1978 [facility] Utilities Answer Date Recorded In the past 12 months has [employer], gas, oil, or water company threatened to shut off services in your home? No 08/23/2023 Social Connection and Isolation Panel Answer Date Recorded In a typical week, how many times do you talk on the phone with family, friends, or neighbors? More than three times a week 08/23/2023 How often do you get togethe r with friends or relatives? More than three times a week 08/23/2023 How often do you attend chur or roman catholic services? More than 4 times per year 08/23/2023 Do you belong to any clubs o r organizations such as moravian groups, unions, fraternal or athletic groups, or [...] Total Score - Questions 1-9 0 08/09 [facility] of Occupat ional [facility] - Occupational Stress Questionnaire Answer Date [...] place to sleep or slept in a detention (including now)? No 08/23/2023 Education Answer Date [...] AM CDT Lab [facility] #[address] [address] [facility] Lab/Ancillary 12/24/2024 2:15 PM CDT Office Visit [facility] - [place] #2 [place] [address] Jaswant Leal MD #[address] [address] documented as of this encounter Visit Diagnoses Not on filedocumented in this encounter Additional Health Concerns Assessment Noted Time PHQ-9 Depression Total Score: 0 08/24/19 24 3:07 PM CDT documented as of this encounter Care Teams Real Estate Manager Relationship Specialty Start Date End Date Jaswant Lela MD #[address] [address] PCP - General Family Medicine 07/31/20 Loy Dewey MD Consulting Physician Obstetrics & Gynecology 03/31/16 documented as of this encounter
--- OUTSIDE RECORDS SUMMARY | 2024-11-01 13:14 | XMS_ITS | Encounter Summary ---
Author Organization [facility] Address [address] [place] [address] Phone Care Team Providers Care Special Delivery Worker Name Role Phone Loy Dewey MD [facility] Jaswant García MD Primary Care Provider [phone] Reason for Visit * Reason Comments Medication Refill Encounter Details Date Type Department Care Team (Late st Contact Info) Description 03/24/2023 Refill [facility] #2 [place] [phone] Jaswant Leal MD #[address] [address] Medication Refill Social History Tobacco Use Types [...] Ref Range Status 12/14/2022 >60 >=60 Final VERY MANAGER documented in this encounter Plan of Treatment Upcoming Encounters Date Type Department Care Team (Late st Contact Info) Description 12/17/2024 7:40 AM CDT Lab [facility] #[address] [address] [facility] Lab/Ancillary 12/24/2024 2:15 PM CDT Office Visit [facility] - [place] #2 [place] [address] Jaswant Leal MD #[address] [address] documented as of this encounter Visit Diagnoses Diagnosis Abdominal pain, RLQ Abdominal pain, right lower quadrant documented in this encounter Additional Health Concerns Assessment Noted Time PHQ-9 Depression Total Score: 0 09/04/19 22 1:00 PM CDT documented as of this encounter Care Teams Special Delivery Worker Relationship Specialty Start Date End Date Jaswant Leal MD #[address] [address] PCP - General Family Medicine 07/31/20 Loy Dewey MD Consulting Physician Obstetrics & Gynecology 03/31/16 documented as of this encounter
--- OUTSIDE RECORDS SUMMARY | 2024-11-01 13:14 | XMS_ITS | Encounter Summary ---
Author Organization [facility] Address [address] [place] [address] Phone Care Team Providers Care Forms Analyst Name Role Phone Loy Dewey MD, Michael S MD Primary Care Provider [phone] Reason for Visit * Reason Comments Medication Refill Encounter Details Date Type Department Care Team (Late st Contact Info) Description 03/24/2023 Refill [facility] - [place] #2 [place] [address] Veronica Sanchez APRN, REAL ESTATE LISTING CONSULTANT #[address] [phone] Medication Refill Social History Tobacco Use Types [...] years of age for Cetirizine or Levocetirizine [place] CUTTING MACHINE TENDER documented in this encounter Plan of Treatment Upcoming Encounters Date Type Department Care Team (Late st Contact Info) Description 12/17/2024 7:40 AM CDT Lab [facility] #[address] [address] Kristopher Goodwin Lab/Ancillary 12/24/2024 2:15 PM CDT Office Visit [facility] - [place] #2 [facility] [place] [address] Jaswant Leal MD #[address] [place] [address] documented as of this encounter Visit Diagnoses Diagnosis Post-traumatic stress disorder, chronic Hypertensive heart disease without heart failure Unspecified hypertensive heart disease without heart failure Chronic rhinitis documented in this encounter Additional Health Concerns Assessment Noted Time PHQ-9 Depression Total Score: 0 09/04/19 22 1:00 PM CDT documented as of this encounter Care Teams Forms Analyst Relationship Specialty Start Date End Date Jaswant Leal MD #2 [place] [address] PCP - General Family Medicine 07/31/20 Loy Dewey MD Consulting Physician Obstetrics & Gynecology 03/31/16 documented as of this encounter
--- OUTSIDE RECORDS SUMMARY | 2024-11-01 13:14 | XMS_ITS | Encounter Summary ---
Author Organization [facility] Address [address] [place] [address] Phone Care Team Providers Care Corporate Vp Advertising & Online Name Role Phone [facility]oy De[facility] MD [facility] MD Primary Care Provider [phone] Reason for Visit * Reason Comments Medication Refill Encounter Details Date Type Department Care Team (Late st Contact Info) Description 08/31/2023 Refill [facility] #2 [place] [address] Jaswant Leal MD #[address] [address] Medication Refill Social History Tobacco Use Types Packs/Day Years Used Date Smoking Tobacco: Never Smokeless Tobacco: Never Alcohol Use Standard Drinks/Week Comments Not Currently 0 (1 standard drink = 0.6 oz pure alcohol) Past alcohol abuse- quit 1978 [facility] Utilities Answer Date Recorded In the past 12 months has [employer], gas, oil, or water company threatened to [...] How often do you attend chur or voodoo services? More than 4 times per year 08/23/2023 Do you belong to any clubs o r organizations such as mormon groups, unions, fraternal or athletic groups, or [...] Total Score - Questions 1-9 0 08/09 [facility] of Occupat ional [facility] - Occupational Stress Questionnaire Answer Date [...] in a custodial (including now)? No 08/23/2023 Education Answer Date [...] 08/17/23 Office Visit Andres Brooks MD [facility] 04/25/23 Office Visit Jaswant Leal MD [facility] Kristopher Showing recent visits within past 182 [...] Info) Description 12/17/2024 7:40 AM CDT Lab [facility] #[address] [address] Kristopher Goodwin Lab/Ancillary 12/24/2024 2:15 PM CDT Office Visit [facility] - Family Medicine - [place] #2 [place] [address] Jaswant Leal MD #[address] [address] documented as of this encounter Visit Diagnoses Not on filedocumented in this encounter Additional Health Concerns Assessment Noted Time PHQ-9 Depression Total Score: 0 08/24/19 3:07 PM CDT documented as of this encounter Care Teams Corporate Vp Advertising & Online Relationship Specialty Start Date End Date Jaswant Leal MD #[address] [address] PCP - General Family Medicine 07/31/20 Loy Dewey MD Consulting Physician Obstetrics & Gynecology 03/31/16 documented as of this encounter
--- OUTSIDE RECORDS SUMMARY | 2024-11-01 13:14 | XMS_ITS | Encounter Summary ---
Author Organization [facility] Address [address] [place] [address] Phone Care Team Providers Care Radio Message Router Name Role Phone Loy Dewey MD [facility] Jaswant García MD Primary Care Provider [phone] Reason for Visit * Reason Comments Medication Refill Encounter Details Date Type Department Care Team (Late st Contact Info) Description 02/18/2023 Refill [facility] #2 [place] [phone] Jaswant Leal MD #[address] [address] Medication Refill Social History Tobacco Use Types [...] [place] 04/06/22 Office Visit Jas[facility] Leal MD [facility] [place] Showing recent visits within past 365 days and meeting all other requirements Future Appointments Date Type Provider Dept 04/25/23 Appointment Jaswant Leal MD [facility] Showing future appointments within next 90 days and meeting all other requirements BASE MANAGER documented in this encounter Plan of Treatment Upcoming Encounters Date Type Department Care Team (Late st Contact Info) Description 12/17/2024 7:40 AM CDT Lab [facility] #[address] [address] Fernando Goodwin Lab/Ancillary 12/24/2024 2:15 PM CDT Office Visit [facility] - [place] [facility] [place] [address] Jaswant Leal MD #[address] [address] documented as of this encounter Visit Diagnoses Diagnosis Abdominal pain, RLQ Abdominal pain, right lower quadrant documented in this encounter Additional Health Concerns Assessment Noted Time PHQ-9 Depression Total Score: 0 09/04/19 22 1:00 PM CDT documented as of this encounter Care Teams Radio Message Router Relationship Specialty Start Date End Date Jaswant Leal MD #2 [place] [id number] PCP - General Family Medicine 07/31/20 Loy Dewey MD Consulting Physician Obstetrics & Gynecology 03/31/16 documented as of this encounter
--- OUTSIDE RECORDS SUMMARY | 2024-11-01 13:14 | XMS_ITS | Encounter Summary ---
Author Organization [facility] Address [address] [place] [address] Phone Care Team Providers Care New Account Interviewer Name Role Phone Loy Dewey MD [facility] Jaswant García MD Primary Care Provider [phone] Reason for Visit * Reason Comments Medication Refill Encounter Details Date Type Department Care Team (Late st Contact Info) Description 01/25/2023 Refill [facility] #2 [place] [address] Jaswant Leal MD #[address] [address] Medication Refill Social History Tobacco Use Types [...] Description 12/17/2024 7:[address] [facility] #[address] [address] [facility] Kristopher Lab/Ancillary 12/24/2024 2:15 PM CDT Office Visit [facility] - [facility] - [place] #2 [facility] [address] Jaswant Leal MD #[address] [address] documented as of this encounter Visit Diagnoses Not on filedocumented in this encounter Additional Health Concerns Assessment Noted Time PHQ-9 Depression Total Score: 0 09/04/19 22 1:00 PM CDT documented as of this encounter Care Teams New Account Interviewer Relationship Specialty Start Date End Date Jaswant Leal MD #[address] [address] PCP - General Family Medicine 07/31/20 Loy Dewey MD Consulting Physician Obstetrics & Gynecology 03/31/16 documented as of this encounter
--- OUTSIDE RECORDS SUMMARY | 2024-11-01 13:14 | XMS_ITS | Encounter Summary ---
Author Organization [facility] Address [address] [place] [address] Phone Care Team Providers Care Movie Producer Name Role Phone Loy Dewey MD [facility] Primary Care Provider [phone] Reason for Visit * Reason Comments Medication Refill Encounter Details Date Type Department Care Team (Late st Contact Info) Description 04/24/2023 [facility]ill [facility] #2 [place] [address] Jaswant Leal MD #[address] [address] Medication Refill Social History Tobacco Use Types Packs/Day Years Used Date Smoking Tobacco: Never Smokeless Tobacco: Never Alcohol Use Standard Drinks/Week Comments Not Currently 0 (1 standard drink = 0.6 oz pure alcohol) Past alcohol abuse- quit 1978 [facility] Utilities Answer Date Recorded In the past 12 months has [employer], gas, oil, or water company threatened to shut off services in your home? No 04/25/2023 Social Connection and Isolation Panel Answer Date Recorded In a typical week, how many times do you talk on the phone with family, friends, or neighbors? More than three times a week 04/25/2023 How often do you get togethe r with friends or relatives? More than three times a week 04/25/2023 How often do you attend chur ch or gnosticist services? More than 4 times per year 04/25/2023 Do you belong to any clubs o r organizations such as jain groups, unions, fraternal or athletic groups, or [...] Total Score - Questions 1-9 0 04/11 [facility] - Occupational [...] place to sleep or slept in a prison (including now)? No 04/25/2023 Education Answer Date [...] as of this encounter Functional Status * AUDIT-C Score Answer Date of Assessment Author 0 04/25/2023 8:51 AM CHEMICAL TREATMENT OPERATOR [employer], System Background * Q1: How often do you have a drink containing alcohol? Answer Date of Assessment Author Never 04/25/2023 8:51 AM CHEMICAL TREATMENT OPERATOR Room 21 [employer], System Background * Q2: How many drinks containing alcohol do you have on a typical day when you are drinking? Answer Date of Assessment Author Patient does not drink 04/25/2023 8:51 AM CHEMICAL TREATMENT OPERATOR [employer], System Background * Q3: How often do you have six or more drinks on one occasion? Answer Date of Assessment Author Never 04/25/2023 8:51 AM CHEMICAL TREATMENT OPERATOR [facility], System Background * Question Answer Date of Assessment Author Little interest or pleasure in doing things Not at all 04/25/2023 1:18 PM CHEMICAL TREATMENT OPERATOR Emi Coats RMA Feeling down, depressed, or hopeless Not at all 04/25/2023 1:18 PM CHEMICAL TREATMENT OPERATOR Emi Coats RMA * Over the past 2 weeks, how often have you been bothered by any of the following problems? Question Answer Date of Assessment Author Patient Health Questionnaire -2 Score 0 04/25/2023 1:18 PM CHEMICAL TREATMENT OPERATOR Emi Coats RMA documented as of this encounter Miscellaneous [...] Appointment Jaswant Leal MD [facility] Showing today's visits and meeting all other [...] Provider Dept 04/25/23 Appointment Jaswant Leal MD [facility] Kristopher Showing today's visits and meeting all other [...] Ref Range Status 04/20/2023 >60 >=60 Final ICAL TREATMENT OPERATOR documented in this encounter Plan of Treatment Upcoming Encounters Date Type Department Care Team (Late st Contact Info) Description 12/17/2024 7:40 AM CDT Lab [facility] #[address] [address] [facility] 12/24/2024 2:15 PM CDT [facility] - [place] #2 [place] [address] Jaswant Leal MD #[address] [address] documented as of this encounter Visit Diagnoses Diagnosis Abdominal pain, RLQ Abdominal pain, right lower quadrant documented in this encounter Additional Health Concerns Assessment Noted Time PHQ-9 Depression Total Score: 0 09/04/19 22 1:00 PM CDT documented as of this encounter Care Teams Movie Producer Relationship Specialty Start Date End Date Jaswant Leal MD #[address] [place] [address] PCP - General Family Medicine 07/31/20 Loy Dewey MD Consulting Physician Obstetrics & Gynecology 03/31/16 documented as of this encounter
--- OUTSIDE RECORDS SUMMARY | 2024-11-01 13:14 | XMS_ITS | Encounter Summary ---
Author Organization [facility] Address [address] [place] [address] Phone Care Team Providers Care Stamps Or Coins Salesperson Name Role Phone Loy Dewey MD [facility] Primary Care Provider [phone] Reason for Visit * Reason Comments Medication Refill Encounter Details Date Type Department Care Team (Late st Contact Info) Description 09/16/2023 Refill [facility] #2 [place] [address] Jaswant Leal MD #[address] [address] Medication Refill Social History Tobacco Use Types Packs/Day Years Used Date Smoking Tobacco: Never Smokeless Tobacco: Never Alcohol Use Standard Drinks/Week Comments Not Currently 0 (1 standard drink = 0.6 oz pure alcohol) Past alcohol abuse- quit 1978 [facility] Utilities Answer Date Recorded In the past 12 months has [employer], gas, oil, or water company threatened to [...] How often do you attend chur or christian services? More than 4 times per year 08/23/2023 Do you belong to any clubs o r organizations such as restorationism groups, unions, fraternal or athletic groups, or [...] Total Score - Questions 1-9 0 08/09 [facility] - Occupational Stress Questionnaire Answer Date [...] place to sleep or slept in a retirement (including now)? No 08/23/2023 Education Answer Date [...] Dept 08/24/23 Office Visit Jaswant Leal MD [facility] Kristopher 08/17/23 Office Visit Andres Brooks MD [...] Info) Description 12/17/2024 7:40 AM CDT Lab [facility] #[address] [address] [facility] Lab/Ancillary 12/24/2024 2:15 PM CDT Office Visit [facility] - [place] #2 [place] [address] Jaswant Leal MD #[address] [address] documented as of this encounter Visit Diagnoses Not on filedocumented in this encounter Additional Health Concerns Assessment Noted Time PHQ-9 Depression Total Score: 0 08/24/19 24 3:07 PM CDT documented as of this encounter Care Teams Stamps Or Coins Salesperson Relationship Specialty Start Date End Date Jaswant Leal MD #[address] [address] PCP - General Family Medicine 07/31/20 Loy Dewey MD Consulting Physician Obstetrics & Gynecology 03/31/16 documented as of this encounter
--- OUTSIDE RECORDS SUMMARY | 2024-11-01 13:14 | XMS_ITS | Encounter Summary ---
Author Organization [facility] Address [address] [place] [address] Phone Care Team Providers Care Hogshead Liner Name Role Phone Loy Dewey MD [facility] Primary Care Provider [phone] Reason for Visit * Reason Comments Medication Refill Encounter Details Date Type Department Care Team (Late st Contact Info) Description 08/16/2023 Refill [facility] #2 [place] [address] Jaswant Leal MD #[address] [address] Medication Refill Social History Tobacco Use Types Packs/Day Years Used Date Smoking Tobacco: Never Smokeless Tobacco: Never Alcohol Use Standard Drinks/Week Comments Not Currently 0 (1 standard drink = 0.6 oz pure alcohol) Past alcohol abuse- quit 1978 [facility] Utilities Answer Date Recorded In the past 12 months has [employer], gas, oil, or water company threatened to [...] often do you attend chur ch or adventist services? More than 4 times per year 04/25/2023 Do you belong to any clubs o r organizations such as yarsanism groups, unions, fraternal or athletic groups, or [...] Total Score - Questions 1-9 0 04/11 [facility] ional [facility] - [...] place to sleep or slept in a penitentiary (including now)? No 04/25/2023 Education Answer Date [...] Questionnaire -2 Score 0 08/17/2023 9:00 AM EVYT Tennille Brock MA documented as of this encounter Miscellaneous [...] Info) Description 12/17/2024 7:40 AM CDT Lab [facility] #[address] [place] [address] [facility] Lab/Ancillary 12/24/2024 2:15 PM CDT Office Visit [facility] - [place] #2 [facility] [place] [address] Jaswant Leal MD #[address] [address] documented as of this encounter Visit Diagnoses Diagnosis Abdominal pain, RLQ Abdominal pain, right lower quadrant documented in this encounter Additional Health Concerns Assessment Noted Time PHQ-9 Depression Total Score: 0 04/25/19 24 1:18 PM HAND SPRAY OPERATOR documented as of this encounter Care Teams Hogshead Liner Relationship Specialty Start Date End Date Jaswant Leal MD #[address] [address] PCP - General Family Medicine 07/31/20 Loy Dewey MD Consulting Physician Obstetrics & Gynecology 03/31/16 documented as of this encounter
--- OUTSIDE RECORDS SUMMARY | 2024-11-01 13:14 | XMS_ITS | Encounter Summary ---
Author Organization [facility] Address [address] [place] [address] Phone Care Team Providers Care Equip Tech Name Role Phone Loy Dewey MD [facility] Primary Care Provider [phone] Reason for Visit * Reason Comments Medication Refill Encounter Details Date Type Department Care Team (Late st Contact Info) Description 12/04/2023 Refill [facility] Family [facility] #2 [place] [address] Jaswant Leal MD #[address] [address] Medication Refill Social History Tobacco Use Types Packs/Day Years Used Date Smoking Tobacco: Never Smokeless Tobacco: Never Alcohol Use Standard Drinks/Week Comments Not Currently 0 (1 standard drink = 0.6 oz pure alcohol) Past alcohol abuse- quit 1978 [facility] Utilities Answer Date Recorded In the past 12 months has [employer], gas, oil, or water company threatened to [...] How often do you attend chur or moravian services? More than 4 times per year [...] Total Score - Questions 1-9 0 08/09 [facility] Occupat [facility] - Occupational Stress Questionnaire Answer Date [...] place to sleep or slept in a long-term (including now)? No 08/23/2023 Education Answer Date [...] 12/17/2024 7:40 AM CDT Lab [facility] [address] [address] [facility] [place] Lab/Ancillary 12/24/2024 2:15 PM CDT Office Visit [facility] - Family Medicine - [place] #2 [place] [address] Jaswant Leal MD [address] [address] documented as of this encounter Visit Diagnoses Not on filedocumented in this encounter Additional Health Concerns Assessment Noted Time PHQ-9 Depression Total Score: 0 08/24/19 24 3:07 PM CDT documented as of this encounter Care Teams Equip Tech Relationship Specialty Start Date End Date Jaswant Leal MD #2 [place] [id number] PCP - General Family Medicine 07/31/20 Loy Dewey MD Consulting Physician Obstetrics & Gynecology 03/31/16 documented as of this encounter
--- OUTSIDE RECORDS SUMMARY | 2024-11-01 13:14 | XMS_ITS | Encounter Summary ---
Author Organization [facility] Address [address] [place] [address] Phone Care Team Providers Care Captain Fishing Vessel Name Role Phone Loy Dewey MD [facility] Jaswant García MD Primary Care Provider [phone] Reason for Visit * Reason Comments Medication Refill Encounter Details Date Type Department Care Team (Late st Contact Info) Description 03/23/2022 Refill [facility] Family Medicine [facility] #2 [place] [address] Jaswant Leal MD #[address] [address] Medication Refill Social History Tobacco Use Types [...] 08/28/2021 44.9 36.0 - 47.0 % Final ONNEL CONSULTANT documented in this encounter Plan of Treatment Upcoming Encounters Date Type Department Care Team (Late st Contact Info) Description 12/17/2024 7:40 AM CDT Lab [facility] #[address] [address] [facility] Lab/Ancillary 12/24/2024 2:15 PM CDT Office Visit [facility] - Family Medicine - [place] #2 [place] [address] Jaswant Leal MD #[address] [address] documented as of this encounter Visit Diagnoses Not on filedocumented in this encounter Additional Health Concerns Assessment Noted Time PHQ-9 Depression Total Score: 0 09/04/19 22 1:00 PM CDT documented as of this encounter Care Teams Captain Fishing Vessel Relationship Specialty Start Date End Date Jaswant Leal MD [address] [address] PCP - General Family Medicine 07/31/20 Loy Dewey MD Consulting Physician Obstetrics & Gynecology 03/31/16 documented as of this encounter
--- OUTSIDE RECORDS SUMMARY | 2024-11-01 13:14 | XMS_ITS | Encounter Summary ---
Author Organization [facility] Address [address] [place] [address] Phone Care Team Providers Care Semiconductor Wafers Etch Operator Name Role Phone Loy Dewey MD [facility] Jaswant García MD Primary Care Provider [phone] Reason for Visit * Reason Comments Medication Refill Encounter Details Date Type Department Care Team (Late st Contact Info) Description 03/26/2022 Refill [facility] #2 [place] [address] Jaswant Leal MD #[address] [address] Medication Refill Social History Tobacco Use Types [...] [place] 04/14/21 Office Visit [facility] Showing recent visits within past 365 days and meeting all other requirements Future Appointments Date Type Provider Dept 04/21/22 Appointment Jaswant Leal MD [facility] Showing future appointments within next 90 days and meeting all other requirements ACCOUNTING ASSISTANT documented in this encounter Plan of Treatment Upcoming Encounters Date Type Department Care Team (Late st Contact Info) Description 12/17/2024 7:40 AM CDT Lab [facility] #[address] [address] [place] Lab/Ancillary 12/24/2024 2:15 PM CDT Office Visit [facility] - [place] #2 [place] [address] Jaswant Leal MD #[address] [address] documented as of this encounter Visit Diagnoses Diagnosis Abdominal pain, RLQ Abdominal pain, right lower quadrant documented in this encounter Additional Health Concerns Assessment Noted Time PHQ-9 Depression Total Score: 0 09/04/19 22 1:00 PM CDT documented as of this encounter Care Teams Semiconductor Wafers Etch Operator Relationship Specialty Start Date End Date Jaswant Leal MD #2 [place] [id number] PCP - General Family Medicine 07/31/20 Loy Dewey MD Consulting Physician Obstetrics & Gynecology 03/31/16 documented as of this encounter
--- OUTSIDE RECORDS SUMMARY | 2024-11-01 13:14 | XMS_ITS | Encounter Summary ---
Author Organization [facility] Address [address] [place] [address] Phone Care Team Providers Care Pocket Assembler Name Role Phone Loy Dewey MD [facility] Primary Care Provider [phone] Reason for Visit * Reason Comments Medication Refill Encounter Details Date Type Department Care Team (Late st Contact Info) Description 06/21/2023 Refill [facility] #2 [place] [address] Jaswant Leal MD #[address] [address] Medication Refill Social History Tobacco Use Types Packs/Day Years Used Date Smoking Tobacco: Never Smokeless Tobacco: Never Alcohol Use Standard Drinks/Week Comments Not Currently 0 (1 standard drink = 0.6 oz pure alcohol) Past alcohol abuse- quit 1978 [facility] Utilities Answer Date Recorded In the past 12 months has [employer], gas, oil, or water company threatened to [...] often do you attend chur ch or jainism services? More than 4 times per year [...] Total Score - Questions 1-9 0 04/11 [facility] Occupat ional [facility] - [...] slept in a long-term (including now)? No 04/25/2023 Education Answer Date [...] Info) Description 12/17/2024 7:40 AM CDT Lab [facility] #[address] [address] [facility] 12/24/2024 2:15 PM CDT Office Visit [facility] - [place] #2 [place] [address] Jaswant Leal MD #[address] [address] documented as of this encounter Visit Diagnoses Diagnosis Abdominal pain, RLQ Abdominal pain, right lower quadrant documented in this encounter Additional Health Concerns Assessment Noted Time PHQ-9 Depression Total Score: 0 04/25/19 1:18 PM 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
--- OUTSIDE RECORDS SUMMARY | 2024-11-01 13:14 | XMS_ITS | Encounter Summary ---
Author Organization [facility] Address [address] [place] [address] Phone Care Team Providers Care Motor Vehicles Supervisor Name Role Phone Loy Dewey MD [facility] Primary Care Provider [phone] Reason for Visit * Reason Comments Medication Refill Encounter Details Date Type Department Care Team (Late st Contact Info) Description 05/31/2023 Refill [facility] #2 [place] [address] Jaswant Leal MD #[address] [address] Medication Refill Social History Tobacco Use Types Packs/Day Years Used Date Smoking Tobacco: Never Smokeless Tobacco: Never Alcohol Use Standard Drinks/Week Comments Not Currently 0 (1 standard drink = 0.6 oz pure alcohol) Past alcohol abuse- quit 1978 [facility] Utilities Answer Date Recorded In the past 12 months has [employer], gas, oil, or water company threatened to [...] often do you attend chur ch or scientology services? More than 4 times per year 04/25/2023 Do you belong to any clubs o r organizations such as catholic groups, unions, fraternal or athletic groups, or [...] Total Score - Questions 1-9 0 04/11 [facility] Occupat [facility] Health - Occupational [...] place to sleep or slept in a intermediate (including now)? No 04/25/2023 Education Answer Date [...] [place] 12/22/22 Office Visit Jaswant Leal MD [facility] Kristopher Showing recent visits within past 182 [...] Ref Range Status 04/20/2023 >60 >=60 Final Y CHILDHOOD SERVICES COORDINATOR documented in this encounter Plan of Treatment Upcoming Encounters Date Type Department Care Team (Late st Contact Info) Description 12/17/2024 7:40 AM CDT Lab [facility] #[address] [address] [facility] [place] Lab/Ancillary 12/24/2024 2:15 PM CDT Office Visit [facility] - [place] #2 [place] [address] Jaswant Leal MD #[address] [address] documented as of this encounter Visit Diagnoses Not on filedocumented in this encounter Additional Health Concerns Assessment Noted Time PHQ-9 Depression Total Score: 0 04/25/19 1:18 PM EARLY CHILDHOOD SERVICES COORDINATOR documented as of this encounter Care Teams Motor Vehicles Supervisor Relationship Specialty Start Date End Date Jaswant Leal MD #[address] [address] PCP - General Family Medicine 07/31/20 Loy Dewey MD Consulting Physician Obstetrics & Gynecology 03/31/16 documented as of this encounter
--- OUTSIDE RECORDS SUMMARY | 2024-11-01 13:14 | XMS_ITS | Encounter Summary ---
Author Organization [facility] Address [address] [place] [address] Phone Care Team Providers Care Human Resources Manager Manufacturing Name Role Phone Loy Dewey MD [facility] Jaswant García MD Primary Care Provider [phone] Reason for Visit * Reason Comments Medication Refill Encounter Details Date Type Department Care Team (Late st Contact Info) Description 02/25/2022 Refill [facility] #2 [place] [address] Jaswant Leal MD #[address] [address] Medication Refill Social History Tobacco Use Types [...] [place] 04/14/21 Office Visit [facility] MD [facility] Kristopher Showing recent visits within past 365 days and meeting all other requirements Future Appointments Date Type Provider Dept 04/21/22 Appointment Jaswant Leal MD [facility] Showing future appointments within next 90 days and meeting all other requirements E OIL PUMPER documented in this encounter Plan of Treatment Upcoming Encounters Date Type Department Care Team (Late st Contact Info) Description 12/17/2024 7:40 AM CDT Lab [facility] #[address] [place] [address] [place] Lab/Ancillary 12/24/2024 2:15 PM CDT Office Visit [facility] - Family Medicine - [place] #2 [place] [address] Jaswant Leal MD #[address] [place] [address] documented as of this encounter Visit Diagnoses Diagnosis Abdominal pain, RLQ Abdominal pain, right lower quadrant documented in this encounter Additional Health Concerns Assessment Noted Time PHQ-9 Depression Total Score: 0 09/04/19 22 1:00 PM CDT documented as of this encounter Care Teams Human Resources Manager Manufacturing Relationship Specialty Start Date End Date Jaswant Leal MD #2 [place] [address] PCP - General Family Medicine 07/31/20 Loy Dewey MD Consulting Physician Obstetrics & Gynecology 03/31/16 documented as of this encounter
[2024-11-01 14:19] LABS: Anion Gap 8 mmol/L (4-12); Blood Urea Nitrogen 15 mg/dL (7-17); Calcium 9.3 mg/dL (8.4-10.2); Carbon Dioxide 25 mmol/L (22-30); Chloride 106 mmol/L (98-107); Estimated Glomerular Filt Rate > 60; Glucose 95 mg/dL (65-110); Potassium 4.0 mmol/L (3.4-5.0); Sodium 139 mmol/L (137-145)
== END 2024-11-01 13:06 | disposition home or self-care (01) ==
LOC: ANHSURGERY 13:11
PROVIDERS: Anesthesiology; PCP Internal Medicine; Visit Provider Anesthesiology Pain Medicine
DX: Z01.818 Encounter for other preprocedural examination (principal); Z79.899 Other long term (current) drug therapy
CPT/HCPCS: 36415; 80048

== ENCOUNTER 2024-11-06 03:28 | Day surgery (SDC) | payer MEDICARE, MEDICAID, SELFPAY ==
[2024-10-31 09:39] VITALS: BMI 49.8
--- NOTE | 2024-10-31 09:41 | PC.NURSE ---
Report to the Outpatient Waiting Room, entrance under the green pavilion located off [facility], at time _1030_ on date _[id number]_. Planned Procedure Time: _1230_.? Time changes happen often and if your time is changed the preop area will call you the afternoon before. - You and your visitor will be asked to self-screen and do not enter if you have any COVID symptoms. Please call surgeon if you need to reschedule. - A mask is optional within the hospital at this time. - No food drink from midnight until time of surgery and no smoking, or chewing tobacco (or any form of nicotine). No chewing gum, candy or mints. Take only the following medications with a SIP of water on the morning of surgery: ___Nibivolol, Baclofen, Venlafaxine, Nifedipine, Pregabalin, Advair, Azalastine and if needed Albuterol, Hydrocodone and/or Alprazolam DO NOT STOP ANY OF YOUR OTHER PRESCRIPTION MEDICATIONS PRIOR TO SURGERY EXCEPT THE FOLLOWING Hold all vitamins and supplements for 3 days per anesthesiologist. Medications to discontinue per physician Patient is already holding Meloxicam and Mounjaro. Date to take last dose Please no make-up, nail lao, hairspray, perfume, deodorant, or body powder the day of surgery.? No jewelry (including any body piercings) or valuables the day of surgery, leave them at home.? Please take a shower or bath the night before, or the morning of, surgery with an antibacterial soap.? Wear comfortable, loose fitting clothing. - Jewelry must be removed prior to entering the operating room.? Rings and piercings that are not removed may be cut off. - The hospital will not accept responsibility for valuables.? - Please leave all valuables, including medications, at home the day of surgery. If you are going home after surgery, a licensed tow truck driver must drive you home.? - NO public transportation without another adult if you receive anesthesia. - We recommend that an adult stay with you for 24 hours following discharge. - We also recommend that you do not drive, make important decision, drink alcoholic beverages, or take any drugs that were not prescribed by your health care provider for at least 24 hours after your discharge time. Follow any additional instructions given to you from your surgeon. Telephone instructions given to __Ann___and asked if any additional questions and then verbalized understanding. Patient advised to call surgeon office or pre surgery nurse liaison [phone] if any additional questions.
--- NOTE | ~2024-11-06 | XR_ITS ---
EXAMINATION: XR fluoroscopy no charge DATE: 11/06/2024 12:25 CDT INDICATION: RADIOFREQUENCY ABLATION LUMBAR . TECHNIQUE: 28 fluoroscopic images of the bilateral knees were obtained during bilateral radiofrequenc y ablation superomedial, inferomedial, superolateral genicular, and vastus intermedius nerves. Fluoro scopy exposure time was 2 minutes 15 seconds. Air Kerma 19.55 mGy. DAP 3.18 mGym2. COMPARISON: 05/08/2024 FINDINGS/IMPRESSION: Fluoroscopic documentation of bilateral radiofrequency ablation superomedial, inferomedial, superolat eral genicular, and vastus intermedius nerves. Please refer to the operative note for complete proced ural details. Reviewed, dictated and finalized at location K.
--- OUTSIDE RECORDS SUMMARY | 2024-11-06 03:30 | XMS_ITS | Encounter Summary ---
Author Organization [facility] Address [address] [place] [address] Phone Care Team Providers Care Graduate Teaching Associate Name Role Phone Loy Dewey MD [facility] Jaswant Leal MD Primary Care Provider [phone] Reason for Visit * Reason Comments Medication Refill Encounter Details Date Type Department Care Team (Late st Contact Info) Description 11/21/2020 Refill [facility] #2 [place] [address] Jaswant Leal MD #[address] [address] Medication Refill Social History Tobacco Use Types [...] Info) Description 12/17/2024 7:40 AM CDT Lab [facility] #[address] [address] [facility] Kristopher Lab/Ancillary 12/24/2024 2:15 PM CDT Office Visit [facility] Medicine - [place] #2 [place] [address] Jaswant Leal MD #[address] [address] documented as of this encounter Visit Diagnoses Diagnosis Other intervertebral disc degeneration, lumbar region documented in this encounter Additional Health Concerns Assessment Noted Time PHQ-9 Depression Total Score: 1 03/31/20 16 2:02 PM INSTALLER APPRENTICE documented as of this encounter Care Teams Graduate Teaching Associate Relationship Specialty Start Date End Date Jaswant Leal MD #[address] [address] PCP - General Family Medicine 07/31/20 Loy Dewey MD Consulting Physician Obstetrics & Gynecology 03/31/16 documented as of this encounter
--- OUTSIDE RECORDS SUMMARY | 2024-11-06 03:30 | XMS_ITS | Encounter Summary ---
Author Organization [facility] Address [address] [place] [address] Phone Care Team Providers Care Purse Maker Name Role Phone Loy Dewey MD [facility] Jaswant García MD Primary Care Provider [phone] Reason for Referral * Radiology Services (Routine) - Closed Specialty Diagnoses / Procedures Referred By Contac t Referred To Contact Radiology Diagnoses Pre-op testing Procedures EKG 12 LEAD Pérez Carreno MD #1 [place] [address] Phone: tel: fax: Referral ID Status Reason Start Date Expiration Date Visits Re quested Visits Authorized [id number] Closed 09/09/2020 1 1 Encounter Details Date Type Department Care Team (Late st Contact Info) Description 09/09/2020 [facility] 1 [place] [phone] Pérez Carreno MD #1 [place] [address] Pre-op testing (Primary Dx) Social History Tobacco [...] 12/17/2024 7:40 AM CDT Lab [facility] #[address] [address] [facility] Lab/Ancillary 12/24/2024 2:15 PM CDT [facility] [place] #2 [place] [address] Jaswant Leal MD #[address] [address] documented as of this encounter Results * EKG 12 LEAD (09/13/2020 9:57 AM CDT) Ventricular Rate BPM EXTERNAL EKG Atrial Rate BPM EXTERNAL EKG P-R Interval 162 ms EXTERNAL EKG QRS Duration 90 ms EXTERNAL EKG Q-T Duration 394 ms EXTERNAL EKG QTC CALCULATION 452 ms EXTERNAL EKG P [place] 56 degrees EXTERNAL EKG R [place] -48 degrees EXTERNAL EKG T [place] -1 degrees EXTERNAL EKG 09/13/2020 9:57 AM CDT Impressions EXTERNAL EKG - 09/15/2020 8:55 AM CDT Sinus rhythm Left axis deviation Inferior infarct Anterior T wave abnormality Comparison Summary: Significant changes Summary: Abnormal ECG Compared with:07/25/2017 1:04 PM; 07/16/2016 9:38 AM No significant changes noted Confirmed by Morgan Corea [id number] on 09/15/2020 8:55:40 AM Narrative Procedure Note Brittni Mora MD - 09/15/2020 IMPRESSION: Sinus rhythm Left axis deviation Inferior infarct Anterior T wave abnormality Comparison Summary: Significant changes Summary: Abnormal ECG Compared with:07/25/2017 1:04 PM; 07/16/2016 9:38 AM No significant changes noted Confirmed by Morgan Corea [id number] on 09/15/2020 8:55:40 AM us Pérez Carreno MD IMG ECG ORDERABLES Final Resu lt EXTERNAL EKG * HEMOGLOBIN & HEMATOCRIT (H&H) (09/13/2020 9:46 AM CDT) HEMOGLOBIN (HGB) 14.4 12.0 - 15.8 g/dL 09/13/2020 11:02 AM CDT [facility] HEMATOCRIT (HCT) 45.6 36.0 - 47.0 % 09/13/2020 11:02 AM CDT [facility] Blood Venipuncture / Unknown 09/13/2020 9:46 AM CDT 09/13/2020 10:54 AM CDT Pérez Carreno MD HEMATOLOGY ORDERABLES Final R esult Performing Organization Address City/[facility]/ZIP Co de Phone Number [facility] [address] documented in this encounter Visit Diagnoses Diagnosis Pre-op testing- Primary Preoperative examination, unspecified Pre-op testing Preoperative examination, unspecified documented in this encounter Additional Health Concerns Assessment Noted Time PHQ-9 Depression Total Score: 1 03/31/20 16 2:02 PM CHEMISTRY 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
--- OUTSIDE RECORDS SUMMARY | 2024-11-06 03:30 | XMS_ITS | Encounter Summary ---
Author Organization [facility] Address [address] [place] [address] Phone Care Team Providers Care Auxiliary Engineer Name Role Phone Loy Dewey MD [facility] Jaswant García MD Primary Care Provider [phone] Encounter Details Date Type Department Care Team (Late st Contact Info) Description 09/04/2020 Transcribe Orders [facility] Preop/Pacu II 1 [place] [address] Lefty Stone MD #2 [place] [phone] Pre-op testing (Primary Dx); Postmenopausal bleeding Social [...] Description 12/17/2024 7:40 AM CDT Lab [facility] #2 [place] [facility] [address] [place] [phone] Kristopher Goodwin Lab/Ancillary 12/24/2024 2:15 PM CDT Office Visit [facility] - Family Medicine - [place] #2 [place] [phone] Jaswant Leal MD #2 [facility] [address] [place] [address] documented as of this encounter Results * SARS-COV-2 BY MOLECULAR (09/13/2020 9:46 AM CDT) SARSCOV2 NOT DETECTED (Referen ce Range for this test is Not Detected ) [facility] FAST DX 09/14/2020 1:06 PM CDT [facility] Comment:This test was perfor med by a RT-PCR method. Other NASOPHARYNGEAL STRUCTURE / Unknown Non-Phlebotomy Collection / Unknown 09/13/2020 9:46 AM CDT 09/13/2020 10:55 AM CDT Narrative [facility] - 09/14/2020 1:06 PM CDT Authorized Fact Sheets about this test for providers and patients are available at: https://www.fda.gov/medical-devices/xadhuaqsr-qtilkgzsoi-nfnlmcq-devices/emergen cy-us e-authorizations us Lefty Stone MD MICROBIOLOGY - GENERAL ORDERAB LES Final Result [facility] [address] [place] [address], [place] documented in this encounter Visit Diagnoses Diagnosis Pre-op testing- Primary Preoperative examination, unspecified Postmenopausal bleeding documented in this encounter Additional Health Concerns Assessment Noted Time PHQ-9 Depression Total Score: 1 03/31/20 16 2:02 PM PIGS FEET CLEANER documented as of this encounter Care Teams Auxiliary Engineer Relationship Specialty Start Date End Date Jaswant Leal MD #[address] [address] PCP - General Family Medicine 07/31/20 Loy Dewey MD Consulting Physician Obstetrics & Gynecology 03/31/16 documented as of this encounter
--- OUTSIDE RECORDS SUMMARY | 2024-11-06 03:30 | XMS_ITS | Clinical Summary ---
Author Organization [facility] Address [address] [place] [address] Care Team Providers Care Ecological Economist Name Role Phone Unavailable Primary Care Provider Unavailabl e Source Comments [facility],non-owned Affiliates and Associated Physician Practices is amultiple site organization consisting of ambulatory clinics and hospital sitesin [place], [place], [place] and [place]. This disclosure is being madepursuant to the Care Everywhere program and may not contain all information available regarding this patient. Last updated 17.[facility] [employer] Allergies Active Allergy Reactions Criticality Noted Date [...] on file Legal Sex Female 5:17 PM CRIMINAL JUSTICE PROGRAM DIRECTOR Gender Identity Not on file Sexual Orientation [...] patient's age to complete this topic Insurance [employer] MEDICAID - OUT OF STATE
--- OUTSIDE RECORDS SUMMARY | 2024-11-06 03:30 | XMS_ITS | Encounter Summary ---
Author Organization [facility] Address [address] [place] [address] Phone Care Team Providers Care Broom Stitcher Name Role Phone Loy Dewey MD, Michael S MD Primary Care Provider [phone] Reason for Referral * Radiology Services (Routine) - Closed Specialty Diagnoses / Procedures Referred By Contac t Referred To Contact Radiology Diagnoses Pre-op testing Procedures EKG 12 LEAD Cesar Candelaria APRN, CRNA #1 [place] [address] Phone: tel: fax: Referral ID Status Reason Start Date Expiration Date Visits Re quested Visits Authorized [id number] Closed 01/23/2021 1 1 Encounter Details Date Type Department Care Team (Late st Contact Info) Description 01/23/[address] [facility] Preop[facility]Pacu [facility] 1 [place] [phone] Cesar Candelaria APRN, CRNA #1 [place] [address] Pre-op testing (Primary Dx) Social History Tobacco [...] Description 12/17/2024 7:40 AM CDT Lab [facility] #[address] [address] [facility] Lab/Ancillary 12/24/2024 2:15 PM CDT Office [facility] - [place] #2 [place] [address] Jaswant Leal MD #[address] [address] documented as of this encounter Results * EKG 12 LEAD (01/28/2021 12:05 PM CDT) Ventricular Rate BPM EXTERNAL EKG Atrial Rate BPM EXTERNAL EKG P-R Interval 166 ms EXTERNAL EKG QRS Duration 86 ms EXTERNAL EKG Q-T Duration 412 ms EXTERNAL EKG QTC CALCULATION 439 ms EXTERNAL EKG P [place]ck[place] 62 degrees EXTERNAL EKG R [place] -43 degrees EXTERNAL EKG T [place] 18 degrees EXTERNAL EKG 01/28/2021 12:0 5 PM CDT Impressions EXTERNAL EKG - 01/29/2021 10:06 AM CDT Sinus rhythm Left axis deviation Comparison Summary: No significant change Summary: Borderline ECG Compared with:07/25/2017 1:04 PM; 07/16/2016 9:38 AM No significant changes noted Confirmed by Gondi Brittni K [id number] on 01/29/2021 10:06:23 AM Narrative Procedure Note Brittni Mora MD - 01/29/2021 IMPRESSION: Sinus rhythm Left axis deviation Comparison Summary: No significant change Summary: Borderline ECG Compared with:07/25/2017 1:04 PM; 07/16/2016 9:38 AM No significant changes noted Confirmed by Morgan Corea [id number] on 01/29/2021 10:06:23 AM us Cesar Bakeratzke INSURANCE INSTRUCTOR, STATE WILDLIFE OFFICER IMG ECG ORDERABLES Final Result EXTERNAL EKG * (ABNORMAL) BASIC METABOLIC PANEL W/ CALCIUM TOTAL (01/28/2021 11:57 AM CDT) SODIUM 139 136 - 144 mmol/L 01/28/2021 2:15 PM CDT [facility] POTASSIUM 3.9 3.5 - 5.1 mmol/L 01/28/2021 2:15 PM CDT [facility] CHLORIDE 103 100 - 110 mmol/L 01/28/2021 2:15 PM CDT [facility] CO2, VENOUS 23 22 - 32 mmol/L 01/28/2021 2:15 PM CDT [facility] ANION GAP 16.9 8.0 - 20.0 mmol/L 01/28/2021 2:15 PM CDT [facility] GLUCOSE 92 70 - 99 mg/dL 01/28/2021 2:15 PM CDT [facility] BUN 16 6 - 20 mg/dL 01/28/2021 2:15 PM CDT [facility] CREATININE, BLOOD 0.59(L) 0.60 - 1.10 mg/dL 01/28/2021 2:15 PM CDT [facility] BUN/CREATININE RATIO 27(H) 12 - 20 ratio 01/28/2021 2:15 PM CDT [facility] CALCIUM 9.3 8.9 - 10.3 mg/dL 01/28/2021 2:15 PM CDT [facility] GFR, EST. NONAFRICAN >60 >=60 01/28/2021 2:15 PM CDT [facility] GFR, EST. >60 >=60 01/28/2021 2:15 PM CDT [facility] Comment: Creatinine Clearance is the preferred criteria for selecting drug dose adjustments in renally impaired patients. The GFR is provided as additional pertinent clinical information. GFR is reported in mL/min/1.73 sq m. IS THE PATIENT REQUIRED TO BE FASTING? No 01/28/2021 2:15 PM CDT [facility] Blood Venipuncture / Unknown 01/28/2021 11:57 AM CDT 01/28/2021 1:21 PM CDT us Cesar Bakeratzke INSURANCE INSTRUCTOR, STATE WILDLIFE OFFICER CHEMISTRY ORDERABL ES Final Result [facility] [address] [place] [address] documented in this encounter Visit Diagnoses Diagnosis Pre-op testing- Primary Preoperative examination, unspecified Pre-op testing Preoperative examination, unspecified documented in this encounter Additional Health Concerns Assessment Noted Time PHQ-9 Depression Total Score: 1 03/31/20 16 2:02 PM GRAPHICS EDITOR documented as of this encounter Care Teams Broom Stitcher Relationship Specialty Start Date End Date Jaswant Leal MD #[address] [address] PCP - General Family Medicine 07/31/20 Loy Dewey MD Consulting Physician Obstetrics & Gynecology 03/31/16 documented as of this encounter
--- OUTSIDE RECORDS SUMMARY | 2024-11-06 03:30 | XMS_ITS | Encounter Summary ---
Author Organization [facility] Address [address] [place] [address] Phone Care Team Providers Care Flute Polisher Name Role Phone Loy Dewey MD [facility] Jaswant García MD Primary Care Provider [phone] Encounter Details Date Type Department Care Team (Late st Contact Info) Description 01/29/2021 Transcribe Orders [facility] Preop/Pacu II 1 [place] [phone] Tl Adams MD #[address] [address] Pre-op testing (Primary Dx) Social History Tobacco [...] [facility] [address] [address] Fernando Goodwin Lab/Ancillary 12/24/2024 2:15 PM CDT [facility] - [place] [address] [facility] [place] [address] Jaswant Leal MD #[address] [address] Scheduled Orders Name Type Priority Associated Diagnoses Orde r Schedule SARS-COV-2 BY MOLECULAR Microbiology Routine Pre-op testing Expected: 01/30/2021, Expires: 05/01/2021 documented as of this encounter Visit Diagnoses Diagnosis Pre-op testing- Primary Preoperative examination, unspecified documented in this encounter Additional Health Concerns Assessment Noted Time PHQ-9 Depression Total Score: 1 03/31/20 16 2:02 PM BUSINESS SERVICES SPECIALIST SALES documented as of this encounter Care Teams Flute Polisher Relationship Specialty Start Date End Date Jaswant Leal MD #[address] [address] PCP - General Family Medicine 07/31/20 Loy Dewey MD Consulting Physician Obstetrics & Gynecology 03/31/16 documented as of this encounter
--- OUTSIDE RECORDS SUMMARY | 2024-11-06 03:30 | XMS_ITS | Encounter Summary ---
Author Organization [facility] Address [address] [place] [address] Phone Care Team Providers Care Movie Shot Cameraman Name Role Phone [facility]oy Dewey MD [facility] Primary Care Provider [phone] Reason for Visit * Reason Comments Medication Refill Encounter Details Date Type Department Care Team (Late st Contact Info) Description 06/25/2024 [facility]ill [facility] #2 [place] [phone] Jaswant Leal MD #[address] [address] Medication Refill Social History Tobacco Use Types Packs/Day Years Used Date Smoking Tobacco: Never Smokeless Tobacco: Never Alcohol Use Standard Drinks/Week Comments Not Currently 0 (1 standard drink = 0.6 oz pure alcohol) Past alcohol abuse- quit 1978 [facility] Utilities Answer Date Recorded In the past 12 months has [employer], gas, oil, or water company threatened to [...] often do you attend chur ch or denominational services? 1 to 4 times per year 04/25/2024 Do you belong to any clubs o r organizations such as religion groups, unions, fraternal or athletic groups, or [...] Total Score - Questions 1-9 0 12/10 [facility] - Occupational [...] in a retirement (including now)? No 08/23/2023 Housing Stability Vital [...] were you homeless or living in a retirement (including now)? No 04/25/2024 Education Answer Date [...] Info) Description 12/17/2024 7:40 AM CDT Lab [facility] #[address] [place] [address] Fernando Goodwin Lab/Ancillary 12/24/2024 2:15 PM CDT Office Visit [facility] - [place] #2 [place] [address] Jaswant Leal MD #[address] [address] documented as of this encounter Visit Diagnoses Not on filedocumented in this encounter Additional Health Concerns Assessment Noted Time PHQ-9 Depression Total Score: 0 12/27/19 24 3:20 PM CDT documented as of this encounter Care Teams Movie Shot Cameraman Relationship Specialty Start Date End Date Jaswant Leal MD #[address] [address] PCP - General Family Medicine 07/31/20 Loy Dewey MD Consulting Physician Obstetrics & Gynecology 03/31/16 documented as of this encounter
--- OUTSIDE RECORDS SUMMARY | 2024-11-06 03:30 | XMS_ITS | Encounter Summary ---
Author Organization [facility] Address [address] [place] [address] Phone Care Team Providers Care Trench Pipe Layer Helper Name Role Phone [facility] De[facility] MD [facility] Primary Care Provider [phone] Reason for Visit * Reason Comments Medication Refill Encounter Details Date Type Department Care Team (Late st Contact Info) Description 09/22/2020 Refill [facility] #2 [place] [address] Jaswant Leal MD #[address] [address] Medication Refill Social History Tobacco Use Types [...] Info) Description 12/17/2024 7:40 AM CDT Lab [facility] #[address] [address] Kristopher Goodwin Lab/Ancillary 12/24/2024 2:15 PM CDT Office Visit [facility] #2 [place] [address] Jaswant Leal MD #[address] [address] documented as of this encounter Visit Diagnoses Diagnosis Other intervertebral disc degeneration, lumbar region documented in this encounter Additional Health Concerns Assessment Noted Time PHQ-9 Depression Total Score: 1 03/31/20 16 2:02 PM MANAGER INTEGRATION documented as of this encounter Care Teams Trench Pipe Layer Helper Relationship Specialty Start Date End Date Jaswant Leal MD #[address] [address] PCP - General Family Medicine 07/31/20 Loy Dewey MD Consulting Physician Obstetrics & Gynecology 03/31/16 documented as of this encounter
--- OUTSIDE RECORDS SUMMARY | 2024-11-06 03:30 | XMS_ITS | Encounter Summary ---
Author Organization [facility] Address [address] [place] [address] Phone Care Team Providers Care Roving Hand Name Role Phone Loy Dewey MD [facility] Jaswant García MD Primary Care Provider [phone] Encounter Details Date Type Department Care Team (Late st Contact Info) Description 01/22/2021 Transcribe Orders [facility] Preop/Pacu II 1 [place] [phone] Tl Adams MD #[address] [address] Pre-op testing (Primary Dx) Social History Tobacco [...] Description 12/17/2024 7:40 AM CDT Lab [facility] #[address] [address] Kristopher Goodwin Lab/Ancillary 12/24/2024 2:15 PM CDT Office Visit [facility] - Family Medicine - [place] #[address] [place] [address] Jaswant Leal MD #[address] [address] documented as of this encounter Results * SARS-COV-2 BY MOLECULAR (01/28/2021 12:03 PM CDT) SARSCOV2 NOT DETECTED (Referen ce Range for this test is Not Detected ) [facility] FAST DX 01/29/2021 8:50 AM CDT [facility] Comment:This test was perfor med by a RT-PCR method. Other NASOPHARYNGEAL STRUCTURE / Unknown Non-Phlebotomy Collection / Unknown 01/28/2021 12:03 PM CDT 01/28/2021 1:20 PM CDT Narrative [facility] - 01/29/2021 8:50 AM CDT Authorized Fact Sheets about this test for providers and patients are available at: https://www.fda.gov/medical-devices/lebivlumq-pdgrfjvvts-tevewzb-devices/emergen cy-us e-authorizations us Tl Adams MD MICROBIOLOGY - GENERAL ORDERABLE S Final Result [facility] [address] [place] [address], [place] documented in this encounter Visit Diagnoses Diagnosis Pre-op testing- Primary Preoperative examination, unspecified documented in this encounter Additional Health Concerns Assessment Noted Time PHQ-9 Depression Total Score: 1 03/31/20 16 2:02 PM BILLPOSTER documented as of this encounter Care Teams Roving Hand Relationship Specialty Start Date End Date Jaswant Leal MD #[address] [address] PCP - General Family Medicine 07/31/20 Loy Dewey MD Consulting Physician Obstetrics & Gynecology 03/31/16 documented as of this encounter
--- OUTSIDE RECORDS SUMMARY | 2024-11-06 03:30 | XMS_ITS | Encounter Summary ---
Author Organization [facility] Address [address] [place] [address] Phone Care Team Providers Care Director Life Sales Name Role Phone Loy Dewey MD [facility] Primary Care Provider [phone] Reason for Visit * Reason Comments Medication Refill Encounter Details Date Type Department Care Team (Late st Contact Info) Description 10/22/2024 Refill [facility] #2 [place] [address] Jaswant Leal MD #[address] [address] Medication Refill Social History Tobacco Use Types Packs/Day Years Used Date Smoking Tobacco: Never Smokeless Tobacco: Never Alcohol Use Standard Drinks/Week Comments Not Currently 0 (1 standard drink = 0.6 oz pure alcohol) Past alcohol abuse- quit 1978 [facility] Utilities Answer Date Recorded In the past 12 months has [employer], gas, oil, or water company threatened to [...] often do you attend chur ch or orthodoxy services? More than 4 times per year 08/21/2024 Do you belong to any clubs o r organizations such as congregational groups, unions, fraternal or athletic groups, or [...] Total Score - Questions 1-9 0 12/10 [facility] - Occupational [...] place to sleep or slept in a mcfp (including now)? No 08/23/2023 Housing Stability Vital Sign Answer Irving e Recorded In the last 12 months, was t here a time when you were not able to pay the mortgage or rent on time? No 08/21/2024 Number of Times Moved in the Last Year Not on fi le 08/21/2024 At any time in the past 12 m [facility], were you homeless or living in a mcfp (including now)? No 08/21/2024 Education Answer Date [...] Leal MD [facility] 04/26/24 Office Visit [facility] Le[facility] MD [facility] [...] Info) Description 12/17/2024 7:40 AM CDT Lab [facility] #[address] [address] Kristopher Goodwin Lab/Ancillary 12/24/2024 2:15 PM CDT [facility] - [place] #[facility] [place] [address] Jaswant Leal MD #[address] [address] documented as of this encounter Visit Diagnoses Not on filedocumented in this encounter Additional Health Concerns Assessment Noted Time PHQ-9 Depression Total Score: 0 12/27/19 24 3:20 PM CDT documented as of this encounter Care Teams Director Life Sales Relationship Specialty Start Date End Date Jaswant Leal MD #[address] [address] PCP - General Family Medicine 07/31/20 Loy Dewey MD Consulting Physician Obstetrics & Gynecology 03/31/16 documented as of this encounter
--- OUTSIDE RECORDS SUMMARY | 2024-11-06 03:30 | XMS_ITS | Encounter Summary ---
Author Organization [facility] Address [address] [place] [address] Phone Care Team Providers Care Film Maker Name Role Phone Loy Dewey MD [facility] Jaswant García MD Primary Care Provider [phone] Encounter Details Date Type Department Care Team (Late st Contact Info) Description 09/03/2020 Transcribe Orders [facility] Preop/Pacu II 1 [place] [address] Lefty Stone MD #2 [place] [phone] Pre-op testing (Primary Dx); Postmenopausal bleeding Social [...] PHYSICIAN GROUP LAB #[address] [facility] [place] [address] Fernando Goodwin Lab/Ancillary 12/24/2024 2:15 PM CDT Office [facility] - [place] #[address] [place] [address] Jaswant Leal MD #2 [facility] [address] documented as of this encounter Results * TYPE & SCREEN (CROSSMATCH CONVERTIBLE) (09/13/2020 9:46 AM CDT) ABO TYPING O 09/13/2020 12:42 PM CDT [facility] BLOOD BANK RH Positive 09/13/2020 12:42 PM CDT [facility] BLOOD B[facility] ABSC Negative 09/13/2020 12:42 PM CDT [facility] B[facility]OD [facility] Blood Venipuncture / Unknown 09/13/2020 9:46 AM CDT 09/13/2020 10:54 AM CDT us Lefty Stone MD BLOOD BANK ORDERABLES Edited R esult - Final [facility] BLOOD BANK [address] [place] [address] documented in this encounter Visit Diagnoses Diagnosis Pre-op testing- Primary Preoperative examination, unspecified Postmenopausal bleeding documented in this encounter Additional Health Concerns Assessment Noted Time PHQ-9 Depression Total Score: 1 03/31/20 16 2:02 PM LATHE SETUP OPERATOR documented as of this encounter Care Teams Film Maker Relationship Specialty Start Date End Date Jaswant Leal MD [address] [address] PCP - General Family Medicine 07/31/20 Loy Dewey MD Consulting Physician Obstetrics & Gynecology 03/31/16 documented as of this encounter
--- OUTSIDE RECORDS SUMMARY | 2024-11-06 03:30 | XMS_ITS | Encounter Summary ---
Author Organization [facility] Address [address] [place] [address] Phone Care Team Providers Care Cyber Threat Analyst Name Role Phone Loy Dewey MD [facility] Jaswant García MD Primary Care Provider [phone] Encounter Details Date Type Department Care Team (Late st Contact Info) Description 01/26/2021 Transcribe Orders [facility] Preop/Pacu II 1 [place] [address] Lefty Stone MD #2 [place] [phone] Pre-op testing (Primary Dx) Social History Tobacco [...] Info) Description 12/17/2024 7:40 AM CDT Lab [facility] [address] [facility] [address] [place] [address] Kristopher Goodwin Lab/Ancillary 12/24/2024 2:15 PM CDT Office Visit [facility] - Family Medicine - [place] [address] [place] [address] Jaswant Leal MD #2 [facility] [facility] [address] [place] [address] documented as of this encounter Results * CULTURE, URINE (01/28/2021 12:03 PM CDT) Pathologist [facility] CULTURE RESULTS GROWTH OF 1 OR MORE ORGANISMS, ALL ARE LESS THAN 10,000 CFU/ML . SUGGESTIVE OF DISTAL URETHRAL CONTAMINANTS. 01/29/2021 4:15 PM CDT [facility] Culture URINE SPECIMEN / Unknown Non-Phlebotomy Collection / Unknown 01/28/2021 12:03 PM CDT 01/28/2021 1:20 PM CDT us Lefty Stone MD MICROBIOLOGY - GENERAL ORDERAB LES Final Result Performing Organization Address City/State/[facility] Co de Phone Number [facility] [address] [place] [address], [place] * TYPE & SCREEN (CROSSMATCH CONVERTIBLE) (01/28/2021 11:57 AM CDT) ABO TYPING O 01/28/2021 2:44 PM CDT [facility] BLOOD BANK RH Positive 01/28/2021 2:44 PM CDT [facility] BLOOD BANK ABSC Negative 01/28/2021 2:44 PM CDT [facility] BLOOD [facility] Blood Venipuncture / Unknown 01/28/2021 11:57 AM CDT 01/28/2021 1:20 PM CDT us Lefty Stone MD BLOOD BANK ORDERABLES Edited R esult - Final [facility] BLOOD BANK #[address] [place] [address] documented in this encounter Visit Diagnoses Diagnosis Pre-op testing- Primary Preoperative examination, unspecified documented in this encounter Additional Health Concerns Assessment Noted Time PHQ-9 Depression Total Score: 1 03/31/20 16 2:02 PM MASTER OCEAN YACHT documented as of this encounter Care Teams Cyber Threat Analyst Relationship Specialty Start Date End Date Jaswant Leal MD #[address] [address] PCP - General Family Medicine 07/31/20 Loy Dewey MD Consulting Physician Obstetrics & Gynecology 03/31/16 documented as of this encounter
--- OUTSIDE RECORDS SUMMARY | 2024-11-06 03:30 | XMS_ITS | Encounter Summary ---
Author Organization [facility] Address [address] [place] [address] Phone Care Team Providers Care Can Sealer Name Role Phone Loy Dewey MD [facility] Jaswant Leal MD Primary Care Provider [phone] Reason for Visit * Reason Comments Medication Refill Encounter Details Date Type Department Care Team (Late st Contact Info) Description 11/19/2020 Refill [facility] #2 [place] [address] Jaswant Leal MD #[address] [address] Medication Refill Social History Tobacco Use Types [...] obstructive pulmonary disease, unspecified COPD type (HCC) [facility] - Jaswant Guerra MD 3 months ago Essential hypertension [facility] Jaswant Guerra MD 4 years ago DUB (dysfunctional uterine bleeding) [facility] - Lefty Loya MD 4 years ago Post-menopausal bleeding [facility] Lefty Loya MD 4 years ago [facility]ysfunctional [facility] Upcoming Appointments Future Appointments In 3 weeks Lefty Stone MD [facility] In 2 months Jaswant Leal MD [facility] HYDRAULIC PLUMBER HELPER - Recent and Past Visits Recent Visits Date Type Provider Dept 09/18/20 Office Visit Jaswant Leal MD [facility] 08/06/20 Office Visit Jas[facility] Leal MD [facility] [place] Showing recent visits within past 460 days with a meds authorizing provider and meeting all other requirements Future Appointments Date Type Provider Dept 01/26/21 Appointment Jaswant Leal MD [facility] Fernando Showing future appointments within next 90 days with a meds authorizing provider and meeting all other requirements documented in this encounter Plan of Treatment Upcoming Encounters Date Type Department Care Team (Late st Contact Info) Description 12/17/2024 7:40 AM CDT Lab [facility] #[address] [place] [address] Fernando Goodwin Lab/Ancillary 12/24/2024 2:15 PM CDT Office Visit [facility] - [place] #[address] [facility] [place] [address] Jaswant Leal MD [address] [address] documented as of this encounter Visit Diagnoses Diagnosis Abdominal pain, RLQ- Primary Abdominal pain, right lower quadrant documented in this encounter Additional Health Concerns Assessment Noted Time PHQ-9 Depression Total Score: 1 03/31/20 16 2:02 PM SISAL PICKER documented as of this encounter Care Teams Can Sealer Relationship Specialty Start Date End Date Jaswant Leal MD #[address] [address] PCP - General Family Medicine 07/31/20 Loy Dewey MD Consulting Physician Obstetrics & Gynecology 03/31/16 documented as of this encounter
--- OUTSIDE RECORDS SUMMARY | 2024-11-06 03:31 | XMS_ITS | Encounter Summary ---
Author Organization [facility] Address [address] [place] [address] Phone Care Team Providers Care Ginner Name Role Phone [facility] De[facility] MD [facility] Primary Care Provider [phone] Reason for Visit * Reason Comments Medication Refill Encounter Details Date Type Department Care Team (Late st Contact Info) Description 04/24/2023 Refill [facility] #2 [place] [address] Jaswant Leal MD #[address] [address] Medication Refill Social History Tobacco Use Types Packs/Day Years Used Date Smoking Tobacco: Never Smokeless Tobacco: Never Alcohol Use Standard Drinks/Week Comments Not Currently 0 (1 standard drink = 0.6 oz pure alcohol) Past alcohol abuse- quit 1978 [facility] Utilities Answer Date Recorded In the past 12 months has [employer], gas, oil, or water company threatened to [...] any clubs o r organizations such as latter day groups, unions, fraternal or athletic groups, or [...] Total Score - Questions 1-9 0 04/11 [facility] of Occupat ional Health - [...] of Assessment Author 0 04/25/2023 8:51 AM BOAT OFFICER [employer], System Background * Q1: How often do you have a drink containing alcohol? Answer Date of Assessment Author Never 04/25/2023 8:51 AM BOAT OFFICER GIG[employer], System Background * Q2: How many drinks containing alcohol do you have on a typical day when you are drinking? Answer Date of Assessment Author Patient does not drink 04/25/2023 8:51 AM BOAT OFFICER [employer] chart, System Background * Q3: How often do you have six or more drinks on one occasion? Answer Date of Assessment Author Never 04/25/2023 8:51 AM BOAT OFFICER [employer], System Background * Question Answer Date of Assessment Author Little interest or pleasure in doing things Not at all 04/25/2023 1:18 PM BOAT OFFICER Emi Coats RMA Feeling down, depressed, or hopeless Not at all 04/25/2023 1:18 PM BOAT OFFICER Emi Coats RMA * Over the past 2 weeks, how often have you been bothered by any of the following problems? Question Answer Date of Assessment Author Patient Health Questionnaire -2 Score 0 04/25/2023 1:18 PM BOAT OFFICER Emi Coats RMA documented as of this [...] Provider Dept 04/25/23 Appointment Jaswant Leal MD [facility] Kristopher Showing today's visits and meeting all [...] Ref Range Status 04/20/2023 >60 >=60 Final OFFICER documented in this encounter Plan of Treatment Upcoming Encounters Date Type Department Care Team (Late st Contact Info) Description 12/17/2024 7:40 AM CDT Lab [facility] PHYSICIAN GROUP LAB #[address] [address] [facility] 12/24/2024 2:15 PM CDT [facility] - [place] #2 [place] [address] Jaswant Leal MD #[address] [address] documented as of this encounter Visit Diagnoses Diagnosis Abdominal pain, RLQ Abdominal pain, right lower quadrant documented in this encounter Additional Health Concerns Assessment Noted Time PHQ-9 Depression Total Score: 0 09/04/19 22 1:00 PM CDT documented as of this encounter Care Teams Ginner Relationship Specialty Start Date End Date Jaswant Leal MD #[address] [place] [address] PCP - General Family Medicine 07/31/20 Loy Dewey MD Consulting Physician Obstetrics & Gynecology 03/31/16 documented as of this encounter
--- OUTSIDE RECORDS SUMMARY | 2024-11-06 03:31 | XMS_ITS | Encounter Summary ---
Author Organization [facility] Address [address] [place] [address] Phone Care Team Providers Care Ironworker Foreman Name Role Phone Loy Dewey MD [facility] Jaswant García MD Primary Care Provider [phone] Reason for Visit * Reason Comments Medication Refill Encounter Details Date Type Department Care Team (Late st Contact Info) Description 09/09/2022 Refill [facility] #2 [place] [address] Jaswant Leal MD #[address] [address] Medication Refill Social History Tobacco Use Types [...] CNP - 09/10/2022 10:45 PM CDT [place] DOCUMENTATION WRITER reviewed, approved * Telephone Encounter - Toshia [...] [place] 12/11/21 Office Visit [facility] Kristopher Showing recent visits within past 365 days and meeting all other requirements Future Appointments No visits were found meeting these conditions. Showing future appointments within next 90 days and meeting all other requirements documented in this encounter Plan of Treatment Upcoming Encounters Date Type Department Care Team (Late st Contact Info) Description 12/17/2024 7:40 AM CDT Lab [facility] #[address] [place] [address] [address] [address] Kristopher Goodwin Lab/Ancillary 12/24/2024 2:15 PM CDT Office Visit [facility] - Family Medicine [facility] #2 [place] [address] Jaswant Leal MD [address] [address] documented as of this encounter Visit Diagnoses Diagnosis Abdominal pain, RLQ Abdominal pain, right lower quadrant documented in this encounter Additional Health Concerns Assessment Noted Time PHQ-9 Depression Total Score: 0 09/04/19 22 1:00 PM CDT documented as of this encounter Care Teams Ironworker Foreman Relationship Specialty Start Date End Date Jaswant Leal MD #[address] [address] PCP - General Family Medicine 07/31/20 Loy Dewey MD Consulting Physician Obstetrics & Gynecology 03/31/16 documented as of this encounter
--- OUTSIDE RECORDS SUMMARY | 2024-11-06 03:31 | XMS_ITS | Clinical Summary ---
Author Organization [facility] Facility Address [address] [address] Care Team Providers Care Infusion Nurse Name Role Phone Unavailable Primary Care Provider [...]
--- OUTSIDE RECORDS SUMMARY | 2024-11-06 03:31 | XMS_ITS | Encounter Summary ---
Author Organization [facility] Address [address] [place] [address] Phone Care Team Providers Care Telephone Messenger Name Role Phone Loy Dewey MD [facility] Jaswant García MD Primary Care Provider [phone] Reason for Visit * Reason Comments Medication Refill Encounter Details Date Type Department Care Team (Late st Contact Info) Description 05/28/2022 Refill [facility] #2 [place] [address] Jaswant Leal MD #[address] [address] Medication Refill Social History Tobacco Use Types [...] [place] 06/01/21 Office Visit Jaswant Leal MD [facility] [place] Showing recent visits within past 365 days and meeting all other requirements Future Appointments Date Type Provider Dept 08/19/22 Appointment Jaswant Leal MD [facility] [place] Showing future appointments within next 90 days and meeting all other requirements OFFICE RECEPTIONIST documented in this encounter Plan of Treatment Upcoming Encounters Date Type Department Care Team (Late st Contact Info) Description 12/17/2024 7:40 AM CDT Lab [facility] PHYSICIAN GROUP LAB #[address] [address] Fernando Goodwin Lab/Ancillary 12/24/2024 2:15 PM CDT Office Visit [facility] - [place] #[facility] [place] [address] Jaswant Leal MD #[address] [address] documented as of this encounter Visit Diagnoses Not on filedocumented in this encounter Additional Health Concerns Assessment Noted Time PHQ-9 Depression Total Score: 0 09/04/19 1:00 PM CDT documented as of this encounter Care Teams Telephone Messenger Relationship Specialty Start Date End Date Jaswant Leal MD #2 [place] [address] PCP - General Family Medicine 07/31/20 Loy Dewey MD Consulting Physician Obstetrics & Gynecology 03/31/16 documented as of this encounter
--- OUTSIDE RECORDS SUMMARY | 2024-11-06 03:31 | XMS_ITS | Encounter Summary ---
Author Organization [facility] Address [address] [place] [address] Phone Care Team Providers Care Manager Cancer Name Role Phone Loy Dewey MD [facility] Jaswant García MD Primary Care Provider [phone] Reason for Visit * Reason Comments Medication Refill Encounter Details Date Type Department Care Team (Late st Contact Info) Description 01/25/2023 Refill [facility] #2 [place] [address] Jaswant Leal MD #[address] [address] Medication Refill Social History Tobacco Use Types [...] Description 12/17/2024 7:40 AM CDT Lab [facility] #[address] [address] [facility] Kristopher Lab/Ancillary 12/24/2024 2:15 PM CDT Office Visit [facility] - [facility] - [place] #[address] [facility] [place] [address] Jaswant Leal MD [address] [address] documented as of this encounter Visit Diagnoses Not on filedocumented in this encounter Additional Health Concerns Assessment Noted Time PHQ-9 Depression Total Score: 0 09/04/19 22 1:00 PM CDT documented as of this encounter Care Teams Manager Cancer Relationship Specialty Start Date End Date Jaswant Leal MD [address] [address] PCP - General Family Medicine 07/31/20 Loy Dewey MD Consulting Physician Obstetrics & Gynecology 03/31/16 documented as of this encounter
--- OUTSIDE RECORDS SUMMARY | 2024-11-06 03:31 | XMS_ITS | Encounter Summary ---
Author Organization [facility] Address [address] [place] [address] Phone Care Team Providers Care Line Operator Name Role Phone Loy Dewey MD [facility] Primary Care Provider [phone] Reason for Visit * Reason Comments Medication Refill Encounter Details Date Type Department Care Team (Late st Contact Info) Description 08/16/2023 Refill [facility] #2 [place] [address] Jaswant Leal MD #[address] [address] Medication Refill Social History Tobacco Use Types Packs/Day Years Used Date Smoking Tobacco: Never Smokeless Tobacco: Never Alcohol Use Standard Drinks/Week Comments Not Currently 0 (1 standard drink = 0.6 oz pure alcohol) Past alcohol abuse- quit 1978 [facility] Utilities Answer Date Recorded In the past 12 months has [employer], gas, oil, or water company threatened to [...] often do you attend chur ch or jew services? More than 4 times per year 04/25/2023 Do you belong to any clubs o r organizations such as mormonism groups, unions, fraternal or athletic groups, or [...] Total Score - Questions 1-9 0 04/11 [facility] of Occupat ional Health - Occupational Stress [...] Info) Description 12/17/2024 7:40 AM CDT Lab [facility] PHYSICIAN GROUP LAB #[address] [place] [address] LabKristopher Lab/Ancillary 12/24/2024 2:15 PM CDT Office Visit [facility] Family Medicine - [place] #2 [place] [address] Jaswant Leal MD #[address] [address] documented as of this encounter Visit Diagnoses Diagnosis Abdominal pain, RLQ Abdominal pain, right lower quadrant documented in this encounter Additional Health Concerns Assessment Noted Time PHQ-9 Depression Total Score: 0 04/25/19 24 1:18 PM MAINTENANCE SUPERINTENDENT documented as of this encounter Care Teams Line Operator Relationship Specialty Start Date End Date Jaswant Leal MD #[address] [address] PCP - General Family Medicine 07/31/20 Loy Dewey MD Consulting Physician Obstetrics & Gynecology 03/31/16 documented as of this encounter
--- OUTSIDE RECORDS SUMMARY | 2024-11-06 03:31 | XMS_ITS | Encounter Summary ---
Author Organization [facility] Address [address] [place] [address] Phone Care Team Providers Care Educational Adviser Name Role Phone Loy Dewey MD [facility] Primary Care Provider [phone] Reason for Visit * Reason Comments Medication Refill Encounter Details Date Type Department Care Team (Late st Contact Info) Description 05/31/2023 Refill [facility] #2 [place] [phone] Jaswant Leal MD #[address] [address] Medication Refill Social History Tobacco Use Types Packs/Day Years Used Date Smoking Tobacco: Never Smokeless Tobacco: Never Alcohol Use Standard Drinks/Week Comments Not Currently 0 (1 standard drink = 0.6 oz pure alcohol) Past alcohol abuse- quit 1978 [facility] Utilities Answer Date Recorded In the past 12 months has [employer], gas, oil, or water company threatened to [...] often do you attend chur ch or yarsanism services? More than 4 times per year 04/25/2023 Do you belong to any clubs o r organizations such as orthodoxy groups, unions, fraternal or athletic groups, or [...] Total Score - Questions 1-9 0 04/11 [facility] of Occupat ional Health - Occupational [...] place to sleep or slept in a half-way (including now)? No 04/25/2023 Education Answer Date [...] [place] 12/22/22 Office Visit Jaswant Leal MD [facility] Kristopher Showing recent visits within past 182 [...] Ref Range Status 04/20/2023 >60 >=60 Final UIT PACKER documented in this encounter Plan of Treatment Upcoming Encounters Date Type Department Care Team (Late st Contact Info) Description 12/17/2024 7:40 AM CDT Lab [facility] PHYSICIAN GROUP LAB #[address] [address] [facility] Lab/Ancillary 12/24/2024 2:15 PM CDT Office Visit [facility] - [place] #2 [place] [address] Jaswant Leal MD #[address] [address] documented as of this encounter Visit Diagnoses Not on filedocumented in this encounter Additional Health Concerns Assessment Noted Time PHQ-9 Depression Total Score: 0 04/25/19 1:18 PM BISCUIT PACKER documented as of this encounter Care Teams Educational Adviser Relationship Specialty Start Date End Date Jaswant Leal MD #[address] [address] PCP - General Family Medicine 07/31/20 Loy Dewey MD Consulting Physician Obstetrics & Gynecology 03/31/16 documented as of this encounter
--- OUTSIDE RECORDS SUMMARY | 2024-11-06 03:31 | XMS_ITS | Encounter Summary ---
Author Organization [facility] Address [address] [place] [address] Phone Care Team Providers Care Gripper Installer Name Role Phone Loy Dewey MD [facility] Jaswant García MD Primary Care Provider [phone] Reason for Visit * Reason Comments Medication Refill Encounter Details Date Type Department Care Team (Late st Contact Info) Description 03/24/2023 [facility]ill [facility] #2 [place] [phone] Jaswant Leal MD #[address] [address] Medication Refill Social History Tobacco Use Types [...] Date Type Provider Dept 12/22/22 Office Visit Jsawant Leal MD [facility] 08/19/22 Office Visit [...] Date Type Provider Dept 04/25/23 Appointment Jaswant Lela MD [facility] Showing future appointments within [...] Ref Range Status 12/14/2022 >60 >=60 Final ING AID TECHNICIAN documented in this encounter Plan of Treatment Upcoming Encounters Date Type Department Care Team (Late st Contact Info) Description 12/17/2024 7:40 AM CDT Lab [facility] #[address] [address] [facility] Lab/Ancillary 12/24/2024 2:15 PM CDT Office Visit [facility] - [place] #2 [place] [address] Jaswant Leal MD #[address] [address] documented as of this encounter Visit Diagnoses Diagnosis Abdominal pain, RLQ Abdominal pain, right lower quadrant documented in this encounter Additional Health Concerns Assessment Noted Time PHQ-9 Depression Total Score: 0 09/04/19 22 1:00 PM CDT documented as of this encounter Care Teams Gripper Installer Relationship Specialty Start Date End Date Jaswant Leal MD #[address] [address] PCP - General Family Medicine 07/31/20 Loy Dewey MD Consulting Physician Obstetrics & Gynecology 03/31/16 documented as of this encounter
--- OUTSIDE RECORDS SUMMARY | 2024-11-06 03:31 | XMS_ITS | Encounter Summary ---
Author Organization [facility] Address [address] [place] [address] Phone Care Team Providers Care Lastex Thread Winder Name Role Phone Loy Dewey MD, Michael S MD Primary Care Provider [phone] Reason for Visit * Reason Comments Medication Refill Encounter Details Date Type Department Care Team (Late st Contact Info) Description 12/10/2022 Refill [facility] - [place] #2 [place] [address] Veronica Sanchez APRN, SALVAGE MECHANIC #[address] [phone] Medication Refill Social History Tobacco Use Types [...] Summers 12/11/21 Office Visit Jaswant Leal MD [facility] Kristopher Showing recent visits [...] CDT Lab [facility] #[address] [address] Kristopher Goodwin Lab/Ancillary 12/24/2024 2:15 PM CDT Office Visit [facility] - [place] #2 [place] [address] Jaswant Leal MD #[address] [address] documented as of this encounter Visit Diagnoses Diagnosis Abdominal pain, RLQ Abdominal pain, right lower quadrant documented in this encounter Additional Health Concerns Assessment Noted Time PHQ-9 Depression Total Score: 0 09/04/19 22 1:00 PM CDT documented as of this encounter Care Teams Lastex Thread Winder Relationship Specialty Start Date End Date Jaswant Leal MD #[address] [address] PCP - General Family Medicine 07/31/20 Loy Dewey MD Consulting Physician Obstetrics & Gynecology 03/31/16 documented as of this encounter
--- OUTSIDE RECORDS SUMMARY | 2024-11-06 03:31 | XMS_ITS | Encounter Summary ---
Author Organization [facility] Address [address] [place] [address] Phone Care Team Providers Care Corporate Risk Analyst Name Role Phone Loy Dewey MD [facility] Jaswant García MD Primary Care Provider [phone] Reason for Visit * Reason Comments Medication Refill Encounter Details Date Type Department Care Team (Late st Contact Info) Description 01/09/2023 Refill [facility] #2 [place] [phone] Jaswant Leal MD #[address] [address] Medication Refill Social History Tobacco Use Types [...] Summers 04/06/22 Office Visit Jaswant Leal MD [facility] Kristopher Showing recent visits within past 365 [...] Info) Description 12/17/2024 7:40 AM CDT Lab [facility] #[address] [address] [facility] Lab[facility]An[facility]illary 12/24/2024 2:15 PM CDT Office Visit [facility] - [place] #2 [place] [address] Jaswant Leal MD #[address] [address] documented as of this encounter Visit Diagnoses Not on filedocumented in this encounter Additional Health Concerns Assessment Noted Time PHQ-9 Depression Total Score: 0 09/04/19 22 1:00 PM CDT documented as of this encounter Care Teams Corporate Risk Analyst Relationship Specialty Start Date End Date Jaswant Leal MD #[address] [address] PCP - General Family Medicine 07/31/20 Loy Dewey MD Consulting Physician Obstetrics & Gynecology 03/31/16 documented as of this encounter
--- OUTSIDE RECORDS SUMMARY | 2024-11-06 03:31 | XMS_ITS | Encounter Summary ---
Author Organization [facility] Address [address] [place] [address] Phone Care Team Providers Care Stitcher Hand Name Role Phone Loy Dewey MD [facility] Xiao MD Primary Care Provider [phone] Reason for Visit * Reason Comments Medication Refill Encounter Details Date Type Department Care Team (Late st Contact Info) Description 05/29/2024 Refill [facility] #2 [place] [phone] Jaswant Leal MD #[address] [address] Medication Refill Social History Tobacco Use Types Packs/Day Years Used Date Smoking Tobacco: Never Smokeless Tobacco: Never Alcohol Use Standard Drinks/Week Comments Not Currently 0 (1 standard drink = 0.6 oz pure alcohol) Past alcohol abuse- quit 1978 [facility] Utilities Answer Date Recorded In the past 12 months has [employer], gas, oil, or water company threatened to [...] often do you attend chur ch or taoism services? 1 to 4 times per year [...] Score - Questions 1-9 0 12/10 [facility] - [...] place to sleep or slept in a fci (including now)? No 08/23/2023 Housing Stability Vital Sign Answer [place] e Recorded In the last 12 months, was t here a time when you were not able to pay the mortgage or rent on time? No 04/25/2024 Number of Times Moved in the Last Year Not on fi le 04/25/2024 At any time in the past 12 m [facility], were you homeless or living in a fci (including now)? No 04/25/2024 Education Answer Date [...] Ref Range Status 04/23/2024 >60 >=60 Final TOR APPRAISER documented in this encounter Plan of Treatment Upcoming Encounters Date Type Department Care Team (Late st Contact Info) Description 12/17/2024 7:40 AM CDT Lab [facility] #[address] [address] Kristopher Goodwin Lab/Ancillary 12/24/2024 2:15 PM CDT Office Visit [facility] - [place] #2 [place] [address] Jaswant Leal MD #[address] [address] documented as of this encounter Visit Diagnoses Diagnosis Obesity (BMI 30-39.9) Obesity, unspecified documented in this encounter Additional Health Concerns Assessment Noted Time PHQ-9 Depression Total Score: 0 12/27/19 24 3:20 PM CDT documented as of this encounter Care Teams Stitcher Hand Relationship Specialty Start Date End Date Jaswant Leal MD #2 [place] [address] PCP - General Family Medicine 07/31/20 Loy Dewey MD Consulting Physician Obstetrics & Gynecology 03/31/16 documented as of this encounter
--- OUTSIDE RECORDS SUMMARY | 2024-11-06 03:31 | XMS_ITS | Encounter Summary ---
Author Organization [facility] Address [address] [place] [address] Phone Care Team Providers Care Brush Holder Assembler Name Role Phone [facility] Primary Care Provider [phone] Reason for Visit * Reason Comments Medication Refill Encounter Details Date Type Department Care Team (Late st Contact Info) Description 06/21/2023 Refill [facility] #2 [place] [phone] Jaswant Leal MD #[address] [address] Medication Refill Social History Tobacco Use Types Packs/Day Years Used Date Smoking Tobacco: Never Smokeless Tobacco: Never Alcohol Use Standard Drinks/Week Comments Not Currently 0 (1 standard drink = 0.6 oz pure alcohol) Past alcohol abuse- quit 1978 [facility] Utilities Answer Date Recorded In the past 12 months has [employer], gas, oil, or water company threatened to [...] often do you attend chur ch or synagogue services? More than 4 times per year 04/25/2023 Do you belong to any clubs o r organizations such as worship groups, unions, fraternal or athletic groups, or [...] Total Score - Questions 1-9 0 04/11 [facility] - Occupational [...] place to sleep or slept in a fpc (including now)? No 04/25/2023 Education Answer Date [...] [facility] #[address] [address] [facility] 12/24/2024 2:15 PM CDT [facility] - [place] #2 [place] [address] Jaswant Leal MD #[address] [address] documented as of this encounter Visit Diagnoses Diagnosis Abdominal pain, RLQ Abdominal pain, right lower quadrant documented in this encounter Additional Health Concerns Assessment Noted Time PHQ-9 Depression Total Score: 0 04/25/19 1:18 PM SOCIAL SERVICES AIDE documented as of this encounter Care Teams Brush Holder Assembler Relationship Specialty Start Date End Date Jaswant Leal MD #[address] [place] [address] PCP - General Family Medicine 07/31/20 Loy Dewey MD Consulting Physician Obstetrics & Gynecology 03/31/16 documented as of this encounter
--- OUTSIDE RECORDS SUMMARY | 2024-11-06 03:31 | XMS_ITS | Encounter Summary ---
Author Organization [facility] Address [address] [place] [address] Phone Care Team Providers Care Excavating Contractor Name Role Phone Loy Dewey MD [facility] Jaswant García MD Primary Care Provider [phone] Reason for Visit * Reason Comments Medication Refill Encounter Details Date Type Department Care Team (Late st Contact Info) Description 02/25/2022 Refill [facility] #2 [place] [phone] Jaswant Leal MD #[address] [address] Medication Refill Social History Tobacco Use Types [...] Office Visit Jaswant Leal MD [facility] Kristopher Showing recent visits within past 365 days and meeting all other requirements Future Appointments Date Type Provider Dept 04/21/22 Appointment Jaswant Leal MD [facility] Showing future appointments within next 90 days and meeting all other requirements EY TECHNOLOGIST documented in this encounter Plan of Treatment Upcoming Encounters Date Type Department Care Team (Late st Contact Info) Description 12/17/2024 7:40 AM CDT Lab [facility] #[address] [place] [address] Kristopher Goodwin Lab/Ancillary 12/24/2024 2:15 PM CDT Office Visit [facility] - Family Medicine - [place] #2 [facility] [place] [address] Jaswant Leal MD #[address] [place] [address] documented as of this encounter Visit Diagnoses Diagnosis Abdominal pain, RLQ Abdominal pain, right lower quadrant documented in this encounter Additional Health Concerns Assessment Noted Time PHQ-9 Depression Total Score: 0 09/04/19 22 1:00 PM CDT documented as of this encounter Care Teams Excavating Contractor Relationship Specialty Start Date End Date Jaswant Leal MD #2 [place] [address] PCP - General Family Medicine 07/31/20 Loy Dewey MD Consulting Physician Obstetrics & Gynecology 03/31/16 documented as of this encounter
--- OUTSIDE RECORDS SUMMARY | 2024-11-06 03:31 | XMS_ITS | Encounter Summary ---
Author Organization [facility] Address [address] [place] [address] Phone Care Team Providers Care Color Maker Name Role Phone Loy Dewey MD, Michael S MD Primary Care Provider Reason for Visit * Reason Comments Medication Refill Encounter Details Date Type Department Care Team (Late st Contact Info) Description 01/17/2023 Refill [facility] Medicine - [place] #2 [place] [address] Veronica Sanchez APRN, BASTING MARKER #[address] [phone] Medication Refill Social History Tobacco Use Types [...] Dept 12/22/22 [facility] Visit [facility] Office Visit Jaswant Leal MD [facility] 04/21/22 Office Visit Jaswant Leal MD [facility] 04/06/22 Office Visit Jaswant Leal MD [facility] Showing recent visits within past 365 days and meeting all other requirements Future Appointments No visits were found meeting these conditions. Showing future appointments within next 90 days and meeting all other requirements documented in this encounter Plan of Treatment Upcoming Encounters Date Type Department Care Team (Late st Contact Info) Description 12/17/2024 7:40 AM CDT Lab [facility] #[address] [address] Kristopher Goodwin Lab/Ancillary 12/24/2024 2:15 PM CDT Office Visit [facility] - [place] #[address] [facility] [place] [address] Jaswant Leal MD #[address] [place] [address] documented as of this encounter Visit Diagnoses Diagnosis Abdominal pain, RLQ Abdominal pain, right lower quadrant documented in this encounter Additional Health Concerns Assessment Noted Time PHQ-9 Depression Total Score: 0 09/04/19 22 1:00 PM CDT documented as of this encounter Care Teams Color Maker Relationship Specialty Start Date End Date Jaswant Leal MD #2 [place] [address] PCP - General Family Medicine 07/31/20 Loy Dewey MD Consulting Physician Obstetrics & Gynecology 03/31/16 documented as of this encounter
--- OUTSIDE RECORDS SUMMARY | 2024-11-06 03:31 | XMS_ITS | Patient Health Record ---
Author Organization [facility] [employer] Address [address] [facility] [address] [place] [address] Care Team Providers Care Physical Therapy Resident Name Role Phone Daniel Jeffers Unavailable [phone] Reason For Referral No Information Medications Medication SIG (Take, Route, Frequency, Duration) Notes Start Date End Date Status HYDROCODONE 10 MG-ACETAMINOPHEN 325 MG/15 ML (15 ML) ORAL SOLUTION *Reorder from [employer] for eRx and Interaction Alerts* Active Symbicort 160-4.5 MCG/ACT Inhalation Active Plan Of Treatment No Information
--- OUTSIDE RECORDS SUMMARY | 2024-11-06 03:31 | XMS_ITS | Encounter Summary ---
Author Organization [facility] Address [address] [place] [address] Phone Care Team Providers Care Technical Specialist Cytogenetics Name Role Phone Loy Dewey MD [facility] Jaswant García MD Primary Care Provider [phone] Reason for Visit * Reason Comments Medication Refill Encounter Details Date Type Department Care Team (Late st Contact Info) Description 03/23/2022 Refill [facility] #2 [place] [phone] Jaswant Leal MD #[address] [address] Medication Refill Social History Tobacco Use Types [...] 08/28/2021 44.9 36.0 - 47.0 % Final LER APPRENTICE documented in this encounter Plan of Treatment Upcoming Encounters Date Type Department Care Team (Late st Contact Info) Description 12/17/2024 7:40 AM CDT Lab [facility] #[address] [address] [facility] Lab/Ancillary 12/24/2024 2:15 PM CDT Office Visit [facility] - [facility] - [place] #2 [place] [address] Jasawnt Leal MD [address] [address] documented as of this encounter Visit Diagnoses Not on filedocumented in this encounter Additional Health Concerns Assessment Noted Time PHQ-9 Depression Total Score: 0 09/04/19 22 1:00 PM CDT documented as of this encounter Care Teams Technical Specialist Cytogenetics Relationship Specialty Start Date End Date Jaswant Leal MD [address] [address] PCP - General Family Medicine 07/31/20 Loy Dewey MD Consulting Physician Obstetrics & Gynecology 03/31/16 documented as of this encounter
--- OUTSIDE RECORDS SUMMARY | 2024-11-06 03:31 | XMS_ITS | Clinical Summary ---
Author Organization [facility] Address [address] [address] Phone Care Team Providers Care Heavy Mobile Equipment Repairer Name Role Phone Loy Dewey MD, Michael S MD Primary Care Provider [phone] Allergies Active Allergy Reactions Criticality Noted Date [...] Type Department Care Team Description 10/22/2024 Refill [facility] [place]2 [place] [address] Jaswant Leal MD Medication Refill 10/17/2024 Refill [facility] #2 [place] [address] Jaswant Leal MD Medication Refill 10/15/2024 Refill [facility] #2 [place] [address] Jaswant Leal MD Medication Refill 10/11/2024 [facility] [place] [address] Jaswant Leal MD Medication Refill 10/04/2024 Telephone [facility] [address] [place] [address] Jaswant Leal MD Medication Management 09/26/2024 [facility]ill [facility]2 [place] [address] Jaswant Leal MD Medication Refill 09/24/2024 MyChart RX Renewal [facility] #2 [place] [address] Jaswant Leal MD Medication Renewal Reviewed 09/21/2024 Refill [facility] #2 [place] [address] Jaswant Leal MD Medication Refill 08/31/2024 Refill [facility] #2 [place] [address] Jaswant Leal MD Medication Refill 2024 MyChart RX Renewal [facility] #2 [place] [address] Jaswant Leal MD Medication Renewal Declined 08/22/2024 3:30 PM CDT Office Visit [facility] [address]2 [place] [address] Jaswant Leal MD Low back pain, unspecified back pain laterality, unspecified chronicity, unspecified whether sciatica present (Primary Dx); Obesity (BMI 30-39.9); Essential hypertension; Chronic obstructive pulmonary disease, unspecified COPD type (HCC); Encounter for long-term (current) use of medications Discharge Disposition: Discharged to home or Selfcare 08/21/2024 Travel 08/20/2024 Refill [facility] [address] [place] [address] Jaswant Leal MD Medication Refill 08/17/2024 7:50 AM CDT Lab [facility] [address] [facility] [place] [address] [place] [address] [facility] Lab/Ancillary Hypertensive heart disease without heart failure Discharge Disposition: Discharged to home or Selfcare 08/16/2024 Telephone [facility] [address] [place] [address] Jaswant Leal MD 08/16/2024 Travel from Last 3 Months Family History Medical History Relation Name Comments Cancer Brother 1 Que Bone No Known Problems Brother 2 Taz No Known Problems Brother 3 [place] No Known Problems Brother 4 Matthew No Known Problems Brother 5 Roque Asthma Daughter Premature Daughter Heart Attack Father Festus Hunter Hypertension Father Festus Hunter No Known Problems Maternal Grandfather Cervical Cancer [...] 1 Que Brother 2 Taz Brother 3 [place] Alive Brother 4 Matthew Brother 5 Roque Alive Daughter Alive Father Festus Hunter Maternal Grandfather Maternal Grandmother Mother Paternal Grandfather [...] pure alcohol) Past alcohol abuse- quit 1978 [facility] Utilities Answer Date Recorded In the past 12 months has th e [employer], gas, oil, or water company threatened to [...] often do you attend chur ch or islam services? More than 4 times per year [...] Total Score - Questions 1-9 0 12/10 [facility] [place] of Occupat ional Health - Occupational Stress [...] in a group home (including now)? No 08/23/2023 Housing Stability Vital Sign Answer Irving e Recorded In the last 12 months, was t here a time when you were not able to pay the mortgage or rent on time? No 08/21/2024 Number of Times Moved in the Last Year Not on fi le 08/21/2024 At any time in the past 12 m [facility], were you homeless or living in a group home (including now)? No 08/21/2024 Education Answer Date [...] Info) Description 12/17/2024 7:40 AM CDT Lab [facility] #[address] [address] [facility] 12/24/2024 2:15 PM CDT Office Visit [facility] [place] #2 [place] [address] Jaswant Leal MD [address] [address] Health Maintenance Due Date Last Done Comments TdaP Immunization 1962 HPV/Cotest 1992 Colonoscopy 08/28/2007 Immunochemical Fecal Occult Blood 08/28/2007 Zoster Immunization (1 of 2) 2012 Respiratory Syncytial Virus (RSV) Immunization (Adult) (1 - Risk 60-74 years 1-dose series) 2022 Cervical Cancer Screening (CCS) 06/18/2023 Pap Smear 06/18/2023 06/17/2020 SARS-COV-2 Immunization ( - 2023- season) 2023 Influenza Immunization (#1) 2024 Pneumococcal [...] HEPATITIS C ANTIBODY Routine 03/06/2021 2:00 PM PROJECT ASST Abnormal laboratory test Thrombocytopenia (HCC) Easy bruising Epistaxis PATHOLOGY CYTOLOGY MANAGING CONSULTANT CLINICAL PROFESSOR Routine 06/17/2020 1:14 PM PROJECT ASST DUB (dysfunctional uterine bleeding) Perimenopausal RLQ abdominal pain Dermoid cyst of right ovary from Last 3 Months or Most Recently Relevant to Health Maintenance Results * URINE DRUG SCREEN (08/22/2024) Urine 08/22/2024 Jaswant Leal MD URINE ORDERABLES Final Result * (ABNORMAL) LIPID PANEL (08/17/2024 7:34 AM CDT) CHOLESTEROL 197 <200 mg/dL 08/17/2024 12:34 PM CDT [facility] TRIGLYCERIDES 115 <150 mg/dL 08/17/2024 12:34 PM CDT [facility] HDL CHOLESTEROL 48 >40 mg/dL 12:34 PM CDT [facility] LDL 126 <130 mg/dL 08/17/2024 12:34 PM CDT [facility] VLDL 23 10 - 50 mg/dL 08/17/2024 12:34 PM CDT [facility] CHOL/HDL RATIO 4.1 0.0 - 4.4 08/17/2024 12:34 PM CDT [facility] NON-HDL CHOLESTEROL 149(H) <130 mg/dL 08/17/2024 12:34 PM CDT [facility] IS THE PATIENT REQUIRED TO BE FASTING? No 08/17/2024 12:34 PM CDT [facility] Blood Venipuncture / Unknown 08/17/2024 7:34 AM CDT 08/17/2024 7:34 AM CDT us Jaswant Leal MD CHEMISTRY ORDERABLES Final Re sult [facility] #1 [place] [address] * (ABNORMAL) CMP (COMPREHENSIVE METABOLIC PANEL) (08/17/2024 7:34 AM CDT) SODIUM 140 136 - 145 mmol/L 08/17/2024 12:34 PM CDT [facility] POTASSIUM 3.7 3.5 - 5.1 mmol/L 08/17/2024 12:34 PM CDT [facility] CHLORIDE 110(H) 98 - 107 mmol/L 08/17/2024 12:34 PM CDT [facility] CO2, VENOUS 24 22 - 30 mmol/L 08/17/2024 12:34 PM CDT [facility] ANION GAP 9.7 <18.0 mmol/L 08/17/2024 12:34 PM CDT [facility] GLUCOSE 104(H) 70 - 99 mg/dL 08/17/2024 12:34 PM [facility] BUN 17 10 - 20 mg/dL 08/17/2024 12:34 PM [facility] CREATININE, BLOOD 0.77 0.60 - 1.00 mg/dL 08/17/2024 12:34 PM [facility] BUN/CREATININE RATIO 22(H) 12 - 20 ratio 08/17/2024 12:34 PM [facility] TOTAL PROTEIN 7.8 6.0 - 8.0 g/dL 08/17/2024 12:34 PM [facility] ALBUMIN 3.9 3.5 - 5.0 g/dL 08/17/2024 12:34 PM [facility] A/G RATIO 1.0 1.0 - 2.2 08/17/2024 12:34 PM [facility] CALCIUM 9.0 8.7 - 10.5 mg/dL 08/17/2024 12:34 PM [facility] T BILI 0.4 0.2 - 1.2 mg/dL 08/17/2024 12:34 PM [facility] SGOT (AST) 21 <43 U/L 08/17/2024 12:34 PM [facility] SGPT (ALT) 24 <56 U/L 08/17/2024 12:34 PM [facility] ALKALINE PHOSPHATASE 108 40 - 150 U/L 08/17/2024 12:34 PM [facility] IS THE PATIENT REQUIRED TO BE FASTING? No 08/17/2024 12:34 PM [facility] GFR, ESTIMATED >60 >=60 08/17/2024 12:34 PM [facility] Comment: Creatinine Clearance is the preferred criteria for selecting drug dose adjustments in renally impaired patients. The GFR is provided as additional pertinent clinical information. GFR is reported in mL/min/1.73 sq m. Calculation based on the Chronic Kidney Disease Epidemiology Collaboration (CKD- EPI) equation refit without adjustment for race. GFR, EST. >60 >=60 025 12:34 PM CDT [facility] GFR, EST. NONAFRICAN >60 >=60 08/17/2024 12:34 PM CDT [facility] Blood Venipuncture / Unknown 08/17/2024 7:34 AM CDT 08/17/2024 7:34 AM CDT us Jaswant Leal MD CHEMISTRY ORDERABLES Final Re sult [facility] #[address] [place] [address] * LARRY DIAG BILATERAL DIGITAL W CAD [...] Comparison is made to exams dated: 10/14/2021 [facility], 05/23/2020, 01/13/2018, and 12/30/2017 [facility]. BREAST TISSUE:There are scattered areas of fibroglandular [...] signed by: [place] Gonzalez M.D. ll/:07/24/2024 14:06:40 Rehab Care Assistant(s): Imelda Bethea, RT(R)(M), [facility]; Tracy Ko, [facility] letter sent: Normal Exam Reading location: [facility] OVERALL STUDY BIRADS: Category 2: Benign Procedure [...] Comparison is made to exams dated: 10/14/2021 [facility], 05/23/2020, 01/13/2018, and 12/30/2017 [facility]. BREAST TISSUE:There are scattered areas of fibroglandular [...] signed by: Florida Gonzalez M.D. ll/:07/24/2024 14:06:40 Rehab Care Assistant(s): Imelda Bethea, RT(R)(M), [facility]; Tracy Ko, [facility] letter sent: Normal Exam Reading location: [facility] OVERALL STUDY BIRADS: Category 2: Benign us Jaswant Leal MD IMG MAMMO ORDERABLES Final Re sult * COL[facility]UARD (01/25/2024 12:00 AM CDT) 01/25/2024 us Provider Scan BODY FLUIDS & STOOLS ORDERABLES Final Result SCAN * HEPATITIS C ANTIBODY (03/06/2021 2:00 PM PROJECT ASST) hepatitis C antibody 0.20 <1 S/CO [facility] ARCH [id number] B 03/06/2021 9:54 PM PROJECT ASST [facility] Comment: Signal/Cutoff ratio < 0.79 is Nondetected Signal/Cutoff ratio 0.80-0.99 is Grayzone Signal/Cutoff ratio > 0.99 is Detected Supplemental assays are recommended if signal/cutoff ratio is >/=1.00. Signal/cutoff ratio result >/= 5.00 is 97% predictive of positivity for recombinant immunoblot assay (RIBA) and will be reported to the [place] Department of Public Health as required. Blood Venipuncture / Unknown 03/06/2021 2:00 PM PROJECT ASST 03/06/2021 2:28 PM PROJECT ASST us Anil Ricardo MD CHEMISTRY ORDERABLES Fin al Result [facility] [address] [place] [address], * PATHOLOGY CYTOLOGY MANAGING CONSULTANT CLINICAL PROFESSOR (06/17/2020 1:14 PM PROJECT ASST) SPECIMEN ADEQUACY Satisfactory for evaluation. Endocervical/transf ormation zone component is present. 07/02/2020 11:08 AM CDT [facility] GENERAL CATEGORY NEGATIVE FOR INTRAEPITHELIAL LESIONS OR MALIGNANCY. 07/02/2020 11:08 AM CDT [facility] DESCRIPTIVE DIAGNOSIS Reactive cellular changes associated with inflammation and repair. 07/02/2020 11:08 AM CDT [facility] at 1108 CDT OTHER FINDINGS Trichomonas vaginalis present. 07/02/2020 11:08 AM CDT [facility] HPV Reflex if ASCUS? Yes 07/02/2020 11:08 AM CDT [facility] Automated Examination This sample was not evaluated by the automated imaging and review system ([employer]in[employer] Imaging System, [employer], [place], [place]) due to technical and/or biologic factor(s). The case was screened, reviewed, and finalized by a paraeducator and/or pathologist. 07/02/2020 11:08 AM CDT [facility] Disclaimer The PAP smear is [...] unless clinically indicated. 07/02/2020 11:08 AM CDT [facility] Other CERVIX UTERI STRUCTURE / Unknown Non-Phlebotomy Collection / Unknown 06/17/2020 1:14 PM PROJECT ASST 06/18/2020 1:15 PM PROJECT ASST us Lefty Stone MD PATHOLOGY/CYTOLOGY ORDERABLES Final Result [facility] [address] [place] [address], [place] from Last 3 Months or Most Recently Relevant to Health Maintenance Insurance [place] [address] MEDICARE C [facility] Advance Directives Documents on File Type Date Recorded Patient Document Control Specialist Expl anation Other Advance Directive 01/21/2021 1:31 PM Insurance Prior Auth for MANAGING CONSULTANT CLINICAL PROFESSOR Surgery Care Teams Heavy Mobile Equipment Repairer Relationship Specialty Start Date End Date Jaswant Leal MD [address] [address] PCP - General Family Medicine 07/31/20 Loy Dewey MD Consulting Physician Obstetrics & Gynecology 03/31/16
--- OUTSIDE RECORDS SUMMARY | 2024-11-06 03:31 | XMS_ITS | Encounter Summary ---
Author Organization [facility] Address [address] [place] [address] Phone Care Team Providers Care Bakery Machine Mechanic Supervisor Name Role Phone Loy Dewey MD [facility] Jaswant García MD Primary Care Provider [phone] Reason for Visit * Reason Comments Medication Refill Encounter Details Date Type Department Care Team (Late st Contact Info) Description 02/18/2023 [facility]ill [facility] #2 [place] [phone] Jaswant Leal MD [address] [address] Medication Refill Social History Tobacco Use Types [...] [place] 04/06/22 Office Visit Jaswant Leal MD [facility] Showing recent visits within past 365 days and meeting all other requirements Future Appointments Date Type Provider Dept 04/25/23 Appointment Jaswant Leal MD [facility] Showing future appointments within next 90 days and meeting all other requirements AL SCIENCE TEACHER documented in this encounter Plan of Treatment Upcoming Encounters Date Type Department Care Team (Late st Contact Info) Description 12/17/2024 7:40 AM CDT Lab [facility] #[address] [address] [place] [facility] Lab/Ancillary 12/24/2024 2:15 PM CDT Office Visit [facility] [place] [facility]2 [place] [address] Jaswant Leal MD [address] [address] documented as of this encounter Visit Diagnoses Diagnosis Abdominal pain, RLQ Abdominal pain, right lower quadrant documented in this encounter Additional Health Concerns Assessment Noted Time PHQ-9 Depression Total Score: 0 09/04/19 22 1:00 PM CDT documented as of this encounter Care Teams Bakery Machine Mechanic Supervisor Relationship Specialty Start Date End Date Jaswant Leal MD #[address] [place] [id number] PCP - General Family Medicine 07/31/20 Loy Dewey MD Consulting Physician Obstetrics & Gynecology 03/31/16 documented as of this encounter
--- OUTSIDE RECORDS SUMMARY | 2024-11-06 03:31 | XMS_ITS | Encounter Summary ---
Author Organization [facility] Address [address] [place] [address] Phone Care Team Providers Care Tmr Teacher Name Role Phone Loy Dewey MD [facility] ErJaswant Xiao MD Primary Care Provider [phone] Reason for Visit * Reason Onset Date Comments Advice Only 11/23/2023 Encounter Details Date Type Department Care Team (Late st Contact Info) Description 11/23/2023 Telephone [facility] [address] [place] [address] Jaswant Leal MD #[address] [address] Advice Only Social History Tobacco Use Types Packs/Day Years Used Date Smoking Tobacco: Never Smokeless Tobacco: Never Alcohol Use Standard Drinks/Week Comments Not Currently 0 (1 standard drink = 0.6 oz pure alcohol) Past alcohol abuse- quit 1978 [facility] Utilities Answer Date Recorded In the past 12 months has [employer], gas, oil, or water company threatened to [...] How often do you attend chur or jehovah's witness services? More than 4 times per year [...] Total Score - Questions 1-9 0 08/09 [facility] of Occupat ional [facility] - Occupational Stress Questionnaire Answer [...] in a fci (including now)? No 08/23/2023 Education Answer Date [...] Info) Description 12/17/2024 7:40 AM CDT Lab [facility] #[address] [address] [facility] Lab/Ancillary 12/24/2024 2:15 PM CDT Office Visit [facility] [place] #2 [place] [address] Jaswant Leal MD #[address] [address] documented as of this encounter Visit Diagnoses Not on filedocumented in this encounter Additional Health Concerns Assessment Noted Time PHQ-9 Depression Total Score: 0 08/24/19 24 3:07 PM CDT documented as of this encounter Care Teams Tmr Teacher Relationship Specialty Start Date End Date Jaswant Leal MD [address] [address] PCP - General Family Medicine 07/31/20 Loy Dewey MD Consulting Physician Obstetrics & Gynecology 03/31/16 documented as of this encounter
--- OUTSIDE RECORDS SUMMARY | 2024-11-06 03:31 | XMS_ITS | Encounter Summary ---
Author Organization [facility] Address [address] [place] [address] Phone Care Team Providers Care Rubber Flap Cutter Name Role Phone [facility] Dewey [facility] Primary Care Provider [phone] Reason for Visit * Reason Comments Medication Refill Encounter Details Date Type Department Care Team (Late st Contact Info) Description 09/16/2023 Refill [facility] #2 [place] [phone] Jaswant Leal MD #[address] [address] Medication Refill Social History Tobacco Use Types Packs/Day Years Used Date Smoking Tobacco: Never Smokeless Tobacco: Never Alcohol Use Standard Drinks/Week Comments Not Currently 0 (1 standard drink = 0.6 oz pure alcohol) Past alcohol abuse- quit 1978 [facility] Utilities Answer Date Recorded In the past 12 months has [employer], gas, oil, or water company threatened to [...] How often do you attend chur or yarsanism services? More than 4 times [...] Total Score - Questions 1-9 0 08/09 [facility] of Occupat ional [facility] - Occupational Stress Questionnaire Answer Date [...] in a skilled nursing (including now)? No 08/23/2023 Education Answer Date [...] Dept 08/24/23 Office Visit Jaswant Leal MD [facility] Kristopher 08/17/23 Office Visit Andres Brooks MD [...] Info) Description 12/17/2024 7:40 AM CDT Lab [facility] #[address] [address] [facility] Lab/Ancillary 12/24/2024 2:15 PM CDT Office Visit [facility] [place] #2 [place] [address] Jaswant Leal MD #[address] [address] documented as of this encounter Visit Diagnoses Not on filedocumented in this encounter Additional Health Concerns Assessment Noted Time PHQ-9 Depression Total Score: 0 08/24/19 24 3:07 PM CDT documented as of this encounter Care Teams Rubber Flap Cutter Relationship Specialty Start Date End Date Jaswant Leal MD #[address] [address] PCP - General Family Medicine 07/31/20 Loy Dewey MD Consulting Physician Obstetrics & Gynecology 03/31/16 documented as of this encounter
--- OUTSIDE RECORDS SUMMARY | 2024-11-06 03:31 | XMS_ITS | Encounter Summary ---
Author Organization [facility] Address [address] [place] [address] Phone Care Team Providers Care Dub Room Engineer Name Role Phone Loy Dewey MD [facility] Jaswant García MD Primary Care Provider [phone] Reason for Visit * Reason Comments Medication Refill Encounter Details Date Type Department Care Team (Late st Contact Info) Description 10/05/2022 Refill [facility] #2 [place] [phone] Jaswant Leal MD #[address] [address] Medication Refill Social History Tobacco Use Types [...] 09/21/2022 56 3 mL Jaswant Leal MD [facility]/pharmacy #[id number] - ... documented in this encounter Plan of Treatment Upcoming Encounters Date Type Department Care Team (Late st Contact Info) Description 12/17/2024 7:40 AM CDT Lab [facility] #[address] [address] [facility] Lab/Ancillary 12/24/2024 2:15 PM CDT Office Visit [facility] [place] #2 [place] [address] Jaswant Leal MD #[address] [address] documented as of this encounter Visit Diagnoses Not on filedocumented in this encounter Additional Health Concerns Assessment Noted Time PHQ-9 Depression Total Score: 0 09/04/19 22 1:00 PM CDT documented as of this encounter Care Teams Dub Room Engineer Relationship Specialty Start Date End Date Jaswant Leal MD #[address] [address] PCP - General Family Medicine 07/31/20 Loy Dewey MD Consulting Physician Obstetrics & Gynecology 03/31/16 documented as of this encounter
--- OUTSIDE RECORDS SUMMARY | 2024-11-06 03:31 | XMS_ITS | Encounter Summary ---
Author Organization [facility] Address [address] [place] [address] Phone Care Team Providers Care Metal Trades Instructor Name Role Phone Loy Dewey MD [facility] Jaswant García MD Primary Care Provider [phone] Reason for Visit * Reason Comments Medication Refill Encounter Details Date Type Department Care Team (Late st Contact Info) Description 06/27/2022 Refill [facility] #2 [place] [address] Jaswant Leal MD #[address] [address] Medication Refill Social History Tobacco Use Types [...] 12/17/2024 7:40 AM CDT Lab [facility] #[address] [address] [facility] Lab/Ancillary 12/24/2024 2:15 PM CDT Office Visit [facility] [place] #2 [place] [address] Jaswant Leal MD #[address] [address] documented as of this encounter Visit Diagnoses Diagnosis Chronic rhinitis Hypertensive heart disease without heart failure Unspecified hypertensive heart disease without heart failure Post-traumatic stress disorder, chronic documented in this encounter Additional Health Concerns Assessment Noted Time PHQ-9 Depression Total Score: 0 09/04/19 22 1:00 PM CDT documented as of this encounter Care Teams Metal Trades Instructor Relationship Specialty Start Date End Date Jaswant Leal MD #[address] [address] PCP - General Family Medicine 07/31/20 Loy Dewey MD Consulting Physician Obstetrics & Gynecology 03/31/16 documented as of this encounter
--- OUTSIDE RECORDS SUMMARY | 2024-11-06 03:31 | XMS_ITS | Encounter Summary ---
Author Organization [facility] Address [address] [place] [address] Phone Care Team Providers Care Hospice Nurse Practitioner Name Role Phone Loy Dewey MD, Michael S MD Primary Care Provider [phone] Reason for Visit * Reason Comments Medication Refill Encounter Details Date Type Department Care Team (Late st Contact Info) Description 03/24/2023 Refill [facility] [place] #2 [place] [address] Veronica Sanchez APRN, HAND CANDY DIPPER #[address] [phone] Medication Refill Social History Tobacco Use Types [...] years of age for Cetirizine or Levocetirizine HMAN/CRANE OPERATOR documented in this encounter Plan of Treatment Upcoming Encounters Date Type Department Care Team (Late st Contact Info) Description 12/17/2024 7:40 AM CDT Lab [facility] #[address] [address] Kristopher Goodwin Lab/Ancillary 12/24/2024 2:15 PM CDT [facility] [place] #2 [place] [address] Jaswant Leal MD #[address] [place] [address] documented as of this encounter Visit Diagnoses Diagnosis Post-traumatic stress disorder, chronic Hypertensive heart disease without heart failure Unspecified hypertensive heart disease without heart failure Chronic rhinitis documented in this encounter Additional Health Concerns Assessment Noted Time PHQ-9 Depression Total Score: 0 09/04/19 22 1:00 PM CDT documented as of this encounter Care Teams Hospice Nurse Practitioner Relationship Specialty Start Date End Date Jaswant Leal MD #2 [place] [address] PCP - General Family Medicine 07/31/20 Loy Dewey MD Consulting Physician Obstetrics & Gynecology 03/31/16 documented as of this encounter
--- OUTSIDE RECORDS SUMMARY | 2024-11-06 03:31 | XMS_ITS | Encounter Summary ---
Author Organization [facility] Address [address] [place] [address] Phone Care Team Providers Care Machine Learning Intern Name Role Phone Loy Dewey MD [facility] MD Primary Care Provider [phone] Reason for Visit * Reason Comments Medication Refill Encounter Details Date Type Department Care Team (Late st Contact Info) Description 12/04/2023 Refill [facility] #2 [place] [id number] Jaswant Leal MD #[address] [address] Medication Refill Social History Tobacco Use Types Packs/Day Years Used Date Smoking Tobacco: Never Smokeless Tobacco: Never Alcohol Use Standard Drinks/Week Comments Not Currently 0 (1 standard drink = 0.6 oz pure alcohol) Past alcohol abuse- quit 1978 [facility] Utilities Answer Date Recorded In the past 12 months has [employer], gas, oil, or water company threatened to [...] How often do you attend chur or adventism services? More than 4 times per year [...] Total Score - Questions 1-9 0 08/09 [facility] of Occupat ional [facility] - Occupational Stress Questionnaire Answer [...] Info) Description 12/17/2024 7:40 AM CDT Lab [facility] [address] [address] Kristopher Goodwin Lab/Ancillary 12/24/2024 2:15 PM CDT Office Visit [facility] [place] #2 [place] [address] Jaswant Leal MD #[address] [address] documented as of this encounter Visit Diagnoses Not on filedocumented in this encounter Additional Health Concerns Assessment Noted Time PHQ-9 Depression Total Score: 0 08/24/19 24 3:07 PM CDT documented as of this encounter Care Teams Machine Learning Intern Relationship Specialty Start Date End Date Jaswant Leal MD #2 [place] [id number] PCP - General Family Medicine 07/31/20 Loy Dewey MD Consulting Physician Obstetrics & Gynecology 03/31/16 documented as of this encounter
--- OUTSIDE RECORDS SUMMARY | 2024-11-06 03:31 | XMS_ITS | Encounter Summary ---
Author Organization [facility] Address [address] [place] [address] Phone Care Team Providers Care Crosstie Inspector Name Role Phone Loy Dewey MD [facility] Jaswant García MD Primary Care Provider [phone] Reason for Visit * Reason Comments Medication Refill Encounter Details Date Type Department Care Team (Late st Contact Info) Description 04/28/2022 Refill [facility] #2 [place] [address] Jaswant Leal MD #[address] [address] Medication Refill Social History Tobacco Use Types [...] Recorded In the last 10 days, have neal nj been in contact with someone who was confirmed or suspected to have Coronavirus/COVID-19? No / Unsure 04/22/2022 12:55 PM MECHANICAL DESIGN TECHNICIAN documented as of this encounter Miscellaneous Notes * Telephone Encounter - Toshia Jensen RN - 04/29/2022 9:51 AM CST Images from the original note were not included. Triamcinolone Acetonide Dispensed Days Supply Quantity Provider Pharmacy TRIAMCINOLONE 0.1% CREAM 04/21/2022 30 80 g Jaswant Leal MD [id number] - ... ANICAL DESIGN TECHNICIAN documented in this encounter Plan of Treatment Upcoming Encounters Date Type Department Care Team (Late st Contact Info) Description 12/17/2024 7:40 AM CDT Lab [facility] #[address] [address] [facility] [place] Lab/Ancillary 12/24/2024 2:15 PM CDT Office Visit [facility] [place] #2 [place] [address] Jaswant Leal MD #[address] [address] documented as of this encounter Visit Diagnoses Not on filedocumented in this encounter Additional Health Concerns Assessment Noted Time PHQ-9 Depression Total Score: 0 09/04/19 22 1:00 PM CDT documented as of this encounter Care Teams Crosstie Inspector Relationship Specialty Start Date End Date Jaswant Leal MD #[address] [address] PCP - General Family Medicine 07/31/20 Loy Dewey MD Consulting Physician Obstetrics & Gynecology 03/31/16 documented as of this encounter
--- OUTSIDE RECORDS SUMMARY | 2024-11-06 03:31 | XMS_ITS | Encounter Summary ---
Author Organization [facility] Address [address] [place] [address] Phone Care Team Providers Care Consumer Loan Officer Name Role Phone Loy Dewey MD [facility] Jaswant García MD Primary Care Provider [phone] Reason for Visit * Reason Comments Medication Refill Encounter Details Date Type Department Care Team (Late st Contact Info) Description 03/26/2022 Refill [facility] #2 [place] [address] Jaswant Leal MD #[address] [address] Medication Refill Social History Tobacco Use Types [...] [place] 04/14/21 Office Visit Jaswant Leal MD [facility] [place] Showing recent visits within past 365 days and meeting all other requirements Future Appointments Date Type Provider Dept 04/21/22 Appointment Jaswant Leal MD [facility] Showing future appointments within next 90 days and meeting all other requirements RNMENT SERVICE EXECUTIVE documented in this encounter Plan of Treatment Upcoming Encounters Date Type Department Care Team (Late st Contact Info) Description 12/17/2024 7:40 AM CDT Lab [facility] #[address] [address] Kristopher Goodwin Lab/Ancillary 12/24/2024 2:15 PM CDT Office [facility] [place] #2 [place] [address] Jaswant Leal MD #[address] [address] documented as of this encounter Visit Diagnoses Diagnosis Abdominal pain, RLQ Abdominal pain, right lower quadrant documented in this encounter Additional Health Concerns Assessment Noted Time PHQ-9 Depression Total Score: 0 09/04/19 22 1:00 PM CDT documented as of this encounter Care Teams Consumer Loan Officer Relationship Specialty Start Date End Date Jaswant Leal MD #2 [place] [phone] PCP - General Family Medicine 07/31/20 Loy Dewey MD Consulting Physician Obstetrics & Gynecology 03/31/16 documented as of this encounter
--- OUTSIDE RECORDS SUMMARY | 2024-11-06 03:31 | XMS_ITS | Encounter Summary ---
Author Organization [facility] Address [address] [place] [address] Phone Care Team Providers Care Geothermal Technician Name Role Phone [facility] MD [facility] Primary Care Provider [phone] Reason for Visit * Reason Comments Medication Refill Encounter Details Date Type Department Care Team (Late st Contact Info) Description 08/31/2023 Refill [facility] #2 [place] [address] Jaswant Leal MD #[address] [address] Medication Refill Social History Tobacco Use Types Packs/Day Years Used Date Smoking Tobacco: Never Smokeless Tobacco: Never Alcohol Use Standard Drinks/Week Comments Not Currently 0 (1 standard drink = 0.6 oz pure alcohol) Past alcohol abuse- quit 1978 [facility] Utilities Answer Date Recorded In the past 12 months has [employer], gas, oil, or water company threatened to [...] How often do you attend chur or muslim services? More than 4 times per year [...] Total Score - Questions 1-9 0 08/09 [facility] of Occupat ional [facility] - Occupational Stress Questionnaire Answer Date [...] place to sleep or slept in a [place] health care facility (including now)? No 08/23/2023 Education Answer Date [...] [place] 04/25/23 Office Visit Jaswant Leal MD [facility] Kristopher Showing recent visits within past 182 [...] 12/17/2024 7:40 AM CDT Lab [facility] #[address] [address] Kristopher Goodwin Lab/Ancillary 12/24/2024 2:15 PM CDT Office Visit [facility] - Family Medicine - [place] #2 [place] [address] Jaswant Leal MD #[address] [address] documented as of this encounter Visit Diagnoses Not on filedocumented in this encounter Additional Health Concerns Assessment Noted Time PHQ-9 Depression Total Score: 0 08/24/19 3:07 PM CDT documented as of this encounter Care Teams Geothermal Technician Relationship Specialty Start Date End Date Jaswant Leal MD #[address] [address] PCP - General Family Medicine 07/31/20 Loy Dewey MD Consulting Physician Obstetrics & Gynecology 03/31/16 documented as of this encounter
--- OUTSIDE RECORDS SUMMARY | 2024-11-06 03:31 | XMS_ITS | Encounter Summary ---
Author Organization [facility] Address [address] [place] [address] Phone Care Team Providers Care Tile Setter Apprentice Name Role Phone Loy Dewey MD, Michael S MD Primary Care Provider [phone] Reason for Visit * Reason Comments Medication Refill Encounter Details Date Type Department Care Team (Late st Contact Info) Description 04/28/2022 Refill [facility] #2 [place] [address] Roby Coffey MD #1 [place] [address] Medication Refill Social History Tobacco Use Types [...] Coronavirus/COVID-19? No / Unsure 04/22/2022 12:55 PM IT COORDINATOR documented as of this encounter Miscellaneous Notes * Telephone Encounter - Brianne Beasley RN - 04/29/2022 9:43 AM IT COORDINATOR Medication failed the protocol, provider to review [...] [place] 06/01/21 Office Visit Jaswant Leal MD [facility] Showing recent visits within past 365 days and meeting all other requirements Future Appointments No visits were found meeting these conditions. Showing future appointments within next 90 days and meeting all other requirements COORDINATOR documented in this encounter Plan of Treatment Upcoming Encounters Date Type Department Care Team (Late st Contact Info) Description 12/17/2024 7:40 AM CDT Lab [facility] #[address] [place] [address] Fernando Goodwin Lab/Ancillary 12/24/2024 2:15 PM CDT Office Visit [facility] - [place] #2 [place] [address] Jaswant Leal MD #[address] [facility] [address] [place] [address] documented as of this encounter Visit Diagnoses Diagnosis Abdominal pain, RLQ Abdominal pain, right lower quadrant documented in this encounter Additional Health Concerns Assessment Noted Time PHQ-9 Depression Total Score: 0 09/04/19 22 1:00 PM CDT documented as of this encounter Care Teams Tile Setter Apprentice Relationship Specialty Start Date End Date Jaswant Leal MD #[address] [address] PCP - General Family Medicine 07/31/20 Loy Dewey MD Consulting Physician Obstetrics & Gynecology 03/31/16 documented as of this encounter
--- OUTSIDE RECORDS SUMMARY | 2024-11-06 03:31 | XMS_ITS | Encounter Summary ---
Author Organization [facility] Address [address] 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 documented in this encounter Plan of Treatment Upcoming Encounters Date Type Department Care Team (Late st Contact Info) Description 12/17/2024 7:40 AM CDT Lab [facility] #[address] [place] [address] Kristopher Goodwin Lab/Ancillary 12/24/2024 2:15 PM CDT Office Visit [facility] - [place] #2 [place] [address] Jaswant Leal MD #[address] [place] [address] documented as of this encounter Visit Diagnoses Diagnosis Abdominal pain, RLQ Abdominal pain, right lower quadrant documented in this encounter Additional Health Concerns Assessment Noted Time PHQ-9 Depression Total Score: 0 09/04/19 22 1:00 PM CDT documented as of this encounter Care Teams Thermocouple Tester Relationship Specialty Start Date End Date Jaswant Leal MD #2 [place] [address] PCP - General Family Medicine 07/31/20 Loy Dewey MD Consulting Physician Obstetrics & Gynecology 03/31/16 documented as of this encounter
--- OUTSIDE RECORDS SUMMARY | 2024-11-06 03:31 | XMS_ITS | Encounter Summary ---
Author Organization [facility] Address [address] [place] [address] Phone Care Team Providers Care Peoplesoft Hcm Consultant Name Role Phone Loy Dewey MD [facility] Jaswant García MD Primary Care Provider Reason for Visit * Reason Comments Medication Refill Encounter Details Date Type Department Care Team (Late st Contact Info) Description 12/10/2022 Refill [facility] #2 [place] [address] Jaswant Leal MD #[address] [address] Medication Refill Social History Tobacco Use Types [...] Info) Description 12/17/2024 7:40 AM CDT Lab [facility] #[address] [place] [address] Fernando Goodwin Lab/Ancillary 12/24/2024 2:15 PM CDT Office Visit [facility] - [place] #2 [place] [address] Jaswant Leal MD #[address] [place] [address] documented as of this encounter Visit Diagnoses Diagnosis Post-traumatic stress disorder, chronic Hypertensive heart disease without heart failure Unspecified hypertensive heart disease without heart failure Chronic rhinitis documented in this encounter Additional Health Concerns Assessment Noted Time PHQ-9 Depression Total Score: 0 09/04/19 22 1:00 PM CDT documented as of this encounter Care Teams Peoplesoft Hcm Consultant Relationship Specialty Start Date End Date Jaswant Leal MD #2 [place] [address] PCP - General Family Medicine 07/31/20 oLy Dewey MD Consulting Physician Obstetrics & Gynecology 03/31/16 documented as of this encounter
--- OUTSIDE RECORDS SUMMARY | 2024-11-06 03:31 | XMS_ITS | Encounter Summary ---
Author Organization [facility] Address [address] [place] [address] Phone Care Team Providers Care Medication Aid Name Role Phone Loy Dewey MD [facility] Jaswant García MD Primary Care Provider [phone] Reason for Visit * Reason Comments Medication Refill Encounter Details Date Type Department Care Team (Late st Contact Info) Description 08/26/2022 Refill [facility] #2 [place] [address] Jaswant Leal MD #[address] [address] Medication Refill Social History Tobacco Use Types [...] [place] 09/03/21 Office Visit Jaswant Leal MD [facility] [place] Showing recent visits within past 365 [...] [place] 09/03/21 Office Visit Jaswant Leal MD [facility] Kristopher Showing recent visits within past [...] 08/12/2022 30 60 Each Jaswant Leal MD [facility] #[id number] - ... documented in this encounter Plan of Treatment Upcoming Encounters Date Type Department Care Team (Late st Contact Info) Description 12/17/2024 7:40 AM CDT Lab [facility] #[address] [address] Kristopher Goodwin Lab/Ancillary 12/24/2024 2:15 PM CDT Office Visit [facility] - [place] #2 [place] [address] Jaswant Leal MD #[address] [address] documented as of this encounter Visit Diagnoses Not on filedocumented in this encounter Additional Health Concerns Assessment Noted Time PHQ-9 Depression Total Score: 0 09/04/19 22 1:00 PM CDT documented as of this encounter Care Teams Medication Aid Relationship Specialty Start Date End Date Jaswant Leal MD #[address] [address] PCP - General Family Medicine 07/31/20 Loy Dewey MD Consulting Physician Obstetrics & Gynecology 03/31/16 documented as of this encounter
--- OUTSIDE RECORDS SUMMARY | 2024-11-06 03:31 | XMS_ITS | Encounter Summary ---
Author Organization [facility] Address [address] [place] [address] Phone Care Team Providers Care Tab Builder Name Role Phone Loy Dewey MD, Michael S MD Primary Care Provider [phone] Reason for Visit * Reason Comments Medication Refill Encounter Details Date Type Department Care Team (Late st Contact Info) Description 04/22/2021 Refill [facility] On[facility] Services [address] [place] [address] Anil Ricardo MD [address] [place] [address] Medication Refill Social History Tobacco [...] Coronavirus / COVID-19? Yes 04/14/2021 7:02 AM ARCHITECTURAL SUPERINTENDENT documented as of this encounter Miscellaneous Notes * Telephone Encounter - Lauren Weston RN - 04/22/2021 10:29 AM ARCHITECTURAL SUPERINTENDENT Refilled Ferrous sulfate ITECTURAL SUPERINTENDENT documented in this encounter Plan of Treatment Upcoming Encounters Date Type Department Care Team (Late st Contact Info) Description 12/17/2024 7:40 AM CDT Lab [facility] #[address] [address] [facility] [place] Lab/Ancillary 12/24/2024 2:15 PM CDT Office Visit [facility] - [place] #2 [place] [address] Jaswant Leal MD #[address] [address] documented as of this encounter Visit Diagnoses Not on filedocumented in this encounter Additional Health Concerns Assessment Noted Time PHQ-9 Depression Total Score: 1 03/31/20 16 2:02 PM ARCHITECTURAL SUPERINTENDENT documented as of this encounter Care Teams Tab Builder Relationship Specialty Start Date End Date Jaswant Leal MD #[address] [address] PCP - General Family Medicine 07/31/20 Loy Dewey MD Consulting Physician Obstetrics & Gynecology 03/31/16 documented as of this encounter
--- OUTSIDE RECORDS SUMMARY | 2024-11-06 03:31 | XMS_ITS | Encounter Summary ---
Author Organization [facility] Address [address] [place] [address] Phone Care Team Providers Care Boiler Control Technician Name Role Phone Loy Dewey MD, Michael S MD Primary Care Provider [phone] Encounter Details Date Type Department Care Team (Late st Contact Info) Description 06/08/2021 Telephone [facility] Oncology Services [address] [place] [address] Anil Ricardo MD [address] [place] [address] Social History Tobacco Use Types [...] COVID-19? No / Unsure 06/01/2021 1:55 PM QUICK SERVICE TECHNICIAN documented as of this encounter Miscellaneous [...] with the patient to establish a plan. K SERVICE TECHNICIAN documented in this encounter Plan of Treatment Upcoming Encounters Date Type Department Care Team (Late st Contact Info) Description 12/17/2024 7:40 AM CDT Lab [facility] #[address] [address] [facility] Lab/Ancillary 12/24/2024 2:15 PM CDT Office Visit [facility] - [place] #2 [place] [address] Jaswant Leal MD #[address] [address] documented as of this encounter Visit Diagnoses Not on filedocumented in this encounter Additional Health Concerns Assessment Noted Time PHQ-9 Depression Total Score: 1 03/31/20 16 2:02 PM QUICK SERVICE TECHNICIAN documented as of this encounter Care Teams Boiler Control Technician Relationship Specialty Start Date End Date Jaswant Leal MD #[address] [address] PCP - General Family Medicine 07/31/20 Loy Dewey MD Consulting Physician Obstetrics & Gynecology 03/31/16 documented as of this encounter
[2024-11-06 10:30] VITALS: BP 148/84; PULSE 80; RESP 16; TEMP 37.2; O2SAT 97
[2024-11-06] MEDS: LACTATED RINGERS 1,000 ML 30 ML IV CONT (10:35)
[2024-11-06 10:49] VITALS: BMI 48.6
--- NOTE | 2024-11-06 11:37 | PM.HPGS ---
History of Present Illness History of Present Illness Consent: Risks, benefits, and alternatives have been discussed and questions answered. Patient agrees to proceed with procedure. Chief complaint: Painful osteoarthritis, bilateral knees Narrative: Janell Islas is a 64 year old female with chronic, recalcitrant and disabling bilateral knee pain secondary to degenerative osteoarthritis with failure to respond to aggressive conservative measures including PT, oral and topical analgesics, opioid and nonopioid analgesics, rest, time and activity/behavioral modification over the past 1-2 years who presents for water cooled thermal RF ablation of the genicular/vastus intermedius nerves supplying the bilateral knee joints under fluoroscopic guidance (8 nerves ablated). Review of Systems Review of Systems: Patient denies any new infectious, allergic, cardiopulmonary, neurologic or constitutional symptoms or changes in activity tolerance or exercise capacity including new or progressive SOB/GOMEZ, peripheral edema, productive cough, dysuria, nausea/vomiting, diarrhea, weight change, fevers/chills/night sweats, new or progressive neurologic deficit, cognitive or mood changes since last seen, except as documented in the HPI. All systems reviewed & are unremarkable except as noted in HPI and below PMFSH Past Medical History Medical History Right knee DJD Arthritis Anxiety Sleep apnea Asthma Wears glasses Weight gain Claustrophobia History of adverse reaction to anesthesia Primary osteoarthritis of right knee Swelling of right knee joint Surgical History Surgical History History of prior ablation treatment History of left knee surgery History of breast surgery Left side lymph node cancer 1980 Right side skin cancer Family History Family History Sibling Patient's sister is in good health Family history of diabetes mellitus in first degree relative Family history of malignant neoplasm of breast in first degree relative Father Cerebrovascular accident, Onset Age: 39 Patient's father is , Onset Age: 39 Asthma Mother Family history of diabetes mellitus in first degree relative, Onset Age: 72 Patient's mother is , Onset Age: 72 Other Depression Diabetes mellitus Family history of uterine cancer Hypertension Social History Social History (Updated 06/12/24 @ 14:12 by Daphne Valenzuela CMA) Smoking status: Never smoker Second hand tobacco smoke exposure: Yes Alcohol intake: never Substance use: never Do You Feel Safe in your Home?: Yes Lack of Transportation: No Lack of Food: Sometimes True Current Housing: I Have Housing Concerned About Future Housing: No Difficulty Paying Gas/Electric Bills: No Difficulty Paying for Meds: No Currently Unemployed: Decline to Answer Education: High School Diploma/GED Difficulty w/ Childcare or Family Care: No Living arrangements: with family Occupation/Education: other Gender identity (if verbalized by the patient): Female Spiritual care concerns: No Meds Home Medications and Allergies Home Medications ?Medication ?Instructions ?Recorded ?Confirmed ?Type nebivolol 20 mg tablet (Bystolic) 20 mg PO DAILY #90 tabs 02/19/19 10/31/24 Rx baclofen 10 mg tablet 10 mg PO TID #90 tabs 09/04/19 11/06/24 Rx diclofenac sodium 1 % topical gel See Rx Instructions .Route 05/29/20 10/31/24 Rx .COMPLEX #300 grams levocetirizine 5 mg tablet 5 mg PO DAILY 90 days #90 tabs 07/04/20 10/31/24 Rx venlafaxine 150 mg 150 mg PO DAILY #90 caps 07/18/20 10/31/24 Rx capsule,extended release 24 hr nifedipine 30 mg tablet,extended 30 mg PO BID 90 days #180 tabs 07/23/20 10/31/24 Rx release meloxicam 7.5 mg tablet 7.5 mg PO BID #60 tabs 01/05/21 11/06/24 Rx hydrocodone 10 mg-acetaminophen 1 tablet PO Q8H PRN Pain 05/17/23 10/31/24 History 325 mg tablet metformin 500 mg tablet 500 mg PO BID 05/17/23 10/31/24 History pregabalin 300 mg capsule (Lyrica) 300 mg PO TID 05/17/23 11/06/24 History valsartan 320 1 tablet PO DAILY 05/17/23 10/31/24 History mg-hydrochlorothiazide 25 mg tablet alprazolam 0.5 mg tablet 0.5 mg PO DAILY procedural anxiety 10/09/23 10/31/24 Rx #2 tabs Advair HFA 115 mcg-21 2 puff inhalation BID #12 grams 12/02/23 10/31/24 Rx mcg/actuation aerosol inhaler (fluticasone propion-salmeterol) albuterol sulfate 90 mcg/actuation See Rx Instructions .Route 01/06/24 10/31/24 Rx aerosol inhaler .COMPLEX #8.5 ea clotrimazole 1 % topical cream 1 applic topical DAILY 04/30/24 10/31/24 History terbinafine HCl 250 mg tablet 250 mg PO DAILY 04/30/24 10/31/24 History ondansetron 8 mg disintegrating 8 mg PO TID PRN nausea and 05/09/24 10/31/24 Rx tablet vomiting #6 tabs tirzepatide 2.5 mg/0.5 mL 2.5 mg subcut WEEKLY 06/12/24 10/31/24 History subcutaneous pen injector (Mounjaro) azelastine 137 mcg (0.1 %) nasal See Rx Instructions .Route 09/04/24 10/31/24 Rx spray .COMPLEX #90 mL montelukast 10 mg tablet See Rx Instructions .Route 09/04/24 10/31/24 Rx .COMPLEX #90 tabs Allergies Allergy/AdvReac Type Severity Reaction Status Date / Time penicillin G Allergy Severe Anaphylaxis Verified 10/31/24 09:27 Penicillins Allergy Severe Anaphylaxis Verified 10/31/24 09:27 mold Allergy Mild Rash Verified 10/31/24 09:27 nickel Allergy Mild Hives Verified 10/31/24 09:27 olmesartan Allergy Mild Hives Verified 10/31/24 09:27 Vital Signs Vital Signs - 24 hr 11/06/24 10:30 Temperature 98.9 F Pulse Rate 80 Respiratory Rate 16 Blood Pressure 148/84 H Pulse Oximetry 97 Exam Narrative: The patient's physical exam is essentially unchanged from prior examination on 09/13/2024. Specifically, patient demonstrates normal lung capacity, tidal volume and respiratory rate without wheezes, crackles, rales or rubs. Heart rate and rhythm are regular without murmurs, gallops or rubs. No JVD. Pulses 2+ globally without increasing peripheral edema. AAOx3 with no evidence of confusion, intoxication or altered mental state, NC/AT without acute distress or altered consciousness. Speech, cognition, mood, insight and judgment at baseline and within normal limits. Assessment and Plan Assessment and plan (1) Primary osteoarthritis of left knee: Code(s): M17.12 - Unilateral primary osteoarthritis, left knee Status: Acute (2) Primary osteoarthritis of right knee: Code(s): M17.11 - Unilateral primary osteoarthritis, right knee Status: Acute (3) Arthralgia of both knees: Code(s): M25.561 - Pain in right knee; M25.562 - Pain in left knee Status: Acute (4) Chronic pain syndrome: Code(s): G89.4 - Chronic pain syndrome Status: Acute Plan Proceed as planned with water cooled thermal RF ablation of the genicular/vastus intermedius nerves supplying the bilateral knee joints under fluoroscopic guidance (8 nerves ablated).
--- NOTE | 2024-11-06 11:41 | WPDHPUPDATE1 ---
History and Physical Update Update Date/Time: 11/06/24 11:41 History and Physical has been reviewed, including an updated exam of the patient. There are NO changes in the patient's condition. Risks, benefits, and alternatives have been discussed and questions answered. Patient agrees to proceed with procedure.
--- NOTE | 2024-11-06 11:43 | P.OP_ITS ---
Procedure Note - Detailed Date of Procedure 11/06/24 Pre-op Diagnosis Painful osteoarthritis, bilateral knees Post-op Diagnosis Same Procedure Performed Radiofrequency Ablation of the bilateral Superior Medial, Inferior Medial and Superior Lateral Genicular Nerves, Vastus Intermedius Nerve under Fluoroscopic Guidance (8 nerves ablated). Surgeon Kj Morton MD Anesthesia Other ([Local w/ IV Sedation/MAC in the Supine Position]) Description of Procedure INFORMED CONSENT: Risks, benefits and alternatives to the procedure were discussed in detail with the patient who expressed explicit understanding and consent to proceed. Patient was informed verbally and in written form regarding the risks associated with the procedure including the low risk of serious infection, bleeding/bruising, allergic reaction, nerve injury, paralysis, procedural site pain or discomfort, worsening pain and/or mobility, failure to treat and disfigurement. The patient expressed explicit understanding and consent to proceed. All materials required for the procedure were available prior to procedure start. Site and side was marked prior to procedure and confirmed in the presence of the patient. PROCEDURE IN DETAIL: The patient was brought to the procedural suite and placed in the supine position. Patient was made comfortable with use of pillows under the head/shoulder, knees and ankles. Skin overlying anterior, medial and lateral surface of the knee joint on the right side was prepared broadly with ChloroPrep applicator and draped in a sterile manner. Aseptic technique was used throughout. The intersection between the femoral shaft and the medial femoral condyle, lateral femoral condyle and between the medial tibial plateau and tibial shaft were visualized in the AP view with the knee extended at 180 degrees. Local anesthesia was established by infiltration with approximately 3 mL of 2% lidocaine via a 1-1/2 inch 27-gauge needle at the skin and soft tissues overlying each site. One 17-gauge 100 mm Comprimato water-cooled RF cannula was advanced until the needle tip contacted periosteum at the intersection of the medial femoral condyle and femoral shaft and advanced medially and posteriorly until approximating the position of the medial superior genicular nerve. Impedance levels were within normal limits. Motor testing was performed at a frequency of 2 Hz to a current of 3.0 mAmps through each needle with no evidence of motor stimulation. After negative aspiration, 2ml of a 1:1 admixture of 0.25% PF Bupivacaine and 2% lidocaine was injected at the intended site to establish anesthesia. Needle stylette was replaced with a water-cooled electrode from the security system analyst-supplied kit. After a 90s delay, lesioning was then performed at the target site for 150s to a temperature of 60 degrees Centigrade. The needle was then retracted 10mm and repeat lesions were performed in a similar manner. [place] were then re- styletted and removed without difficulty. Needle was then repositioned to contact the periosteum at the location of the remaining targeted peripheral nerves and advanced medially and dorsally to approximate the position of the Inferior Medial Genicular nerve, laterally and dorsally to approximate the position of the Superior Lateral Genicular nerve just past midshaft in each location, and just above periosteum at the midline of the femoral shaft approximately 6cm superior to the superior patellar border to approximate the position of the vastus intermedius nerve. Same exact procedure was then repeated on the contralateral lower extremity to address the contralateral (left) knee joint, performed the exact same way modified only to accommodate for contralateral procedure location, with similar results and no evidence of complication. Images were saved and documented in the patient chart. Patient's skin was cleansed and sterile bandage applied. The patient tolerated the procedure well. The patient was transported to the recovery area in stable condition where they were observed for an appropriate amount of time prior to discharge, without evidence of complication. Patient was instructed on the appropriate completion of a pain diary over the next 12-24 hours. The patient was instructed to avoid excessive activity for the next 48 hours, including climbing and frequent use of stairs. Showers only for 48 hours. They were instructed not to drive or operate heavy machinery for 24 hours. They are to monitor for severe headaches, fevers, chills, night sweats, erythema/swelling at the site or any other signs of infection, bleeding/bruising, bowel or bladder changes as well as new pain, weakness or numbness in the upper or lower extremity. Should they notice these changes, they are instructed to call our office immediately or report directly to the nearest Emergency Department if no answer or if after posted office hours. COMPLICATIONS: None COMMENTS: None Complications No immediate complications Condition Stable Disposition PACU [facility] Billing Surgery - Charge Forward: Surgery Billing
--- NOTE | 2024-11-06 11:51 | WPDANESEPPF ---
Anes - Initial Pre Proc Eval Procedure: Operation Date: 11/06/24 12:30 Proposed Procedures p Radiofrequency Ablation of the Bilateral Superior Medial, Inferior Medial and Superior Lateral Genicular Nerves, Vastus Intermedius Nerve under Fluoroscopic Guidance (8 nerves ablated). - Kj Morton MD Date/Time: 11/06/24 11:51 Surgeon: Kj Morton MD Pre Op Diagnosis: Painful osteoarthritis, bilateral knees Patient Data Age: 64 Gender: F Height: 1.63 m Weight: 128.5 kg Last Vital Signs Temp 37.2 C 11/06/24 10:30 Pulse 80 11/06/24 10:30 Resp 16 11/06/24 10:30 BP 148/84 H 11/06/24 10:30 Pulse Ox 97 11/06/24 10:30 Allergies Allergy/AdvReac Type Severity Reaction Status Date / Time penicillin G Allergy Severe Anaphylaxis Verified 10/31/24 09:27 Penicillins Allergy Severe Anaphylaxis Verified 10/31/24 09:27 mold Allergy Mild Rash Verified 10/31/24 09:27 nickel Allergy Mild Hives Verified 10/31/24 09:27 olmesartan Allergy Mild Hives Verified 10/31/24 09:27 Home Medications ?Medication ?Instructions ?Recorded ?Confirmed ?Type nebivolol 20 mg tablet (Bystolic) 20 mg PO DAILY #90 tabs 02/19/19 10/31/24 Rx baclofen 10 mg tablet 10 mg PO TID #90 tabs 09/04/19 11/06/24 Rx diclofenac sodium 1 % topical gel See Rx Instructions .Route 05/29/20 10/31/24 Rx .COMPLEX #300 grams levocetirizine 5 mg tablet 5 mg PO DAILY 90 days #90 tabs 07/04/20 10/31/24 Rx venlafaxine 150 mg 150 mg PO DAILY #90 caps 07/18/20 10/31/24 Rx capsule,extended release 24 hr nifedipine 30 mg tablet,extended 30 mg PO BID 90 days #180 tabs 07/23/20 10/31/24 Rx release meloxicam 7.5 mg tablet 7.5 mg PO BID #60 tabs 01/05/21 11/06/24 Rx hydrocodone 10 mg-acetaminophen 1 tablet PO Q8H PRN Pain 05/17/23 10/31/24 History 325 mg tablet metformin 500 mg tablet 500 mg PO BID 05/17/23 10/31/24 History pregabalin 300 mg capsule (Lyrica) 300 mg PO TID 05/17/23 11/06/24 History valsartan 320 1 tablet PO DAILY 05/17/23 10/31/24 History mg-hydrochlorothiazide 25 mg tablet alprazolam 0.5 mg tablet 0.5 mg PO DAILY procedural anxiety 10/09/23 10/31/24 Rx #2 tabs Advair HFA 115 mcg-21 2 puff inhalation BID #12 grams 12/02/23 10/31/24 Rx mcg/actuation aerosol inhaler (fluticasone propion-salmeterol) albuterol sulfate 90 mcg/actuation See Rx Instructions .Route 01/06/24 10/31/24 Rx aerosol inhaler .COMPLEX #8.5 ea clotrimazole 1 % topical cream 1 applic topical DAILY 04/30/24 10/31/24 History terbinafine HCl 250 mg tablet 250 mg PO DAILY 04/30/24 10/31/24 History ondansetron 8 mg disintegrating 8 mg PO TID PRN nausea and 05/09/24 10/31/24 Rx tablet vomiting #6 tabs tirzepatide 2.5 mg/0.5 mL 2.5 mg subcut WEEKLY 06/12/24 10/31/24 History subcutaneous pen injector (Mounjaro) azelastine 137 mcg (0.1 %) nasal See Rx Instructions .Route 09/04/24 10/31/24 Rx spray .COMPLEX #90 mL montelukast 10 mg tablet See Rx Instructions .Route 09/04/24 10/31/24 Rx .COMPLEX #90 tabs Patient hx anesthesia problems: post op nausea/vomiting Family hx anesthesia problems: none Results Review: All pre-operative results and documents have been reviewed as part of the pre-operative evaluation. [facility] Past Medical History Medical History Right knee DJD Arthritis Anxiety Sleep apnea Asthma Wears glasses Weight gain Claustrophobia History of adverse reaction to anesthesia Primary osteoarthritis of right knee Swelling of right knee joint Surgical History Surgical History History of prior ablation treatment History of left knee surgery History of breast surgery Left side lymph node cancer 1979 Right side skin cancer Family History Family History Sibling Patient's sister is in good health Family history of diabetes mellitus in first degree relative Family history of malignant neoplasm of breast in first degree relative Father Cerebrovascular accident, Onset Age: 39 Patient's father is , Onset Age: 39 Asthma Mother Family history of diabetes mellitus in first degree relative, Onset Age: 72 Patient's mother is , Onset Age: 72 Other Depression Diabetes mellitus Family history of uterine cancer Hypertension Social History Social History Smoking status: Never smoker Second hand tobacco smoke exposure: Yes Alcohol intake: never Substance use: never Do You Feel Safe in your Home?: Yes Lack of Transportation: No Lack of Food: Sometimes True Current Housing: I Have Housing Concerned About Future Housing: No Difficulty Paying Gas/Electric Bills: No Difficulty Paying for Meds: No Currently Unemployed: Decline to Answer Education: High School Diploma/GED Difficulty w/ Childcare or Family Care: No Living arrangements: with family Occupation/Education: other Gender identity (if verbalized by the patient): Female Spiritual care concerns: No Anes - Eval Final PreProcedure Day of Procedure 11/06/24 11:51 Patient weight: morbidly obese Heart: regular rate and rhythm Lungs: decreased breath sounds Airway: Mallampati scale class III Neurological: alert and oriented Last oral intake: >/= 8 hours ASA classification: III Emergent: no Anesthetic plan: proceed Anesthesia type and monitoring: monitored anesthesia care and standard monitoring Results Review: All pre-operative results and documents have been reviewed as part of the pre-operative evaluation. Informed Consent: The patient's anesthetic plan and its attendant risks and benefits were discussed with the patient/family/POA. Questions were solicited and answers provided to the satisfaction of the patient/family/POA.
[2024-11-06] MEDS: LIDOCAINE 2% PF LOCAL INJ 5 ML VIAL 10 ML INFILTRATE (12:13)
[2024-11-06 13:41] VITALS: BP 132/71; PULSE 71; RESP 18; O2SAT 96
[2024-11-06] MEDS: ONDANSETRON INJ 4 MG/2 ML VIAL IV PUSH (14:07)
[2024-11-06 14:11] VITALS: BP 121/67; PULSE 51; RESP 18; O2SAT 97
[2024-11-06] MEDS: oxyCODONE HCL (*CRX) 5 MG TAB IR PO (14:36)
[2024-11-06 14:41] VITALS: BP 125/69; PULSE 58; RESP 16; O2SAT 96
== END 2024-11-06 14:55 | disposition home or self-care (01) ==
PROVIDERS: PCP Internal Medicine; Visit Provider Anesthesiology Pain Medicine
PROC: (CPT 64624; principal; 2024-11-06 12:30)
DX: M17.0 Bilateral primary osteoarthritis of knee (principal); G89.4 Chronic pain syndrome; F41.9 Anxiety disorder, unspecified; G47.30 Sleep apnea, unspecified; J45.909 Unspecified asthma, uncomplicated; F40.240 Claustrophobia; E66.01 Morbid (severe) obesity due to excess calories; Z68.42 Body mass index [BMI] 45.0-49.9, adult; Z79.891 Long term (current) use of opiate analgesic; Z79.84 Long term (current) use of oral hypoglycemic drugs; Z79.51 Long term (current) use of inhaled steroids; Z79.85 Long-term (current) use of injectable non-insulin antidiabetic drugs; Z79.899 Other long term (current) drug therapy; Z98.890 Other specified postprocedural states; Z85.828 Personal history of other malignant neoplasm of skin; Z85.3 Personal history of malignant neoplasm of breast; Z86.79 Personal history of other diseases of the circulatory system; Z80.3 Family history of malignant neoplasm of breast; Z80.49 Family history of malignant neoplasm of other genital organs
CPT/HCPCS: 64624; 99199; A9270; J2003; J2405; J2704; J3010; J7120

== ENCOUNTER 2025-03-26 13:15 | Outpatient (RCR) | payer MEDICARE, MEDICAID, SELFPAY ==
--- NOTE | 2025-01-03 16:49 | OPREHPOC ---
Outpatient Therapy Plan of Care This is a Multidisciplinary Plan of Care that may contain components documented by all disciplines (PT, OT, and ST.) PT Problem 1 PT Problem #1 Knowledge Deficit PT Goal 1 Goal / Goal Update Pt. will demo good understanding of diagnosis and prognosis, HEPs. Target Visit 8 PT Problem 2 PT Problem #2 Pain PT Goal 1 Goal / Goal Update Pt will report?improved pain of 4-5/10 at worst when performing walking with a least restrictive AD. Target Visit 12 PT Problem 3 PT Problem #3 Impaired Balance PT Goal 1 Goal / Goal Update Pt will perform TUG test within 20 seconds or less indicating improved balance with appropriate AD. Target Visit 12 PT Problem 4 PT Problem #4 Impaired Strength PT Goal 1 Goal / Goal Update Pt will demo improved active knee ROM bilaterally: Flexion >95deg and extension of lacking 5deg or less to improve mobility and safety. Target Visit 12
--- NOTE | 2025-01-03 16:49 | PTOPEVAL1 ---
Assessment and note entered by Angelia Bazzi, PT Evaluation Information Assessment Status Evaluation Diagnosis M17.12, M17.11, M54.9, M48.061 ICD-10 Condition Codes (PT) Radiculopathy, lumbar region M54.16,Pain in right knee M25.561,Pain in left knee M25.562,Difficulty Walking R26.2 Onset approx 5 weeks ago Subjective Information Pt reports L knee was messed up from work accident 5 years ago and has been operated on multiple times. Recent issue include pain to R knee, chronic Front of the knee pain but noticed back of knee starts to feel painful and very tight post ablation surgery. She recently needs help from with ADLS in the morning due to feeling worse pain to knees and lowback. Uses a cane or rollator when pain is bad. DOORS assist in housekeeping and sometimes with ADLs too. Pt is very active with community and Echolocation, unable to do it since 5 weeks ago after ablation surgery. Took 3 pain medications prior to coming over to therapy. Back on the L hip is painful in the past week. Has had 10 falls last month usually in the morning. She was told by MD that her bone is severely damaged and she needed a knee replacement but she is not a good candidate due to her size. Reported Pain Level Pain Score 8,7: Self Report Assessment PT Clinical Summary Pt presents to therapy with c/o bilateral knee pain, significantly limited WB tolerance, decreased BLE ROM, weakness and postural instability, gait impairments. She is morbidly obese resulting to being a poor candidate for a knee replacement. She will benefit from skilled PT for pain management, core strengthening, lumbar stabilization, flexibility and strengthening exercises on aquatic environment to reduce pressure to her WB joints as well as land exercises to manage ADLs and ambulation in the home safely. Plan of Care Interventions Aquatic Therapy,Check Out for Orthotic/Prosthetic, Gait Training,Hot Pack/Cold Pack,Manual Therapy, Neuro Re-education,Patient/Caregiver Education, Therapeutic Activities,Therapeutic Exercise, Ultrasound PT Services Indicated Yes Treatment Frequency and 2x/wk x 12 visits Duration These treatments will address the objective and functional deficits as defined above. The patient will be advanced safely and appropriately in order for the patient to progress towards his/her prior level of function. Additional exercises will be introduced and as well as a comprehensive home exercise program upon discharge, if needed, ?to ensure carryover of functional gains achieved in the clinic. This treatment plan has been reviewed and agreement upon by the patient.
--- NOTE | 2025-02-07 12:03 | PCPTNOTE ---
Pt canceled today because she is waiting on test results.
--- NOTE | 2025-02-19 12:53 | PCPTNOTE ---
Pt was a no show today fogetting she had an appointment this date. She notes she is awaiting MRI results and can not come back until she has them and has been cleared.
--- NOTE | 2025-02-27 08:52 | PTOPPROG ---
Assessment and note entered by Angelia Bazzi, PT Re-Evaluation Information Assessment Status Progress Diagnosis M17.12, M17.11, M54.9, M48.061 ICD-10 Condition Codes (PT) Radiculopathy, lumbar region M54.16,Pain in right knee M25.561,Pain in left knee M25.562,Difficulty Walking R26.2 Onset approx 5 weeks ago Subjective Information Pt reports that her knee still hurts but it is really bone on bone, she is not a good candidate for TKR due to current overweight status. She states that since therapy, she feels that the back of her knee is not as tight, she is able to stand and walk a little better. She believes aquatic therapy has helped her and it did not cause pain when doing the exercises in the pool. Her back is getting worse. Her PCP recommended for her to see a neurosurgeon for consultation. States they found a cyst in her spine that caused all the pain and numbness to her legs. She is awaiting neurosurgeon and MRI results for the next plan of care. She is hesitant to do anything that would further hurt her back and she states that her Ortho MD recommended that she stop land exercises but continue all pool therapy for mobility. Assessment PT Clinical Summary Pt demos gains since start of therapy. Presents for re-evaluation with improved gait pattern using a SC. However, she currently demos a decline in exercise tolerance and functional activities due to a persistent and worsening back issue. She recently received MRI awaiting results. She is unable to meet established goals for the knee at this time. She will benefit from continued therapy with focus on aquatic sessions to improve functional strength, flexibility and balance without increased load/strain to lumbosacral area. Discontinuing therapy will result to further loss of mobility and increased risk for falls and poor recovery outcomes post surgery should that be indicated for her lowback. Plan of Care Interventions Aquatic Therapy,Hot Pack/Cold Pack,Patient/ Caregiver Education,Therapeutic Activities PT Services Indicated Yes Treatment Frequency and 1-2x/wk x 8 visits Duration These treatments will address the objective and functional deficits as defined above. The patient will be advanced safely and appropriately in order for the patient to progress towards his/her prior level of function. Additional exercises will be introduced and as well as a comprehensive home exercise program upon discharge, if needed, ?to ensure carryover of functional gains achieved in the clinic. This treatment plan has been reviewed and agreement upon by the patient.
--- NOTE | 2025-02-27 08:53 | OPREHPOC ---
Outpatient Therapy Plan of Care This is a Multidisciplinary Plan of Care that may contain components documented by all disciplines (PT, OT, and ST.) PT Problem 1 PT Problem #1 Knowledge Deficit PT Goal 1 Goal / Goal Update Pt. will demo good understanding of diagnosis and prognosis, HEPs. -able to perform ankle pumps, butt squeezes, ab bracing on land. Target Visit 8 Progress Partially Met PT Problem 2 PT Problem #2 Pain PT Goal 1 Goal / Goal Update Pt will report?improved pain of 4-5/10 at worst when performing walking with a least restrictive AD. Target Visit 12 Progress Not Met PT Problem 3 PT Problem #3 Impaired Balance PT Goal 1 Goal / Goal Update Pt will perform TUG test within 20 seconds or less indicating improved balance with appropriate AD. 1 min 12 seconds TUG with cane Target Visit 12 Progress Not Met PT Problem 4 PT Problem #4 Impaired Strength PT Goal 1 Goal / Goal Update Pt will demo improved active knee ROM bilaterally: Flexion >95deg and extension of lacking 5deg or less to improve mobility and safety. Target Visit 12 Progress Not Met
--- NOTE | 2025-03-05 12:32 | PCPTNOTE ---
pt called 15 minutes prior to her appt to cancel the aquatic session, driving here and forgot her pool shoes; rescheduled appt.
--- NOTE | 2025-04-01 10:05 | PCPTNOTE ---
pt called and canceled today's reevaluation. Saw and is going to have more testing done. She will call and reschedule reeval at later date.
== END 2025-04-02 23:59 | disposition home or self-care (01) ==
LOC: ANHPT 13:15
PROVIDERS: PCP Internal Medicine; Visit Provider Nurse Practitioner Adult Health
DX: M17.0 Bilateral primary osteoarthritis of knee (principal); M25.561 Pain in right knee; M25.562 Pain in left knee; M54.9 Dorsalgia, unspecified; M48.061 Spinal stenosis, lumbar region without neurogenic claudication
CPT/HCPCS: 97110; 97113; 97116; 97140; 97162; 97530; 97750